=== PATIENT | female | born 1970 | race Caucasian/White ===

== ENCOUNTER 2017-12-14 16:43 | Emergency (ER) | payer OTHER, SELFPAY ==
[2017-12-14 16:44] VITALS: BP 158/96; PULSE 86; RESP 16; TEMP 36.4; O2SAT 97; BMI 39.2
--- NOTE | 2017-12-14 17:15 | RAD_ITS ---
STUDY: X-RAY - LEFT KNEE REASON FOR EXAM: Female, 47 years old. Knee pain after fall TECHNIQUE: 4 view(s) of the knee. COMPARISON: None. FINDINGS: Normal visualized distal femur. Normal visualized proximal tibia and fibula. Normal proximal tibiofibular articulation. There is mild degenerative arthrosis of the medial femorotibial compartment. Normal lateral femorotibial compartment. There is mild degenerative arthrosis of the patellofemoral articulation. Projecting over the posterior knee joint inferior and adjacent to the flabella there is a 7.5 mm slightly irregular calcific density. RAD/Knee 4 or More Views IMPRESSION: Degenerative changes. Indeterminate calcific density projecting over the posterior knee joint cannot entirely exclude a loose body. Electronically Signed: Carol Membreno MD at 18:24 EDT Tel , Service support ,
[2017-12-14] MEDS: Naproxen 500 MG Tablet PO (17:30)
--- NOTE | 2017-12-14 18:48 | ED.VISSUMM ---
- ER Visit Summary Date of Service: 12/14/17 Chief Complaint: Fall History of Present Illness: The patient is a 47 F who while at work slipped on a grate and fell from a standing position. She did hit her head on a metal basket and complains of pain at the right side of her head as well as a headache. However she denies loss of consciousness or amnesia. She is not anticoagulated. She has had no vomiting. No neck or back pain. She also complains of left knee pain. She has been able to bear weight. She denies paresthesias or weakness. Physical Examination: Afebrile vitals unremarkable Heart regular rate and rhythm Lungs are clear Abdomen soft Active full range of motion ?4 but does have left knee tenderness I do not appreciate significant effusion Test Results: Left knee x-ray shows degenerative changes and a calcific density posterior to the knee joint and a loose body cannot be excluded. Emergency Department Course and Treatment: Patient was given crutches and a knee immobilizer given abnormal x-ray and will be referred to orthopedics for follow-up. She was advised on rest ice and elevation. She was advised on anti-inflammatory use. She was discharged. Treatment Plan: [] Disposition: Discharge Impression: Left knee sprain, possible internal derangement This note was generated with [employer] dictation software. It may contain incorrect words, spelling, and punctuation that were not noted in review of the chart prior to signing ED Disposition - Plan for ED Patient: Chief Complaint: Fall Referrals: Jorge Joshi MD [Primary Care Provider] -
--- NOTE | 2017-12-14 18:50 | ED.DEP ---
ED Disposition - Plan for ED Patient: Chief Complaint: Fall Instructions: ED Mechanical Fall, ED Sprain Knee Referrals: Jorge Joshi MD [Primary Care Provider] - [facility] [GROUP OF PHYSICIANS] - Jerad Dickens MD [STAFF PHYSICIAN] -
[2017-12-14 19:20] VITALS: RESP 14
== END 2017-12-14 19:22 | disposition home or self-care (01) ==
LOC: ED 17:41
PROVIDERS: Emergency Provider Emergency Medicine; Family Provider Internal Medicine; PCP Internal Medicine
DX: S83.92XA Sprain of unspecified site of left knee, initial encounter (principal); W01.10XA Fall on same level from slipping, tripping and stumbling with subsequent striking against unspecified object, initial encounter; Y93.9 Activity, unspecified; Y92.89 Other specified places as the place of occurrence of the external cause; Y99.0 Civilian activity done for income or pay; M25.562 Pain in left knee; E11.9 Type 2 diabetes mellitus without complications; I10 Essential (primary) hypertension; Z79.899 Other long term (current) drug therapy; Z79.4 Long term (current) use of insulin
CPT/HCPCS: 73564; 99284

== ENCOUNTER → 2018-01-19 15:35 | Outpatient (CLI) | payer OTHER, SELFPAY ==
--- NOTE | 2018-01-19 15:36 | MRI_ITS ---
STUDY: MRI LEFT KNEE REASON FOR EXAM: Female, 47 years old. Pain TECHNIQUE: Standardized fat and water weighted pulse sequences were obtained in all 3 orthogonal planes. COMPARISON: X-ray 12/14/2017 FINDINGS: There is a small joint effusion (image 14/30 axial T2 fat sat). There is edema at the anterior subcutaneous fat (image 14/22 sagittal T2 fat sat). There is loss of articular cartilage at the patella about the apex (image 10/30 axial T2 fat-sat). There is focal osteochondral lesion of the distal femoral trochlear groove of the medial facet measuring approximately 0.5 cm in greatest dimension (image 15/38 sagittal proton-density). There are posterior joint bodies (image 16/38 sagittal proton-density, 17/30 axial T2 fat sat). There is mild periligamentous edema at the medial collateral ligament (image 15, 16, 17/30 coronal T2 fat sat). Normal medial meniscus. Normal hyaline cartilage of the medial femorotibial compartment. Normal medial femoral condyle and tibial plateau. Normal lateral meniscus. Normal hyaline cartilage of the lateral femorotibial compartment. Normal lateral femoral condyle and tibial plateau. Normal proximal tibiofibular articulation. Normal lateral collateral (fibular) ligament. Normal popliteus tendon. Normal biceps femoris tendon. Normal anterior cruciate ligament (ACL). Normal posterior cruciate ligament (PCL). Normal quadriceps tendon. Normal patellar tendon. Normal Hoffa's fat pad. MRI/Lower Ext Joint Only (Routine) IMPRESSION: Thinning of the patellar cartilage with focal osteochondral lesion of the distal femoral trochlear groove Medial collateral ligament sprain Joint effusion with posterior joint bodies Electronically Signed: Rafa Crouch MD at 22:01 EDT Tel , Service support ,
== END ==
PROVIDERS: Family Provider Internal Medicine; PCP Internal Medicine; Visit Provider Physician Assistant
DX: S83.92XA Sprain of unspecified site of left knee, initial encounter (principal); X58.XXXA Exposure to other specified factors, initial encounter; Y93.9 Activity, unspecified; Y92.9 Unspecified place or not applicable; Y99.9 Unspecified external cause status
CPT/HCPCS: 73721

== ENCOUNTER 2018-03-05 23:01 | Emergency (ER) | payer SELFPAY ==
[2018-03-05 23:02] VITALS: BP 143/97; PULSE 90; RESP 16; TEMP 36.7; O2SAT 99; BMI 37.8
--- NOTE | 2018-03-05 23:10 | ED.VISSUMM ---
- ER Visit Summary Date of Service: 03/05/18 Chief Complaint: Dental pain History of Present Illness: The patient is a 48 F presents to the emergency department dental pain. Patient had pain in her right lower jaw for the past month. She is actually scheduled to see dentistry on March 20. She states over the past week the pain is worsened but today, she began have some swelling in her right lower jaw. She denies any fevers or chills. She denies any trouble speaking or swallowing. Patient has not seen a dentist in some time. Physical Examination: Exam is relatively unremarkable. Posterior oropharynx is widely patent. There is no trismus or stridor. Submental space is soft. Patient has some widespread dental disease. There is evidence of focal abscess at tooth 29. Neck is supple. There is some right-sided lymphadenopathy that is nontender. Heart regular rate and rhythm. Lungs clear. Chest nontender. Abdomen soft nontender nondistended. Test Results: [] Emergency Department Course and Treatment: Patient has evidence of a dental abscess. There is no Ras angina. She has no trismus or stridor. The patient does not have health insurance. She is given a dose of Augmentin here and will be kept on penicillin as an outpatient. She will be given 2 days of analgesics. I did behavioral school counselors her that if her symptoms worsen she is to return. She is comfortable this plan of care and will be discharged home. Treatment Plan: [] Disposition: Discharge Impression: 1. Dental abscess tooth 29. This note was generated with [employer] dictation software. It may contain incorrect words, spelling, and punctuation that were not noted in review of the chart prior to signing ED Disposition - Plan for ED Patient: Chief Complaint: Other, Pain/Inj Instructions: ED Abscess Dental Prescriptions: Hydrocodone Bitart/Apap 5-325 [[place] 5MG-325MG] 1 tab PO Q6H PRN PRN 3 Days #7 tab PRN Reason: Pain Penicillin V Potassium 500 mg PO 4X/DAY #40 tab Referrals: Jorge Joshi MD [Primary Care Provider] -
--- NOTE | 2018-03-05 23:13 | ED.DCSUM_ITS ---
- ER Visit Summary Date of Service: 03/05/18 Chief Complaint: Dental pain History of Present Illness: The patient is a 48 F presents to the emergency department dental pain. Patient had pain in her right lower jaw for the past month. She is actually scheduled to see dentistry on March 20. She states over the past week the pain is worsened but today, she began have some swelling in her right lower jaw. She denies any fevers or chills. She denies any trouble speaking or swallowing. Patient has not seen a dentist in some time. Physical Examination: Exam is relatively unremarkable. Posterior oropharynx is widely patent. There is no trismus or stridor. Submental space is soft. Patient has some widespread dental disease. There is evidence of focal abscess at tooth 29. Neck is supple. There is some right-sided lymphadenopathy that is nontender. Heart regular rate and rhythm. Lungs clear. Chest nontender. Abdomen soft nontender nondistended. Test Results: [] Emergency Department Course and Treatment: Patient has evidence of a dental abscess. There is no Ras angina. She has no trismus or stridor. The patient does not have health insurance. She is given a dose of Augmentin here and will be kept on penicillin as an outpatient. She will be given 2 days of analgesics. I did assistant corporation counsel her that if her symptoms worsen she is to return. She is comfortable this plan of care and will be discharged home. Treatment Plan: [] Disposition: Discharge Impression: 1. Dental abscess tooth 29. This note was generated with [employer] dictation software. It may contain incorrect words, spelling, and punctuation that were not noted in review of the chart prior to signing ED Disposition - Plan for ED Patient: Chief Complaint: Other, Pain/Inj Instructions: ED Abscess Dental Prescriptions: Hydrocodone Bitart/Apap 5-325 [[place] 5MG-325MG] 1 tab PO Q6H PRN PRN 3 Days #7 tab PRN Reason: Pain Penicillin V Potassium 500 mg PO 4X/DAY #40 tab Referrals: Jorge Joshi MD [Primary Care Provider] -
[2018-03-05] MEDS: Amox/Clavulanate 875 MG Tablet PO (23:22)
[2018-03-05] MEDS: HYDROcodone Bitartrate/Apap 5/325 Tablet PO (23:25)
== END 2018-03-05 23:26 | disposition home or self-care (01) ==
LOC: ED 23:16
PROVIDERS: Emergency Provider Emergency Medicine; Family Provider Internal Medicine; PCP Internal Medicine
DX: K04.7 Periapical abscess without sinus (principal); E11.9 Type 2 diabetes mellitus without complications; Z79.4 Long term (current) use of insulin; Z79.899 Other long term (current) drug therapy
CPT/HCPCS: 99283

== ENCOUNTER 2019-03-25 21:10 | Emergency (ER) | payer OTHER, SELFPAY ==
[2019-03-25 21:11] VITALS: BP 154/97; PULSE 99; RESP 18; TEMP 36.3; O2SAT 95; BMI 36.6
--- NOTE | 2019-03-25 21:28 | ED.VIS.BACK ---
History of Present Illness Chief Complaint: Lower Extremity Injury Detail of Chief Complaint: Left lower back pain with posterior extremity pain Informant: Patient Onset: Days Context: Sudden Onset Injury: - - No history of injury Timing: Continuous Quality: Aching Location: Lumbar, Buttock, Left Leg Current Severity: Mild Maximum Severity: Moderate Relieved by: Nothing Associated Symptoms: Radiation to Left Leg, - - All other symptoms that were not highlighted are negative. She denies saddle paresthesia and anesthesia. She denies buckling of her knees going up or down steps. She denies foot drop. Narrative: Patient is a middle-age woman who presents with left lower back pain with radiation posteriorly to her ankle. Back pain started last week. Extremity pain started several days ago. She denies bowel or bladder dysfunction. No saddle paresthesia or anesthesia. She she denies foot drop. She denies quadricep weakness going up or down steps. She denies fever or chills. Prior similar symptoms: No Recent Illness/Hospitalization: No - Past Medical History (1) History of diabetes mellitus, type I Status: Acute Past Medical History - Allergies and Home Meds Allergies/Adverse Reactions: Allergies No Known Allergies Allergy (Verified 03/25/19 21:13) Primary Care Physician: Fazal Ford PA [Primary Care Provider] - Prior records reviewed: Yes - She of hypothyroidism Lives: Alone Smoking Status: Never smoker Alcohol: None Review of Systems General: Denies: Chills, Fever, Sweats Eyes: Denies: Visual changes - bilaterally, Diplopia ENT: Denies: Rhinorrhea, Sore throat Cardiovascular: Denies: Chest pain, Palpitations Respiratory: Denies: Dyspnea, Cough, Dyspnea on exertion Gastrointestinal: Denies: Abdominal pain, Nausea, Vomiting, Diarrhea, Melena, Hematochezia Genitourinary: Denies: Dysuria, Hematuria, Frequency Musculoskeletal: Reports: Back pain, Extremity Pain. Denies: Myalgias, Arthralgias, Neck pain, Swelling Skin: Denies: Rash, Wounds Neurological: Denies: Headache, Weakness, Numbness Hematologic: Denies: Easy bruising, Easy bleeding Physical Exam Vital Signs/Narrative: Vital Signs Temp Pulse Resp BP Pulse Ox 03/25/19 21:11 97.3 F L 99 18 154/97 H 95 Inital Vital Signs reviewed: Yes General: Well nourished, Well developed Head: Normocephalic, Atraumatic Eyes: Perrl, EOMI ENT: Moist mucous membranes, No rhinorrhea Neck: Supple, Nontender Cardiovascular: Regular rate, Regular rhythm, No murmurs Respiratory: No distress, CTA bilaterally, Chest nontender Abdomen: Soft, Nontender, Nondistended, Normal bowel sounds Back: Normal Inspection, Nontender Extremeties: Nontender, No edema Skin: Normal color, No rash Neuro: Alert, Oriented, Normal Strength - EHL is intact, Normal Sensation, Normal DTR, Normal Gait - Patient is able to walk on her heels and toes. Patient is able to perform 1 legged squat both right and left., Normal Reflexes - Patella and ankle reflexes are 1+ and symmetric. Reflexes: Negative for: Right Babinski, Left Achilles, Left Clonus, Left Babinski Psychological: Normal affect Diagnostic/Tx/Re-eval - Medical Decision Making Complaint of low back pain radicular pain positive straight leg test on the right with a negative crossover test and positive bowstring test suspect patient has herniated disc. She has no neurologic findings imaging is not emergently warranted or indicated. Since she drove herself to the emergency department she was given a prescription for opiate analgesia. NSAIDs were not given because she a diabetic with renal disease. ED Disposition - Plan for ED Patient: Disposition: Home or Assisted Living Diagnosis: Left-sided low back pain with sciatica Instructions: BACK PAIN w/ SCIATICA Prescriptions: Hydrocodone Bitart/Apap 5-325 [[place] 5MG-325MG] 1 tab PO Q6H PRN PRN 3 Days #10 tab PRN Reason: Pain Prescription Printed Referrals: Fazal Ford PA [Primary Care Provider] - 3-5 Days if not improving
[2019-03-25 21:50] VITALS: BP 145/101; PULSE 66; RESP 17
== END 2019-03-25 21:51 | disposition home or self-care (01) ==
PROVIDERS: Emergency Provider Emergency Medicine; Family Provider Physician Assistant; PCP Physician Assistant
DX: M54.42 Lumbago with sciatica, left side (principal); E10.9 Type 1 diabetes mellitus without complications; N28.9 Disorder of kidney and ureter, unspecified; Z79.4 Long term (current) use of insulin; Z79.899 Other long term (current) drug therapy
CPT/HCPCS: 99282

== ENCOUNTER 2020-08-13 13:59 | Observation (INO) | payer OTHER, SELFPAY ==
[2020-08-13] VITALS (8 sets, daily range): BP systolic 122–153; BP diastolic 81–104; PULSE 85–106; RESP 15–20; TEMP 36.4–36.9; O2SAT 93–99; BMI 37.8; BMI 37.9
--- NOTE | 2020-08-13 14:06 | EKG12_ITS ---
Test Reason : Blood Pressure : / mmHG Vent. Rate : 101 BPM Atrial Rate : 101 BPM P-R Int : 120 ms QRS Dur : 074 ms QT Int : 342 ms P-R-T Axes : 054 049 048 degrees QTc Int : 443 ms Sinus tachycardia Otherwise normal ECG Confirmed by DIPIKA EVANGELISTA, MARIA ELENA ([id number]), news video editor NORMA NGUYEN ([id number]) on 08/15/2020 2:02:02 PM Referred By: JOSE Confirmed By:RAJIV BAR MD
--- NOTE | 2020-08-13 14:22 | NURSING ---
NO OLD EKGS
--- NOTE | 2020-08-13 14:35 | ED.VISSUMM ---
- ER Visit Summary Date of Service: 08/13/20 Chief Complaint: Chest pain History of Present Illness: The patient is a 50 F presenting with chest pain, shortness of breath. Patient states that she walked to the mailbox today and started having midsternal chest pressure. She denies radiation of her pain. She was short of breath with these symptoms. She states over the past 3 to 4 days she has had chills, myalgias, diarrhea, nausea. She had a mild cough. She states her daughter recently tested positive for Covid. She is a smoker. She denies PE/DVT risk factors. She does not know her family history. Physical Examination: Vitals are stable. Patient is afebrile. Alert no acute distress. HEENT exam is unremarkable. Neck is supple. Lungs are clear and equal bilaterally. Heart is regular and tachycardic Abdomen is soft nontender nondistended. Extremities are unremarkable. Skin is warm and dry. No focal neurologic deficit. Remainder of exam is unremarkable. Emergency Department Course and Treatment: EKG is sinus tachycardia rate of 101. Chest x-ray shows minimal increased linear markings at the lung bases suggestive of linear atelectasis. CBC, chemistries unremarkable other than glucose 357. Troponin is negative. D-dimer negative. Patient is given IV fluids, Zofran, aspirin. Covid is negative. She is chest pain-free on reevaluation. Due to cardiac risk factors, discussed with hospitalist for observation. Disposition: Observation Impression: Chest pain This note was generated with [employer] dictation software. It may contain incorrect words, spelling, and punctuation that were not noted in review of the chart prior to signing ED Disposition - Plan for ED Patient: Referrals: Fazal Ford PA [Primary Care Provider] -
[2020-08-13] MEDS: Ondansetron 4 MG/2 ML Vial IV (15:05)
[2020-08-13] MEDS: 0.9% Normal Saline 1,000 ML 999 ML IV (15:06)
--- NOTE | 2020-08-13 15:10 | RAD_ITS ---
STUDY: X-RAY CHEST REASON FOR EXAM: Female, 50 years old. PT C/O CHEST PAIN AND SOB THAT STARTED WHILE WALKING OUT TO MAILBOX. SENT IN BY URGENT CARE. PT ALSO HAS COVID SYMPTOMS TECHNIQUE: Single AP portable view of the chest. COMPARISON: None. FINDINGS: EKG electrodes are seen. Minimal increased linear markings at the lung bases suggestive of lingular atelectasis. There is no demonstrated pleural abnormality. Normal size heart. Normal mediastinum and clinton. Normal visualized pulmonary arteries. Normal visualized aortic arch and descending thoracic aorta. Normal visualized thoracic spine. Normal visualized ribs, clavicles, and shoulders. There is no demonstrated abnormality of the visualized soft tissue structures of the upper abdomen. RAD/Chest 1 View (Portable) IMPRESSION: Minimal increased linear markings at the lung bases suggestive of linear atelectasis. Electronically Signed: Ramos Lewis, at 15:24 EST , Service support ,
[2020-08-13 15:25] LABS: Absolute Lymphocyte Count 1.89 X10^3/uL (0.83-4.51); Absolute Neutrophil Count 2.9 X10^3/uL (2.0-7.7); Basophil# 0.05 X10^3/uL; Basophil% 0.9 % (0-1); Eosinophil# 0.09 X10^3/uL; Eosinophils% 1.7 % (0-5); Hematocrit 42.2 % (37-47); Hemoglobin 14.2 g/dL (12.0-15.0); Lymphocyte # 1.89 X10^3/ul (4.0); Lymphocyte % 35.4 % (19-41); Mean Corp Hgb Conc 33.6 g/dL (32-36); Mean Corpuscular Hgb 29.2 pg (27.0-32.0); Mean Corpuscular Volume 86.7 fL (81-99); Mean Platelet Vol. 11.1 fl (6.2-12.0); Monocyte# 0.37 X10^3/uL; Monocyte% 6.9 % (0-10); NRBC Flagged by Analyzer 0 % (0-5); Neutrophil # 2.92 X10^3/uL (2.7-7.7); Neutrophil % 54.7 % (47-70); Platelet Count 216 K/mm3 (150-450); RBC Distribution Width CV 12.8 % (11.6-14.6); RBC Distribution Width SD 40.3 fl (35.1-43.9); Red Blood Count 4.87 M/mm3 (4.2-5.4); White Blood Count 5.3 K/mm3 (4.4-11.0)
[2020-08-13 15:49] LABS: Anion Gap 5 (5-15); BUN 14 mg/dL (7-18); BUN/Creat Ratio 16.5 RATIO (10-20); Chloride 106 mmol/L (98-107); Creatinine, Serum 0.85 mg/dL (0.55-1.02); EST Glomerular Filtration Rate 75 mL/min (>60); Est Glom Filt Rate - Afr Amer 91 mL/min (>60); Estimated Creatinine Clearance 55.61 ml/min; Glucose 357 mg/dL (74-106); Sodium Level 139 mmol/L (136-145)
[2020-08-13 15:55] LABS: D-Dimer Quantitative (DVT/PE) 0.36 FEU/ug/m (0.27-0.49)
--- NOTE | 2020-08-13 17:02 | NURSING ---
[address]
[2020-08-13] MEDS: Aspirin 325 MG Tablet PO (17:09)
--- NOTE | 2020-08-13 17:40 | EKG12_ITS ---
Test Reason : ADMISSION Blood Pressure : / mmHG Vent. Rate : 086 BPM Atrial Rate : 086 BPM P-R Int : 132 ms QRS Dur : 084 ms QT Int : 370 ms P-R-T Axes : 051 043 043 degrees QTc Int : 442 ms Normal sinus rhythm Normal ECG Confirmed by ZE EVANGELISTA, KUSHAL ([id number]), greeting card editor TABBY ASTUDILLO ([id number]) on 08/20/2020 1:15:05 PM Referred By: Confirmed By:KUSHAL KUNZ MD
--- NOTE | 2020-08-13 17:47 | PCM.HP.STD ---
Problem List (1) Chest pain Status: Acute (2) Diabetes Status: Chronic Qualifiers: Diabetes mellitus type: type 2 Diabetes mellitus complication status: with hyperglycemia (3) Hypothyroidism Status: Chronic (4) Nicotine abuse Status: Chronic (5) HTN (hypertension) Status: Chronic (6) HLD (hyperlipidemia) Status: Chronic (7) Obesity Status: Chronic History of Present Illness Date of Admission: 08/13/20 Chief Complaint: chest pain The patient is a 50 year old F with pmhx of DMt2, HTN, HLD, Nicotine abuse, obesity, hypothyroidism who presented to the ER with chest pain. [place] the [place] and developed a severe chest heaviness with associated SOB. It improved with rest. She then walked to the neighbors house to pay the rent and it became worse again. The pain radiated to her back, and she had associated nausea and lightheadedness. She drove to the ER. The pain persisted until about an hour ago while she was in the ER it started to go away. She states she still has some mild discomfort. She states she has never had anything like this. She has had intermittent headaches and cough this week. She has cut back on her smoking because of coughing. She was smoking a ppd and now is down to a pack per day. She has smoked since she was a teenager. She does not know her family hx as she was adopted. She has not had a stress test before and is not aware of heart or lung disease. [] Past Medical History Past Medical History (Chronic Problems): Chronic Problems (Last Reviewed 01/23/18 @ 16:28 by Leydi Chan) Diabetes (Chronic) Hypothyroidism (Chronic) Nicotine abuse (Chronic) HTN (hypertension) (Chronic) HLD (hyperlipidemia) (Chronic) Obesity (Chronic) Medical History: Medical History (Last Reviewed 01/23/18 @ 16:28 by Leydi Chan) Diabetes E11.9 Knee pain M25.569 Migraines G43.909 Thyroid disease E07.9 Toxemia in O14.90 Allergies No Known Allergies Allergy (Verified 08/13/20 14:00) Home Medications: Ambulatory Orders Medication Instructions Recorded Insulin Glargine,Hum.rec.anlog 25 unit SQ QHS 12/14/17 [Lantus] Atorvastatin Calcium [Lipitor] 20 mg PO DAILY 08/13/20 Dulaglutide [Trulicity] 1.5 mg SQ MO 08/13/20 Levothyroxine Sodium [Euthyrox] 50 mcg PO DAILY 08/13/20 Lisinopril [Zestril] 2.5 mg PO DAILY 08/13/20 Surgical History: Surgical History (Last Reviewed 01/23/18 @ 16:28 by Leydi Chan) Hx of breast reduction, elective Z98.890 Hx of section Z98.891 Surgical History: - - c section, breast reduction Psychiatric History: No pertinent psych hx [employer] History: No pertinent [employer] history Lives: Alone Smoking Status: Current every day smoker Tobacco Use: Cigarettes Alcohol: Occasional Drugs: None - *Family History Maternal History Items: - - family hx unknown due to being adopted. Review of Systems Constitutional: Denies: Chills, Fever, Weight Change HEENT: Denies: Head Aches, Sinus Congestion, Sinus Drainage Cardiovascular: Reports: Chest Pain, Heaviness, Light Headedness. Denies: Palpitations Respiratory: Reports: Cough, Shortness of Breath, Shortness of breath upon exertion. Denies: Shortness of breath at rest, Sputum production, Wheezing Gastrointestinal: Denies: Abdominal Pain, Dyspepsia, Nausea, Vomiting Genitourinary: Denies: Dysuria, Hesitancy, Urgency Musculoskeletal: Denies: Joint Pain, Joint Tenderness, Muscle pain Skin: Denies: Lesions, Rash, Wounds Neurological: Denies: Numbness, Tingling, Focal weakness Psychiatric: Denies: Anxiety, Depression, Homicidal Ideations, Suicidal Ideations Hematologic/ Lymphatic: Denies: Easy Bruising, Easy Bleeding VTE Information - Inpt Only VTE Present on Admission: No VTE Mechan Device Prophylaxis: None VTE Pharm Prophylaxis ordered?: Yes - Physical Exam Vitals/I&O's: Vital Signs Temp Pulse Resp BP Pulse Ox 98.4 F 90 17 145/99 H 97 08/13/20 17:30 08/13/20 17:39 08/13/20 17:30 08/13/20 17:30 08/13/20 17:30 Oxygen Delivery Method Room Air Weight: 194 lb 0.108 oz Body Mass Index (BMI) 37.8 Finger Stick Blood Glucose 191 Intake and Output for Last 24 Hours 08/11/20 08/12/20 08/13/20 23:59 23:59 23:59 Intake Total 1000 / 999 Balance 1000 / 1000 General: Alert, Oriented x3, Cooperative HEENT: Atraumatic, PERRLA, EOMI, Normocephalic Neck: Supple, No JVD, Negative Carotid Bruits Lungs: Clear to auscultation, Normal air movement Cardiovascular: Regular rate, No murmurs Abdomen: Bowel Sounds Present, Soft, Non Tender, Obese Extremities: No edema, Capillary Refill Less than 3 Seconds Skin: No rashes, No breakdown Musculoskeletal: No Tenderness to Palpation of Joints or Extremities Neurological: Cranial nerves II-XII grossly intact Psych/Mental Status: Normal Affect, Appropriate, Alert and oriented to time, place, person, mood and affect Microbiology Past 72 Hours 08/13/20 15:35 Mucosa - Nose SARS-CoV-2 Antigen (Rapid) - Final Laboratory Results 08/13/20 15:07: WBC 5.3, RBC 4.87, Hgb 14.2, Hct 42.2, MCV 86.7, MCH 29.2, MCHC 33.6, RDW Std Deviation 40.3, RDW Coeff of Dinesh 12.8, Plt Count 216, MPV 11.1, Immature Gran % (Auto) 0.400, Neut % (Auto) 54.7, Lymph % (Auto) 35.4, Sullivan % (Auto) 6.9, Eos % (Auto) 1.7, Baso % (Auto) 0.9, Absolute Neuts (auto) 2.9, Absolute Lymphs (auto) 1.89, Nucleated RBC % 0 08/13/20 15:07: Sodium 139, Potassium 4.0, Chloride 106, Carbon Dioxide 28.0, Anion Gap 5, BUN 14, Creatinine 0.85, Estim Creat Clear Calc 55.61, Est GFR (MDRD) Af Amer 91, Est GFR (MDRD) Non-Af 75, BUN/Creatinine Ratio 16.5, Glucose 357 H, Calcium 9.0, Troponin I < 0.015 08/13/20 15:07: D-Dimer Quant (PE/DVT) 0.36 Current Medications Aspirin (Aspirin 81 Mg Tab.Chew) 81 mg PO DAILY@0800 [facility] Atorvastatin Calcium (Atorvastatin Calcium 20 Mg Tablet) 20 mg PO DAILY [facility] Dextrose (Dextrose 50%-Water 25 Gm/50 Ml Disp.Syrin) 0 gm IV X1 PRN; Protocol PRN Reason: Hypoglycemia Enoxaparin Sodium (Enoxaparin 40 Mg/0.4 Ml Syringe) 40 mg SC DAILY [facility] Glucagon (Glucagon 1 Mg/Ml Syringe) 1 mg IM .X1 PRN PRN Reason: Hypoglycemia Insulin Human Lispro (Insulin Lispro 100 Unit/Ml Insuln.Pen) 0 unit SC ACHS [facility]; Protocol Levothyroxine Sodium (Levothyroxine 50 Mcg Tablet) 50 mcg PO DAILY [facility] Lisinopril (Lisinopril 2.5 Mg Tablet) 2.5 mg PO DAILY [facility] Morphine Sulfate (Morphine 2 Mg/Ml Syringe) 1 mg IV Q2H PRN PRN PRN Reason: Pain Score 6-10 Nitroglycerin (Nitroglycerin (Inpatient Use) 0.4 Mg Tab.Subl) 0.4 mg SUBLINGUAL Q5M PRN PRN Reason: CARDIAC/CHEST PAIN Non-Formulary Medication (Insulin Glargine,Hum.Rec.Anlog) 25 unit SQ QHS [facility] Oxycodone HCl (Oxycodone 5 Mg Tablet) 5 mg PO Q6H PRN PRN PRN Reason: Pain Score 6-10 Sodium Chloride (0.9% Saline Lock 10 Ml Syringe) 10 - 40 ml IV UD PRN PRN Reason: SALINE FLUSH Assessment/Plan All Active Problems (Last Reviewed 01/23/18 @ 16:28 by Leydi Chan) History of diabetes mellitus, type I (Acute) Chest pain (Acute) Sprain of left knee (Acute) 1. Chest pain - multiple risk factors - DMt2 (uncontrolled BS:357), HTN, HLD, heavy smoking hx, obesity, hx. Trop neg, EKG neg, CXR with some atelectasis, negative D dimer. Covid neg. Cycle enzymes, repeat EKG per protocol, stress test in AM. Mild tachy, check mag. 2. DMt2 with hyperglycemia and obesity - hold lantus, SSI ordered with accuchecks. Check A1C given significant hyperglycemia. Network Consultant consult. 3. HTN - lisinopril 4. HLD - statin, check AM FLP 5. Hypothyroidism - check tsh, continue synthroid 6. Nicotine abuse - recently, 1/2 ppd, formerly ppd, smoked off/on since teenager. DVT ppx: lovenox This patient was seen by Rodo Bradford PA-C under the supervision of Dr. Geronimo.
[2020-08-13] MEDS: Insulin Lispro 100 UNIT/ML INSULN.PEN SC ×2 (18:16→22:22)
[2020-08-13 18:52] LABS: Magnesium 2.1 mg/dL (1.6-2.6); Thyroid Stim Hormone (TSH) 6.43 uIU/mL (0.358-3.74)
[2020-08-13 18:59] LABS: Hemoglobin A1c 10.6 % (3.8-5.6)
[2020-08-13 21:21] LABS: Bedside Glucose 305 mg/dL (70-110)
[2020-08-13] MEDS: Atorvastatin Calcium 20 MG Tablet PO (22:22)
[2020-08-13 23:10] LABS: Bedside Glucose 331 mg/dL (70-110)
[2020-08-14 03:00] VITALS: PULSE 73
[2020-08-14 04:10] VITALS: BP 145/89; PULSE 86; RESP 18; TEMP 36.6; O2SAT 95
--- NOTE | 2020-08-14 05:55 | EKG12_ITS ---
Test Reason : AM EKG Blood Pressure : / mmHG Vent. Rate : 075 BPM Atrial Rate : 075 BPM P-R Int : 126 ms QRS Dur : 076 ms QT Int : 400 ms P-R-T Axes : 015 038 030 degrees QTc Int : 446 ms Normal sinus rhythm Low voltage QRS Borderline ECG Confirmed by ZE EVANGELISTA, KUSHAL ([id number]), field map editor TABBY ASTUDILLO ([id number]) on 08/20/2020 1:37:52 PM Referred By: FREDERIC Confirmed By:KUSHAL KUNZ MD
[2020-08-14 06:22] LABS: Cholesterol 123 mg/dL (200); High Density Lipoprotein 48 mg/dL; Triglycerides 80 mg/dL; Very Low Density Lipoprotein 16 mg/dL (5-40)
[2020-08-14 06:30] VITALS: BP 127/89; PULSE 77; RESP 18; TEMP 36.9; O2SAT 94
[2020-08-14] MEDS: Levothyroxine 50 MCG Tablet PO (06:33)
[2020-08-14] MEDS: Aspirin 81 MG TAB.CHEW PO (06:33)
[2020-08-14] MEDS: Lisinopril 2.5 MG Tablet PO (06:33)
[2020-08-14 06:45] LABS: Bedside Glucose 251 mg/dL (70-110)
[2020-08-14 06:47] VITALS: PULSE 80
[2020-08-14 07:49] LABS: T4 Free Direct 0.78 ng/dL (0.76-1.46)
[2020-08-14 10:19] VITALS: BP 146/81; PULSE 95; RESP 18; TEMP 36.9; O2SAT 96
[2020-08-14] MEDS: Insulin Lispro 100 UNIT/ML INSULN.PEN SC (11:20)
--- NOTE | 2020-08-14 11:44 | STRESSREP ---
Stress Test Report Date: 08/14/2020 Procedure: Exercise tolerance test/imaging study Indications: Chest pain Consent: Per the patient Procedure: The patient exercised on a To protocol for 6 minutes achieving a peak heart rate of 157 bpm (93% predicted maximal heart rate) with a peak blood pressure 154/90 mmHg and a peak MET capacity of 7 METs. The baseline ECG demonstrated normal sinus rhythm. The peak exercise ECG demonstrated sinus tachycardia with no significant ST-T changes. EKG during recovery revealed no significant ischemic ST-T changes [There were no cardiac dysrhythmias pretest, during exercise, or recovery]. The functional capacity was considered slightly decreased for age. There was [no complaint of chest discomfort during exercise or recovery]. The examination was discontinued secondary to dyspnea, leg discomfort. Impression: 1. Technically adequate (percent predicted maximal heart rate greater than 85%) exercise tolerance test 2. Stress test is negative for exercise-induced EKG changes of ischemia 3. The test test is negative for exercise-induced chest pain 4. Functional capacity is slightly decreased for age 5. Nuclear images pending Myocardial perfusion imaging study: Technique: The patient was injected with 14.3 mCi of technetium 99m Cardiolite and subsequently rest SPECT Cardiolite nuclear imaging was obtained in the horizontal long, vertical long, and short axis views. The patient exercised on a To protocol. Please see above for details. The patient was injected with 43.9 mCi of technetium 99m Cardiolite and subsequently stress SPECT Cardiolite nuclear imaging was obtained in the horizontal long, vertical long, and short axis views. A gated Cardiolite study at peak stress was obtained. Interpretation: Rest and stress SPECT Cardiolite nuclear imaging status post realignment, normalization, and attenuation correction, demonstrates normal myocardial radioisotope uptake. The gated Cardiolite study demonstrates no significant regional wall motion abnormalities. The reported LVEF is greater than 70%. Impression: 1. There is no evidence of significant ischemia or infarction. 2. The gated Cardiolite study reports an LVEF of greater than 70%. This note was generated with [employer] software. It may contain incorrect words, spelling, and punctuation that were not noted in checking the note before signing.
--- NOTE | 2020-08-14 11:59 | DCINST_ITS ---
- Discharge Diagnoses Current Active Problems: Current Active and Chronic Problems (Last Reviewed 01/23/18 @ 16:28 by Leydi Chan) Chest pain (Acute) Diabetes (Chronic) Hypothyroidism (Chronic) Nicotine abuse (Chronic) HTN (hypertension) (Chronic) HLD (hyperlipidemia) (Chronic) Obesity (Chronic) You will use the following diet at home:: Calorie/Carbohydrate Controlled (specify 1200, 1400, etc), Cardiac Discharge Activity: Return to Normal Activity Call your doctor if you observe: Shortness of breath, Dizziness, Fainting spells, Chest pain Allergies/Adverse Reactions: Allergies No Known Allergies Allergy (Verified 08/13/20 14:00) Medications to take at Discharge Insulin Glargine,Hum.rec.anlog [Lantus] 25 unit SQ QHS 12/14/17 Atorvastatin Calcium [Lipitor] 20 mg PO DAILY 08/13/20 Dulaglutide [Trulicity] 1.5 mg SQ MO 08/13/20 Levothyroxine Sodium [Euthyrox] 50 mcg PO DAILY 08/13/20 Lisinopril [Zestril] 2.5 mg PO DAILY 08/13/20 Primary Care Physician: Fazal Ford, PA [Primary Care Provider] - Please follow up with your Primary Care Physician in: 1 Week Test Results: Test results from this visit will be discussed in further detail at your follow- up appointment, if applicable.
[2020-08-14 12:01] LABS: Bedside Glucose 256 mg/dL (70-110)
--- NOTE | 2020-08-14 12:22 | PCM.DC.SUM ---
<Magali Maria PLASTERER APPRENTICE - Last Filed: 08/14/20 12:31> Discharge Date and Diagnosis - Problem List Patient Problems: Active and Suspected Problems (Last Reviewed 01/23/18 @ 16:28 by Leydi Chan) Chest pain (Acute) Date of Admission: 08/13/20 Date of Discharge: 08/14/20 - Primary Discharge Diagnosis Acute Problems: Active Problems (Last Reviewed 01/23/18 @ 16:28 by Leydi Chan) 1. Chest pain, ACS ruled out 2. Type 2 diabetes mellitus, poorly controlled 3. Hypertension 4. Hyperlipidemia 5. Hypothyroidism 6. Tobacco dependence - Secondary Discharge Diagnosis Chronic Problems: Chronic Problems (Last Reviewed 01/23/18 @ 16:28 by Leydi Chan) Diabetes (Chronic) Hypothyroidism (Chronic) Nicotine abuse (Chronic) HTN (hypertension) (Chronic) HLD (hyperlipidemia) (Chronic) Obesity (Chronic) Hospital Course and Treatment Imaging Results: Diagnostic Data Chest X-Ray 08/13/20 15:10 IMPRESSION: Minimal increased linear markings at the lung bases suggestive of linear atelectasis. Electronically Signed: Ramos Lewis, at 15:24 EST , Service support , Operations: None Procedures: Stress test Summary of Care Provided: The patient is a 50 year old F admitted 08/13/2020 due to chest pain. 1. Chest pain, ACS ruled out-troponin negative. Patient underwent nuclear stress test which was negative for ischemia. LVEF greater than 70%. D-dimer negative. Follow-up with PCP in 1 week. 2. Type 2 diabetes mellitus, poorly controlled-hemoglobin A1c 10.6%. Dietitian consulted for diabetes education. Patient is on Trulicity and Lantus. Recommend close follow-up with PCP for further adjustment and monitoring. 3. Hypertension-stable, continue lisinopril. 4. Hyperlipidemia-on statin. 5. Hypothyroidism-continue levothyroxine regimen. 6. Tobacco dependence-encouraged cessation. General: Alert, Oriented x3, Cooperative HEENT: Atraumatic, PERRLA, EOMI, Normocephalic Neck: Supple, No JVD, Negative Carotid Bruits Lungs: Clear to auscultation, Normal air movement Cardiovascular: Regular rate, No murmurs Abdomen: Bowel Sounds Present, Soft, Non Tender, Obese Extremities: No edema, Capillary Refill Less than 3 Seconds Skin: No rashes, No breakdown Musculoskeletal: No Tenderness to Palpation of Joints or Extremities Neurological: Cranial nerves II-XII grossly intact Psych/Mental Status: Normal Affect, Appropriate Patient seen and examined prior to discharge. Physical assessment as noted above. Patient is stable for discharge with follow up recommendations as noted above. This patient was seen by SHIRIN Servin under the supervision of Dr. Lang. Patient Problems: Active and Suspected Problems (Last Reviewed 01/23/18 @ 16:28 by Leydi Chan) Chest pain (Acute) - Physical Exam Vitals/I&O's: Vital Signs Temp Pulse Resp BP Pulse Ox 98.4 F 95 18 146/81 H 96 08/14/20 10:19 08/14/20 10:19 08/14/20 10:19 08/14/20 10:19 08/14/20 10:19 Oxygen Delivery Method Room Air Weight: 194 lb 0.108 oz Body Mass Index (BMI) 37.8 Finger Stick Blood Glucose 191 Intake and Output for Last 24 Hours 08/12/20 08/13/20 08/14/20 23:59 23:59 23:59 Intake Total 1000 / 1000 240 / 240 Balance 1000 / 1000 240 / 240 Microbiology Past 72 Hours 08/13/20 15:35 Mucosa - Nose SARS-CoV-2 Antigen (Rapid) - Final Laboratory Results 08/13/20 15:07: WBC 5.3, RBC 4.87, Hgb 14.2, Hct 42.2, MCV 86.7, MCH 29.2, MCHC 33.6, RDW Std Deviation 40.3, RDW Coeff of Dinesh 12.8, Plt Count 216, MPV 11.1, Immature Gran % (Auto) 0.400, Neut % (Auto) 54.7, Lymph % (Auto) 35.4, [place] % (Auto) 6.9, Eos % (Auto) 1.7, Baso % (Auto) 0.9, Absolute Neuts (auto) 2.9, Absolute Lymphs (auto) 1.89, Nucleated RBC % 0 08/13/20 15:07: Sodium 139, Potassium 4.0, Chloride 106, Carbon Dioxide 28.0, Anion Gap 5, BUN 14, Creatinine 0.85, Estim Creat Clear Calc 55.61, Est GFR (MDRD) Af Amer 91, Est GFR (MDRD) Non-Af 75, BUN/Creatinine Ratio 16.5, Glucose 357 H, Calcium 9.0, Troponin I < 0.015 08/13/20 15:07: D-Dimer Quant (PE/DVT) 0.36 08/13/20 15:07: Hemoglobin A1c 10.6 H 08/13/20 15:07: Magnesium 2.1, TSH 6.43 H 08/13/20 18:15: POC Glucose 305 H 08/13/20 18:34: Troponin I < 0.015 08/13/20 20:39: Troponin I < 0.015 08/13/20 22:20: POC Glucose 331 H 08/14/20 05:43: Triglycerides 80, Cholesterol 123, LDL Cholesterol 59, VLDL Cholesterol 16, HDL Cholesterol 48 08/14/20 05:43: Free T4 0.78 08/14/20 06:28: POC Glucose 251 H 08/14/20 11:19: POC Glucose 256 H Current Medications Aspirin (Aspirin 81 Mg Tab.Chew) 81 mg PO DAILY@0800 [facility] Last Admin: 08/14/20 06:33 Dose: 81 mg Documented by: Atorvastatin Calcium (Atorvastatin Calcium 20 Mg Tablet) 20 mg PO QHS [facility] Last Admin: 08/13/20 22:22 Dose: 20 mg Documented by: Dextrose (Dextrose 50%-Water 25 Gm/50 Ml Disp.Syrin) 0 gm IV X1 PRN; Protocol PRN Reason: Hypoglycemia Enoxaparin Sodium (Enoxaparin 40 Mg/0.4 Ml Syringe) 40 mg SC DAILY [facility] Glucagon (Glucagon 1 Mg/Ml Syringe) 1 mg IM .X1 PRN PRN Reason: Hypoglycemia Insulin Human Lispro (Insulin Lispro 100 Unit/Ml Insuln.Pen) 0 unit SC [facility]; Protocol Last Admin: 08/14/20 11:20 Dose: 3 units Documented by: Levothyroxine Sodium (Levothyroxine 50 Mcg Tablet) 50 mcg PO DAILY@0600 [facility] Last Admin: 08/14/20 06:33 Dose: 50 mcg Documented by: Lisinopril (Lisinopril 2.5 Mg Tablet) 2.5 mg PO DAILY [facility] Last Admin: 08/14/20 06:33 Dose: 2.5 mg Documented by: Morphine Sulfate (Morphine 2 Mg/Ml Syringe) 1 mg IV Q2H PRN PRN PRN Reason: Pain Score 6-10 Nicotine (Nicotine 21 Mg Patch) 21 mg TD DAILY [facility] Last Admin: 08/14/20 10:21 Dose: Not Given Documented by: Nitroglycerin (Nitroglycerin (Inpatient Use) 0.4 Mg Tab.Subl) 0.4 mg SUBLINGUAL Q5M PRN PRN Reason: CARDIAC/CHEST PAIN Ondansetron HCl (Ondansetron 4 Mg/2 Ml Vial) 4 mg IV Q6H PRN PRN PRN Reason: NAUSEA Oxycodone HCl (Oxycodone 5 Mg Tablet) 5 mg PO Q6H PRN PRN PRN Reason: Pain Score 6-10 Sodium Chloride (0.9% Saline Lock 10 Ml Syringe) 10 - 40 ml IV UD PRN PRN Reason: SALINE FLUSH Discharge Diet: Low fat/ Low Cholesterol, Carb Control Diet Discharge Activity: Return to Normal Activity Call your doctor if you observe: Shortness of breath, Dizziness, Fainting spells, Chest pain Home Medications: Medications to take at Discharge Insulin Glargine,Hum.rec.anlog [Lantus] 25 unit SQ QHS 12/14/17 Atorvastatin Calcium [Lipitor] 20 mg PO DAILY 08/13/20 Dulaglutide [Trulicity] 1.5 mg SQ MO 08/13/20 Levothyroxine Sodium [Euthyrox] 50 mcg PO DAILY 08/13/20 Lisinopril [Zestril] 2.5 mg PO DAILY 08/13/20 Aspirin [Aspirin, Baby] 81 mg PO DAILY@0800 tab.chew 08/14/20 Primary Care Physician: Fazal Ford, PA [Primary Care Provider] - Please follow up with your Primary Care Physician in: 1 Week Disposition: Home Minutes spent on discharge:: 35 Patient Condition:: Stable Medical Necessity - Tobacco Use Smoking Status: Current every day smoker Tobacco Use: Cigarettes Meaningful Use Info Meaningful Use Diagnoses (Choose all that apply): None applicable <Jasmin Lang - Last Filed: 08/14/20 16:13> Discharge Date and Diagnosis - Primary Discharge Diagnosis Acute Problems: Active Problems (Last Reviewed 01/23/18 @ 16:28 by Leydi Chan) Chest pain (Acute) - Secondary Discharge Diagnosis Chronic Problems: Chronic Problems (Last Reviewed 01/23/18 @ 16:28 by Leydi Chan) Diabetes (Chronic) Hypothyroidism (Chronic) Nicotine abuse (Chronic) HTN (hypertension) (Chronic) HLD (hyperlipidemia) (Chronic) Obesity (Chronic) Hospital Course and Treatment Summary of Care Provided: Patient seen by SHIRIN Servin under my supervision. The patient is a 50 year old F with a past medical history of hypertension, hyperlipidemia and type 2 diabetes mellitus as well as nicotine dependence. She was admitted through the ED on 08/13/2020 with a complaint of chest pain which was worsened by exertion and relieved by rest. Troponins x3 were negative and EKG showed no acute ST changes. She was admitted and managed for chest pain rule out ACS. She had a nuclear stress test on 08/14/2020 which was negative for ischemia. D-dimer was also negative. I did discuss with cardiology about patient's chest pain being very classic for chest pain of cardiac origin with any further work-up was needed. Per discussion with Dr. Juarez, since is the first time patient had had such chest pain, there was no need for any further work-up and patient counseled to return to the ED if chest pain recurred. Of note, patient's diabetes was very poorly controlled with an A1c of 10. Diabetes education was consulted and patient's Trulicity and Lantus were continued. She is to follow-up with her primary care doctor for adjustment of her diabetes medications as needed. Of note, she was also counseled to quit smoking. Patient seen and examined prior to discharge. She had no complaints and chest pain had not recurred since admission. Review of systems otherwise negative. Last vitals reviewed. Home medication reviewed and reconciled. O/E: Vital Signs Temp Pulse Resp BP Pulse Ox 98.4 F 95 18 146/81 H 96 08/14/20 10:19 08/14/20 10:19 08/14/20 10:19 08/14/20 10:19 08/14/20 10:19 [] General: Alert, Oriented x3, Cooperative HEENT: Atraumatic, PERRLA, EOMI, Normocephalic Neck: Supple, No JVD, Negative Carotid Bruits Lungs: Clear to auscultation, Normal air movement Cardiovascular: Regular rate, No murmurs Abdomen: Bowel Sounds Present, Soft, Non Tender, Obese Extremities: No edema, Capillary Refill Less than 3 Seconds Skin: No rashes, No breakdown Musculoskeletal: No Tenderness to Palpation of Joints or Extremities Neurological: Cranial nerves II-XII grossly intact Psych/Mental Status: Normal Affect, Appropriate Plan is to discharge patient home today. Rest as per Magali Maria NP-C's notes which I reviewed and endorsed. - Physical Exam Vitals/I&O's: Vital Signs Temp Pulse Resp BP Pulse Ox 98.4 F 95 18 146/81 H 96 08/14/20 10:19 08/14/20 10:19 08/14/20 10:19 08/14/20 10:19 08/14/20 10:19 Oxygen Delivery Method Room Air Weight: 194 lb 0.108 oz Body Mass Index (BMI) 37.8 Finger Stick Blood Glucose 191 Intake and Output for Last 24 Hours 08/12/20 08/13/20 08/14/20 23:59 23:59 23:59 Intake Total 1000 / 1000 240 / 240 Balance 1000 / 1000 240 / 240 Microbiology Past 72 Hours 08/13/20 15:35 Mucosa - Nose SARS-CoV-2 Antigen (Rapid) - Final Laboratory Results 08/13/20 15:07: Hemoglobin A1c 10.6 H 08/13/20 15:07: Magnesium 2.1, TSH 6.43 H 08/13/20 18:15: POC Glucose 305 H 08/13/20 18:34: Troponin I < 0.015 08/13/20 20:39: Troponin I < 0.015 08/13/20 22:20: POC Glucose 331 H 08/14/20 05:43: Triglycerides 80, Cholesterol 123, LDL Cholesterol 59, VLDL Cholesterol 16, HDL Cholesterol 48 08/14/20 05:43: Free T4 0.78 08/14/20 06:28: POC Glucose 251 H 08/14/20 11:19: POC Glucose 256 H OBSV E&M: [id number] Observation care discharge
== END 2020-08-14 11:59 | disposition home or self-care (01) ==
LOC: ED 15:39 → PCU 17:54
PROVIDERS: Physician Assistant; Admitting Provider Internal Medicine; Emergency Provider Emergency Medicine; PCP Physician Assistant; Visit Provider Student in an Organized Health Care Education/Training Program
DX: R07.89 Other chest pain (principal); R06.02 Shortness of breath; R00.0 Tachycardia, unspecified; I10 Essential (primary) hypertension; E78.5 Hyperlipidemia, unspecified; E66.9 Obesity, unspecified; E03.9 Hypothyroidism, unspecified; F17.210 Nicotine dependence, cigarettes, uncomplicated; E11.65 Type 2 diabetes mellitus with hyperglycemia; Z79.899 Other long term (current) drug therapy; Z79.4 Long term (current) use of insulin; Z68.37 Body mass index [BMI] 37.0-37.9, adult
CPT/HCPCS: 36415; 71045; 78452; 80048; 80061; 82962; 83036; 83735; 84439; 84443; 84484; 85025; 85379; 87426; 93005; 93017; 96361; 96374; 99218; 99285; A9500; J7030; A4216; G0378; J2405

== ENCOUNTER 2020-09-01 15:10 | Emergency (ER) | payer OTHER, SELFPAY ==
[2020-08-13 17:32] VITALS: BMI 37.8
[2020-09-01 15:11] VITALS: BP 140/85; PULSE 121; RESP 16; TEMP 36; O2SAT 95; BMI 36.8
--- NOTE | 2020-09-01 16:32 | ED.VIS.GEN ---
History of Present Illness Chief Complaint: Nausea/Vomiting Informant: Patient Onset: Days Context: Gradual Onset Timing: Continuous Current Severity: Moderate Maximum Severity: Moderate Narrative: The patient is a 50-year-old female with history of insulin-dependent diabetes that presents to the emergency department nausea, vomiting, and generalized weakness. Patient states that for the past 3 days, she is just had some generalized malaise. She states she is had multiple bouts of nausea and vomiting. She feels like she cannot keep anything down. She has not checked her sugar. She denies any recent sick contacts. She states that she has had some chills but denies any fever. She denies any urinary symptoms. She states she is just been generally ill. Prior similar symptoms: No Recent Illness/Hospitalization: No Past Medical History - Allergies and Home Meds Allergies/Adverse Reactions: Allergies No Known Allergies Allergy (Verified 08/13/20 14:00) Primary Care Physician: Fazal Ford PA [Primary Care Provider] - Prior records reviewed: Yes Past Medical History: - Surgical History: - - c section, breast reduction Smoking Status: Current every day smoker - Family History Maternal Family History: Reports: - - family hx unknown due to being adopted. Review of Systems ROS: - Insulin-dependent diabetes General: Denies: Chills, Fever, Sweats Eyes: Denies: Visual changes - bilaterally, Diplopia ENT: Denies: Rhinorrhea, Sore throat Cardiovascular: Denies: Chest pain, Palpitations Respiratory: Denies: Dyspnea, Cough, Dyspnea on exertion Gastrointestinal: Reports: Nausea, Vomiting. Denies: Abdominal pain, Diarrhea, Melena, Hematochezia Genitourinary: Denies: Dysuria, Hematuria, Frequency Musculoskeletal: Denies: Back pain, Extremity Pain Skin: Denies: Rash, Wounds Neurological: Denies: Headache, Weakness, Numbness Physical Exam Vital Signs/Narrative: Vital Signs Temp Pulse Resp BP Pulse Ox 09/01/20 15:11 96.8 F L 121 H 16 140/85 H 95 Inital Vital Signs reviewed: Yes General: Well nourished, Well developed, No Acute Distress Head: Normocephalic, Atraumatic Eyes: Perrl, EOMI ENT: Moist mucous membranes, No rhinorrhea Neck: Supple, Nontender Cardiovascular: Regular rate, Regular rhythm, No murmurs Respiratory: No distress, CTA bilaterally, Chest nontender Abdomen: Soft, Nontender, Nondistended, Normal bowel sounds Back: Nontender, Normal Inspection Extremities: Nontender, No edema Skin: Normal color, No rash Neurological: Alert, Oriented x3, Cranial nerves II-XII grossly intact, Normal Strength, Normal Sensation Psychological: Normal affect, Normal Mood Diagnostic/Tx/Re-eval Abnormal Lab Results 09/01/20 09/01/20 09/01/20 16:25 16:25 17:40 WBC 5.8 RBC 5.91 H Hgb 16.2 H Hct 49.2 H MCV 83.2 MCH 27.4 MCHC 32.9 RDW Std Deviation 39.9 RDW Coeff of Dinesh 13.1 Plt Count 182 MPV 10.6 Immature Gran % (Auto) 0.300 Neut % (Auto) 68.8 Lymph % (Auto) 17.2 L Clinton % (Auto) 11.2 H Eos % (Auto) 2.2 Baso % (Auto) 0.3 Absolute Neuts (auto) 4.0 Absolute Lymphs (auto) 1.00 Nucleated RBC % 0 Sodium 135 L Potassium 3.8 Chloride 103 Carbon Dioxide 20.0 L Anion Gap 12 BUN 12 Creatinine 0.68 Estim Creat Clear Calc 73.03 Est GFR (MDRD) Af Amer 116 Est GFR (MDRD) Non-Af 96 BUN/Creatinine Ratio 17.5 Glucose 253 H Calcium 8.9 Total Bilirubin 0.90 AST 16 ALT 27 Alkaline Phosphatase 136 H Total Protein 7.8 Albumin 3.6 Globulin 4.2 Albumin/Globulin Ratio 0.9 Lipase 57 L Urine Color Yellow Urine Clarity Clear Urine pH 5.0 Ur Specific Forreston 1.025 Urine Protein 30 H Urine Glucose (UA) 1000 H Urine Ketones 150 H Urine Occult Blood Negative Urine Nitrite Negative Urine Bilirubin Negative Urine Urobilinogen 4 H Ur Leukocyte Esterase 25 H Urine RBC 0 SEEN Urine WBC 0 SEEN Ur Squamous Epith Cells 0 SEEN Urine Bacteria 2+ Urine Mucus 1+ - Medical Decision Making Patient presents with generalized malaise, nausea, vomiting, diarrhea. She is a diabetic. IV was established. Labs were obtained. Labs are relatively unremarkable. Her bicarb is minimally decreased, but she has no anion gap. There is some scant urine ketones. She was given fluids and antiemetics. She is feeling improved. Her Covid was positive. I do feel this safely explains her symptoms. I do not feel that she is in DKA. On reevaluation, she has had no tachycardia or hypoxia. I do feel that she is safe for outpatient therapy. She will be continued on Zofran for symptom control. She was counseled on concerning symptoms and reasons to return. She will be discharged home. Impression 1. COVID-19 2. Nausea vomiting ED Disposition - Plan for ED Patient: Instructions: Coronavirus Disease 2019 (COVID-19): Overview, ED Vomiting and Diarrhea ... Prescriptions: Ondansetron [Zofran Odt] 4 mg PO Q8H PRN PRN #10 tab PRN Reason: Nausea Prescription Printed Referrals: Fazal Ford PA [Primary Care Provider] -
[2020-09-01] MEDS: 0.9% Normal Saline 1,000 ML 1000 ML IV ×2 (16:39→18:00)
[2020-09-01] MEDS: Ondansetron 4 MG/2 ML Vial IV (16:39)
[2020-09-01 16:49] LABS: Basophil# 0.02 X10^3/uL; Basophil% 0.3 % (0-1); Eosinophil# 0.13 X10^3/uL; Eosinophils% 2.2 % (0-5); Hematocrit 49.2 % (37-47); Hemoglobin 16.2 g/dL (12.0-15.0); Lymphocyte % 17.2 % (19-41); Mean Corp Hgb Conc 32.9 g/dL (32-36); Mean Corpuscular Hgb 27.4 pg (27.0-32.0); Mean Corpuscular Volume 83.2 fL (81-99); Mean Platelet Vol. 10.6 fl (6.2-12.0); Monocyte# 0.65 X10^3/uL; Monocyte% 11.2 % (0-10); NRBC Flagged by Analyzer 0 % (0-5); Neutrophil # 3.99 X10^3/uL (2.7-7.7); Neutrophil % 68.8 % (47-70); Platelet Count 182 K/mm3 (150-450); RBC Distribution Width CV 13.1 % (11.6-14.6); RBC Distribution Width SD 39.9 fl (35.1-43.9); Red Blood Count 5.91 M/mm3 (4.2-5.4); White Blood Count 5.8 K/mm3 (4.4-11.0)
[2020-09-01 16:59] LABS: ALB/GLOB Ratio 0.9 RATIO (0.9-2.4); AST(SGOT) 16 U/L (15-37); Alanine Aminotransfer ALT/SGPT 27 U/L (13-56); Albumin, Serum 3.6 g/dL (3.2-5.0); Alkaline Phosphatase 136 U/L (45-117); Anion Gap 12 (5-15); BUN 12 mg/dL (7-18); BUN/Creat Ratio 17.5 RATIO (10-20); Calcium,Total 8.9 mg/dL (8.5-10.1); Chloride 103 mmol/L (98-107); Creatinine, Serum 0.68 mg/dL (0.55-1.02); EST Glomerular Filtration Rate 96 mL/min (>60); Est Glom Filt Rate - Afr Amer 116 mL/min (>60); Estimated Creatinine Clearance 73.03 ml/min; Globulin 4.2 g/dL (2.2-4.2); Glucose 253 mg/dL (74-106); Lipase 57 U/L (73-393); Potassium 3.8 mmol/L (3.5-5.1); Protein, Total 7.8 g/dL (6.4-8.2); Sodium Level 135 mmol/L (136-145)
[2020-09-01 17:52] LABS: Red Blood Cells-Urine 0 SEEN /hpf (0-5); Squamous Epithelial Cells - UA 0 SEEN /hpf (5-10); White Blood Cells 0 SEEN /hpf (0-5)
[2020-09-01 18:11] VITALS: BP 154/90; PULSE 92; RESP 21; O2SAT 93
[2020-09-01 18:27] LABS: Color, Urine Yellow (Yellow); Glucose, Dipstick 1000 mg/dl (Normal); Ketone-Dipstick 150 mg/dl (Negative); Leukocyte Esterase-Dipstick 25 /ul (Negative); Nitrite-Dipstick Negative (Negative); Occult Blood-Urine Negative /ul (Negative); Protein-Dipstick 30 mg/dl (Negative); Specific Gravity, Urine 1.025 (1.002-1.030); Urine Bilirubin Dipstick Negative (Negative); Urine Clarity Clear (Clear); Urine Urobilinogen 4 mg/dl (Normal)
[2020-09-01 18:30] LABS: Bacteria 2+ /hpf (None Seen); Mucous, Urine 1+ /hpf (<or=2+)
--- NOTE | 2020-09-01 18:33 | ED.RN ---
DR NOTIFIED KETONES IN [id number]. NNO VOICED AT THIS TIME.
[2020-09-01 18:43] VITALS: BP 127/89; PULSE 96; RESP 19; O2SAT 96
== END 2020-09-01 19:20 | disposition home or self-care (01) ==
LOC: ED 16:53
PROVIDERS: Emergency Provider Emergency Medicine; PCP Physician Assistant
DX: U07.1 COVID-19 (principal); E11.9 Type 2 diabetes mellitus without complications; R11.2 Nausea with vomiting, unspecified; R19.7 Diarrhea, unspecified; Z79.82 Long term (current) use of aspirin; Z79.4 Long term (current) use of insulin; Z79.899 Other long term (current) drug therapy; F17.200 Nicotine dependence, unspecified, uncomplicated
CPT/HCPCS: 80053; 81001; 83690; 85025; 87426; 96361; 96374; 99284; J7030; A4216; J2405

== ENCOUNTER 2020-09-07 16:10 | Emergency (ER) | payer OTHER, SELFPAY ==
--- NOTE | 2020-09-07 16:13 | ED.DCSUM_ITS ---
History of Present Illness Chief Complaint: Weakness Informant: Patient Narrative: 50-year-old female with history of diabetes, hypothyroidism presenting with generalized weakness, shortness of breath. She states that she feels like her heart is racing. She states when she tries to ambulate she can only go short distances. She was diagnosed with Covid?19 on 01 September and she believes she is day 10 of symptoms. She had a low-grade fever of 100.2 this morning. No history of DVT/PE. She is not complaining of any significant chest pain. He does have cough and body aches. - Past Medical History (1) History of diabetes mellitus, type I Status: Chronic (2) HLD (hyperlipidemia) Status: Chronic (3) HTN (hypertension) Status: Chronic (4) Hypothyroidism Status: Chronic Past Medical History - Allergies and Home Meds Allergies/Adverse Reactions: Allergies No Known Allergies Allergy (Verified 09/07/20 16:26) Primary Care Physician: Fazal Ford PA [Primary Care Provider] - Prior records reviewed: Yes Past Medical History: - - Reviewed in problem list Surgical History: noncontributory, - - c section, breast reduction Lives: Alone Smoking Status: Former smoker - Family History Maternal Family History: Reports: - - family hx unknown due to being adopted. Review of Systems General: Reports: Fever, Malaise Eyes: Denies: Visual changes - bilaterally, Diplopia ENT: Denies: Rhinorrhea, Sore throat Cardiovascular: Reports: Palpitations, Heart racing Respiratory: Reports: Dyspnea, Cough, Dyspnea on exertion Gastrointestinal: Denies: Abdominal pain, Nausea, Vomiting Genitourinary: Denies: Dysuria, Hematuria Musculoskeletal: Reports: Myalgias. Denies: Arthralgias, Neck pain Skin: Denies: Rash, Abscess Neurological: Denies: Headache, Parasthesia, Numbness Psych: Denies: Depression, Anxiety Physical Exam Inital Vital Signs reviewed: Yes General: Obese, No Acute Distress Head: Normocephalic, Atraumatic Eyes: Perrl, EOMI. Negative for: Pale conjunctiva ENT: Negative for: No rhinorrhea, Nasal congestion Cardiovascular: Regular rhythm, Tachycardia Respiratory: No distress, Diminished - Right lung base Abdomen: Soft, Nontender, Nondistended Extremities: Nontender, No edema Skin: Normal color, No rash. Negative for: Cyanosis, Diaphoresis Neurological: Alert, Oriented x3, Cranial nerves II-XII grossly intact Psychological: Normal affect, Normal Mood Diagnostic/Tx/Re-eval Clinical Impression(s) from Imaging Studies Chest X-Ray 09/07/20 16:27 IMPRESSION: Bilateral basilar atelectasis/mild infiltrate. Electronically Signed: Enrique Pastor, at 17:36 EST Tel [phone], Service support , Chest CTA 09/07/20 16:29 IMPRESSION: No demonstrated pulmonary embolism or arterial dissection. Bilateral patchy pulmonary infiltrates. Electronically Signed: Enrique Pastor, at 18:08 EST Tel [phone], Service support , Laboratory Data 09/07/20 09/07/20 09/07/20 16:40 16:40 16:40 WBC 4.6 RBC 5.85 H Hgb 15.9 H Hct 47.3 H MCV 80.9 L MCH 27.2 MCHC 33.6 RDW Std Deviation 37.2 RDW Coeff of Dinesh 12.8 Plt Count 295 MPV 10.2 Immature Gran % (Auto) 0.900 Neut % (Auto) 55.6 Lymph % (Auto) 27.3 Braxton % (Auto) 14.0 H Eos % (Auto) 1.3 Baso % (Auto) 0.9 Absolute Neuts (auto) 2.6 Absolute Lymphs (auto) 1.25 Nucleated RBC % 0 Atypical Lymphocytes 1+ Sodium 137 Potassium 3.0 L Chloride 101 Carbon Dioxide 25.0 Anion Gap 11 BUN 8 Creatinine 0.70 Estim Creat Clear Calc 77.77 Est GFR (MDRD) Af Amer 114 Est GFR (MDRD) Non-Af 94 BUN/Creatinine Ratio 11.5 Glucose 192 H Lactic Acid 1.8 Calcium 8.8 Total Bilirubin 0.80 AST 13 L ALT 20 Alkaline Phosphatase 122 H Troponin I < 0.015 Total Protein 7.4 Albumin 3.1 L Globulin 4.3 H Albumin/Globulin Ratio 0.7 L Procalcitonin 09/07/20 16:40 WBC RBC Hgb Hct MCV MCH MCHC RDW Std Deviation RDW Coeff of Dinesh Plt Count MPV Immature Gran % (Auto) Neut % (Auto) Lymph % (Auto) Braxton % (Auto) Eos % (Auto) Baso % (Auto) Absolute Neuts (auto) Absolute Lymphs (auto) Nucleated RBC % Atypical Lymphocytes Sodium Potassium Chloride Carbon Dioxide Anion Gap BUN Creatinine Estim Creat Clear Calc Est GFR (MDRD) Af Amer Est GFR (MDRD) Non-Af BUN/Creatinine Ratio Glucose Lactic Acid Calcium Total Bilirubin AST ALT Alkaline Phosphatase Troponin I Total Protein Albumin Globulin Albumin/Globulin Ratio Procalcitonin 0.06 - Rhythm Strip Rhythm Strip: Sinus Rhythm Rate: 105 - EKG Initial EKG Interpretation: No Acute Injury Pattern, Sinus Tachycardia - Medical Decision Making 80-year-old female at 10 days of Covid infection. She states she feels short of breath with dyspnea on exertion. She does not wear home O2. Lab work here is fairly unremarkable. Troponin is negative. EKG is sinus tachycardia [address] elevation or depressions as interpreted by myself. Chest x-ray is interpreted by myself and the radiologist shows bibasilar infiltrates which is consistent with Covid?19 infection. CTA shows similar findings. At rest patient does not require O2 however when she is ambulated she desats to 88%. Given that she only requires oxygen I can set her up for oxygen at home tonight. She was amenable to this plan. I will also send her home on Decadron 6 mg p.o. daily for the next 9 days. She was given 1 dose in the ED tonight. She is counseled that she needs to monitor her blood sugars frequently as she is insulin-dependent diabetic. She is also counseled to follow-up with her primary care tomorrow so that he can closely monitor. She was counseled that if she has any new or worsening symptoms needed to come back to the ER she could come back at any time. She was amenable to this plan. Patient safe for discharge at this time. Impression: 1. Covid?19 pneumonia 2. Hypoxia ED Disposition - Plan for ED Patient: Disposition: Home or Assisted Living Instructions: Coronavirus Disease 2019 (COVID-19): Overview, Coronavirus D isease 2019 (COVID-19): Caring for Yourself or Others, Using Oxygen at Home, Preventing the Spread of Infection Understanding Isolation Procedures Prescriptions: Dexamethasone 6 mg PO DAILY #9 tab Transmission Status: Received by [id number] Referrals: Fazal Ford, PA [Primary Care Provider] -
[2020-09-07 16:14] VITALS: BP 150/94; PULSE 127; RESP 21; TEMP 36.8; O2SAT 92; BMI 32.6
[2020-09-07 16:27] VITALS: O2SAT 92
--- NOTE | 2020-09-07 16:27 | RAD_ITS ---
STUDY: X-RAY CHEST REASON FOR EXAM: Female, 50 years old. DAY 10 OF COVID, INCREASING WEAKNESS, N/V, DYSPNEA WITH EXERTION, PALPITATIONS, DIZZY TECHNIQUE: Frontal view COMPARISON: 08/13/2020 FINDINGS: The lungs are not fully expanded. Bilateral basilar atelectasis/mild infiltrate. Normal size heart. Normal mediastinum and clinton. Normal visualized pulmonary arteries. Normal visualized aortic arch and descending thoracic aorta. Normal visualized thoracic spine. Normal visualized ribs, clavicles, and shoulders. There is no demonstrated abnormality of the visualized soft tissue structures of the upper abdomen. RAD/Chest 1 View (Portable) IMPRESSION: Bilateral basilar atelectasis/mild infiltrate. Electronically Signed: Enrique Pastor DO at 17:36 EST Tel [phone], Service support ,
--- NOTE | 2020-09-07 16:27 | EKG12_ITS ---
Test Reason : CP/SOB Blood Pressure : / mmHG Vent. Rate : 105 BPM Atrial Rate : 105 BPM P-R Int : 130 ms QRS Dur : 080 ms QT Int : 362 ms P-R-T Axes : 029 019 028 degrees QTc Int : 478 ms Sinus tachycardia Otherwise normal ECG Confirmed by DIPIKA EVANGELISTA, MARIA ELENA ([id number]), editor magazine TABBY ASTUDILLO ([id number]) on 09/11/2020 10:20:43 AM Referred By: ЮЛИЯ Confirmed By:RAJIV BAR MD
--- NOTE | 2020-09-07 16:29 | CT_ITS ---
STUDY: CTA CHEST REASON FOR EXAM: Female, 50 years old. SOB, weakness, MORENO, COVID day 10, dizzy, nausea/vomiting. Hx diabetes, hypertension. RADIATION DOSAGE (If Supplied By Facility): CTDIvol = ( 9.49 ) mGy, DLP = ( 369.02 ) mGycm TECHNIQUE: The examination was performed with the intravenous administration of IV 100mL Isovue-370. Post-processing of the angiographic images was performed, with multiplanar reformation and 3D reconstruction. Individualized dose optimization techniques were used for this CT. COMPARISON: None. FINDINGS: Normal enhancement of the main pulmonary artery and right and left pulmonary arteries. Normal enhancement of the bilateral peripheral pulmonary arteries. There is no demonstrated pulmonary embolism. Normal thoracic aorta and visualized great vessels. There is no demonstrated aortic dissection. Normal heart and pericardium. Normal mediastinum. Normal hilar regions. Normal visualized trachea and bronchi. The lungs are well expanded. Bilateral patchy infiltrates. Normal chest wall structures. Normal osseous structures. Normal visualized upper abdomen. CT/CTA Chest W/WO Contrast IMPRESSION: No demonstrated pulmonary embolism or arterial dissection. Bilateral patchy pulmonary infiltrates. Electronically Signed: Enrique Pastor DO at 18:08 EST Tel [phone], Service support ,
[2020-09-07 16:47] VITALS: O2SAT 94
[2020-09-07 16:52] LABS: Absolute Lymphocyte Count 1.25 X10^3/uL (0.83-4.51); Absolute Neutrophil Count 2.6 X10^3/uL (2.0-7.7); Basophil# 0.04 X10^3/uL; Basophil% 0.9 % (0-1); Eosinophil# 0.06 X10^3/uL; Eosinophils% 1.3 % (0-5); Hematocrit 47.3 % (37-47); Hemoglobin 15.9 g/dL (12.0-15.0); Lymphocyte # 1.25 X10^3/ul (4.0); Lymphocyte % 27.3 % (19-41); Mean Corp Hgb Conc 33.6 g/dL (32-36); Mean Corpuscular Hgb 27.2 pg (27.0-32.0); Mean Corpuscular Volume 80.9 fL (81-99); Mean Platelet Vol. 10.2 fl (6.2-12.0); Monocyte# 0.64 X10^3/uL; NRBC Flagged by Analyzer 0 % (0-5); Neutrophil # 2.55 X10^3/uL (2.7-7.7); Neutrophil % 55.6 % (47-70); POSITIVE MORPHOLOGY YES; Platelet Count 295 K/mm3 (150-450); RBC Distribution Width CV 12.8 % (11.6-14.6); RBC Distribution Width SD 37.2 fl (35.1-43.9); Red Blood Count 5.85 M/mm3 (4.2-5.4); White Blood Count 4.6 K/mm3 (4.4-11.0)
[2020-09-07 16:58] LABS: Differential Indicated SCAN CRITERIA MET
[2020-09-07 17:13] LABS: Atypical Lymphocyte 1+ %
[2020-09-07 17:17] LABS: Lactic Acid 1.8 mmol/L (0.4-1.9)
[2020-09-07 17:19] LABS: ALB/GLOB Ratio 0.7 RATIO (0.9-2.4); AST(SGOT) 13 U/L (15-37); Alanine Aminotransfer ALT/SGPT 20 U/L (13-56); Albumin, Serum 3.1 g/dL (3.2-5.0); Alkaline Phosphatase 122 U/L (45-117); Anion Gap 11 (5-15); BUN 8 mg/dL (7-18); BUN/Creat Ratio 11.5 RATIO (10-20); Calcium,Total 8.8 mg/dL (8.5-10.1); Chloride 101 mmol/L (98-107); EST Glomerular Filtration Rate 94 mL/min (>60); Est Glom Filt Rate - Afr Amer 114 mL/min (>60); Estimated Creatinine Clearance 77.77 ml/min; Globulin 4.3 g/dL (2.2-4.2); Glucose 192 mg/dL (74-106); Protein, Total 7.4 g/dL (6.4-8.2); Sodium Level 137 mmol/L (136-145)
[2020-09-07 17:24] LABS: Procalcitonin 0.06 ng/mL (0.00-0.09)
[2020-09-07 18:20] VITALS: BP 123/82; PULSE 110; RESP 19; TEMP 36.6; O2SAT 97
[2020-09-07] MEDS: dexAMETHasone 10 MG/ML Vial 6 MG IV (20:05)
[2020-09-07 20:16] VITALS: BP 115/79; PULSE 104; RESP 24; O2SAT 97
== END 2020-09-07 20:16 | disposition home or self-care (01) ==
PROVIDERS: Emergency Provider Student in an Organized Health Care Education/Training Program; PCP Physician Assistant
DX: U07.1 COVID-19 (principal); J12.89 Other viral pneumonia; R09.02 Hypoxemia; E11.9 Type 2 diabetes mellitus without complications; I10 Essential (primary) hypertension; E03.9 Hypothyroidism, unspecified; E78.5 Hyperlipidemia, unspecified; E66.9 Obesity, unspecified; Z79.82 Long term (current) use of aspirin; Z79.4 Long term (current) use of insulin; Z79.899 Other long term (current) drug therapy; Z87.891 Personal history of nicotine dependence
CPT/HCPCS: 71045; 71275; 80053; 83605; 84145; 84484; 85025; 87040; 93005; 96361; 96374; 99285; J7030; Q9967; A4216

== ENCOUNTER 2021-02-07 09:16 | Emergency (ER) | payer OTHER, MEDICAID, SELFPAY ==
[2021-02-07 09:17] VITALS: BP 159/111; PULSE 105; RESP 16; TEMP 36.7; BMI 35.6
--- NOTE | 2021-02-07 09:38 | EKG12_ITS ---
Test Reason : Blood Pressure : / mmHG Vent. Rate : 090 BPM Atrial Rate : 090 BPM P-R Int : 148 ms QRS Dur : 072 ms QT Int : 360 ms P-R-T Axes : 044 034 024 degrees QTc Int : 440 ms Normal sinus rhythm Normal ECG Confirmed by BILLY EVANGELISTA, DENISE ([id number]), editor continuity and script TABBY ASTUDILLO ([id number]) on 02/10/2021 1:45:58 PM Referred By: SARAH Confirmed By:DENISE CERVANTES MD
--- NOTE | 2021-02-07 09:39 | EX.ED.UPPERE ---
HPI History of Present Illness Chief Complaint: Upper Extremity Injury Detail of Chief Complaint: Left arm pain that started last evening Informant: patient Onset/Context/Timing Quality of Pain: Sharp, Dull and Aching Maximum Severity: Severe Narrative Narrative: Patient presents with left arm pain that started last evening. Initially she just noticed some soreness when she moved it certain ways. Patient states that she had been carrying her grandson around yesterday. She denies any falls or injuries otherwise. She denies chest pain or shortness of breath. This morning she had worse pain and had a hard time changing the grandsons diaper and pulling her pants up because of the pain. Patient also became nauseated and vomited several times which she attributes to an increase in her Trulicity dose yesterday. Patient states sometimes that makes her nauseated. Also she is not sure if the pain caused her to become nauseated and vomit. Patient does have history of diabetes and hypertension as well as high cholesterol. She has no heart history. [facility] Medical History (Updated 02/07/21 @ 10:[address] Harmony Dickinson, ) Diabetes Knee pain Migraines Thyroid disease Toxemia in Home Medications insulin glargine 25 unit SQ QHS 12/14/17 [History Last Taken 08/12/20] atorvastatin 20 mg PO DAILY 08/13/20 [History Last Taken 08/13/20] dulaglutide 3 mg SQ MO 08/13/20 [History Last Taken 08/11/20] levothyroxine 88 mcg PO DAILY 08/13/20 [History Last Taken 08/13/20] lisinopril 2.5 mg PO DAILY 08/13/20 [History Last Taken 08/13/20] aspirin 81 mg PO DAILY@0800 tab.chew 08/14/20 [Rx Last Taken Unknown] ondansetron 4 mg PO Q8H PRN PRN #10 tab 09/01/20 [Rx Last Taken Unknown] hydrocodone-acetaminophen 1 tab PO Q4H PRN PRN 2 Days #10 tablet 02/07/21 [Rx Last Taken Unknown] naproxen 500 mg PO BID #14 tab 02/07/21 [Rx Last Taken Unknown] Allergy/AdvReac Type Severity Reaction Status Date / Time No Known Allergies Allergy Verified 02/07/21 09:17 Surgical History Hx of breast reduction, elective Hx of section Social History (Updated 01/23/18 @ 16:57 by Rafa Vázquez PA, PA) Smoking Status: Former smoker alcohol intake: never ROS ROS ED Constitutional Constitutional ED: Reports systems reviewed and no addt'l complaints, except as documented; Denies body ache(s), change in weight or chills Eyes Eyes: Denies acute decrease in peripheral vision, change in vision, double vision or loss of vision ENT ENT ED: Reports none; Denies ear pain, lip swelling, loss taste/smell, neck pain, otalgia or sore throat Cardiovascular Cardiovascular: Reports none; Denies abdominal pain, chest pain with activity, leg edema, lightheadedness, palpitations, rapid heart rate or syncope Respiratory/Chest Respiratory/Chest: Reports none; Denies change in mental status, dry cough, dyspnea, hemoptysis, shortness of breath at rest or shortness of breath with exertion Gastrointestinal Gastrointestinal: Reports none, nausea and vomiting; Denies abdominal pain, change in stool character, diarrhea, hematemesis, hematochezia, melena or rectal bleeding Genitourinary Genitourinary ED: Reports none; Denies abdominal discomfort, anuria, dysuria, genital pain or polyuria Musculoskeletal Musculoskeletal: Reports none and other Details: Left arm pain ; Denies arthralgias, back pain, difficulty walking, extremity pain, muscle weakness or myalgias Integumentary Reports none; Denies abscess or rash Neurologic Neurologic: Reports none; Denies abnormal gait, confusion, focal weakness, frequent falls, headache(s), loss of vision, numbness, paresthesias, radicular pain, vertigo or weakness Psychiatric Psychiatric: Reports systems reviewed and no addt'l complaints, except as documented and none; Denies behavioral changes, confusion, difficulty concentrating, hallucinations, suicidal ideation, tactile hallucinations or visual hallucinations Endocrine Endocrinology: Denies none, cold intolerance, excessive sweating, fatigue or heat intolerance Hematologic/Lymphatic Hematologic/Lymphatic: Reports none; Denies anemia, easy bleeding or easy bruising Allergic/Immunologic Allergic/Immunologic ED: Denies as per HPI, none, lip swelling, mouth swelling, throat swelling, tongue swelling or hives EXAM Physical Exam Const Vital Signs: 02/07/21 09:17 Temperature 98.0 F Temperature Source Temporal Pulse Rate 105 H Respiratory Rate 16 Blood Pressure 159/111 H Blood Pressure Mean 127 Positive well nourished and well developed General Appearance ED: well developed and NAD HEENT Reports TM's clear and moist mucous membranes normocephalic and atraumatic; Negative for trauma or tenderness Tympanic Membrane ED: Yes TM's clear Eyes PERRL and EOMs intact bilaterally General Eye ED: Negative for pale conjunctiva or scleral icterus Neck no lymphadenopathy, supple and no JVD General: Negative for tenderness Chest Wall inspection of chest normal and palpation of chest normal Chest: Negative for tenderness Resp normal respiratory effort and clear to auscultation bilaterally Effort and Inspection: Negative for respiratory distress or pain with movement Auscultation: Negative for rhonchi, wheezes or diminished lung sounds Cardio regular rate, regular rhythm, S1 normal heart sound, S2 normal heart sound and no murmurs Peripheral Pulses: pulses 2+ throughout GI normal to inspection, nondistended, normoactive bowel sounds, soft to palpation, non-tender, non-distended and no masses Back/Spine no CVA tenderness and no thoracic nor lumbar tenderness Extremity Extremity Narrative: Evaluation of the left arm reveals some tenderness palpation over the bicep of the left arm that seems to reproduce her pain. There is no erythema or warmth. There is no edema. She is neurovascularly intact distally. She has normal range of motion in her digits. She has normal strength. No tenderness over the elbow or shoulder. General Extremety ED: Negative for edema General Extremity: Negative for edema Neuro oriented x3, CN's II-XII intact bilaterally, no sensory deficits noted and gait normal Sensorium / Orientation: awake, alert, oriented to person, oriented to place and oriented to time Motor Exam: strength 5/5 throughout and strength abnormal Psych mental status grossly normal Skin no rashes or lesions noted and no wounds MDM MDM MDM Narrative Medical decision making narrative: EKG obtained was normal. At this point I do not feel any imaging is indicated. Patient has had no trauma to the arm. The arm is not edematous and without any evidence of DVT clinically. Patient does not have risk factors for DVT. Pain is reproducible and I suspect this pain is likely muscle strain. EKG Initial EKG: Comments: Sinus rhythm with a ventricular rate of 90 bpm with no acute ST segment changes. Discharge Plan Triage Chief Complaint: Upper Extremity Injury ED Provider: Ungur,Remus Dx/Rx/DC Orders Clinical Impression: Arm pain, left, Muscle strain Instructions: ED Pain, Acute, Uncertain Cause, ED Muscle Strain, Extremity Prescriptions: New hydrocodone-acetaminophen [hydrocodone-acetaminophen] 1 TABLET tablet 1 tab PO Q4H PRN PRN (Reason: Pain) 2 Days Qty: 10 RF: 0 naproxen 500 MG tablet 500 mg PO BID Qty: 14 RF: 0 No Action insulin glargine 100 UNIT/ML solution 25 unit SQ QHS RF: 0 atorvastatin 20 MG tablet 20 mg PO DAILY RF: 0 lisinopril 2.5 MG tablet 2.5 mg PO DAILY RF: 0 dulaglutide 1.5 MG/0.5 ML pen injector 3 mg SQ MO RF: 0 levothyroxine 50 MCG tablet 88 mcg PO DAILY RF: 0 aspirin 81 MG tablet,chewable 81 mg PO DAILY@0800 RF: 0 ondansetron 4 MG tablet 4 mg PO Q8H PRN PRN (Reason: Nausea) Qty: 10 RF: 0 Primary Care Provider: Fazal Ford Referrals: Fazal Ford PA [Primary Care Provider] - 5-7 Days Disposition Disposition: Home, self care
[2021-02-07] MEDS: Ondansetron ODT 4 MG Tablet PO (09:45)
[2021-02-07 10:47] VITALS: BP 152/90; PULSE 98; RESP 17
== END 2021-02-07 10:49 | disposition home or self-care (01) ==
PROVIDERS: Emergency Provider Emergency Medicine; PCP Physician Assistant
DX: M79.602 Pain in left arm (principal); R11.2 Nausea with vomiting, unspecified; E11.9 Type 2 diabetes mellitus without complications; E78.00 Pure hypercholesterolemia, unspecified; I10 Essential (primary) hypertension; Z87.891 Personal history of nicotine dependence; Z79.82 Long term (current) use of aspirin; Z79.4 Long term (current) use of insulin; Z79.899 Other long term (current) drug therapy
CPT/HCPCS: 93005; 99283

== ENCOUNTER 2021-05-04 15:22 | Emergency (ER) | payer OTHER, MEDICAID, SELFPAY ==
[2021-05-04 15:25] VITALS: BP 144/86; PULSE 124; RESP 16; TEMP 36.9; O2SAT 97; BMI 38.7
--- NOTE | 2021-05-04 15:27 | EKG12_ITS ---
Test Reason : CP Blood Pressure : / mmHG Vent. Rate : 109 BPM Atrial Rate : 109 BPM P-R Int : 118 ms QRS Dur : 084 ms QT Int : 326 ms P-R-T Axes : 044 026 031 degrees QTc Int : 439 ms Sinus tachycardia Otherwise normal ECG Confirmed by DENISE CERVANTES MD ([id number]), international editorial producer TABBY ASTUDILLO ([id number]) on 05/07/2021 10:21:28 AM Referred By: MAURICIO
[2021-05-04 15:50] LABS: Absolute Neutrophil Count 4.4 X10^3/uL (2.0-7.7); Basophil# 0.05 X10^3/uL; Basophil% 0.7 % (0-1); Eosinophil# 0.04 X10^3/uL; Eosinophils% 0.6 % (0-5); Hematocrit 51.7 % (37-47); Lymphocyte % 23.9 % (19-41); Mean Corp Hgb Conc 32.9 g/dL (32-36); Mean Corpuscular Hgb 28.2 pg (27.0-32.0); Mean Corpuscular Volume 85.9 fL (81-99); NRBC Flagged by Analyzer 0 % (0-5); Neutrophil # 4.38 X10^3/uL (2.7-7.7); Neutrophil % 65.5 % (47-70); Platelet Count 197 K/mm3 (150-450); RBC Distribution Width SD 40.1 fl (35.1-43.9); Red Blood Count 6.02 M/mm3 (4.2-5.4); White Blood Count 6.7 K/mm3 (4.4-11.0)
[2021-05-04 15:53] VITALS: O2SAT 95
--- NOTE | 2021-05-04 16:00 | RAD_ITS ---
INDICATION: chest pain EXAMINATION/TECHNIQUE: X-RAY - XR Chest 1 View COMPARISON: None. FINDINGS: The lungs are clear. Left basilar atelectasis. The cardiomediastinal silhouette is unremarkable. No pleural effusion or pneumothorax. No acute osseous abnormalities. RAD/Chest 1 View (Portable) IMPRESSION: No acute radiographic abnormalities. Electronically Signed: Markel Mcdaniel MD at 16:16 EDT Tel , Service support ,
[2021-05-04 16:11] LABS: Anion Gap 6 (5-15); BUN 12 mg/dL (7-18); BUN/Creat Ratio 14.6 RATIO (10-20); Chloride 104 mmol/L (98-107); Creatinine, Serum 0.82 mg/dL (0.55-1.02); EST Glomerular Filtration Rate 77 mL/min (>60); Est Glom Filt Rate - Afr Amer 93 mL/min (>60); Estimated Creatinine Clearance 56.99 ml/min; Glucose 410 mg/dL (74-106); Potassium 4.1 mmol/L (3.5-5.1); Sodium Level 136 mmol/L (136-145); Troponin-I HS 5 pg/mL (3.0-54.0)
[2021-05-04] MEDS: Ketorolac 15 MG/ML Vial IV (16:26)
--- NOTE | 2021-05-04 16:27 | ED.VIS.CHEST ---
HPI History of Present Illness Chief Complaint: Chest Pain Informant: patient Narrative Narrative: Patient is a 51-year-old female with a past medical history of diabetes, hypertension, hyperlipidemia, hypothyroidism who presents to the emergency department for left-sided chest pain and shortness of breath. She states that it started yesterday. The shortness of breath has resolved but the pain is still present. She currently rates as a 6 out of 10. She has not taken anything for it. Taking a deep breath and and pushing on the area makes it worse. She denies any history of DVT/PE, heart attack. She denies any cough. She states that this did feel similar to whenever she had Covid back in August. She has not had any abdominal pain. She did feel slightly nauseous. No fevers or chills. Patient is a former smoker. [facility] Medical History (Updated 05/04/21 @ 18:[address] Sundar Rogers DO) Diabetes Knee pain Migraines Thyroid disease Toxemia in Home Medications atorvastatin 20 mg PO DAILY 08/13/20 [History Last Taken 08/13/20] levothyroxine 88 mcg PO DAILY 08/13/20 [History Last Taken 08/13/20] lisinopril 2.5 mg PO DAILY 08/13/20 [History Last Taken 08/13/20] dulaglutide [Trulicity] 3 mg SUBCUT QWEEK 05/04/21 [History Last Taken Unknown] Allergy/AdvReac Type Severity Reaction Status Date / Time No Known Allergies Allergy Verified 05/04/21 15:27 Surgical History Hx of breast reduction, elective Hx of section Social History Smoking Status: Former smoker alcohol intake: never ROS ROS ED Constitutional Constitutional ED: Denies chills or fever(s) Eyes Eyes: Denies change in vision ENT ENT ED: Denies epistaxis or rhinorrhea Cardiovascular Cardiovascular: Reports chest pain; Denies palpitations Respiratory/Chest Respiratory/Chest: Reports dyspnea; Denies cough or sputum Gastrointestinal Gastrointestinal: Reports nausea; Denies abdominal pain, diarrhea or vomiting Genitourinary Genitourinary ED: Denies dysuria, hematuria or urinary frequency Musculoskeletal Musculoskeletal: Denies back pain or neck pain Integumentary Denies rash Neurologic Neurologic: Denies dizziness, headache(s) or weakness EXAM Physical Exam Const Vital Signs: 05/04/21 15:25 05/04/21 15:53 05/04/21 16:44 Temperature 98.4 F Temperature Source Temporal Pulse Rate 124 H 99 Respiratory Rate 16 14 Respiratory Effort Short of Breath Blood Pressure 144/86 H Blood Pressure Mean 105 Pulse Ox 97 95 96 Oxygen Delivery Method Room Air Room Air Room Air 05/04/21 17:00 05/04/21 18:09 Temperature Temperature Source Pulse Rate 98 98 Respiratory Rate 19 H 15 Respiratory Effort Blood Pressure 130/92 H 140/96 H Blood Pressure Mean 104 Pulse Ox 96 96 Oxygen Delivery Method Room Air Positive well nourished and well developed General Appearance ED: well developed and NAD HEENT Reports normocephalic and head/scalp atraumatic Eyes PERRL and EOMs intact bilaterally Neck supple Chest Wall Chest Narrative: Tenderness over left chest wall with palpation. Resp normal respiratory effort and clear to auscultation bilaterally Auscultation: Negative for rales, rhonchi or wheezes Cardio regular rhythm and no murmurs Rate: other Other Details: Borderline tachycardic GI normal to inspection, nondistended, normoactive bowel sounds and non-tender Palpation: soft; Negative for guarding or rebound tenderness present Back/Spine no CVA tenderness Extremity normal to inspection General Extremety ED: Negative for edema or tenderness General Extremity: Negative for edema Neuro Sensorium / Orientation: alert Motor Exam: strength 5/5 throughout Psych mental status grossly normal Skin no rashes or lesions noted Heart Score History: Slightly/Non-Suspicious ECG: Normal Age: >45 - <65 years Risk Factors: >/= 3 Risk Factors or History of CAD Score: 3 MDM MDM MDM Narrative Medical decision making narrative: Patient presents the ED for chest pain and shortness of breath. It is pleuritic. It is reproducible on physical exam with palpation. On arrival she is tachycardic into the 10/05 but satting well on room air. Heart rate has come down without any treatment. Cardiac work-up being performed as well as D-dimer test. She has no PE risk factors except distant history of Covid. Patient's heart rate returned to normal after the Toradol and the pain subsided. Her glucose is very elevated at 410. No signs of DKA. Her troponin is not elevated and was repeated and did not change. Her D-dimer test is negative. I believe that this is most likely musculoskeletal/costochondritis as it was reproducible and resolved with Toradol. Low concern for ACS, thromboembolism, aortic catastrophe. She is to follow-up with her PCP. Patient will likely require medication adjustments for her hyperglycemia which she will need to discuss with her PCP. All questions otherwise were answered. Lab Data Labs: Laboratory Results - last 24 hr 05/04/21 05/04/21 05/04/21 15:30 15:30 16:29 WBC 6.7 RBC 6.02 H Hgb 17.0 H Hct 51.7 H MCV 85.9 MCH 28.2 MCHC 32.9 RDW Std Deviation 40.1 RDW Coeff of Dinesh 13.0 Plt Count 197 MPV 11.0 Immature Gran % (Auto) 0.300 Neut % (Auto) 65.5 Lymph % (Auto) 23.9 [place] % (Auto) 9.0 Eos % (Auto) 0.6 Baso % (Auto) 0.7 Absolute Neuts (auto) 4.4 Absolute Lymphs (auto) 1.60 Nucleated RBC % 0 D-Dimer Quant (PE/DVT) < 0.27 L Sodium 136 Potassium 4.1 Chloride 104 Carbon Dioxide 26.0 Anion Gap 6 BUN 12 Creatinine 0.82 Estim Creat Clear Calc 56.99 Est GFR (MDRD) Af Amer 93 Est GFR (MDRD) Non-Af 77 BUN/Creatinine Ratio 14.6 Glucose 410 H Calcium 9.0 Troponin I High Sens 5 05/04/21 17:30 WBC RBC Hgb Hct MCV MCH MCHC RDW Std Deviation RDW Coeff of Dinesh Plt Count MPV Immature Gran % (Auto) Neut % (Auto) Lymph % (Auto) [place] % (Auto) Eos % (Auto) Baso % (Auto) Absolute Neuts (auto) Absolute Lymphs (auto) Nucleated RBC % D-Dimer Quant (PE/DVT) Sodium Potassium Chloride Carbon Dioxide Anion Gap BUN Creatinine Estim Creat Clear Calc Est GFR (MDRD) Af Amer Est GFR (MDRD) Non-Af BUN/Creatinine Ratio Glucose Calcium Troponin I High Sens 6 Radiography Diagnostic Testing: Radiology Impression Chest X-Ray 05/04/21 16:00 IMPRESSION: No acute radiographic abnormalities. Electronically Signed: Markel Mcdaniel MD at 16:16 EDT Tel , Service support , EKG Initial EKG: Attestation: I personally reviewed and interpreted this EKG as follows: (Rate of 109 bpm in sinus tachycardia. Normal intervals. Normal axis. No significant ST elevations or depressions. No T wave abnormalities.) Discharge Plan Triage Chief Complaint: Chest Pain ED Provider: Sundar Rogers Dx/Rx/DC Orders Clinical Impression: Chest pain Instructions: ED Chest Pain, Noncardiac Prescriptions: No Action atorvastatin 20 MG tablet 20 mg PO DAILY RF: 0 lisinopril 2.5 MG tablet 2.5 mg PO DAILY RF: 0 levothyroxine 50 MCG tablet 88 mcg PO DAILY RF: 0 Trulicity 3 mg/0.5 mL Pen Injector 3 mg SUBCUT QWEEK RF: 0 Primary Care Provider: Fazal Ford Referrals: Fazal Ford, NELLY [Primary Care Provider] - 3-5 Days Disposition Disposition: Home, Self Care Discharge Date/Time: 05/04/21 18:19
[2021-05-04 16:44] VITALS: PULSE 99; RESP 14; O2SAT 96
[2021-05-04 16:48] LABS: D-Dimer Quantitative (DVT/PE) < 0.27 FEU/ug/m (0.27-0.49)
[2021-05-04 17:00] VITALS: BP 130/92; PULSE 98; RESP 19; O2SAT 96
[2021-05-04 18:00] LABS: Troponin-I HS 6 pg/mL (3.0-54.0)
[2021-05-04 18:09] VITALS: BP 140/96; PULSE 98; RESP 15; O2SAT 96
== END 2021-05-04 18:19 | disposition home or self-care (01) ==
PROVIDERS: Emergency Provider Emergency Medicine; PCP Physician Assistant
DX: R07.9 Chest pain, unspecified (principal); R06.02 Shortness of breath; E11.65 Type 2 diabetes mellitus with hyperglycemia; I10 Essential (primary) hypertension; E78.5 Hyperlipidemia, unspecified; E03.9 Hypothyroidism, unspecified; Z79.84 Long term (current) use of oral hypoglycemic drugs; Z79.890 Hormone replacement therapy; Z79.899 Other long term (current) drug therapy; Z86.16 Personal history of COVID-19; Z87.891 Personal history of nicotine dependence
CPT/HCPCS: 71045; 80048; 84484; 85025; 85379; 93005; 96374; 99284; A4216

== ENCOUNTER 2021-07-14 19:28 | Emergency (ER) | payer OTHER, MEDICAID, SELFPAY ==
[2021-07-14 19:29] VITALS: BP 156/101; PULSE 89; RESP 16; TEMP 36.8; O2SAT 96; BMI 37.5
--- NOTE | 2021-07-14 19:35 | CT_ITS ---
STUDY: CT BRAIN WITHOUT CONTRAST REASON FOR EXAM: Female, 51 years old. FALL RADIATION DOSAGE (If Supplied By Facility): CTDIvol = ( 44.99 ) mGy, DLP = ( 779.24 ) mGycm TECHNIQUE: Transaxial CT imaging of the brain was performed without administration of intravenous contrast material. Individualized dose optimization techniques were used for this CT. COMPARISON: No relevant priors. FINDINGS: Normal soft tissue structures. Normal calvarium. Normal size ventricles and extra-axial spaces for the patient''s age. Mild periventricular white matter ischemic changes.. Normal basal ganglia and thalami. Normal brainstem. Normal cerebellum. There is no intracranial hemorrhage. There are no findings of an acute ischemic infarction. Minor mucosal thickening of the right maxillary sinus. CT/Brain/Head without Contrast IMPRESSION: Mild periventricular white matter ischemic changes. No evidence for acute intracranial bleed. Electronically Signed: Davide ePrry MD at 19:52 EDT , Service support ,
--- NOTE | 2021-07-14 19:40 | RAD_ITS ---
STUDY: X-RAY - RIGHT ANKLE REASON FOR EXAM: Female, 51 years old. INJURY TECHNIQUE: 3 view(s) of the ankle. COMPARISON: None. FINDINGS: Normal visualized distal tibia and fibula. Normal medial and lateral malleoli. Normal tibiotalar articulation and ankle mortise. Normal visualized talus. Moderate sized plantar calcaneal spur. The visualized subtalar, talonavicular, calcaneocuboid and tarsal articulations are normal. The soft tissue structures are unremarkable. RAD/Ankle min 3 Views IMPRESSION: No acute fracture or dislocation Electronically Signed: Davide Perry MD at 19:54 EDT , Service support ,
[2021-07-14 20:45] VITALS: TEMP 37
[2021-07-14] MEDS: Ondansetron ODT 4 MG Tablet PO (21:16)
--- NOTE | 2021-07-14 21:38 | EDS_ITS ---
HPI History of Present Illness Chief Complaint: Head Injury Informant: patient Narrative Narrative: Patient was going into the shower. She pulled the curtain back. Her cat was in there and jumped out. That scared her making her fall back. She twisted her right ankle and did hit her head. No loss of consciousness. However afterwards she vomited once and intermittently still feels slightly nauseated. No neurologic symptoms. No neck pain. No numbness tingling or weakness. Nothing specifically makes this better or worse. The ankle does get sore with palpation. [facility] Medical History (Updated 07/14/21 @ 21:[address] Jeremiah Heath MD) Diabetes Knee pain Migraines Thyroid disease Toxemia in Home Medications atorvastatin 20 mg PO DAILY 08/13/20 [History Last Taken 08/13/20] levothyroxine 88 mcg PO DAILY 08/13/20 [History Last Taken 08/13/20] lisinopril 2.5 mg PO DAILY 08/13/20 [History Last Taken 08/13/20] dulaglutide [Trulicity] 3 mg SUBCUT QWEEK 05/04/21 [History Last Taken Unknown] Allergy/AdvReac Type Severity Reaction Status Date / Time No Known Allergies Allergy Verified 07/14/21 20:42 Surgical History Hx of breast reduction, elective Hx of section Social History Smoking Status: Former smoker alcohol intake: never ROS ROS ED Constitutional Constitutional ED: Denies fever(s) Eyes Eyes: Denies blurry vision or change in vision ENT ENT ED: Denies rhinorrhea Cardiovascular Cardiovascular: Denies chest pain or palpitations Respiratory/Chest Respiratory/Chest: Denies dyspnea Gastrointestinal Gastrointestinal: Reports nausea and vomiting; Denies abdominal pain, constipation, diarrhea or melena Genitourinary Genitourinary ED: Denies hematuria Musculoskeletal Musculoskeletal: Reports arthralgias and other Details: See history of present illness. ; Denies back pain, myalgias or neck pain Integumentary Denies Abrasions Neurologic Neurologic: Reports headache(s) Hematologic/Lymphatic Hematologic/Lymphatic: Denies easy bleeding or easy bruising Allergic/Immunologic Allergic/Immunologic ED: Denies urticaria EXAM Physical Exam Const Vital Signs: 07/14/21 19:29 07/14/21 20:45 Temperature 98.2 F 98.6 F Temperature Source Temporal Pulse Rate 89 Respiratory Rate 16 Respiratory Effort Normal Respiratory Depth Normal Blood Pressure 156/101 H Blood Pressure Mean 119 Pulse Ox 96 Oxygen Delivery Method Room Air Room Air Positive well nourished and well developed General Appearance ED: well developed and NAD HEENT HEENT Narrative: I do not find any areas of trauma. No abrasions or contusions at this time. atraumatic; Negative for trauma or tenderness Eyes PERRL and EOMs intact bilaterally Neck full ROM General: Negative for tenderness Chest Wall palpation of chest normal Resp normal respiratory effort Auscultation: Negative for rales, rhonchi or wheezes Cardio regular rhythm Rate: regular rate GI normal to inspection, nondistended, normoactive bowel sounds and non-tender Palpation: soft Back/Spine normal to inspection Extremity Extremity Narrative: Patient does have some mild nonfocal tenderness around her right ankle. No deformity. No tenderness calcaneus or fifth metatarsal. No proximal leg tenderness. Ankle is stable to inversion eversion and drawer. Neuro oriented x3 Sensorium / Orientation: alert Psych mental status grossly normal Skin no rashes or lesions noted MDM MDM MDM Narrative Medical decision making narrative: CT scan of the head and ankle x-ray showed no acute process. She will be placed in a splint. Ice rest [id number] meds. We discussed reasons to return and expected outcome and course. Radiography Diagnostic Testing: Clinical Impression(s) from Imaging Studies Brain CT 07/14/21 19:35 IMPRESSION: Mild periventricular white matter ischemic changes. No evidence for acute intracranial bleed. Electronically Signed: Davide Perry MD at 19:52 EDT , Service support , Ankle X-Ray 07/14/21 19:40 IMPRESSION: No acute fracture or dislocation Electronically Signed: Davide Perry MD at 19:54 EDT , Service support , Discharge Plan Triage Chief Complaint: Head Injury ED Provider: Jeremiah Heath Dx/Rx/DC Orders Clinical Impression: CHI (closed head injury), Fall from slipping, Injury of right ankle Instructions: ED Head Injury (Adult), ED Ankle Sprain (Adult) Prescriptions: No Action atorvastatin 20 MG tablet 20 mg PO DAILY RF: 0 lisinopril 2.5 MG tablet 2.5 mg PO DAILY RF: 0 levothyroxine 50 MCG tablet 88 mcg PO DAILY RF: 0 Trulicity 3 mg/0.5 mL Pen Injector 3 mg SUBCUT QWEEK RF: 0 Primary Care Provider: Fazal Ford Referrals: Fazal Ford, PA [Primary Care Provider] - 1 Week if not improving Disposition Disposition: Home, Self Care
[2021-07-14 21:49] VITALS: BP 136/65; PULSE 88; RESP 16; TEMP 37.2; O2SAT 98
== END 2021-07-14 21:58 | disposition home or self-care (01) ==
PROVIDERS: Emergency Provider Emergency Medicine; PCP Physician Assistant
DX: S09.90XA Unspecified injury of head, initial encounter (principal); S99.911A Unspecified injury of right ankle, initial encounter; W01.10XA Fall on same level from slipping, tripping and stumbling with subsequent striking against unspecified object, initial encounter; Y93.E1 Activity, personal bathing and showering; Y92.002 Bathroom of unspecified non-institutional (private) residence as the place of occurrence of the external cause; Y99.9 Unspecified external cause status; E11.9 Type 2 diabetes mellitus without complications; E07.9 Disorder of thyroid, unspecified; Z79.84 Long term (current) use of oral hypoglycemic drugs; Z79.890 Hormone replacement therapy; Z79.899 Other long term (current) drug therapy; Z87.891 Personal history of nicotine dependence
CPT/HCPCS: 70450; 73610; 99283

== ENCOUNTER 2021-09-19 17:46 | Emergency (ER) | payer OTHER, MEDICAID, SELFPAY ==
[2021-09-19 17:47] VITALS: BP 164/108; PULSE 118; RESP 14; TEMP 37.2; O2SAT 100; BMI 37.4
--- NOTE | 2021-09-19 18:08 | EX.ED.DYSGE1 ---
HPI History of Present Illness Chief Complaint: General Illness Informant: patient Onset/Context/Timing Onset: Today Context: Gradual Onset Timing: Continuous Current Severity: Mild Maximum Severity: Mild Narrative Narrative: 51-year-old female history of type 2 diabetes, hypothyroidism and hypertension. She recently had Covid in August 2020 21-year ago. Questions if she may have had it again today. States that she had a sore throat cough and phlegm. Chills and a temperature of 100.1 at home. Nausea without vomiting. Mild diarrhea. Denies any hemoptysis. Prior similar symptoms: Yes Recent Illness/[facility]ospital[facility]: [facility] Medical History (Updated 09/19/21 @ 19:[address] Michael Rollins MD) Diabetes Knee pain Migraines Thyroid disease Toxemia in Home Medications atorvastatin 20 mg PO DAILY 08/13/20 [History Last Taken 08/13/20] levothyroxine 88 mcg PO DAILY 08/13/20 [History Last Taken 08/13/20] lisinopril 2.5 mg PO DAILY 08/13/20 [History Last Taken 08/13/20] dulaglutide [Trulicity] 3 mg SUBCUT QWEEK 05/04/21 [History Last Taken Unknown] ondansetron 4 mg PO Q8H PRN #10 tab 07/14/21 [Rx Last Taken Unknown] Allergy/AdvReac Type Severity Reaction Status Date / Time No Known Allergies Allergy Verified 09/19/21 17:47 Surgical History Hx of breast reduction, elective Hx of section Social History Smoking Status: Former smoker alcohol intake: never ROS ROS ED ROS Narrative Cough, fever and chills, sore throat. Review of Systems ROS Unobtainable: Denies due to encephalopathy Constitutional Constitutional ED: Reports chills, fever(s) and subjective Eyes Eyes: Denies change in vision ENT ENT ED: Reports sore throat; Denies ear pain Cardiovascular Cardiovascular: Denies chest pain Respiratory/Chest Respiratory/Chest: Reports cough; Denies dyspnea Gastrointestinal Gastrointestinal: Reports diarrhea and nausea; Denies abdominal pain or vomiting Genitourinary Genitourinary ED: Denies dysuria Musculoskeletal Musculoskeletal: Reports myalgias Integumentary Denies rash Neurologic Neurologic: Denies headache(s) Psychiatric Psychiatric: Denies depression Endocrine Endocrinology: Denies polyuria Allergic/Immunologic Allergic/Immunologic ED: Denies urticaria EXAM Physical Exam Narrative Exam Narrative: Middle-aged female no acute distress. Vital signs stable and afebrile here. Does not look septic or toxic. Pulse ox 100% on room air no signs hypoxia. HEENT exam unremarkable. Moist mucous membranes. Neck nontender no lymphadenopathy. Lungs clear to auscultation bilaterally. Heart regular rhythm no murmur. Abdomen soft nontender. Moving all 4 extremities. Calves are nontender without edema or cords. Neurologically she is awake and alert. Const Vital Signs: 09/19/21 17:47 09/19/21 18:10 Temperature 98.9 F Temperature Source Temporal Pulse Rate 118 H Respiratory Rate 14 Blood Pressure 164/108 H 160/93 H Blood Pressure Mean 126 115 Pulse Ox 100 Oxygen Delivery Method Room Air Positive well nourished, well developed and obese; Negative for cachectic, contractures or unkempt General Appearance ED: well developed and NAD; Negative for unkempt, cachectic, contractures, cyanotic, diaphoretic or pallor Nutritional Appearance: obese; Negative for cachectic HEENT Reports moist mucous membranes Negative for trauma or tenderness Eyes PERRL and EOMs intact bilaterally Neck no lymphadenopathy, supple and no JVD General: Negative for tenderness Chest Wall inspection of chest normal and palpation of chest normal Resp normal respiratory effort and clear to auscultation bilaterally Effort and Inspection: Negative for pain with movement Auscultation: Negative for rales, rhonchi or wheezes Cardio regular rate, regular rhythm, S1 normal heart sound, S2 normal heart sound and no murmurs GI normal to inspection, nondistended, normoactive bowel sounds, non-tender, non-distended and no masses Inspection: Negative for abdominal distention Auscultation: normoactive bowel sounds Palpation: soft; Negative for tender, guarding or rebound tenderness present Back/Spine no CVA tenderness General Back: Negative for CVA tenderness Cervical Spine: Negative for cervical spine tenderness Thoracic Spine / Upper Back: Negative for thoracic spinal tenderness Extremity normal to inspection General Extremety ED: Negative for edema or tenderness General Extremity: Negative for edema Neuro oriented x3 and CN's II-XII intact bilaterally Sensorium / Orientation: alert; Negative for orientation impaired, lethargic or stuporous Motor Exam: strength 5/5 throughout Psych mental status grossly normal Appearance: Negative for unkempt Mood & Affect: Negative for depressed or tearful Skin no rashes or lesions noted and no wounds General Skin Exam: Negative for jaundice or pallor MDM MDM MDM Narrative Medical decision making narrative: 51-year-old female with URI symptoms. Will obtain a Covid test and a chest x-ray. Her exam is benign. He does not look septic nor toxic. Repeat exam unchanged at 745. Should be discharged home. Patient is clinically stable as are vital signs and all think she needs to be on any steroids at this time. I also think at this time she needs to be treated with monoclonal antibody therapy. If she gets worse that could be a consideration. Lab Data Attestation: I reviewed the patient's lab results. Lab results narrative: Rapid Covid antigen test is positive. Radiography Chest X-Ray - ED: 1 View, Read by ED Physician, Heart, Lungs, Mediastinum, Bony Structures and No Acute Disease Diagnostic Testing: Portable chest x-ray shows no acute abnormality. Single view interpreted by myself. Normal cardiac silhouette. No infiltrates. Discharge Plan Triage Chief Complaint: General Illness ED Provider: Michael Rollins Dx/Rx/DC Orders Clinical Impression: COVID-19 Instructions: Human Coronaviruses Prescriptions: No Action atorvastatin 20 MG tablet 20 mg PO DAILY RF: 0 lisinopril 2.5 MG tablet 2.5 mg PO DAILY RF: 0 levothyroxine 50 MCG tablet 88 mcg PO DAILY RF: 0 Trulicity 3 mg/0.5 mL Pen Injector 3 mg SUBCUT QWEEK RF: 0 ondansetron 4 mg tablet,disintegrating 4 mg PO Q8H PRN (Reason: nausea and vomiting) Qty: 10 RF: 0 Primary Care Provider: Fazal Ford Referrals: Fazal Ford PA [Primary Care Provider] - 1 Week if not improving Activity Restrictions/Additional Instructions: Plenty of fluids and rest. Motrin and Tylenol for body aches and fevers. Follow-up with your primary care physician if not improving or return if feeling worse. At this time I do not think you need to be placed on steroids. If you worsen we may want to consider monoclonal antibody therapy that would be have to be done within the first 10 days of your illness. I do not think you need those currently. Disposition Disposition: Home, Self Care
[2021-09-19 18:10] VITALS: BP 160/93
--- NOTE | 2021-09-19 18:16 | RAD_ITS ---
STUDY: X-RAY CHEST REASON FOR EXAM: Female, 51 years old. Cough TECHNIQUE: Frontal view COMPARISON: 05/04/2021. FINDINGS: The lungs are expanded. Right basilar atelectasis. Normal size heart. Normal mediastinum and clinton. Normal visualized pulmonary arteries. Normal visualized aortic arch and descending thoracic aorta. Normal visualized thoracic spine. Normal visualized ribs, clavicles, and shoulders. There is no demonstrated abnormality of the visualized soft tissue structures of the upper abdomen. RAD/Chest 1 View (Portable) IMPRESSION: Right basilar atelectasis. Electronically Signed: Enrique Pastor DO at 21:03 EST Tel [phone], Service support ,
== END 2021-09-19 19:53 | disposition home or self-care (01) ==
PROVIDERS: Emergency Provider Emergency Medicine; PCP Physician Assistant; Visit Provider Emergency Medicine
DX: U07.1 COVID-19 (principal); E11.9 Type 2 diabetes mellitus without complications; I10 Essential (primary) hypertension; Z87.891 Personal history of nicotine dependence; Z79.899 Other long term (current) drug therapy; E66.9 Obesity, unspecified; Z68.37 Body mass index [BMI] 37.0-37.9, adult
CPT/HCPCS: 71045; 87426; 99282

== ENCOUNTER 2022-02-14 15:09 | Emergency (ER) | payer OTHER, MEDICAID, SELFPAY ==
[2022-02-14 15:10] VITALS: BP 145/89; PULSE 90; RESP 18; TEMP 36.6; O2SAT 97; BMI 38.9
--- NOTE | 2022-02-14 15:22 | EKG12_ITS ---
Test Reason : DIZZINESS Blood Pressure : / mmHG Vent. Rate : 087 BPM Atrial Rate : 087 BPM P-R Int : 134 ms QRS Dur : 074 ms QT Int : 378 ms P-R-T Axes : 048 031 040 degrees QTc Int : 454 ms Normal sinus rhythm Normal ECG Confirmed by ZE EVANGELISTA, KUSHAL ([id number]), photo editor TABBY ASTUDILLO ([id number]) on 02/18/2022 8:59:54 AM Referred By: PC Confirmed By:KUSHAL KUNZ MD
--- NOTE | 2022-02-14 15:24 | EX.ED.DYSGE1 ---
HPI History of Present Illness Chief Complaint: Dizziness Narrative Narrative: Patient donated plasma today, she felt lightheaded afterwards she went home and when she got into the house she felt really lightheaded she felt like she was going to pass out so she sat down on the floor and then she passed out she woke up soon afterwards and her neighbor called EMS. No head injury. From what I gather this was a very brief loss of consciousness and rapid for recovery. Patient is denying any palpitations no chest pain. Per paramedics her blood sugar was over 400. [facility] Medical History (Updated 02/14/22 @ 16:[address] Rock Johnson MD) Diabetes Knee pain Migraines Thyroid disease Toxemia in Home Medications atorvastatin 20 mg PO DAILY 08/13/20 [History Last Taken 08/13/20] levothyroxine 88 mcg PO DAILY 08/13/20 [History Last Taken 08/13/20] lisinopril 2.5 mg PO DAILY 08/13/20 [History Last Taken 08/13/20] dulaglutide [Trulicity] 3 mg SUBCUT QWEEK 05/04/21 [History Last Taken Unknown] ondansetron 4 mg PO Q8H PRN #10 tab 07/14/21 [Rx Last Taken Unknown] Allergy/AdvReac Type Severity Reaction Status Date / Time No Known Allergies Allergy Verified 02/14/22 15:12 Surgical History Hx of breast reduction, elective Hx of section Social History Smoking Status: Current some day smoker tobacco type: cigarettes alcohol intake: never ROS ROS ED ROS Narrative Past medical history: Reviewed Medications: Reviewed Social history: Noncontributory Review of systems: All systems negative except as indicated General: No fever. Lightheadedness as in HPI Eyes: No visual changes ENT: No upper airway congestion, normal voice Neck: No neck pain Cardiovascular: No chest pain. No palpitations Respiratory: No shortness of breath or cough Gastrointestinal: No abdominal pain, nausea vomiting or diarrhea Genitourinary: No dysuria Musculoskeletal: Denies myalgias no difficulty with ambulation Skin: No rash Neurological: No memory loss, confusion or any focal weakness Psych: No recent behavioral changes Hematologic: No easy bleeding or easy bruising EXAM Physical Exam Narrative Exam Narrative: Physical exam General: Well nourished, Well developed, No Acute Distress Head: Normocephalic, Atraumatic Eyes: Conjunctiva not pale ENT: Dry mucous membranes Neck: Supple, Nontender, No lymphadenopathy Cardiovascular: Regular rate, Regular rhythm. No murmur Respiratory: No distress, CTA bilaterally Abdomen: Soft, Nontender, Nondistended Back: Nontender, Normal Inspection. Negative for: CVA tenderness Extremities: Nontender, No edema Skin: Normal color, No rash Neurological: Alert, Normal Strength, Normal Sensation Psychological: Normal affect Const Vital Signs: 02/14/22 15:10 02/14/22 15:15 Temperature 97.9 F Temperature Source Oral Pulse Rate 90 Respiratory Rate 18 Respiratory Effort Normal Non-Labored Respiratory Pattern Normal Blood Pressure 145/89 H Blood Pressure Mean 107 Pulse Ox 97 Oxygen Delivery Method Room Air [facility] Lab Data Labs: Laboratory Results - last 24 hr 02/14/22 02/14/22 15:12 15:12 WBC 5.7 RBC 5.56 H Hgb 15.9 H Hct 48.9 H MCV 87.9 MCH 28.6 MCHC 32.5 RDW Std Deviation 40.3 RDW Coeff of Dinesh 12.5 Plt Count 149 L MPV 11.1 Immature Gran % (Auto) 0.400 Neut % (Auto) 71.7 H Lymph % (Auto) 20.0 Centre % (Auto) 6.3 Eos % (Auto) 0.7 Baso % (Auto) 0.9 Absolute Neuts (auto) 4.1 Absolute Lymphs (auto) 1.14 Nucleated RBC % 0 Sodium 140 Potassium 4.0 Chloride 109 H Carbon Dioxide 26.0 Anion Gap 5 BUN 9 Creatinine 0.77 Estim Creat Clear Calc 59.99 Est GFR (MDRD) Af Amer 101 Est GFR (MDRD) Non-Af 83 BUN/Creatinine Ratio 11.7 Glucose 360 H Calcium 7.8 L Total Bilirubin 0.70 AST 13 L ALT 23 Alkaline Phosphatase 104 Total Protein 5.3 L Albumin 2.9 L Globulin 2.4 Albumin/Globulin Ratio 1.2 Radiography Diagnostic Testing: She has an unremarkable emergency department work-up. She is still slightly hyperglycemic but otherwise appears well. Her anion gap is 5. She is given IV fluids and her lightheadedness has improved. I will discharge her in stable condition. She is due to get her Trulicity tomorrow, however I urged her to follow-up with her PCP for further glycemic control. I also discussed with her about her diet. EKG Initial EKG: Comments: Normal sinus rhythm with a rate of 87. Normal UT and QTc intervals. No ischemic changes. Interpreted by emergency doctor. Discharge Plan Triage Chief Complaint: Dizziness Other Complaint: Syncope ED Provider: Rock Johnson Dx/Rx/DC Orders Clinical Impression: Acute dehydration, Acute hyperglycemia, Light-headedness Instructions: Dehydration, ED Diabetic Hyperglycemia Prescriptions: No Action atorvastatin 20 MG tablet 20 mg PO DAILY RF: 0 lisinopril 2.5 MG tablet 2.5 mg PO DAILY RF: 0 levothyroxine 50 MCG tablet 88 mcg PO DAILY RF: 0 Trulicity 3 mg/0.5 mL Pen Injector 3 mg SUBCUT QWEEK RF: 0 ondansetron 4 mg tablet,disintegrating 4 mg PO Q8H PRN (Reason: nausea and vomiting) Qty: 10 RF: 0 Primary Care Provider: Fazal Ford Referrals: Fazal Ford PA [Primary Care Provider] - 3-5 Days Disposition Disposition: Home, Self Care
[2022-02-14] MEDS: 0.9% Normal Saline 1,000 ML 1000 ML IV (15:29)
[2022-02-14 15:35] LABS: Absolute Lymphocyte Count 1.14 X10^3/uL (0.83-4.51); Absolute Neutrophil Count 4.1 X10^3/uL (2.0-7.7); Basophil# 0.05 X10^3/uL; Basophil% 0.9 % (0-1); Eosinophil# 0.04 X10^3/uL; Eosinophils% 0.7 % (0-5); Hematocrit 48.9 % (37-47); Hemoglobin 15.9 g/dL (12.0-15.0); Lymphocyte # 1.14 X10^3/ul (0.83-4.51); Mean Corp Hgb Conc 32.5 g/dL (32-36); Mean Corpuscular Hgb 28.6 pg (27.0-32.0); Mean Corpuscular Volume 87.9 fL (81-99); Mean Platelet Vol. 11.1 fl (6.2-12.0); Monocyte# 0.36 X10^3/uL; Monocyte% 6.3 % (0-10); NRBC Flagged by Analyzer 0 % (0-5); Neutrophil # 4.08 X10^3/uL (2.7-7.7); Neutrophil % 71.7 % (47-70); Platelet Count 149 K/mm3 (150-450); RBC Distribution Width CV 12.5 % (11.6-14.6); RBC Distribution Width SD 40.3 fl (35.1-43.9); Red Blood Count 5.56 M/mm3 (4.2-5.4); White Blood Count 5.7 K/mm3 (4.4-11.0)
[2022-02-14 15:52] LABS: ALB/GLOB Ratio 1.2 RATIO (0.9-2.4); AST(SGOT) 13 U/L (15-37); Alanine Aminotransfer ALT/SGPT 23 U/L (13-56); Albumin, Serum 2.9 g/dL (3.2-5.0); Alkaline Phosphatase 104 U/L (45-117); Anion Gap 5 (5-15); BUN 9 mg/dL (7-18); BUN/Creat Ratio 11.7 RATIO (10-20); Calcium,Total 7.8 mg/dL (8.5-10.1); Chloride 109 mmol/L (98-107); Creatinine, Serum 0.77 mg/dL (0.55-1.02); EST Glomerular Filtration Rate 83 mL/min (>60); Est Glom Filt Rate - Afr Amer 101 mL/min (>60); Estimated Creatinine Clearance 59.99 ml/min; Globulin 2.4 g/dL (2.2-4.2); Glucose 360 mg/dL (74-106); Protein, Total 5.3 g/dL (6.4-8.2); Sodium Level 140 mmol/L (136-145)
[2022-02-14 16:22] VITALS: BP 128/108; PULSE 86; RESP 10
[2022-02-14] MEDS: 0.9% Normal Saline 1,000 ML 999 ML IV (16:25)
== END 2022-02-14 17:33 | disposition home or self-care (01) ==
PROVIDERS: Emergency Provider Emergency Medicine; PCP Physician Assistant; Visit Provider Emergency Medicine
DX: E86.0 Dehydration (principal); E11.65 Type 2 diabetes mellitus with hyperglycemia; R55 Syncope and collapse; E07.9 Disorder of thyroid, unspecified; F17.210 Nicotine dependence, cigarettes, uncomplicated; Z79.890 Hormone replacement therapy; Z79.899 Other long term (current) drug therapy
CPT/HCPCS: 80053; 85025; 93005; 99285

== ENCOUNTER 2024-10-07 22:06 | Emergency (ER) | payer SELFPAY ==
[2024-10-07 22:07] VITALS: BP 162/94; PULSE 94; RESP 16; TEMP 36.8; O2SAT 99; BMI 38.2
--- NOTE | 2024-10-07 23:30 | ED.VIS.BACK ---
HPI History of Present Illness Chief Complaint: Back Informant: patient Onset/Context/Timing Onset: Weeks (2) Context: Gradual Onset Timing: Continuous Quality: Throbbing Location: Lumbar Worsened by: improves with Nothing Relieved by: Medications (Naprosyn) Associated Symptoms Associated Symptoms: Negative for Numbness, Tingling, Radiation to Right Leg, Radiation to Left Leg, Fever, Abdominal Pain, Dysuria, Unable to Ambulate, Unable to Transfer, Urinary Retention, Urinary Incontinence, Constipation or Fecal Incontinence Narrative Narrative: Patient presents with low back pain that has been getting worse over the past 2 weeks. Patient states it is gradually getting worse. Patient states it is constant. Patient describes the pain as throbbing. Patient states the pain is mainly over the right lower lumbar area. Patient states she has been taking Naprosyn which has been helping but states that it did not help today. Patient states nothing makes her pain worse. Patient denies any radiation of the pain. Patient denies any bowel or bladder changes. Patient denies any saddle anesthesia. [facility] Medical History Physical exam, pre-employment Toxemia in Thyroid disease Knee pain Migraines Diabetes Home Medications ?Medication ?Instructions ?Recorded ?Last Taken ?Type atorvastatin 20 mg tablet 20 mg PO DAILY cholesterol 08/13/20 08/13/20 History levothyroxine 50 mcg tablet 88 mcg PO DAILY thyroid 08/13/20 08/13/20 History lisinopril 2.5 mg tablet 2.5 mg PO DAILY bp 08/13/20 08/13/20 History dulaglutide 3 mg/0.5 mL 3 mg subcut QWEEK 05/04/21 Unknown History subcutaneous pen injector (Trulicity) ondansetron 4 mg disintegrating 4 mg PO Q8H PRN nausea and 07/14/21 Unknown Rx tablet vomiting #10 tabs Allergy/AdvReac Type Severity Reaction Status Date / Time No Known Allergies Allergy Verified 10/07/24 22:08 Surgical History Hx of breast reduction, elective Hx of section Social History Smoking Status: Current some day smoker tobacco type: cigarettes alcohol intake: never ROS ROS ED Constitutional Constitutional ED: Denies chills or fever(s) Eyes Eyes: Denies blurry vision or change in vision ENT ENT ED: Denies rhinorrhea or sore throat Cardiovascular Cardiovascular: Denies chest pain or palpitations Respiratory/Chest Respiratory/Chest: Denies cough or dyspnea Gastrointestinal Gastrointestinal: Reports nausea; Denies vomiting Genitourinary Genitourinary ED: Reports urinary frequency; Denies dysuria or hematuria Musculoskeletal Musculoskeletal: Reports back pain; Denies neck pain Integumentary Reports rash; Denies abscess Neurologic Neurologic: Denies headache(s) or weakness Allergic/Immunologic Allergic/Immunologic ED: Denies mouth swelling or urticaria EXAM Physical Exam Const Vital Signs: 10/07/24 22:07 Temperature 98.2 F Temperature Source Oral Pulse Rate 94 Respiratory Rate 16 Blood Pressure 162/94 H Blood Pressure Mean 116 Pulse Ox 99 Oxygen Delivery Method Room Air Positive well nourished and well developed Constitutional Narrative: Patient has a BMI of 38.3. General Appearance ED: well developed HEENT Reports moist mucous membranes Neck supple and no JVD Back/Spine Back/Spine Narrative: There is mild tenderness in the right lower lumbar paraspinal area. There is no midline tenderness. There is no bony crepitance or step-off noted. Range of motion was limited in all motions of the lumbar spine secondary to pain. Strength is 5/5 bilaterally in the lower extremities. There are no sensory deficits noted. Deep tendon reflexes are 2/4 bilaterally in the lower extremities. Straight leg raises were negative bilaterally. Lumbar Spine / Lower Back: ROM limited and straight leg raise negative bilaterally Extremity normal to inspection General Extremety ED: Negative for edema or tenderness General Extremity: Negative for edema Neuro oriented x3 and no sensory deficits noted Sensorium / Orientation: alert Motor Exam: strength 5/5 throughout Psych mental status grossly normal MDM MDM MDM Narrative Medical decision making narrative: Differential diagnosis includes urinary tract infection, lumbosacral strain, spondylolisthesis, hyperglycemia, and electrolyte abnormality. CBC will be obtained to assess for leukocytosis and anemia. Basic metabolic profile will be obtained to assess for hyperglycemia, electrolyte abnormality, and renal function. Urinalysis will be obtained to assess for urinary tract infection and glucosuria. X-rays of the lumbar spine will be obtained to assess for spondylolisthesis. Lab Data Attestation: I reviewed the patient's lab results. Lab results narrative: CBC was reviewed and was within normal. Basic metabolic profile was reviewed. Glucose was elevated at 448. The remainder is within normal limits. Anion gap was normal. Urinalysis was reviewed. There is no evidence of urinary tract infection or hematuria. Urine glucose was 1000. Labs: Laboratory Results - last 24 hr 10/07/24 10/07/24 23:52 23:55 WBC 4.7 RBC 5.24 Hgb 15.0 Hct 44.2 MCV 84.4 MCH 28.6 MCHC 33.9 RDW Std Deviation 42.4 RDW Coeff of Dinesh 13.8 Plt Count 212 MPV 10.7 Immature Gran % (Auto) 0.400 Neut % (Auto) 56.4 Lymph % (Auto) 31.7 [place] % (Auto) 8.9 Eos % (Auto) 1.7 Baso % (Auto) 0.9 Absolute Neuts (auto) 2.7 Absolute Lymphs (auto) 1.49 Nucleated RBC % 0 Sodium 138 Potassium 4.1 Chloride 108 H Carbon Dioxide 23.0 Anion Gap 7 BUN 12 Creatinine 0.92 Estim Creat Clear Calc 67.76 Est GFR (MDRD) Af Amer 81 Est GFR (MDRD) Non-Af 67 BUN/Creatinine Ratio 13.0 Glucose 448 H Calcium 9.4 Urine Color Straw Urine Clarity Clear Urine pH 6.0 Ur Specific [place] 1.015 Urine Protein Negative Urine Glucose (UA) 1000 H Urine Ketones Negative Urine Occult Blood Negative Urine Nitrite Negative Urine Bilirubin Negative Urine Urobilinogen Normal Ur Leukocyte Esterase Negative Urine RBC 0 SEEN Urine WBC 0-5 SEEN Ur Squamous Epith Cells 0-5 SEEN Urine Bacteria 0 SEEN Urine Mucus 0 SEEN Radiography X-Ray: LS SPine, No Fracture, Normal Bony Alignment and Spurring Diagnostic Testing: Clinical Impression(s) from Imaging Studies Lumbar Spine X-Ray 10/07/24 23:59 IMPRESSION: No fracture or subluxation. Electronically Signed: Davide Cordova DO at 2:03 EST , X-rays of the lumbar spine were obtained. There are 2 views. On my independent interpretation, there is no acute fracture or spondylolisthesis. There are some degenerative changes noted. Radiologist also interpreted the x-rays and agrees. Treatment and Re-Evaluation Narrative: Patient was advised of her findings. Patient was given a dose of Humalog here. Patient was instructed to follow-up with her primary care physician in 5 to 7 days. Patient was instructed to return if worse in any way. Patient understood and was agreeable with the plan. All questions were answered. Discharge Plan Triage Chief Complaint: Back ED Provider: Joshua العراقي Dx/Rx/DC Orders Clinical Impression: Acute low back pain, Diabetes, Hyperglycemia Instructions: ED Back Pain (Acute or Chronic), ED Diabetic Hyperglycemia Prescriptions: No Action atorvastatin 20 MG tablet 20 mg PO DAILY lisinopril 2.5 MG tablet 2.5 mg PO DAILY levothyroxine 50 MCG tablet 88 mcg PO DAILY Patient Comments: TAKE 1 TABLET BY MOUTH ONCE DAILY BEFORE BREAKFAST Trulicity 3 mg/0.5 mL Pen Injector 3 mg SUBCUT QWEEK ondansetron 4 mg tablet,disintegrating 4 mg PO Q8H PRN (Reason: nausea and vomiting) Qty: 10 0RF Primary Care Provider: Care Physician,No Primary Referrals: Fazal Fodr PA [Non-Staff] - 5-7 Days Print Language: Kazakh Disposition Disposition: Home, Self Care
--- NOTE | 2024-10-07 23:59 | RAD_ITS ---
INDICATION: Injury/Pain EXAMINATION/TECHNIQUE: X-RAY - XR Spine Lumbar 2 or 3 Views COMPARISON: 10/11/2007. FINDINGS: VERTEBRAE: No fracture or subluxation. Mild degenerative changes. No erosive changes. SOFT TISSUES: Unremarkable. INCLUDED ABDOMEN: Visualized abdomen is unremarkable. RAD/Lumbar Spine 2 or 3 Views IMPRESSION: No fracture or subluxation. Electronically Signed: Davide Cordova DO at 2:03 EST ,
[2024-10-08 00:14] LABS: Bacteria 0 SEEN /hpf (None Seen); Mucous, Urine 0 SEEN /hpf (<or=2+); Red Blood Cells-Urine 0 SEEN /hpf (0-5)
[2024-10-08 00:15] LABS: Absolute Lymphocyte Count 1.49 X10^3/uL (0.83-4.51); Absolute Neutrophil Count 2.7 X10^3/uL (2.0-7.7); Basophil# 0.04 X10^3/uL; Basophil% 0.9 % (0-1); Eosinophil# 0.08 X10^3/uL; Eosinophils% 1.7 % (0-5); Hematocrit 44.2 % (37-47); Lymphocyte # 1.49 X10^3/ul (0.83-4.51); Lymphocyte % 31.7 % (19-41); Mean Corp Hgb Conc 33.9 g/dL (32-36); Mean Corpuscular Hgb 28.6 pg (27.0-32.0); Mean Corpuscular Volume 84.4 fL (81-99); Mean Platelet Vol. 10.7 fl (6.2-12.0); Monocyte# 0.42 X10^3/uL; Monocyte% 8.9 % (0-10); NRBC Flagged by Analyzer 0 % (0-5); Neutrophil # 2.65 X10^3/uL (2.7-7.7); Neutrophil % 56.4 % (47-70); Platelet Count 212 K/mm3 (150-450); RBC Distribution Width CV 13.8 % (11.6-14.6); RBC Distribution Width SD 42.4 fl (35.1-43.9); Red Blood Count 5.24 M/mm3 (4.2-5.4); White Blood Count 4.7 K/mm3 (4.4-11.0)
[2024-10-08 00:17] LABS: Color, Urine Straw (Yellow); Glucose, Dipstick 1000 mg/dl (Normal); Ketone-Dipstick Negative (Negative); Leukocyte Esterase-Dipstick Negative /ul (Negative); Nitrite-Dipstick Negative (Negative); Occult Blood-Urine Negative /ul (Negative); Protein-Dipstick Negative (Negative); Specific Gravity, Urine 1.015 (1.002-1.030); Urine Bilirubin Dipstick Negative (Negative); Urine Clarity Clear (Clear); Urine Urobilinogen Normal (Normal)
[2024-10-08 00:31] LABS: White Blood Cells 0-5 SEEN /hpf (0-5)
[2024-10-08 00:32] LABS: Squamous Epithelial Cells - UA 0-5 SEEN /hpf (5-10)
[2024-10-08 00:33] LABS: Anion Gap 7 (5-15); BUN 12 mg/dL (7-18); Calcium,Total 9.4 mg/dL (8.5-10.1); Chloride 108 mmol/L (98-107); Creatinine, Serum 0.92 mg/dL (0.55-1.02); EST Glomerular Filtration Rate 67 mL/min (>60); Est Glom Filt Rate - Afr Amer 81 mL/min (>60); Estimated Creatinine Clearance 67.76 ml/min; Glucose 448 mg/dL (74-106); Potassium 4.1 mmol/L (3.5-5.1); Sodium Level 138 mmol/L (136-145)
[2024-10-08] MEDS: Insulin Lispro 100 UNIT/ML INSULN.PEN 10 UNIT SC (01:41)
[2024-10-08 02:07] VITALS: PULSE 90; O2SAT 93
[2024-10-08 02:24] VITALS: BP 162/94; PULSE 90; RESP 16; TEMP 36.8; O2SAT 93
== END 2024-10-08 02:25 | disposition home or self-care (01) ==
PROVIDERS: Emergency Provider Emergency Medicine; Visit Provider Emergency Medicine
DX: M54.50 Low back pain, unspecified (principal); E11.65 Type 2 diabetes mellitus with hyperglycemia; F17.210 Nicotine dependence, cigarettes, uncomplicated
CPT/HCPCS: 72100; 80048; 81001; 85025; 99282; A4216

== ENCOUNTER 2025-02-15 21:22 | Emergency (ER) | payer OTHER, SELFPAY ==
[2025-02-15 21:23] VITALS: BP 138/98; PULSE 113; RESP 18; TEMP 36.6; O2SAT 98; BMI 35.2
--- NOTE | 2025-02-15 22:21 | EX.ED.DYSGE1 ---
HPI History of Present Illness Chief Complaint: Abscess Informant: patient Narrative Narrative: 55-year-old patient presenting with tender swollen area on her right buttock, not far from her anus, has been going for the past 3 days. Painful to have bowel movements, now she is unable to sit due to pain. She thought was a boil, has been draining foul-smelling material off-and-on, and small amounts. She states she gets boils often, she never had to come and get 1 opened and drained, usually she can get them to drain herself and improve/heal. She denies any fevers or chills, but incidentally starting the day after, she has been vomiting for the past 2 days, she states today was much better she was drinking fluids and actually eating. She denies any diarrhea and denies having any abdominal pain with any of this. She was near her grandson recently which had a vomiting illness and he is better. [facility] Medical History Physical exam, pre-employment Toxemia in Thyroid disease Knee pain Migraines Diabetes Home Medications ?Medication ?Instructions ?Recorded ?Last Taken ?Type atorvastatin 20 mg tablet 20 mg PO DAILY cholesterol 08/13/20 08/13/20 History levothyroxine 50 mcg tablet 88 mcg PO DAILY thyroid 08/13/20 08/13/20 History lisinopril 2.5 mg tablet 2.5 mg PO DAILY bp 08/13/20 08/13/20 History dulaglutide 3 mg/0.5 mL 3 mg subcut QWEEK 05/04/21 Unknown History subcutaneous pen injector (Trulicity) ondansetron 4 mg disintegrating 4 mg PO Q8H PRN nausea and 07/14/21 Unknown Rx tablet vomiting #10 tabs sulfamethoxazole 800 1 tab PO BID #20 TABLETS 02/15/25 Unknown Rx mg-trimethoprim 160 mg tablet Allergy/AdvReac Type Severity Reaction Status Date / Time No Known Allergies Allergy Verified 10/07/24 22:08 Surgical History Hx of breast reduction, elective Hx of section Social History Smoking Status: Current some day smoker tobacco type: cigarettes alcohol intake: never ROS ROS ED Constitutional Constitutional ED: Denies chills or fever(s) Eyes Eyes: Denies change in vision or diplopia ENT ENT ED: Denies rhinorrhea or sore throat Cardiovascular Cardiovascular: Denies chest pain or palpitations Respiratory/Chest Respiratory/Chest: Denies cough or dyspnea Gastrointestinal Gastrointestinal: Reports nausea and vomiting; Denies abdominal pain or diarrhea Genitourinary Genitourinary ED: Denies dysuria or hematuria Musculoskeletal Musculoskeletal: Denies back pain or neck pain Integumentary Reports abscess; Denies rash Neurologic Neurologic: Denies headache(s), paresthesias or weakness Psychiatric Psychiatric: Denies anxiety or suicidal thoughts EXAM Physical Exam Const Vital Signs: 02/15/25 21:23 Temperature 97.9 F Temperature Source Oral Pulse Rate 113 H Respiratory Rate 18 Blood Pressure 138/98 H Blood Pressure Mean 111 Pulse Ox 98 Oxygen Delivery Method Room Air Positive well nourished and well developed General Appearance ED: well developed and NAD HEENT Reports moist mucous membranes normocephalic and atraumatic Eyes PERRL and EOMs intact bilaterally Neck full ROM and supple Resp normal respiratory effort GI non-tender and non-distended Auscultation: normoactive bowel sounds Palpation: soft Narrative: Tender abscess with surrounding cellulitis pointing without spontaneous discharge medial right buttock. There is perianal involvement, but only due to growth of the abscess, the pointing part of the abscess is not perianal, it is approximately 3 cm lateral to the right in the buttock. Back/Spine no CVA tenderness General Back: other FROM Extremity normal to inspection General Extremety ED: Negative for edema, pulses abnormal or tenderness General Extremity: Negative for edema or pulses abnormal Neuro oriented x3, CN's II-XII intact bilaterally and no sensory deficits noted Sensorium / Orientation: awake and alert Motor Exam: strength 5/5 throughout Psych mental status grossly normal Skin Skin Narrative: Right medial buttock/perineal/perianal abscess with surrounding cellulitis, abscess is approximately 3-4 cm in diameter see above. MDM MDM MDM Narrative Medical decision making narrative: Performed incision and drainage after informed consent. This is not a perianal abscess, it is a medial buttock abscess but it approaches perianal area which is why she is having pain with bowel movements. She is given instructions with regards to sitz bath's and antibiotic she was started on Bactrim here to cover for MRSA, and we discussed reasons to follow-up with surgery and reasons to return to the ER. Procedures Other Procedures Procedure(s): Complex right buttock abscess incision and drainage: After sterile prep and drape with isopropanol and chlorhexidine, the patient was locally anesthetized with 5 cc of plain 1% lidocaine, incised with a #10 blade, a moderate amount of pus was expressed. The area was deloculated, there was a large cavity, there is no stool or feeling like this is close to the rectum or involving it, however the cavity does approach the perianal area. The cavity was irrigated with 60 cc of sterile saline gently, taking care not to inject subcutaneously. It was then packed with 1 inch gauze, dressed with bacitracin, patient tolerated well with no complications. Discharge Plan Triage Chief Complaint: Abscess ED Provider: Anderson Garcia Dx/Rx/DC Orders Clinical Impression: Abscess of buttock, right Instructions: Taking a Sitz Bath, ED Abscess Incision And Drainage Prescriptions: New sulfamethoxazole-trimethoprim 800-160 mg tablet 1 tab PO BID Qty: 20 0RF No Action atorvastatin 20 MG tablet 20 mg PO DAILY lisinopril 2.5 MG tablet 2.5 mg PO DAILY levothyroxine 50 MCG tablet 88 mcg PO DAILY Patient Comments: TAKE 1 TABLET BY MOUTH ONCE DAILY BEFORE BREAKFAST Trulicity 3 mg/0.5 mL Pen Injector 3 mg SUBCUT QWEEK ondansetron 4 mg tablet,disintegrating 4 mg PO Q8H PRN (Reason: nausea and vomiting) Qty: 10 0RF Primary Care Provider: Zohra Thomas Referrals: Zohra Thomas CNS [Primary Care Provider] - Syed Lal MD [Med Staff - Active Staff] - 3-5 Days if not improving Activity Restrictions/Additional Instructions: Try to leave packing intact for 48 hours and then remove and discard. If it falls out earlier than that, do not worry about it, just continue dressing changes. You are going to want to do sitz bath's twice daily for the first couple days and then daily or nightly until there is no more bleeding/discharge. After sitz baths or if any water that gets into the area after a shower or what not, you may gently apply pressure to the surrounding area to express it prior to a new dressing change. Antibiotic ointment on the area with these dressing changes okay as well. If you are concerned about it recurring or getting worse, return to the ER for reevaluation or follow-up with the surgeon above. Print Language: Lithuanian Disposition Disposition: Home, Self Care
[2025-02-15] MEDS: Ondansetron ODT 4 MG Tablet 8 MG PO (22:30)
--- OUTSIDE RECORDS SUMMARY | 2025-02-15 22:30 | XMS RPT_ITS | CCD ---
Author Organization [facility] ion [facility] Care Team Providers Care Senior Energy Market Coordinator Name Role Phone Fazal Ford PA-C Primary Care Provider [phone] ANNY CHOUDHARY Referring Unavailable Fazal FORD Primary Care Unavailable Fazal Ford PA-C Primary Care Provider [phone] [facility] Unavailable [phone] Fazal Ford PA-C Primary Care Provider [phone] CARRILLO EVANGELISTA, DOMITILA Rodriguez Attending Unavail able Fazal Sousa Referring Unavailable Rafa Aburto Attending Unavailable Fazal Sousa Primary Care Unavailable Joshua العراقي Attending Unavailable Care Physician, No Primary Primary Care Unava ilable Hajuliann WOODWORKER HELPER.Patricia KAYE Unavailable Suppan WOODWORKER HELPER.Zohra KAYE Unavailable [phone] Suppan WOODWORKER HELPER.Zohra KAYE A Primary Care Provi yeyo ZEE FORD Primary Care Unavailable ZEE FORD Primary Care Unavailable ZEE FORD Primary Care Unavailable ZEE FORD Primary Care Unavailable ZEE FORD Referring Unavailable ZEE FORD Primary Care Unavailable ZEE FORD Attending Unavailable ZOHRA MORSE Attending Unavailable ZEE FORD Primary Care Unavailable Allergies Allergy Classification Reported Allergen(s) Allergy Type Date of Onset Reaction(s) Facility dulaglutide (3 sources) dulaglutide Drug Allergy 08-26-[address] [facility] metFORMIN (3 sources) metFORMIN Drug Allergy 05-25-[address] [facility] Work Phone: (20 sources) metFORMIN; Translations: [METFORMIN] Drug Allergy 05-25-[address] [facility] Work Phone: (19 sources) dulaglutide; Translations: [DULAGLUTIDE] Drug Allergy 08-26-[address] [facility] Medications Current Medications Medication Drug Class(es) Dates Sig (Normalized) Sig (Original) amoxicillin 875 mg oral tablet (1 source) Penicillin-class Antibacterial Start: 01-21-2022 End: 2022 take 1 tablet by mouth twice daily amoxicillin (AMOXIL) 875 mg tablet Take 1 tablet by mouth twice daily for 7 days. 14 tablet 0 01/21/2022 2022 Active Comment on above: Take 1 tablet by marcela th twice daily for 7 days. atorvastatin 20 mg oral tablet (20 sources) HMG-CoA Reductase Inhibitor Start: 08-25-2023 End: 12-06-2024 take 1 tablet by mouth once daily at bedtime for hyperlipidemia atorvastatin (LIPITOR) 20 mg tablet Indications: Hyperlipidemia, mixed Take 1 tablet by mouth daily at bedtime. For cholesterol. 90 tablet 3 12/06/2024 Active Start: 01-24-2020 End: 04-26-2022 take 1 tablet by mouth once daily at bedtime for hyperlipidemia atorvastatin (LIPITOR) 20 mg tablet Indications: Hyperlipidemia, mixed Take 1 tablet by mouth daily at bedtime. For cholesterol. 90 tablet 3 04/26/2022 Active Comment on above: Take 1 tablet by marcela th daily at bedtime. For cholesterol. Blood-Glucose Sensor (FREESTYLE YAQUELIN 3 SENSOR) alvina (20 sources) Start: 12-06-2024 Blood-Glucose Sensor (FREESTYLE YAQUELIN 3 SENSOR) alvina Indications: Uncontrolled type 2 diabetes mellitus with hyperglycemia (HCC) Apply new sensor to back of upper arm every 14 days 6 Each 4 12/06/2024 Active Start: 10-28-2023 End: 12-06-2024 Blood-Glucose Sensor (FREEST YLE YAQUELIN 3 SENSOR) alvina Apply new sensor to back of upper arm every 14 days 6 Each 4 10/28/2023 12/06/2024 Discontinued Start: 10-28-2023 Blood-Glucose Sensor (FREESTYLE YAQUELIN 3 SENSOR) alvina Apply new sensor to back of upper arm every 14 days 6 Each 4 10/28/2023 Active Comment on above: Apply new sensor to back of upper arm every 14 days cholecalciferol 0.05 mg oral capsule (20 sources) Vitamin D Start: End: take 2 capsules by mouth once daily Cholecalciferol, Vitamin D3, 50 mcg (2,000 unit) cap Indications: Vitamin D deficiency Take 2 capsules by mouth once daily. 90 capsule 3 12/06/2024 Active Start: 04-26-2022 End: 04-26-2022 take 2 capsules by mouth once daily Cholecalciferol, Vitamin D3, 50 mcg (2,000 unit) cap Indications: Vitamin D deficiency Take 2 capsules by mouth once daily. 90 capsule 3 04/26/2022 Active Comment on above: Take 2 capsules by m outh once daily. CPAP/BIPAP/OTHER (20 sources) Start: 06-19-2021 End: 11-03-2048 CPAP/BIPAP/OTHER Type .CPAPSettings into a note to see current settings/supplies/DME information. 1 Each 06/19/2021 11/03/2048 Active Start: 06-19-2021 End: 11-03-2048 CPAP/BIPAP/OTHER Type .CPAPS ettings into a note to see current settings/supplies/DME information. 1 Each 0 06/19/2021 11/03/2048 Active Comment on above: Type .CPAPSettings i nto a note to see current settings/supplies/DME information. cyclobenzaprine hydrochloride 10 mg oral tablet (1 source) Muscle Relaxant Star t: 06-01 End: 10-13 23 take 1 tablet by mouth three times daily as needed cyclobenzaprine (FLEXERIL) 10 mg tablet Indications: Neck pain on left side Take 1 tablet by mouth three times daily as needed for up to 10 days. 30 tablet 0 10/21/2022 10/31/2022 Active Comment on above: Take 1 tablet by marcela three times daily as needed for up to 10 days. dulaglutide (TRULICITY) 3 mg/0.5 mL pen injector (8 sources) Star t: 06-12 End: 04-12 inject 3 mg by subcutaneous injection every week dulaglutide (TRULICITY) 3 mg/0.5 mL pen injector Inject 3 mg subcutaneously one time a week. 2 mL 5 06/25/2022 04/26/2022 Discontinued Start: 11-01-2020 End: 04-26-2022 inject 3 mg by subcutaneous injection every week dulaglutide (TRULICITY) 3 mg/0.5 mL pen injector Inject 3 mg subcutaneously one time a week. 4 Each 3 11/01/2020 04/26/2022 Discontinued (Course of therapy completed) Start: 11-01-2020 inject 3 mg by subcu taneous injection every week dulaglutide (TRULICITY) 3 mg/0.5 mL pen injector Inject 3 mg subcutaneously one time a week. 4 Each 3 11/01/2020 Active Comment on above: Inject 3 mg subcutan eously one time a week. insulin glargine-yfgn (SEMGLEE,INSULIN GLARG-YFGN,PEN) 100 unit/mL (3 mL) insulin pen (20 sources) Start: 12-06-2024 End: 12-06-2025 insulin glargine-yfgn (SEMGLEE,INSULIN GLARG-YFGN,PEN) 100 unit/mL (3 mL) insulin pen Indications: Uncontrolled type 2 diabetes mellitus with hyperglycemia (HCC) Inject 32 Units subcutaneously once daily. 9.6 mL 11 12/06/2024 12/06/2025 Active Start: 01-13-2024 End: 12-06-2024 insulin glargine-yfgn (SEMGL EE,INSULIN GLARG-YFGN,PEN) 100 unit/mL (3 mL) insulin pen Indications: Uncontrolled type 2 diabetes mellitus with hyperglycemia (HCC) Inject 32 Units subcutaneously once daily. 01/13/2024 12/06/2024 Discontinued Start: 01-13-2024 insulin glargi ne-yfgn (SEMGLEE,INSULIN GLARG-YFGN,PEN) 100 unit/mL (3 mL) insulin pen Indications: Uncontrolled type 2 diabetes mellitus with hyperglycemia (HCC) Inject 32 Units subcutaneously once daily. 01/13/2024 Active Start: 01-13-2024 insulin glargi ne-yfgn (SEMGLEE,INSULIN GLARG-YFGN,PEN) 100 unit/mL (3 mL) insulin pen Indications: Uncontrolled type 2 diabetes mellitus with hyperglycemia (HCC) Inject 32 Units subcutaneously once daily. 0 01/13/2024 Active Start: 12-23-2023 End: 01-13-2024 insulin glargine-yfgn (SEMGL EE,INSULIN GLARG-YFGN,PEN) 100 unit/mL (3 mL) insulin pen Indications: Uncontrolled type 2 diabetes mellitus with hyperglycemia (HCC) Inject 36 Units subcutaneously once daily. 15 mL 5 12/23/2023 01/13/2024 Discontinued (Adjust Sig - Block E-Cancel) Start: 12-23-2023 insulin glargi ne-yfgn (SEMGLEE,INSULIN GLARG-YFGN,PEN) 100 unit/mL (3 mL) insulin pen Indications: Uncontrolled type 2 diabetes mellitus with hyperglycemia (HCC) Inject 36 Units subcutaneously once daily. 15 mL 5 12/23/2023 Active Start: 10-28-2023 End: 12-23-2023 insulin glargine-yfgn (SEMGL EE,INSULIN GLARG-YFGN,PEN) 100 unit/mL (3 mL) insulin pen Indications: Uncontrolled type 2 diabetes mellitus with hyperglycemia (HCC) Inject 30 Units subcutaneously once daily. 15 mL 5 10/28/2023 12/23/2023 Discontinued Start: 10-28-2023 insulin glargi ne-yfgn (SEMGLEE,INSULIN GLARG-YFGN,PEN) 100 unit/mL (3 mL) insulin pen Indications: Uncontrolled type 2 diabetes mellitus with hyperglycemia (HCC) Inject 30 Units subcutaneously once daily. 15 mL 5 10/28/2023 Active Comment on above: Inject 30 Units subc utaneously once daily. Inject 36 Units subc utaneously once daily. lisinopril 2.5 mg oral tablet (20 sources) Angiotensin Converting Enzyme Inhibitor Start: 08-25-20 End: 12-07-19 25 take 1 tablet by mouth once daily lisinopril 2.5 mg tablet Indications: Uncontrolled type 2 diabetes mellitus with hyperglycemia (HCC) , Essential hypertension Take 1 tablet by mouth once daily. 90 tablet 3 12/06/2024 Active Start: 01-24-2020 End: 04-26-2022 take 1 tablet by mouth once daily lisinopril 2.5 mg tablet Indications: Essential hypertension , Uncontrolled type 2 diabetes mellitus with hyperglycemia (HCC) Take 1 tablet by mouth once daily. 90 tablet 3 04/26/2022 Active Start: 09-02-2013 End: 12-19-2017 take 2.5 mg by mouth once daily Lisinopril Discontinued 2.5 MG PO DAILY September 02, 2013 11:06am December 19, 2017 4:43pm Comment on above: Take 1 tablet by marcela th once daily. molnupiravir 200 mg capsule (2 sources) Start: 3 End: take 4 capsules by mouth twice daily molnupiravir 200 mg capsule Indications: COVID-19 Take 4 capsules by mouth two times a day for 5 days. 40 capsule 0 07/05/2023 07/05/2023 Discontinued Start: 07-05-2023 End: 07-10-2023 take 4 capsules by mouth twice daily molnupiravir 200 mg capsule Indications: COVID-19 Take 4 capsules by mouth two times a day for 5 days. 40 capsule 0 07/05/2023 07/10/2023 Active Comment on above: Take 4 capsules by m out two times a day for 5 days. naproxen 500 mg oral tablet (1 source) Nonsteroidal Anti-inflammatory Drug Start: 023 End: 023 take 1 tablet by mouth twice daily as needed for pain naproxen (NAPROSYN) 500 mg tablet Indications: Neck pain on left side Take 1 tablet by mouth twice daily as needed for pain (for pain/inflammation). Take with food. 45 tablet 0 10/21/2022 11/20/2022 Active Comment on above: Take 1 tablet by marcela twice daily as needed for pain (for pain/inflammation). Take with food. omeprazole 20 mg delayed release oral capsule (1 source) Proton Pump Inhibitor Start: 025 End: 026 take 1 capsule by mouth once daily before breakfast omeprazole (PRILOSEC) 20 mg capsule Indications: Gastroesophageal reflux disease without esophagitis Take 1 capsule by mouth daily before breakfast. 1/2 hr before meal. 90 capsule 3 12/06/2024 12/06/2025 Active ondansetron 4 mg disintegrating oral tablet (20 sources) Serotonin-3 Receptor Antagonist Start: 021 take 4 mg by mouth every eight hours Ondansetron Active 4 MG PO Q8H July 14, 2021 9:52pm Start: 07-24-2020 End: 12-06-2024 take 1 tablet by mouth every six hours as needed for nausea and nausea ondansetron orally disintegrating (ZOFRAN ODT) 4 mg disintegrating tablet Indications: Nausea Take 1 tablet by mouth every 6 hours as needed for nausea/vomiting. 30 tablet 2 12/06/2024 Active Comment on above: Take 1 tablet by marcela th every 6 hours as needed for Nausea/Vomiting. perflutren lipid microspheres 1.3 mL in NaCl (PF) 0.9% 10 mL injection (DEFINITY) (2 sources) Start: 2020 End: 2021 perflutren lipid microspheres 1.3 mL in NaCl (PF) 0.9% 10 mL injection (DEFINITY) semaglutide (OZEMPIC) 0.25 mg or 0.5 mg (2 mg/3 mL) pen (20 sources) Start: 2024 inject 0.5 mg by subcutaneous injection every week semaglutide (OZEMPIC) 0.25 mg or 0.5 mg (2 mg/3 mL) pen Indications: Uncontrolled type 2 diabetes mellitus with hyperglycemia (HCC) Inject 0.5 mg subcutaneously one time a week. 3 mL 2 12/06/2024 Active Start: 05-21-2024 End: 12-06-2024 inject 0.5 mg by subcutaneous injection every week semaglutide (OZEMPIC) 0.25 mg or 0.5 mg (2 mg/3 mL) pen Inject 0.5 mg subcutaneously one time a week. 3 mL 2 05/21/2024 12/06/2024 Discontinued Start: 05-21-2024 inject 0.5 mg by sub cutaneous injection every week semaglutide (OZEMPIC) 0.25 mg or 0.5 mg (2 mg/3 mL) pen Inject 0.5 mg subcutaneously one time a week. 3 mL 2 05/21/2024 Active Start: 02-17-2024 End: 05-20-2024 inject 0.5 mg by subcutaneous injection every week semaglutide (OZEMPIC) 0.25 mg or 0.5 mg (2 mg/3 mL) pen Inject 0.5 mg subcutaneously one time a week. 3 mL 2 02/17/2024 05/20/2024 Discontinued Start: 02-17-2024 inject 0.5 mg by sub cutaneous injection every week semaglutide (OZEMPIC) 0.25 mg or 0.5 mg (2 mg/3 mL) pen Inject 0.5 mg subcutaneously one time a week. 3 mL 2 02/17/2024 Active Start: 10-28-2023 End: 02-17-2024 inject 0.5 mg by subcutaneous injection every week semaglutide (OZEMPIC) 0.25 mg or 0.5 mg (2 mg/3 mL) pen Inject 0.5 mg subcutaneously one time a week. 3 mL 1 10/28/2023 02/17/2024 Discontinued Start: 10-28-2023 inject 0.5 mg by sub cutaneous injection every week semaglutide (OZEMPIC) 0.25 mg or 0.5 mg (2 mg/3 mL) pen Inject 0.5 mg subcutaneously one time a week. 3 mL 1 10/28/2023 Active Comment on above: Inject 0.5 mg subcut aneously one time a week. 125 ml sodium chloride 9 mg/ml prefilled syringe (2 sources) Start: 10-30-2020 End: 01-29-2022 sodium chloride 0.9 % (flush) 10 mL (BD POSIFLUSH) Completed/Discontinued Medications Medication Drug Class(es) Dates Sig (Normalized) Sig (Original) acetaminophen 325 mg / HYDROcodone bitartrate 5 mg oral tablet (1 source) Opioid Agonist Start: 03-25-2019 End: 03-31-2019 take 1 tablet by mouth every six hours as needed Hydrocodone-Acetamin ophen Discontinued 1 TABLET PO EVERY 6 HOURS NEEDED 10 3 March 25, 2019 9:34pm March 31, 2019 12:09am aspirin 81 mg chewable tablet (8 sources) Platelet Aggregation Inhibitor, Nonsteroidal Anti-inflammatory Drug Start: 09-25-2020 End: 04-26-2022 take 1 tablet by mouth once daily aspirin 81 mg chewable tablet Take 1 tablet by mouth once daily. 09/25/2020 04/26/2022 Discontinued (Discontinued by Patient) Comment on above: Take 1 tablet by marcela once daily. docosahexaenoic acid/epa (FISH OIL ORAL) (7 sources) End: 04-26-2022 take 1000 ug by mouth once daily docosahexaenoic acid/epa (FISH OIL ORAL) Take 1,000 mcg by mouth once daily. 0 04/26/2022 Discontinued (Discontinued by Patient) take 1000 ug by mouth once daily docosahexaenoic acid/epa (FISH OIL ORAL) Take 1,000 mcg by mouth once daily. 0 Active Comment on above: Take 1,000 mcg by mo [facility] once daily. 0.5 ml dulaglutide 1.5 mg/ml auto-injector (20 sources) GLP-1 Receptor Agonist Start: 09-08-20 End: 10-28-19 inject 0.75 mg by subcutaneous injection every week dulaglutide (TRULICITY) 0.75 mg/0.5 mL pen injector Inject 0.75 mg subcutaneously one time a week. 2 mL 1 09/08/2023 10/28/2023 Discontinued Start: 05-26-2022 dulaglutide (T RULICITY) 1.5 mg/0.5 mL pen injector Inject 1.5 mg subcutaneously one time a week. Inject once per week. Discard Pen After 4 Each 0 05/26/2022 Active Start: 05-26-2022 dulaglutide (T RULICITY) 1.5 mg/0.5 mL pen injector Inject 1.5 mg subcutaneously one time a week. Inject once per week. Discard Pen After 4 Each 0 05/26/2022 Active Start: 05-26-2022 dulaglutide (T RULICITY) 1.5 mg/0.5 mL pen injector Inject 1.5 mg subcutaneously one time a week. Inject once per week. Discard Pen After 4 Each 0 05/26/2022 Active Start: 04-26-2022 inject 0.75 mg by bose bcutaneous injection every week dulaglutide (TRULICITY) 0.75 mg/0.5 mL pen injector Inject 0.75 mg subcutaneously one time a week. Inject dose once per week. Discard Pen After 4 Each 0 04/26/2022 Active Start: 05-04-2021 Dulaglutide (T rulicity) 3 mg/0.5 mL Pen Injector Active 3 MG SC EVERY WEEK May 04, 2021 3:54pm Start: 01-24-2020 End: 04-25-2022 dulaglutide (TRULICITY) 1.5 mg/0.5 mL Inject 1.5 mg subcutaneously one time a week. Inject once per week. Discard Pen After 4 Pen 3 01/24/2020 04/25/2022 Discontinued Comment on above: Inject 1.5 mg subcut aneously one time a week. Inject once per week. Discard Pen After Inject 0.75 mg subcu taneously one time a week. Inject dose once per week. Discard Pen After Inject 0.75 mg subcu taneously one time a week. flash glucose scanning reader (FREESTYLE YAQUELIN 14 DAY READER) (15 sources) Start: 10-22-2020 flash glucose scanning reader (FREESTYLE YQAUELIN 14 DAY READER) 1 Each four times daily. 1 Each 0 10/22/2020 Active Comment on above: 1 Each four times da vandana. flash glucose scanning reader (FREESTYLE YAQUELIN 14 DAY READER) [facility] (17 sources) Start: 02-13-2019 End: 09-08-2023 flash glucose scanning reader (FREESTYLE YAQUELIN 14 DAY READER) [facility] Indications: Diabetes mellitus type 2, uncontrolled, without complications 1 Each four times daily. 1 Each 02/13/2019 09/08/2023 Discontinued (Duplicate Entry) Start: 02-13-2019 flash glucose scanning reader (FREESTYLE YAQUELIN 14 DAY READER) [facility] Indications: Diabetes mellitus type 2, uncontrolled, without complications 1 Each four times daily. 1 Each 0 02/13/2019 Active Comment on above: 1 Each four times da vandana. flash glucose sensor (FREESTYLE YAQUELIN 14 DAY SENSOR) kit (20 sources) Start: 08-25-2023 End: 12-06-2024 flash glucose sensor (FREESTYLE YAQUELIN 14 DAY SENSOR) kit One sensor q14d 3 Kit 11 08/25/2023 12/06/2024 Discontinued (Dosage adjustment) Start: 08-25-2023 flash glucose sensor (FREESTYLE YAQUELIN 14 DAY SENSOR) kit One sensor q14d 3 Kit 11 08/25/2023 Active Start: 05-05-2022 flash glucose sensor (FREESTYLE YAQUELIN 14 DAY SENSOR) kit One sensor every 14 days for QID readings 6 Each 3 05/05/2022 Active Start: 10-22-2020 End: 05-04-2022 flash glucose sensor (FREEST YLE YAQUELIN 14 DAY SENSOR) kit One sensor every 14 days for QID readings 6 Each 3 10/22/2020 05/04/2022 Discontinued Start: 10-22-2020 flash glucose sensor (FREESTYLE YAQUELIN 14 DAY SENSOR) kit One sensor every 14 days for QID readings 6 Each 3 10/22/2020 Active Start: 02-13-2019 End: 08-25-2023 flash glucose sensor (FREEST YLE YAQUELIN 14 DAY SENSOR) kit Indications: Diabetes mellitus type 2, uncontrolled, without complications One sensor q14d 3 Kit 11 02/13/2019 08/25/2023 Discontinued Start: 02-13-2019 flash glucose sensor (FREESTYLE YAQUELIN 14 DAY SENSOR) kit Indications: Diabetes mellitus type 2, uncontrolled, without complications One sensor q14d 3 Kit 11 02/13/2019 Active Comment on above: One sensor q14d One sensor every 14 days for QID readings 3 ml insulin glargine 100 unt/ml pen injector (18 sources) Insulin Analog Start: 08-30-2023 End: 10-28-2023 insulin glargine (LANTUS SOLOSTAR U-100 INSULIN) 100 unit/mL (3 mL) Indications: Uncontrolled type 2 diabetes mellitus with hyperglycemia (HCC) Inject 30 Units subcutaneously daily at bedtime. 3 Each 1 09/01/2023 10/28/2023 Discontinued Start: 04-26-2022 End: 10-23-2022 insulin glargine (LANTUS ROSALINA OSTAR U-100 INSULIN) 100 unit/mL (3 mL) Indications: Uncontrolled type 2 diabetes mellitus with hyperglycemia (HCC) Inject 25 Units subcutaneously daily at bedtime. 5 Pen 3 04/26/2022 Active Start: 01-24-2020 End: 10-23-2022 insulin glargine (LANTUS ROSALINA OSTAR U-100 INSULIN) 100 unit/mL (3 mL) Inject 25 Units subcutaneously daily at bedtime. 5 Pen 3 01/24/2020 04/26/2022 Discontinued Comment on above: Inject 25 Units subc utaneously daily at bedtime. Inject 30 Units subc utaneously daily at bedtime. levothyroxine sodium 0.1 mg oral tablet (20 sources) l-Thyroxine Start: End: take 1 tablet by mouth once daily for thyroid dysfunction levothyroxine (LEVOXYL) 100 mcg tablet Take 1 tablet by mouth once daily. Take on empty stomach. For Thyroid. 30 tablet 06/11/2024 12/06/2024 Discontinued Start: 08-25-2023 End: 03-06-2025 take 1 tablet by mouth once daily for thyroid dysfunction levothyroxine (LEVOXYL) 88 mcg tablet Indications: Hypothyroidism, acquired Take 1 tablet by mouth once daily. Take on empty stomach. For Thyroid 90 tablet 12/06/2024 03/06/2025 Active Start: 12-19-2020 End: 04-26-2022 take 1 tablet by mouth once daily for thyroid dysfunction levothyroxine (LEVOXYL) 88 mcg tablet Indications: Hypothyroidism, acquired Take 1 tablet by mouth once daily. Take on empty stomach. For Thyroid 90 tablet 1 04/26/2022 Active Start: 09-17-2020 End: 12-19-2020 take 1 tablet by mouth once daily for thyroid dysfunction levothyroxine (SYNTHROID) 75 mcg tablet Take 1 tablet by mouth once daily. Take on empty stomach. For Thyroid 30 tablet 2 09/17/2020 12/19/2020 Discontinued (Dosage adjustment) Start: 08-13-2020 take 88 ug by mouth once daily Levothyroxine Active 88 MCG PO DAILY August 13, 2020 6:11pm Comment on above: Take 1 tablet by marcela th once daily. Take on empty stomach. For Thyroid meloxicam 15 mg oral tablet (2 sources) Nonsteroidal Anti-inflammatory Drug Start: 0 End: take 0.5 tablet by mouth once daily at mealtime meloxicam (MOBIC) 15 mg tablet Indications: Acute pain of right knee Take 0.5 tablets by mouth once daily. With food. 20 tablet 11/05/2019 12/02/2020 Discontinued Problems Active Problems Problem Classification Problem Date Documented Date Episodic/Chronic Administrative/socia l admission (1 source) Encounter for pre-employment examination; Translations: [Encounter for pre-employment examination] Onset: 07-31-2024 Episodic Cardiac dysrhythmias (2 sources) Palpitations; Translations: [Palpitations] 02-25-2021 Episodic Conditions associated with dizziness or vertigo (2 sources) Lightheadedness; Translations: [Dizziness and giddiness] 02-25-2021 Episodic Diabetes mellitus with complications (20 sources) Type II diabetes mellitus uncontrolled; Translations: [Type 2 diabetes mellitus with hyperglycemia] Onset: 09-15-2020 09-15-2020 Chronic Diabetes mellitus without complication (3 sources) Diabetes mellitus; Translations: [Type 2 diabetes mellitus without complications] Onset: 03-12-2024 03-12-2024 Chronic Diabetes mellitus without complication (1 source) Acute hyperglycemia; Translations: [Hyperglycemia, unspecified] Episodic Disorders of lipid metabolism (20 sources) Mixed hyperlipidemia; Translations: [Mixed hyperlipidemia] Onset: 08-22-2017 08-22-2017 Chronic E Codes: Fall (1 source) Fall on same level from slipping; Translations: [Fall on same level from slipping, tripping and stumbling without subsequent striking against object, initial encounter] Episodic Esophageal disorders (1 source) Gastroesophageal reflux disease without esophagitis; Translations: [Gastro-esophageal reflux disease without esophagitis] 12-06-2024 Chronic Essential hypertension (20 sources) Essential hypertension; Translations: [Essential (primary) hypertension] Onset: 09-19-2007 12-15-2015 Chronic Fluid and electrolyte disorders (1 source) Dehydration; Translations: [Dehydration] Episodic Nausea and vomiting (3 sources) Nausea; Translations: [Nausea] Episodic Nutritional deficiencies (2 sources) Vitamin D deficiency; Translations: [Vitamin D deficiency, unspecified] Chronic Other connective tissue disease (1 source) Pain in upper limb; Translations: [Pain in arm, unspecified] Episodic Other connective tissue disease (1 source) Pain in left arm; Translations: [Pain in left arm] Episodic Other infections; including parasitic (20 sources) Late effects of other and unspecified infectious and parasitic diseases; 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)] Onset: 04-16-2021 04-16-2021 Chronic Other injuries and conditions due to external causes (1 source) Muscle strain; Translations: [Other injury of unspecified body region, initial encounter] Episodic Other injuries and conditions due to external causes (1 source) Closed injury of head; Translations: [Unspecified injury of head, initial encounter] Episodic Other injuries and conditions due to external causes (1 source) Injury of right ankle; Translations: [Unspecified injury of right ankle, initial encounter] Episodic Other lower respiratory disease (1 source) Dyspnea on exertion; Translations: [Other forms of dyspnea] 02-25-2021 Episodic Other nervous system disorders (1 source) Bilateral carpal tunnel syndrome; Translations: [Carpal tunnel syndrome, bilateral upper limbs] 12-06-2024 Chronic Other non-traumatic joint disorders (2 sources) Pain in elbow; Translations: [Pain in right elbow] Episodic Other non-traumatic joint disorders (1 source) Acute ankle pain; Translations: [Pain in right ankle and joints of right foot] Episodic Other nutritional; endocrine; and metabolic disorders (20 sources) Obese class II; Translations: [Obesity, unspecified] Onset: 08-22-2017 08-22-2017 Chronic Other nutritional; endocrine; and metabolic disorders (1 source) Obesity; Translations: [Obesity, unspecified] Chronic Other nutritional; endocrine; and metabolic disorders (1 source) History of diabetes mellitus type 1; Translations: [Personal history of other endocrine, nutritional and metabolic disease] Episodic Other upper respiratory infections (4 sources) Sore throat symptom; Translations: [Acute pharyngitis, unspecified] 07-04-2023 Episodic Otitis media and related conditions (1 source) Non-suppurative otitis media; Translations: [Unspecified nonsuppurative otitis media, left ear] Episodic Residual codes; unclassified (1 source) Harmful pattern of use of nicotine; Translations: [Tobacco use] Episodic Respiratory failure; insufficiency; arrest (adult) (14 sources) Chronic hypoxemic respiratory failure; Translations: [Chronic respiratory failure with hypoxia] Onset: 11-04-2020 Resolved: 03-30-2021 03-30-2021 Chronic Spondylosis; intervertebral disc disorders; other back problems (2 sources) Lumbago with sciatica; Translations: [Lumbago with sciatica, left side] Episodic Sprains and strains (1 source) Sprain of knee; Translations: [Sprain of unspecified site of left knee, initial encounter] Episodic Thyroid disorders (20 sources) Hypothyroidism; Translations: [Hypothyroidism, unspecified] Onset: 09-18-2007 01-20-2016 Chronic Unclassified (20 sources) Type 2 diabetes mellitus without complication; Translations: [Diabetes mellitus type 2, uncontrolled, without complications] Onset: 09-18-2007 12-15-2015 Unclassified (1 source) Low back pain, unspecified; Translations: [Low back pain, unspecified] Onset: 10-25-2024 Unclassified (1 source) Cancer cervix screening status 12-06-2024 Past or Other Problems Problem Classification Problem Date Documented Da te Episodic/Chronic Fracture of lower limb (16 sources) Closed fracture of distal right fibula; Translations: [Other fracture of upper and lower end of right fibula, initial encounter for closed fracture] Onset: 11-13-2013 Resolved: 03-07-2015 03-07-2015 Episodic Malaise and fatigue (20 sources) Fatigue; Translations: [Other fatigue] Onset: 04-16-2021 04-16-2021 Episodic Nonspecific chest pain (20 sources) Chest pain; Translations: [Other chest pain] Onset: 05-06-2021 05-06-2021 Episodic Other connective tissue disease (20 sources) Calcaneal spur of left foot; Translations: [Calcaneal spur, left foot] Onset: 01-03-2012 08-22-2017 Episodic Other connective tissue disease (20 sources) Calcaneal spur of right foot; Translations: [Calcaneal spur, right foot] Onset: 09-28-2013 08-22-2017 Episodic Other connective tissue disease (16 sources) Calcaneal spur; Translations: [Calcaneal spur, unspecified foot] Onset: 02-08-2012 Resolved: 11-07-2012 11-07-2012 Episodic Other nervous system disorders (20 sources) Impaired cognition; Translations: [Other symptoms and signs involving cognitive functions and awareness] Onset: 04-16-2021 04-16-2021 Episodic Other non-traumatic joint disorders (20 sources) Arthralgia of the ankle and/or foot; Translations: [Pain in unspecified ankle and joints of unspecified foot] Onset: 03-08-2012 Resolved: 11-07-2012 08-05-2014 Episodic Other nutritional; endocrine; and metabolic disorders (16 sources) Body mass index 40+ - severely obese; Translations: [Body mass index (BMI) 40.0-44.9, adult] Onset: 03-07-2015 Resolved: 08-22-2017 08-22-2017 Chronic Other screening for suspected conditions (not mental disorders or infectious disease) (20 sources) Patient encounter status; Translations: [Encounter for screening mammogram for malignant neoplasm of breast] Onset: 05-08-2015 Episodic Viral infection (20 sources) COVID-19; Translations: [Other specified viral infection] Onset: 09-10-2020 09-10-2020 Episodic Results Test Name Value Interpretation Reference Range [facility] 12-06-2024 CNOV Office Visit (FAMP[facility] ) ANDREW VILLALOBOS ([id number]) 1970 F Date Time Provider Department 12/06/24 1:20 PM [facility] During your visit today, we recorded the following information about you: Pulse Respiration Blood pressure Weight 90/minute 16/minute 128/82 85.7 kg Zohra Morse APRN.CNP 12/06/2024 1:52 PM Signed Chief Reason For Appointment Patient presents with: Establish Care: [place] patient Physical Andrew Villalobos is a 54 year old female who presents for annual exam. Last office visit date: 03/12/2024 Accompanied By self only and small grandson Have you had any critical events, hospital stays, ER visits, surgeries or procedures since your last visit here in our office: No Specialists/Other Healthcare Providers Seen: Patient Care Team: ZEE FORD as PCP - General (Family Medicine) Marlen Kelly [facility] as Pharmacist (Pharmacy) Patricia Tomlin APRN.CNP as Immunopathologist (Family Medicine) Zohra Morse APRN.CNP as Immunopathologist (Family Medicine) Concerns today: Did not have insurance so ran out of medicine- since Jun. 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 05/04/21 ER Left sided chest pain, SOB, nausea. 02/19. EKG NSR. Negative troponin x 2, negative d-dimer. Post-Acute Sequelae of Covid-19 (Pasc) - 04/16/2021 Fatigue - 04/16/2021 Brain Fog - 04/16/2021 Uncontrolled Type 2 Diabetes Mellitus With Hyperglycemia (Hcc) - 09/15/2020 Covid-19 Virus Detected - 09/10/2020 Comment: 09/07/2020 to [facility] ED with SOB, CTA chest bibasilar infiltrate: dexamethasone provided. Hyperlipidemia, Mixed - 08/22/2017 Obesity, Class II, Bmi 35-39.9 - 08/22/2017 Comment: Weight watcher's. Doing well with continued weight loss. Abnormal Mammogram - 05/08/2015 Pain in Joint, Ankle and Foot - 08/05/2014 Heel Spur, Right - 09/28/2013 Comment: XR right plantar and posterior spurs Heel Spur, Left - 01/03/2012 Comment: left: plantar and posterior prominent spors Essential Hypertension - 09/19/2007 Hypothyroidism - 09/18/2007 Diabetes Mellitus Type 2, Uncontrolled, Without Complications - 09/18/2007 ROS: REVIEW OF SYSTEMS GENERAL: No weight loss, malaise or fevers/chills HEENT: Negative for frequent or significant headaches, No changes in hearing or vision. NECK: Negative for lumps, goiter, pain and significant neck swelling RESPIRATORY: Negative for cough, hemoptysis, wheezing, dyspnea or shortness of breath CARDIOVASCULAR: Negative for chest pain, leg swelling, orthopnea, or palpitations GI: No nausea, vomiting, or diarrhea/constipation. No hematochezia/melena. + heartburn or reflux symptoms. : No history of dysuria, frequency or incontinence MUSCULOSKELETAL: Both hands for joint pain or swelling. Thumb and index fingers and they go numb and tingling SKIN: Negative for lesions, rash, and itching ENDOCRINE: Negative for cold or heat intolerance, polyuria, polydipsia and goiter NEURO: No history of headaches, syncope, paralysis, seizures or tremors MOOD: Negative for depression, anxiety, or suicidal ideation. PAST MEDICAL HISTORY Diagnosis Date Esophageal reflux Essential hypertension Fractured lateral malleolus 09/28/2013 XR: transverse fracture tip lateral malleolus Heel spur, left 01/03/2012 left: plantar and posterior prominent spurs Heel spur, right 09/28/2013 XR right plantar and posterior spurs Mild or unspecified pre-eclampsia, unspecified as to episode of care 1998 Obesity, unspecified MANSOOR on CPAP Transient hypertension of , antepartum 1998 Type II or unspecified type diabetes mellitus without mention of complication, not stated as uncontrolled 09/18/2007 Unspecified hypothyroidism PAST SURGICAL HISTORY Procedure Laterality Date DELIVERY ONLY 09/12/1998 , low cervical CTA CHEST 09/07/2020 bibasilar infiltrates consistent with Covid-19 pneumonia REDUCTION OF LARGE BREAST 09/12/1999 Medication List Current Outpatient Medications Medication Sig Dispense Refill levothyroxine (LEVOXYL) 100 mcg tablet Take 1 tablet by mouth once daily. Take on empty stomach. For Thyroid. 30 tablet 0 semaglutide (OZEMPIC) 0.25 mg or 0.5 mg (2 mg/3 mL) pen Inject 0.5 mg subcutaneously one time a week. (Patient not taking: Reported on 12/06/2024) 3 mL 2 ondansetron orally disintegrating (ZOFRAN ODT) 4 mg disintegrating tablet Take 1 tablet by mouth every 6 hours as needed for nausea/vomiting. (Patient not taking: Reported on 12/06/2024) 30 tablet 2 insulin glargine-yfgn (SEMGLEE,INSULIN GLARG-YFGN,PEN) 100 unit/mL (3 mL) insulin pen Inject 32 Units subcutaneously once daily. ( (more content not included)... Normal [facility] Basic Metabolic Profile (BMP )on 10-08-2024 BUN/CRE 13.0 RATIO Normal 10-20 [facility] Comment on above: Performed By: #### L 100.0100, L500.2500 #### [facility] [address] [place], [address] CA,Total 9.4 mg/dL Normal 8.5-10.1 [facility] Comment on above: Performed By: #### L 100.0100, L500.2500 #### [facility] [address] [facility] [address] Chloride [Moles/Vol] 108 mmol/L High 98-107 [facility] Comment on above: Performed By: #### L 100.0100, L500.2500 #### [facility] [address] [place], [address] CO2 [Moles/Vol] 23.0 mmol/L Normal 21.0-32.0 [facility] Comment on above: Performed By: #### L 100.0100, L500.2500 #### [facility] [address] [place], [address] Creatinine [Mass/Vol] 0.92 mg/dL Normal 0.55-1.02 [facility] Comment on above: Result Comment: The validity of the calculated GFR GFRAA in patients over 70 years has not been determined. Clinical correlation is essential. Performed By: #### L 100.0100, L500.2500 #### [facility] [address] [place], [address] ECRCL 67.76 ml/min Normal [facility] Comment on above: Performed By: #### L 100.0100, L500.2500 #### [facility] [address] [place], [address] EST GFR - AA 81 mL/min Normal >60 [facility] Comment on above: Result Comment: Afri can Mexican GFR Calc Performed By: #### L 100.0100, L500.2500 #### [facility] [address] [place], [address] GAP 7 Normal 5-15 [facility] Comment on above: Performed By: #### L 100.0100, L500.2500 #### [facility] [address] [place], [address] GFR/1.73 sq M.predicted among non-blacks MDRD (S/P/Bld) [Vol rate/Area] 67 mL/min/{1.73_m2} Normal >60 [facility] Comment on above: Result Comment: Non- GFR Calc Performed By: #### L 100.0100, L500.2500 #### [facility] [address] [place], [address] Glucose [Mass/Vol] 448 mg/dL High 74-106 [facility] Comment on above: Result Comment: Gluc ose result greater than or equal to 200 mg/dL suggests DIABETES MELLITUS per A.D.A. criteria. Performed By: #### L 100.0100, L500.2500 #### [facility] [address] [place], [address] Potassium [Moles/Vol] 4.1 mmol/L Normal 3.5-5.1 [facility] Comment on above: Performed By: #### L 100.0100, L500.2500 #### [facility] [address] [place], [address] Sodium [Moles/Vol] 138 mmol/L Normal 136-145 [facility] Comment on above: Performed By: #### L 100.0100, L500.2500 #### [facility] [address] [place], [address] Urea nitrogen [Mass/Vol] 12 mg/dL Normal 7-18 [facility] Comment on above: Performed By: #### L 100.0100, L500.2500 #### [facility] [address] [place], [address] CBC W/Diff, Automatedon 01-2 -2024 Absolute Lymph 1.49 X10 3/uL Normal 0.83-4.51 [facility] Comment on above: Performed By: #### L 100.0100, L500.2500 #### [facility] [address] [place], [address] Absolute Neut 2.7 X10 3/uL Normal 2.0-7.7 [facility] Comment on above: Performed By: #### L 100.0100, L500.2500 #### [facility] [address] [place], [address] Basophils/100 WBC (Bld) 0.9 % Normal 0-1 [facility] Comment on above: Performed By: #### L 100.0100, L500.2500 #### [facility] [address] [place], [address] Eosinophils/100 WBC (Bld) 1.7 % Normal 0-5 [facility] Comment on above: Performed By: #### L 100.0100, L500.2500 #### [facility] [address] [place], [address] Erythrocyte distribution width (RBC) [Ratio] 13.8 % Normal 11.6-14.6 [facility] Comment on above: Performed By: #### L 100.0100, L500.2500 #### [facility] [address] [place], [address] Hematocrit (Bld) [Volume fraction] 44.2 % Normal 37-47 [facility] Comment on above: Performed By: #### L 100.0100, L500.2500 #### [facility] [address] [place], [address] Hemoglobin (Bld) [Mass/Vol] 15.0 g/dL Normal 12.0-15.0 [facility] Comment on above: Performed By: #### L 100.0100, L500.2500 #### [facility] [address] [place], [address] IG% 0.400 Normal 0.0-0.9 [facility] Comment on above: Result Comment: IG% - Immature Granulocytes (promyelocytes, myelocytes and metamyelocytes) > 1% indicates that a LEFT SHIFT is Present. Performed By: #### L 100.0100, L500.2500 #### [facility] [address] [place], [address] Lymphocytes/100 WBC (Bld) 31.7 % Normal 19-41 [facility] Comment on above: Performed By: #### L 100.0100, L500.2500 #### [facility] [address] [place], [address] MCH (RBC) [Entitic mass] 28.6 pg Normal 27.0-32.0 [facility] Comment on above: Performed By: #### L 100.0100, L500.2500 #### [facility] [address] [place], [address] MCHC (RBC) [Mass/Vol] 33.9 g/dL Normal 32-36 [facility] Comment on above: Performed By: #### L 100.0100, L500.2500 #### [facility] [address] [place], [address] MCV (RBC) [Entitic vol] 84.4 fL Normal 81-99 [facility] Comment on above: Performed By: #### L 100.0100, L500.2500 #### [facility] [address] [place], [address] Monocytes/100 WBC (Bld) 8.9 % Normal 0-10 [facility] Comment on above: Performed By: #### L 100.0100, L500.2500 #### [facility] [address] [place], [address] Neutrophils/100 WBC (Bld) 56.4 % Normal 47-70 [facility] Comment on above: Performed By: #### L 100.0100, L500.2500 #### [facility] [address] [place], [address] Nucleated RBC (Bld) [#/Vol] 0 10*3/uL Normal 0-5 [facility] Comment on above: Performed By: #### L 100.0100, L500.2500 #### [facility] [address] [place], [address] Platelet mean volume (Bld) [Entitic vol] 10.7 fL Normal 6.2-12.0 [facility] Comment on above: Performed By: #### L 100.0100, L500.2500 #### [facility] [address] [place], [address] Platelets (Bld) [#/Vol] 212 10*3/uL Normal 150-450 [facility] Comment on above: Performed By: #### L 100.0100, L500.2500 #### [facility] [address] [place], [address] RBC (Bld) [#/Vol] 5.24 10*6/uL Normal 4.2-5.4 [facility] Comment on above: Performed By: #### L 100.0100, L500.2500 #### [facility] [address] [place], [address] RDW SD 42.4 fl Normal 35.1-43.9 [facility] Comment on above: Performed By: #### L 100.0100, L500.2500 #### [facility] [address] [place], [address] WBC (Bld) [#/Vol] 4.7 10*3/uL Normal 4.4-11.0 [facility] Comment on above: Performed By: #### L 100.0100, L500.2500 #### [facility] [address] [place], [address] Urinalysis, Completeon 10-08 EPI,SQUAMOUS 0-5 SEEN Normal 5-10 [facility] Comment on above: Order Comment: CLEAN CATCH Performed By: #### L 400.0001 #### [facility] [address] [place], [address] WBC 0-5 SEEN Normal 0-5 [facility] Comment on above: Order Comment: CLEAN CATCH Performed By: #### L 400.0001 #### [facility] [address] [place], [address] BILIRUBIN URINE Negative Normal Negative [facility] Comment on above: Order Comment: CLEAN CATCH Performed By: #### L 400.0001 #### [facility] [address] [place], [address] Clarity (U) Clear Normal Clear [facility] Comment on above: Order Comment: CLEAN CATCH Performed By: #### L 400.0001 #### [facility] [address] [place], [address] Color (U) Straw Normal Yellow [facility] Comment on above: Order Comment: CLEAN CATCH Performed By: #### L 400.0001 #### [facility] [address] [place], [address] GLUCOSE, UR 1000 mg/dl Abnormal Normal [facility] Comment on above: Order Comment: CLEAN CATCH Performed By: #### L 400.0001 #### [facility] [address] [place], [address] KETONE UR Negative Normal Negative [facility] Comment on above: Order Comment: CLEAN CATCH Performed By: #### L 400.0001 #### [facility] [address] [place], [address] LEUK ESTERASE Negative Normal Negative [facility] Comment on above: Order Comment: CLEAN CATCH Performed By: #### L 400.0001 #### [facility] [address] [place], [address] Nitrite Ql (U) Negative Normal Negative [facility] Comment on above: Order Comment: CLEAN CATCH Performed By: #### L 400.0001 #### [facility] [address] [place], [address] OCCULT BLOOD-UR Negative Normal Negative [facility] Comment on above: Order Comment: CLEAN CATCH Performed By: #### L 400.0001 #### [facility] [address] [place], [address] pH UR 6.0 Normal 5.0 - 8.0 [facility] Comment on above: Order Comment: CLEAN CATCH Performed By: #### L 400.0001 #### [facility] [address] [place], [address] PROT DIPSTX Negative Normal Negative [facility] Comment on above: Order Comment: CLEAN CATCH Performed By: #### L 400.0001 #### [facility] [address] [place], [address] SP.GR. DIPSTX 1.015 Normal 1.002-1.030 [facility] Comment on above: Order Comment: CLEAN CATCH Performed By: #### L 400.0001 #### [facility] [address] [place], [address] UROBILI Normal Normal Normal [facility] Comment on above: Order Comment: CLEAN CATCH Performed By: #### L 400.0001 #### [facility] [address] [place], [address] BACTERIA 0 SEEN Normal None Seen [facility] Comment on above: Order Comment: CLEAN CATCH Performed By: #### L 400.0001 #### [facility] [address] [place], [address] Mucus Ql (Urine sed) 0 SEEN Normal [facility] Comment on above: Order Comment: CLEAN CATCH Performed By: #### L 400.0001 #### [facility] [address] [place], [address] RBC 0 SEEN Normal 0-5 [facility] Comment on above: Order Comment: CLEAN CATCH Performed By: #### L 400.0001 #### [facility] [address] [place], [address] Emergency Department Summary on 10-07-2024 Emergency Department Summary [facility] Medical Records Department [address] [place] [address] Emergency Department Summary 10/07/24 MR#: [id number] Acct: [id number] Name: ANDREW VILLALOBOS Rep #: [id number] : [id number] 54 From: Joshua العراقي DO PCP: Care Physician,No Primary Status:DEP ER Location: ED HPI History of Present Illness Chief Complaint: Back Informant: patient Onset/Context/Timing Onset: Weeks (2) Context: Gradual Onset Timing: Continuous Quality: Throbbing Location: Lumbar Worsened by: improves with Nothing Relieved by: Medications (Naprosyn) Associated Symptoms Associated Symptoms: Negative for Numbness, Tingling, Radiation to Right Leg, Radiation to Left Leg, Fever, Abdominal Pain, Dysuria, Unable to Ambulate, Unable to Transfer, Urinary Retention, Urinary Incontinence, Constipation or Fecal Incontinence Narrative Narrative: Patient presents with low back pain that has been getting worse over the past 2 weeks. Patient states it is gradually getting worse. Patient states it is constant. Patient describes the pain as throbbing. Patient states the pain is mainly over the right lower lumbar area. Patient states she has been taking Naprosyn which has been helping but states that it did not help today. Patient states nothing makes her pain worse. Patient denies any radiation of the pain. Patient denies any bowel or bladder changes. Patient denies any saddle anesthesia. [facility] Medical History Physical exam, pre-employment Toxemia in Thyroid disease Knee pain Migraines Diabetes Home Medications ???Medication ???Instructions ???Recorded ???Last Taken ???Type atorvastatin 20 mg tablet 20 mg PO DAILY cholesterol 08/13/20 08/13/20 History levothyroxine 50 mcg tablet 88 mcg PO DAILY thyroid 08/13/20 08/13/20 History lisinopril 2.5 mg tablet 2.5 mg PO DAILY bp 08/13/20 08/13/20 History dulaglutide 3 mg/0.5 mL 3 mg subcut QWEEK 05/04/21 Unknown History subcutaneous pen injector (Trulicity) ondansetron 4 mg disintegrating 4 mg PO Q8H PRN nausea and 07/14/21 Unknown Rx tablet vomiting #10 tabs Allergy/AdvReac Type Severity Reaction Status Date / Time No Known Allergies Allergy Verified 10/07/24 22:08 Surgical History Hx of breast reduction, elective Hx of section Social History Smoking Status: Current some day smoker tobacco type: cigarettes alcohol intake: never ROS ROS ED Constitutional Constitutional ED: Denies chills or fever(s) Eyes Eyes: Denies blurry vision or change in vision ENT ENT ED: Denies rhinorrhea or sore throat Cardiovascular Cardiovascular: Denies chest pain or palpitations Respiratory/Chest Respiratory/Chest: Denies cough or dyspnea Gastrointestinal Gastrointestinal: Reports nausea; Denies vomiting Genitourinary Genitourinary ED: Reports urinary frequency; Denies dysuria or hematuria Musculoskeletal Musculoskeletal: Reports back pain; Denies neck pain Integumentary Reports rash; Denies abscess Neurologic Neurologic: Denies headache(s) or weakness Allergic/Immunologic Allergic/Immunologic ED: Denies mouth swelling or urticaria EXAM Physical Exam Const Vital Signs: 10/07/24 22:07 Temperature 98.2 F Temperature Source Oral Pulse Rate 94 Respiratory Rate 16 Blood Pressure 162/94 H Blood Pressure Mean 116 Pulse Ox 99 Oxygen Delivery Method Room Air Positive well nourished and well developed Constitutional Narrative: Patient has a BMI of 38.3. General Appearance ED: well developed HEENT Reports moist mucous membranes Neck supple and no JVD Back/Spine Back/Spine Narrative: There is mild tenderness in the right lower lumbar paraspinal area. There is no midline tenderness. There is no bony crepitance or step-off noted. Range of motion was limited in all motions of the lumbar spine secondary to pain. Strength is 5/5 bilaterally in the lower extremities. There are no sensory deficits noted. Deep tendon reflexes are 2/4 bilaterally in the lower extremities. Straight leg raises were negative bilaterally. Lumbar Spine / Lower Back: ROM limited and straight leg raise negative bilaterally Extremity normal to inspection General Extremety ED: Negative for edema or tenderness General Extremity: Negative for edema Neuro oriented x3 and no sensory deficits noted Sensorium / Orientation: alert Motor Exam: strength 5/5 throughout Psych mental status grossly normal MDM MDM MDM Narrative Medical decision making narrative: Differential diagnosis includes urinary tract infection, lumbosacral strain, spondylolisthesis, hyperglycemia, and electrolyte abnormality. (more content not included)... Normal [facility] Lumbar Spine 2 or 3 Viewson 10-07-2024 Lumbar Spine 2 or 3 Views [facility] Imaging Services [address] [place], [place] [address] Lumbar Spine 2 or 3 Views MR#: [id number] Acct: [id number] Name: ANDREW VILLALOBOS Rep #: [id number] : 1970 F 54 From: Davide Cordova MD PCP: Care Physician,No Primary Status: REG ER Study: Lumbar Spine 2 or 3 Views Date of Exam: Exam# [id number] Ordering Dr: Joshua العراقي DO [id number] INDICATION: Injury/Pain EXAMINATION/TECHNIQUE: X-RAY - XR Spine Lumbar 2 or 3 Views COMPARISON: 10/11/2007. FINDINGS: VERTEBRAE: No fracture or subluxation. Mild degenerative changes. No erosive changes. SOFT TISSUES: Unremarkable. INCLUDED ABDOMEN: Visualized abdomen is unremarkable. RAD/Lumbar Spine 2 or 3 Views IMPRESSION: No fracture or subluxation. Electronically Signed: Davide Cordova DO at 2:03 EST , CC: Dr. Joshua العراقي DO; No Primary Care Physician Coach Builder: Signed Normal [facility] UAon 10-05-2024 Color (U) Yellow Normal [facility] Comment on above: Performed By: #### U A #### [facility] [address] [place], [place] [address] Glucose (U) [Mass/Vol] 500 mg/dL Abnormal Negative [facility] Comment on above: Performed By: #### U A #### [address] [address] Ketones Ql (U) Negative Normal Negative [facility] Comment on above: Performed By: #### U A #### [address] [address] UA Appear Clear Normal Clear [facility] Comment on above: Performed By: #### U A #### [address] [address] UA Blood Negative Normal Negative [facility] Comment on above: Performed By: #### U A #### [place] [address] UA Leuk Est Negative Normal Negative [facility] Comment on above: Performed By: #### U A #### [place] [address] UA Nitrite Negative Normal Negative [facility] Comment on above: Performed By: #### U A #### [place] [address] UA pH 5.5 Normal 5.0 - 8.0 [facility] Comment on above: Performed By: #### U A #### [address] [address] UA Protein Negative Normal Negative [facility] Comment on above: Performed By: #### U A #### [place] [address] UA Spec Grav 1.010 Abnormal 1.015-1.025 [facility] Comment on above: Performed By: #### U A #### [address] [address] UA Specimen Type Clean Catch Normal [facility] Comment on above: Performed By: #### U A #### [place] [address] UA Urobilinogen 0.2 E.U./dL Normal 0.2-1.0 [facility] Comment on above: Performed By: #### U A #### [address] [address] [place], [place] [address] Urobilinogen (U) [Mass/Vol] Negative Normal Negative [facility] Comment on above: Performed By: #### U A #### [place] [address] [place], [place] [address] Urgent Care Visit Reporton 1 09-30-2023 Urgent Care Visit Report [facility] [address] , [address] [place] [address] OFFICE VISIT Date of Service: 07/31/24 MR#: [id number] Acct: [id number] Name: ANDREW VILLALOBOS Rep #: [id number] : 1970 Provider: NELLY Archibald Age/Sex: 54/F Location[facility] Status: Signed Intake Vital Signs 02/14/22 15:10 Height 5 ft Intake Visit Reasons: PRE EMP/NON DOT/PHYSICAL/EVERARDO BRUSH Chief Complaint: CP Allergies No Known Allergies Allergy (Verified 02/14/22 15:12) [facility] Medical History (Updated 07/31/24 @ 14:36 by Rafa VILLEGAS PA) Physical exam, pre-employment Toxemia in Thyroid disease Knee pain Migraines Diabetes Surgical History Hx of breast reduction, elective Hx of section Social History Smoking Status: Current some day smoker tobacco type: cigarettes alcohol intake: never HPI HPI Chief Complaint: CP Details: ANDREW VILLALOBOS, is a 54 F who presents to the office today for Office Procedures Physical Exam Coding PE Coding Pre-employment PE: Yes Coding Level of Care Code No Charge Diagnoses Physical exam, pre-employment Z02.1 Assessment and Plan Assessment and Plan (1) Physical exam, pre-employment: Status: Acute 07/31/24 1436 Date Rafa VILLEGAS PA Cosigner Signature: Date (if applicable) CC: [facility] MIKKIMercy 06-11-2024 CNPN Telephone (FAMPWS) ANDREW VILLALOBOS ([id number]) 1970 F Date Time Provider Department 06/11/24 [facility] During your visit today, we recorded the following information about you: Zohra Morse, WOODWORKER HELPER.[facility] 06/11/2024 2:52 PM Signed Please let pt. Know she is overdue for labs. I will fill 30 days of thyroid replacement so she doesn't run out. Hannah Nesbitt MA 06/11/2024 4:00 PM Addendum Left message for patient to return call and speak with triage nurse Please tell pt to get labs, and she needs to set up follow up appt. She might not know about Arslan as well. Jose Elias Dunne Lindsey, MA 06/15/2024 2:00 PM Signed Detailed message left for patient that 30 day supply of thyroid med called in for her. Due for labs and follow up appointment. Message to return call. JOSE ELIAS Heredia Rilee, MA 06/18/2024 11:36 AM Signed Letter sent to pt notifying her that office has attempted to reach her by phone x 2 with messages left for a return call regarding results. Pt notified to contact office and ask to speak with a Performance Manager to setup routine f/u appt and lab appt. Vandana Keller MA Allergies As of Date: 06/11/2024 Noted Allergy Reaction METFORMIN 05/25/2016 6 - Diarrhea TRULICITY (DULAGLUTIDE) 08/26/2023 5 - Intolerance Comments: Nausea/Bloating Using Zofran for side effects Date Reviewed: 03/12/2024 Reviewed by: Zohra Ferreira LPN - Fully Assessed Prescriptions as of 06/19/2024 - levothyroxine (LEVOXYL) 100 mcg tablet Take 1 tablet by mouth once daily. Take on empty stomach. For Thyroid. - semaglutide (OZEMPIC) 0.25 mg or 0.5 mg (2 mg/3 mL) pen Inject 0.5 mg subcutaneously one time a week. - ondansetron orally disintegrating (ZOFRAN ODT) 4 mg disintegrating tablet Take 1 tablet by mouth every 6 hours as needed for nausea/vomiting. - insulin glargine-yfgn (SEMGLEE,INSULIN GLARG-YFGN,PEN) 100 unit/mL (3 mL) insulin pen Inject 32 Units subcutaneously once daily. - Blood-Glucose Sensor (FREESTYLE YAQUELIN 3 SENSOR) alvina Apply new sensor to back of upper arm every 14 days - flash glucose sensor (FREESTYLE YAQUELIN 14 DAY SENSOR) kit One sensor q14d - levothyroxine (LEVOXYL) 88 mcg tablet Take 1 tablet by mouth once daily. Take on empty stomach. For Thyroid - levothyroxine (LEVOXYL) 88 mcg tablet Take 1 tablet by mouth once daily. Take on empty stomach. For Thyroid - Cholecalciferol, Vitamin D3, 50 mcg (2,000 unit) cap Take 2 capsules by mouth once daily. - atorvastatin (LIPITOR) 20 mg tablet Take 1 tablet by mouth daily at bedtime. For cholesterol. - lisinopril 2.5 mg tablet Take 1 tablet by mouth once daily. - insulin needles, DISPOSABLE, (PEN NEEDLE) 31 gauge x 5/16 Use one needle per dose. 1 per day. - CPAP/BIPAP/OTHER Type .CPAPSettings into a note to see current settings/supplies/DME information. - Lancets lancets Test once daily, E11.9, No insulin Problem List As Of Date 06/11/2024 Noted Resolved Hypothyroidism [E03.9] 09/18/2007 Diabetes mellitus type 2, uncontrolled, without*09/18/2007 Essential hypertension [I10] 09/19/2007 Calcaneal spur [M77.30] 02/08/2012 11/07/2012 Pain in joint, ankle and foot [M25.579] 03/08/2012 11/07/2012 Fracture of fibula, distal, right, closed [S82.*11/13/2013 03/07/2015 Pain in joint, ankle and foot [M25.579] 08/05/2014 BMI 40.0-44.9, adult (HCC) [Z68.41] 03/07/2015 08/22/2017 Abnormal mammogram [R92.8] 05/08/2015 Hyperlipidemia, mixed [E78.2] 08/22/2017 Obesity, Class II, BMI 35-39.9 [E66.812] 08/22/2017 Heel spur, left [M77.32] 01/03/2012 Heel spur, right [M77.31] 09/28/2013 COVID-19 virus detected [U07.1] 09/10/2020 Uncontrolled type 2 diabetes mellitus with hype*09/15/2020 Chronic respiratory failure with hypoxia (HCC) *11/04/2020 03/30/2021 Post-acute sequelae of COVID-19 (PASC) [U09.9] 04/16/2021 Fatigue [R53.83] 04/16/2021 Brain fog [R41.89] 04/16/2021 Other chest pain [R07.89] 05/06/2021 Mild nonproliferative diabetic retinopathy with*08/31/2023 Letter Text Encounter Status:Closed by HANNAH NESBITT on 06/19/24 [facility] CNOVon 03-12-2024 CNOV Office Visit (FAMPWS ) ANDREW VILLALOBOS ([id number]) 1970 F Date Time Provider Department 03/12/24 11:00 AM Fazal FORDPWS During your visit today, we recorded the following information about you: Pulse Respiration Blood pressure Weight 87/minute 16/minute 132/88 84.4 kg Fazal Ford PA-C 03/12/2024 5:46 PM Signed 54 year old female with c/o here for 3 month follow. Feels better taking as directed. Essential hypertension (primary encounter diagnosis) Current meds: Lisinopril 2.5mg daily Patient is compliant with meds Yes Monitors bp at home: No. If yes, readings: Denies side effects: No. Chest pain: No. Dyspnea: No. Edema: No. Palpitations: No. Syncope: No. Headache: no. Dizziness: Yes. Hyperlipidemia, mixed Current medication Atorvastatin 20mg daily HS Taking medication consistently Yes Observing low cholesterol high fiber diet No Muscle aches No Stomach complaints/ diarrhea No Diabetes Mellitus Type 2: Current medications: Semaglutide 0.5mg SC Taking medication as directed consistently? Yes Medication side effects: having diarrhea since started, daily. Worse if has a Big nancy. Medical Issues / Complications: hypertension and hyperlipidemia Checking blood sugars at home? Yes. CGM shows 93% at target in last 2 weeks, 77% for 90 days Watching diet? Yes Physical Activity: Sedentary Hypoglycemic spells? No Any visual disturbance? No Chest pain? No New numbness, tingling or loss of sensation? No Any recent foot problems, sores or rashes? No Any recent or sudden weight loss? No Change in urination? No. If yes: Any recent illness? No Last eye exam: up to date. Last foot exam: due. HBA1C: Hemoglobin A1C (%) Date Value 02/27/2024 7.3 08/29/2023 10.5 02/25/2021 7.0 10/31/2020 11.9 ) CMP: Glucose 123 02/27/2024 BUN 11 02/27/2024 Creatinine 0.78 02/27/2024 Sodium 141 02/27/2024 Potassium 4.2 02/27/2024 Chloride 108 02/27/2024 CO2 23 02/27/2024 Protein, Total 6.5 02/27/2024 Albumin 4.0 02/27/2024 Calcium 9.3 02/27/2024 Alkaline Phosphatase 117 02/27/2024 Bilirubin, Total 0.5 02/27/2024 AST 17 02/27/2024 ALT 14 02/27/2024 Last 2 Encounter Wt Readings: Date: Wt: 02/08/2024 85.3 kg (188 lb 0.8 oz) 09/13/2023 87.5 kg (193 lb) Latest Ref Rng 05/31/2017 07/19/2019 08/29/2023 Creatinine, Ur Random (UCRR) 20.0 - 300.0 mg/dL 107.6 78.6 127.4 Albumin, Urine Random mg/L <12.0 <12.0 <12.0 Albumin/Creat Ratio <30 mg/g Not calculated Not calculated <9 HISTORIES FAMILY HISTORY Adopted: Yes Problem Relation Age of Onset other (Unknown) Father Patient Is adopted other (Unknown) Mother Patient is adopted other (Unknown) Sister Mental Problems other (Unknown) Sister Mental Problems other (Unknown) Brother Breast Cancer Other Cataract Daughter congenital No Ocular Disease No Family History PAST MEDICAL HISTORY Diagnosis Date Esophageal reflux Essential hypertension Fractured lateral malleolus 09/28/2013 XR: transverse fracture tip lateral malleolus Heel spur, left 01/03/2012 left: plantar and posterior prominent spurs Heel spur, right 09/28/2013 XR right plantar and posterior spurs Mild or unspecified pre-eclampsia, unspecified as to episode of care 1998 Obesity, unspecified MANSOOR on CPAP Transient hypertension of , antepartum 1998 Type II or unspecified type diabetes mellitus without mention of complication, not stated as uncontrolled 09/18/2007 Unspecified hypothyroidism PAST SURGICAL HISTORY Procedure Laterality Date DELIVERY ONLY 09/12/1998 , low cervical CTA CHEST 09/07/2020 bibasilar infiltrates consistent with Covid-19 pneumonia REDUCTION OF LARGE BREAST 09/12/1999 Social History Tobacco Use Smoking status: Former Packs/day: 1.00 Years: 35.00 Additional pack years: 0.00 Total pack years: 35.00 Types: Cigarettes Quit date: 2019 Years since quittin.4 Smokeless tobacco: Never Vaping Use Vaping Use: Never used Substance Use Topics Alcohol use: No Drug use: No ACTIVE PROBLEM LIST Hypothyroidism Diabetes Mellitus Type 2, Uncontrolled, Without Complications Essential Hypertension Pain in Joint, Ankle and Foot Abnormal Mammogram Hyperlipidemia, Mixed Obesity, Class II, Bmi 35-39.9 Heel Spur, Left Heel Spur, Right Covid-19 Virus Detected Uncontrolled Type 2 Diabetes Mellitus With Hyperglycemia (Hcc) Post-Acute Sequelae of Covid-19 (Pasc) Fatigue Brain Fog Other Chest Pain Mild Nonproliferative Diabetic Retinopathy Without Macular Edema Associated With Type 2 Diabetes Mellitus (Hcc) Current Outpatient Medications Medication Sig Dispense Refill levothyroxine (LEVOXYL) 100 mcg tablet Take 1 tablet by mouth once daily. Take on empty stomach. For Thyroid. 30 tablet 2 semaglutide (OZEMPIC) 0.25 mg or 0.5 mg (2 mg/3 mL) pen In (more content not included)... Normal [facility] 03-01-2024 [facility] ANDREW VILLALOBOS ([id number]) 1970 F Date Time Provider Department 03/01/24 Fazal FORD [facility] During your visit today, we recorded the following information about you: Fazal Ford PA-C 03/01/2024 7:05 AM Signed If taking levothyroxine routinely on 1h empty stomach, TSH indicates under replacement: will need to increase dose. Start levoth 100mcg daily AC, recheck lab 2 months If missing does, take routinely and recheck in 2 months and d/c new rx The following approved medication requests have been transmitted electronically. Requested Prescriptions Signed Prescriptions Disp Refills levothyroxine (LEVOXYL) 100 mcg tablet 30 tablet 2 Sig: Take 1 tablet by mouth once daily. Take on empty stomach. For Thyroid. Authorizing Provider: Fazal FORD PA-C M Gregory Barton, PA-C Rowland, Kathryn, MA 03/01/2024 8:58 AM Signed Message left for pt to call back for results. Carly Chavez MA, LPN 03/02/2024 11:32 AM Signed Left a message for pt to call the office and ask to speak to a nurse. BEAU Bernabe Stephanie, RN 03/02/2024 1:17 PM Signed Patient notified of results and provider's instructions. Patient verbalizes understanding. Bridget Sin RN Allergies As of Date: 03/01/2024 Noted Allergy Reaction METFORMIN 05/25/2016 6 - Diarrhea TRULICITY (DULAGLUTIDE) 08/26/2023 5 - Intolerance Comments: Nausea/Bloating Using Zofran for side effects Date Reviewed: 02/17/2024 Reviewed by: Rabia Puentes - Fully Assessed Reason for Visit: Results [95] Primary Visit Diagnosis:Hypothyroidi sm, unspecified type [E03.9] Order(s):levothyroxine (LEVOXYL) 100 mcg tabletTake 1 tablet by mouth once daily. Take on empty stomach. For Thyroid.Disp: 30 tabletRfl: 2 T4/FTI/T4U [[id number]] Order #: [id number] FUTURE Prescriptions as of 03/02/2024 - levothyroxine (LEVOXYL) 100 mcg tablet Take 1 tablet by mouth once daily. Take on empty stomach. For Thyroid. - semaglutide (OZEMPIC) 0.25 mg or 0.5 mg (2 mg/3 mL) pen Inject 0.5 mg subcutaneously one time a week. - ondansetron orally disintegrating (ZOFRAN ODT) 4 mg disintegrating tablet Take 1 tablet by mouth every 6 hours as needed for nausea/vomiting. - insulin glargine-yfgn (SEMGLEE,INSULIN GLARG-YFGN,PEN) 100 unit/mL (3 mL) insulin pen Inject 32 Units subcutaneously once daily. - Blood-Glucose Sensor (FREESTYLE YAQUELIN 3 SENSOR) alvina Apply new sensor to back of upper arm every 14 days - flash glucose sensor (FREESTYLE YAQUELIN 14 DAY SENSOR) kit One sensor q14d - levothyroxine (LEVOXYL) 88 mcg tablet Take 1 tablet by mouth once daily. Take on empty stomach. For Thyroid - levothyroxine (LEVOXYL) 88 mcg tablet Take 1 tablet by mouth once daily. Take on empty stomach. For Thyroid - Cholecalciferol, Vitamin D3, 50 mcg (2,000 unit) cap Take 2 capsules by mouth once daily. - atorvastatin (LIPITOR) 20 mg tablet Take 1 tablet by mouth daily at bedtime. For cholesterol. - lisinopril 2.5 mg tablet Take 1 tablet by mouth once daily. - insulin needles, DISPOSABLE, (PEN NEEDLE) 31 gauge x 5/16 Use one needle per dose. 1 per day. - CPAP/BIPAP/OTHER Type .CPAPSettings into a note to see current settings/supplies/DME information. - Lancets lancets Test once daily, E11.9, No insulin Problem List As Of Date 03/01/2024 Noted Resolved Hypothyroidism [E03.9] 09/18/2007 Diabetes mellitus type 2, uncontrolled, without*09/18/2007 Essential hypertension [I10] 09/19/2007 Calcaneal spur [M77.30] 02/08/2012 11/07/2012 Pain in joint, ankle and foot [M25.579] 03/08/2012 11/07/2012 Fracture of fibula, distal, right, closed [S82.*11/13/2013 03/07/2015 Pain in joint, ankle and foot [M25.579] 08/05/2014 BMI 40.0-44.9, adult (HCC) [Z68.41] 03/07/2015 08/22/2017 Abnormal mammogram [R92.8] 05/08/2015 Hyperlipidemia, mixed [E78.2] 08/22/2017 Obesity, Class II, BMI 35-39.9 [E66.9] 08/22/2017 Heel spur, left [M77.32] 01/03/2012 Heel spur, right [M77.31] 09/28/2013 COVID-19 virus detected [U07.1] 09/10/2020 Uncontrolled type 2 diabetes mellitus with hype*09/15/2020 Chronic respiratory failure with hypoxia (HCC) *11/04/2020 03/30/2021 Post-acute sequelae of COVID-19 (PASC) [U09.9] 04/16/2021 Fatigue [R53.83] 04/16/2021 Brain fog [R41.89] 04/16/2021 Other chest pain [R07.89] 05/06/2021 Mild nonproliferative diabetic retinopathy with*08/31/2023 Prescriptions ordered this encounter Disp Refills Start End LEVOTHYROXINE 100 MCG TABLET 30 t* 2 03/01/2024 Route: ORAL Sig: Take 1 tablet by mouth once daily. Take on empty stomach. For Thyroid. LEVOTHYROXINE 100 MCG TABLET 30 t* 2 03/01/2024 03/01/2024 Route: ORAL Sig: Take 1 tablet by mouth once daily. Take on empty stomach Medications Discontinued During This Encounter Prescriptions - levothyroxine (SYNTHROID) 100 mcg tablet (Di (more content not included)... Normal [facility] CBC panel Auto (Bld)on 02-26 Erythrocyte distribution width (RBC) [Ratio] 13.4 % Normal 11.5-15.0 [facility] Comment on above: Order Comment: Speci men Type: BLOOD SPECIMENOrdering Facility: [facility] Address: [address] [place] [address] Performed By: #### 5 8410-2 ####[facility] LABIA [id number] [place] [address] [place] Hematocrit (Bld) [Volume fraction] 41.0 % Normal 36.0-46.0 [facility] Comment on above: Order Comment: Speci men Type: BLOOD SPECIMENOrdering Facility: [facility] Address: [address] [place] [address] Performed By: #### 5 8410-2 ####[facility] LABIA [id number] [place] [address] [place] Hemoglobin (Bld) [Mass/Vol] 13.1 g/dL Normal 11.5-15.5 [facility] Comment on above: Order Comment: Speci men Type: BLOOD SPECIMENOrdering Facility: [facility] Address: [address] [place] [address] Performed By: #### 5 8410-2 ####[facility] LABCLIA [id number] [place] [address] [place] MCH (RBC) [Entitic mass] 28.1 pg Normal 26.0-34.0 [facility] Comment on above: Order Comment: Speci men Type: BLOOD SPECIMENOrdering Facility: [facility] Address: [address] [place] [address] Performed By: #### 5 8410-2 ####[facility] LABCLIA [id number] [place] [address] [place] MCHC (RBC) [Mass/Vol] 32.0 g/dL Normal 30.5-36.0 [facility] Comment on above: Order Comment: Speci men Type: BLOOD SPECIMENOrdering Facility: [facility] Address: [address] [place] [address] Performed By: #### 5 8410-2 ####[facility] LABCLIA [id number] [place] [address] [place] MCV (RBC) [Entitic vol] 88.0 fL Normal 80.0-100.0 [facility] Comment on above: Order Comment: Speci men Type: BLOOD SPECIMENOrdering Facility: [facility] Address: [address] [place] [address] Performed By: #### 5 8410-2 ####[facility] LABCLIA [id number] [place] [address] [place] Nucleated RBC (Bld) [#/Vol] 10*3/uL Normal <0.01 [facility] Comment on above: Order Comment: Speci men Type: BLOOD SPECIMENOrdering Facility: [facility] Address: [address] [place] [address] Performed By: #### 5 8410-2 ####[facility] LABCLIA [id number] [place] [address] [place] Platelet mean volume (Bld) [Entitic vol] 11.6 fL Normal 9.0-12.7 [facility] Comment on above: Order Comment: Speci men Type: BLOOD SPECIMENOrdering Facility: [facility] Address: [address] [place] [address] Performed By: #### 5 8410-2 ####[facility] LABCLIA [id number] [place] [address] [place] Platelets (Bld) [#/Vol] 211 10*3/uL Normal 150-400 [facility] Comment on above: Order Comment: Speci men Type: BLOOD SPECIMENOrdering Facility: [facility] Address: [address] [place] [address] Performed By: #### 5 8410-2 ####[facility] LABCLIA [id number] [place] [address] [place] RBC (Bld) [#/Vol] 4.66 10*6/uL Normal 3.90-5.20 [facility] Comment on above: Order Comment: Speci men Type: BLOOD SPECIMENOrdering Facility: [facility] Address: [address] [place] [address] Performed By: #### 5 8410-2 ####[facility] LABCLIA [id number] [place] [address] [place] WBC (Bld) [#/Vol] 4.98 10*3/uL Normal 3.70-11.00 [facility] Comment on above: Order Comment: Speci men Type: BLOOD SPECIMENOrdering Facility: [facility] Address: [address] [place], [place] [address] Performed By: #### 5 8410-2 ####[facility] LABIA [id number] [place] [address] [place] Comprehensive metabolic 2000 panelon 02-27-2024 Albumin [Mass/Vol] 4.0 g/dL Normal 3.9-4.9 [facility] Comment on above: Order Comment: Speci men Type: BLOOD SPECIMENOrdering Facility: [facility] Address: [address] [place] [address] Performed By: #### 3 016-3, 46860-7, 89561-4 ####[facility] LABIA [id number] [place] [address] [place] ALP [Catalytic activity/Vol] 117 U/L Normal 34-123 [facility] Comment on above: Order Comment: Speci men Type: BLOOD SPECIMENOrdering Facility: [facility] Address: [address] [place] [address] Performed By: #### 3 016-3, 74347-5, 77073-3 ####[facility] LABCLIA [id number] [place] [address] [place] ALT [Catalytic activity/Vol] 14 U/L Normal 7-38 [facility] Comment on above: Order Comment: Speci men Type: BLOOD SPECIMENOrdering Facility: [facility] Address: [address] [place] [address] Performed By: #### 3 016-3, 76107-7, 58760-5 ####[facility] LABCLIA [id number] [place] [address] [place] Anion gap [Moles/Vol] 10 mmol/L Normal 8-15 [facility] Comment on above: Order Comment: Speci men Type: BLOOD SPECIMENOrdering Facility: [facility] Address: [address] [place] [address] Performed By: #### 3 016-3, 88005-9, 06545-0 ####[facility] LABIA [id number] [place] [address] [place] AST [Catalytic activity/Vol] 17 U/L Normal 13-35 [facility] Comment on above: Order Comment: Speci men Type: BLOOD SPECIMENOrdering Facility: [facility] Address: [address] [place] [address] Performed By: #### 3 016-3, 37289-6, 49480-3 ####[facility] LABIA [id number] [place] [address] [place] Bilirubin [Mass/Vol] 0.5 mg/dL Normal 0.2-1.3 [facility] Comment on above: Order Comment: Speci men Type: BLOOD SPECIMENOrdering Facility: [facility] Address: [address] [place] [address] Performed By: #### 3 016-3, , ####[facility] LABCLIA [id number] [facility] [place] [address] [place] Calcium [Mass/Vol] 9.3 mg/dL Normal 8.5-10.2 [facility] Comment on above: Order Comment: Speci men Type: BLOOD SPECIMENOrdering Facility: [facility] Address: [address] [place] [address] Performed By: #### 3 016-3, , ####[facility] LABCLIA [id number] [place] [address] [place] Chloride [Moles/Vol] 108 mmol/L High 98-107 [facility] Comment on above: Order Comment: Speci men Type: BLOOD SPECIMENOrdering Facility: [facility] Address: [address] [place] [address] Performed By: #### 3 016-3, , ####[facility] LABCLIA [id number] [place] [address] [place] CO2 [Moles/Vol] 23 mmol/L Normal 22-30 [facility] Comment on above: Order Comment: Speci men Type: BLOOD SPECIMENOrdering Facility: [facility] Address: [address] [place] [address] Performed By: #### 3 016-3, , ####[facility] LABCLIA [id number] [facility] [place] [id number] [place] Creatinine [Mass/Vol] 0.78 mg/dL Normal 0.58-0.96 [facility] Comment on above: Order Comment: Speci men Type: BLOOD SPECIMENOrdering Facility: [facility] Address: [address] [place] [address] Performed By: #### 3 016-3, , 71452-8 ####[facility] LABCLIA [id number] [address] [place] Creatinine and Glomerular filtration rate.predicted panel (S/P/Bld) 89 mL/min/1.73m??? Normal >=60 [facility] Comment on above: Order Comment: Keerthi breanna Type: BLOOD SPECIMENOrdering Facility: [facility] Address: [address] [place] [address] Result Comment: Frieda mated Glomerular Filtration Rate (eGFR) is calculated using the 2020 CKD-EPI creatinine equation. This equation utilizes serum creatinine, sex, and age as parameters. The creatinine assay has traceable calibration to isotope dilution-mass spectrometry. Refer to KDIGO guidelines for clinical interpretation. In patients with unstable renal function, e.g. those with acute kidney injury, the eGFR may not accurately reflect actual GFR. Performed By: #### 3 016-3, 64103-9, 83226-5 ####[facility] LABIA [id number] [place] [address] [place] Glucose [Mass/Vol] 123 mg/dL High 74-99 [facility] Comment on above: Order Comment: Keerthi carlos Type: BLOOD SPECIMENOrdering Facility: [facility] Address: [address] [place] [address] Result Comment: The [place] Diabetes Association (ADA) provides guidance for cutoff values for fasting glucose and random glucose. The ADA defines fasting as no caloric intake for at least 8 hours. Fasting plasma glucose results between 100 to 125 mg/dL indicate increased risk for diabetes (prediabetes). Fasting plasma glucose results greater than or equal to 126 mg/dL meet the criteria for diagnosis of diabetes. In the absence of unequivocal hyperglycemia, results should be confirmed by repeat testing. In a patient with classic symptoms of hyperglycemia or hyperglycemic crisis, random plasma glucose results greater than or equal to 200 mg/dL meet the criteria for diagnosis of diabetes. Reference: Standards of Medical Care in Diabetes 2016, [place] Diabetes Association. Diabetes Care. 2016.39(Suppl 1). Performed By: #### 3 016-3, 86383-6, 83904-1 ####[facility] LABIA [id number] [address] [address] [place] Potassium [Moles/Vol] 4.2 mmol/L Normal 3.7-5.1 [facility] Comment on above: Order Comment: Speci men Type: BLOOD SPECIMENOrdering Facility: [facility] Address: [address] [place] [address] Performed By: #### 3 016-3, 68237-2, 55090-0 ####[facility] LABCLIA [id number] [place] [address] [place] Protein [Mass/Vol] 6.5 g/dL Normal 6.3-8.0 [facility] Comment on above: Order Comment: Speci men Type: BLOOD SPECIMENOrdering Facility: [facility] Address: [address] [place] [address] Performed By: #### 3 016-3, 78036-5, 87196-2 ####[facility] LABCLIA [id number] [place] [address] [place] Sodium [Moles/Vol] 141 mmol/L Normal 136-144 [facility] Comment on above: Order Comment: Speci men Type: BLOOD SPECIMENOrdering Facility: [facility] Address: [address] [place] [address] Performed By: #### 3 016-3, 52799-5, 49541-0 ####[facility] LABCLIA [id number] [place] [address] [place] Urea nitrogen [Mass/Vol] 11 mg/dL Normal 7-21 [facility] Comment on above: Order Comment: Speci men Type: BLOOD SPECIMENOrdering Facility: [facility] Address: [address] [place] [address] Performed By: #### 3 016-3, 26390-6, 08414-5 ####[facility] LABCLIA [id number] [place] [address] [place] HbA1c (Bld)on 02-27-2024 Average glucose Estimated from glycated hemoglobin (Bld) [Mass/Vol] 163 mg/dL Normal [facility] Comment on above: Order Comment: Keerthi men Type: BLOOD SPECIMENOrdering Facility: [facility] Address: [address] [place] [address] Result Comment: eAG: (Estimated average glucose) is a calculated value from HgbA1c and is maintenance representative of the average blood glucose level in the last 2-3 month period. Performed By: #### 5 5454-3 ####[facility] LABCLIA [id number] [place] [address] [place] HbA1c (Bld) [Mass fraction] 7.3 % High 4.3-5.6 [facility] Comment on above: Order Comment: Keerthi men Type: BLOOD SPECIMENOrdering Facility: [facility] Address: [address] [place] [address] Result Comment: Amer ican Diabetes Association guidelines indicate that patients with HgbA1c in the range 5.7-6.4% are at increased risk for development of diabetes, and intervention by lifestyle modification may be beneficial. HgbA1c greater or equal to 6.5% is considered diagnostic of diabetes. Performed By: #### 5 5454-3 ####[facility] LABCLIA [id number] [place] [address] [place] Lipid 1996 panelon 4 Cholesterol [Mass/Vol] 108 mg/dL Normal <200 [facility] Comment on above: Order Comment: Keerthi men Type: BLOOD SPECIMENOrdering Facility: [facility] Address: [address] [place] [address] Result Comment: <200 mg/dL, Desirable 200-239 mg/dL, Borderline high >239 mg/dL, High Performed By: #### 3 016-3, 16324-6, 12438-1 ####[facility] LABCLIA [id number] [place] [address] [place] Cholesterol in HDL [Mass/Vol] 47 mg/dL Normal >39 [facility] Comment on above: Order Comment: Speci men Type: BLOOD SPECIMENOrdering Facility: [facility] Address: [address] [place] [address] Result Comment: 40-5 9 mg/dL, Acceptable >59 mg/dL, High: Negative risk factor for coronary heart disease <40 mg/dL, Low: Positive risk factor for coronary heart disease Performed By: #### 3 016-3, 34727-8, 64898-8 ####[facility] LABCLIA [id number] [address] [place] Cholesterol in LDL [Mass/Vol] 40 mg/dL Normal <100 [facility] Comment on above: Order Comment: Speci men Type: BLOOD SPECIMENOrdering Facility: [facility] Address: [address] [place] [address] Result Comment: <100 mg/dL, Optimal 100-129 mg/dL, Near optimal/above optimal 130-159 mg/dL, Borderline high 160-189 mg/dL, High >189 mg/dL, Very high Secondary prevention optimal LDL Cholesterol levels are recommended to be < 70 mg/dL Performed By: #### 3 016-3, 98458-2, 87148-3 ####[facility] LABCLIA [id number] [address] [place] Cholesterol in LDL/Cholesterol in HDL [Mass ratio] 0.85 {ratio} Normal <2.54 [facility] Comment on above: Order Comment: Speci men Type: BLOOD SPECIMENOrdering Facility: [facility] Address: [address] [place] [address] Result Comment: Refe rence: 1. National Cholesterol Education Program ATP III Guideline At-A-Glance Quick Desk Reference: National Heart, Lung, and Blood [place]. National Institutes of Health. 2001: NIH Publication No. 01-3305. 2. An International Atherosclerosis Society position paper: global recommendations for the management of dyslipidemia: executive summary, Atherosclerosis. 2014: 232(2):410-413. Performed By: #### 3 016-3, 81951-6, 93240-0 ####[facility] LABCLIA [id number] [place] [address] [place] Cholesterol in VLDL [Mass/Vol] 21 mg/dL Normal <30 [facility] Comment on above: Order Comment: Speci men Type: BLOOD SPECIMENOrdering Facility: [facility] Address: [address] [place] [address] Performed By: #### 3 016-3, 53144-2, 79178-6 ####[facility] LABCLIA [id number] [place] [address] [place] Cholesterol non HDL [Mass/Vol] 61 mg/dL Normal <130 [facility] Comment on above: Order Comment: Speci men Type: BLOOD SPECIMENOrdering Facility: [facility] Address: [address] [place] [address] Result Comment: <130 mg/dL, Optimal 130-159 mg/dL, Near optimal/above optimal 160-189 mg/dL, Borderline high 190-219 mg/dL, High >219 mg/dL, Very high Secondary prevention optimal non HDL Cholesterol levels are recommended to be <100 mg/dL Performed By: #### 3 016-3, 82729-3, 52523-2 ####[facility] LABCLIA [id number] [place] [address] [place] Cholesterol.total/C holesterol in HDL [Mass ratio] 2.30 {ratio} Normal <5.10 [facility] Comment on above: Order Comment: Speci men Type: BLOOD SPECIMENOrdering Facility: [facility] Address: [address] [place] [address] Performed By: #### 3 016-3, 44692-1, ####[facility] LABCLIA [id number] [place] [address] [place] FASTING TIME 12 hrs Normal [facility] Comment on above: Order Comment: Speci men Type: BLOOD SPECIMENOrdering Facility: [facility] Address: [address] [place] [address] Performed By: #### 3 016-3, 12367-5, 11437-6 ####[facility] LABCLIA [id number] [place] [address] [place] Triglyceride [Mass/Vol] 107 mg/dL Normal <150 [facility] Comment on above: Order Comment: Speci men Type: BLOOD SPECIMENOrdering Facility: [facility] Address: [address] [place] [address] Result Comment: <150 mg/dL, Normal 150-199 mg/dL, Borderline high 200-499 mg/dL, High >499 mg/dL, Very high Performed By: #### 3 016-3, 70692-6, 23273-0 ####[facility] LABCLIA [id number] [place] [address] [place] TSH SerPl-aCncon 02-27-2024 TSH Qn 9.230 m[IU]/L High 0.270-4.200 [facility] Comment on above: Order Comment: Speci men Type: BLOOD SPECIMENOrdering Facility: [facility] Address: [address] [place] [address] Performed By: #### 3 016-3, 62605-3, 15969-8 ####[facility] LABCLIA [id number] [address] [place] CNOVon 02-08-2024 CNOV Office Visit (UCWSTR ) ANDREW VILLALOBOS ([id number]) 1970 F Date Time Provider Department 02/08/24 10:45 AM ESTHER SOMERSTR During your visit today, we recorded the following information about you: Temperature Pulse Respiration Blood pressure 98.5 degrees 110/minute 18/minute 136/84 Weight 85.3 kg Esther Somers PA 02/08/2024 11:03 AM Signed This note was created using TreSensariter. Subjective Andrew Villalobos is a 54 year old female. HPI 54-year-old female presents for sore throat, cough, headache x 3 days. Patient states on Tuesday she started feeling sick with sore throat and she had a raspy voice. She has had a cough, runny nose and little bit of a headache. She states that her employer wanted her to come in and be evaluated. She has had sick contacts at work. She denies any fevers. She denies any chest pain or shortness of breath. No history of COPD or asthma. Cough is dry. She is still able to eat and drink. She has not taken anything [id number]. PAST MEDICAL HISTORY Diagnosis Date Esophageal reflux Essential hypertension Fractured lateral malleolus 09/28/2013 XR: transverse fracture tip lateral malleolus Heel spur, left 01/03/2012 left: plantar and posterior prominent spurs Heel spur, right 09/28/2013 XR right plantar and posterior spurs Mild or unspecified pre-eclampsia, unspecified as to episode of care 1998 Obesity, unspecified MANSOOR on CPAP Transient hypertension of , antepartum 1998 Type II or unspecified type diabetes mellitus without mention of complication, not stated as uncontrolled 09/18/2007 Unspecified hypothyroidism PAST SURGICAL HISTORY Procedure Laterality Date DELIVERY ONLY 09/12/1998 , low cervical CTA CHEST 09/07/2020 bibasilar infiltrates consistent with Covid-19 pneumonia REDUCTION OF LARGE BREAST 09/12/1999 ALLERGIES Metformin and Trulicity [Dulaglutide] MEDICATIONS insulin glargine-yfgn (SEMGLEE,INSULIN GLARG-YFGN,PEN) 100 unit/mL (3 mL) insulin pen Inject 32 Units subcutaneously once daily. semaglutide (OZEMPIC) 0.25 mg or 0.5 mg (2 mg/3 mL) pen Inject 0.5 mg subcutaneously one time a week. Blood-Glucose Sensor (FREESTYLE YAQUELIN 3 SENSOR) alvina Apply new sensor to back of upper arm every 14 days flash glucose sensor (FREESTYLE YAQUELIN 14 DAY SENSOR) kit One sensor q14d levothyroxine (LEVOXYL) 88 mcg tablet Take 1 tablet by mouth once daily. Take on empty stomach. For Thyroid levothyroxine (LEVOXYL) 88 mcg tablet Take 1 tablet by mouth once daily. Take on empty stomach. For Thyroid Cholecalciferol, Vitamin D3, 50 mcg (2,000 unit) cap Take 2 capsules by mouth once daily. atorvastatin (LIPITOR) 20 mg tablet Take 1 tablet by mouth daily at bedtime. For cholesterol. lisinopril 2.5 mg tablet Take 1 tablet by mouth once daily. insulin needles, DISPOSABLE, (PEN NEEDLE) 31 gauge x 5/16 Use one needle per dose. 1 per day. ondansetron orally disintegrating (ZOFRAN ODT) 4 mg disintegrating tablet Take 1 tablet by mouth every 6 hours as needed for nausea/vomiting. CPAP/BIPAP/OTHER Type .CPAPSettings into a note to see current settings/supplies/DME information. Lancets lancets Test once daily, E11.9, No insulin FAMILY HISTORY Adopted: Yes Problem Relation Age of Onset other (Unknown) Father Patient Is adopted other (Unknown) Mother Patient is adopted other (Unknown) Sister Mental Problems other (Unknown) Sister Mental Problems other (Unknown) Brother Breast Cancer Other Cataract Daughter congenital No Ocular Disease No Family History Social History Tobacco Use Smoking status: Former Packs/day: 1.00 Years: 35.00 Additional pack years: 0.00 Total pack years: 35.00 Types: Cigarettes Quit date: 2019 Years since quittin.4 Smokeless tobacco: Never Vaping Use Vaping Use: Never used Substance Use Topics Alcohol use: No Drug use: No Review of Systems Constitutional: Negative for chills and fever. HENT: Positive for rhinorrhea and sore throat. Negative for congestion and ear pain. Respiratory: Positive for cough. Negative for shortness of breath. Cardiovascular: Negative for chest pain. Gastrointestinal: Negative for diarrhea and vomiting. Neurological: Positive for headaches. Objective BP 136/84 Pulse 110 Temp 36.9 ?C (98.5 ?F) (Tympanic) Resp 18 Wt 85.3 kg (188 lb 0.8 oz) LMP 07/02/2019 SpO2 97% BMI 34.96 kg/m? Physical Exam Vitals and nursing note reviewed. Constitutional: General: She is not in acute distress. Appearance: Normal appearance. She is not toxic-appearing. HENT: Right Ear: Tympanic membrane and ear canal normal. Left Ear: Tympanic membrane and ear canal normal. Nose: Nose normal. Mouth/Throat: Mouth: Mucous membranes are moist. Pharynx: Uvula midline. Posterior oropharyngeal erythema present. Tonsils: No to (more content not included)... Normal [facility] COVID AND INFLUENZA A/B AND RSV NAAT, ROUTINEon 02-08-2024 SARS-CoV-2 (COVID-19) RNA MARQUIS+probe Ql (Unsp spec) COVID 19 RESULT: Not detected The method used is RT-PCR or an equivalent NAAT method. Reference Range (the expected result in uninfected individuals): Not detected INFLUENZA A PCR: Not detected INFLUENZA B PCR: Not detected RSV PCR: Not detected Normal [facility] Comment on above: Performed By: #### C VFLRS ####[facility] LABCLIA [id number] [address] OF [facility] COVID & INFLUENZA A/B & RSV NAAT, ROUTINEon 02-08-2024 FLUAV RNA MARQUIS+probe Ql (Unsp spec) Not detected Not Detected [facility] FLUBV RNA MARQUIS+probe Ql (Unsp spec) Not detected Not Detected [facility] Interpretation and review of laboratory results Normal [facility] RSV A RNA MARQUIS+probe Ql (Unsp spec) Not detected Not Detected [facility] SARS-CoV-2 (COVID-19) RNA MARQUIS+probe Ql (Resp) Not detected See comment [facility] Comment on above: The method used is R T-PCR or an equivalent NAAT method. Reference Range (the expected result in uninfected individuals): Not detected For upper respirator y tract samples, this test has been authorized by FDA under Emergenecy Use Authorization (EUA). For lower respiratory tract samples, this test was developed and its performance characteristics determined by [facility] ([facility]). It has not been cleared or approved by the FDA. [facility] is regulated under CLIA as qualified to perform high-complexity testing. This test is used for clinical purposes. It should not be regarded as investigational or for research. Test performed by [facility], [facility] [place], [address] [place] [address]. [facility] STREP A MOLECULAR (POC)on Procedural Control Valid [facility] Strep A (POCT) Negative Negative [facility] ROUTINE FLU A/B + RSVon 06-13 FLUAV RNA MARQUIS+probe Ql (Unsp spec) Not detected Not Detected [facility] FLUBV RNA MARQUIS+probe Ql (Unsp spec) Not detected Not Detected [facility] RSV A RNA MARQUIS+probe Ql (Unsp spec) Not detected Not Detected [facility] STREP A MOLECULAR (POC)on Procedural Control Valid [facility] Strep A (POCT) Negative Negative [facility] No Panel Informationon 03-[address] [facility] XR ANKLE 3V AP/LAT/OBL RTon 03-12-2023 XR ANKLE 3V AP/LAT/OBL RT * * *Final Report* * * DATE OF EXAM: Mar 12 2023 2:49PM LDX [id number] - XR ANKLE 3V AP/LAT/OBL RT / PROCEDURE REASON: Acute right ankle pain * * * * Physician Interpretation * * * * EXAM TITLE: X-RAY RIGHT ANKLE DATE: March 12, 2023 CLINICAL INDICATION/HISTORY: Ankle pain, fall a few days ago COMPARISON: None. TECHNIQUE: AP, oblique and lateral views of the right ankle. FINDINGS: No fracture or dislocation. No lytic or blastic osseous lesions. Soft tissues are unremarkable. IMPRESSION: No fracture or dislocation. . Coach Builder: KVNG Transcribe Date/Time: Mar 12 2023 3:01P Dictated by : ZEE MATOS MD This examination was interpreted and the report reviewed and electronically signed by: ZEE MATOS MD on Mar 12 2023 3:02PM EST [id number] Normal [facility] XR ELBOW SPECIAL VIEWS AP/LA T/OTHER RIGHTon 03-29-[address] [facility] XR Elbow - right AP and Late ral and obliqueon 03-29-2022 IMPRESSION: No acute radiographic abnormalities seen in the right elbow. Coach Builder: KVNG Transcribe Date/Time: Mar 29 2022 12:52P Dictated by : ANTHONY CASTRO MD This examination was interpreted and the report reviewed and electronically signed by: ANTHONY CASTRO MD on Mar 29 2022 12:55PM EST [facility]_DO_NOT_USE_ DIVISION OF RADIOLOGY * * *Final Report* * * DATE OF EXAM: Mar 29 2022 12:09PM WOX [id number] - XR ELBOW 3V AP/LAT/OTHER RT / PROCEDURE REASON: Right elbow pain * * * * Physician Interpretation * * * * EXAM TITLE: XR ELBOW 3V AP/LAT/OTHER RT EXAM DATE/TIME: 03/29/2022 12:09 PM COMPARISON: None. CLINICAL INDICATION/HISTORY: Pain. TECHNIQUE: AP, lateral and oblique views of the right elbow are presented. FINDINGS: No acute fractures or subluxations are noted. The radiocapitellar and ulnotrochlear joint spaces are preserved. No fat pad sign to suggest joint effusion. The mineralization of the bones is normal. There is no significant soft tissue swelling. [facility]_DO_NOT_USE_ DIVISION OF RADIOLOGY [facility] * * *Final Report* * * DATE OF EXAM: Mar 29 2022 12:09PM WOX [id number] - XR ELBOW 3V AP/LAT/OTHER RT / PROCEDURE REASON: Right elbow pain * * * * Physician Interpretation * * * * EXAM TITLE: XR ELBOW 3V AP/LAT/OTHER RT EXAM DATE/TIME: 03/29/2022 12:09 PM COMPARISON: None. CLINICAL INDICATION/HISTORY: Pain. TECHNIQUE: AP, lateral and oblique views of the right elbow are presented. FINDINGS: No acute fractures or subluxations are noted. The radiocapitellar and ulnotrochlear joint spaces are preserved. No fat pad sign to suggest joint effusion. The mineralization of the bones is normal. There is no significant soft tissue swelling. IMPRESSION IMPRESSION: No acute radiographic abnormalities seen in the right elbow. Coach Builder: PSCB Transcribe Date/Time: Mar 29 2022 12:52P Dictated by : ANTHONY CASTRO MD This examination was interpreted and the report reviewed and electronically signed by: ANTHONY CASTRO MD on Mar 29 2022 12:55PM EST [facility] Radiology Study observation (narrative) [facility] XR Elbow - right AP and Late ral and obliqueOrdered By: Ccf Provider on 03-29-[address] [facility] Absolute lymphocyte counton 02-14-2022 Lymphocytes Auto (Unsp spec) [#/Vol] 1.14 10*3/uL 0.83-4.51 [facility] Work Phone: Basophil percentageon 2021 Basophils/100 WBC (Bld) 0.9 % 0-1 [facility] Work Phone: Bilirubin [Mass/Vol] 0.70 mg/dL 0.20-1.00 [facility] Work Phone: Comment on above: For patients on eltr ombopag therapy, use of Dimension [place] TBIL is not recommended. Chloride [Moles/Vol] 109 mmol/L 98-107 [facility] Work Phone: Eosinophils/100 WBC (Bld) 0.7 % 0-5 [facility] Work Phone: Glucose [Mass/Vol] 360 mg/dL 74-106 [facility] Work Phone: Comment on above: Glucose result great er than or equal to 200 mg/dLsuggests DIABETES MELLITUS per A.D.A. criteria. Neutrophils (Bld) [#/Vol] 4.1 10*3/uL 2.0-7.7 [facility] Work Phone: Neutrophils/100 WBC (Bld) 71.7 % 47-70 [facility] Work Phone: Potassium [Moles/Vol] 4.0 mmol/L 3.5-5.1 [facility] Work Phone: Protein [Mass/Vol] 5.3 g/dL 6.4-8.2 [facility] Work Phone: Sodium [Moles/Vol] 140 mmol/L 136-145 [facility] Work Phone: WBC (Bld) [#/Vol] 5.7 10*3/uL 4.4-11.0 [facility] Work Phone: Blood erythrocytes count (nu mber/volume)on 02-14-2022 RBC (Bld) [#/Vol] 5.56 10*6/uL 4.2-5.4 [facility] Work Phone: Blood hemoglobin measurement (mass/volume)on 02-14-2022 Hemoglobin (Bld) [Mass/Vol] 15.9 g/dL 12.0-15.0 [facility] Work Phone: Blood lymphocytes/100 leukoc yteson 02-14-2022 Lymphocytes/100 WBC (Bld) 20.0 % 19-41 [facility] Work Phone: Blood monocytes/100 leukocyt eson 02-14-2022 Monocytes/100 WBC (Bld) 6.3 % 0-10 [facility] Work Phone: Blood platelet mean volumeon 02-14-2022 Platelet mean volume (Bld) [Entitic vol] 11.1 fL 6.2-12.0 [facility] Work Phone: Determination of erythrocyte mean corpuscular volume (MCV)on 02-14-2022 MCV (RBC) [Entitic vol] 87.9 fL 81-99 [facility] Work Phone: Hematocrit Auto (Bld) [Volum e fraction]on 02-14-2022 Hematocrit (Bld) [Volume fraction] 48.9 % 37-47 [facility] Work Phone: Laboratory - Chemistry and C hemistry - challengeon 02-14-2022 ALP [Catalytic activity/Vol] 104 U/L 45-117 [facility] Work Phone: ALT [Catalytic activity/Vol] 23 U/L 13-56 [facility] Work Phone: CO2 [Moles/Vol] 26.0 mmol/L 21.0-32.0 [facility] Work Phone: Globulin (S) [Mass/Vol] 2.4 g/dL 2.2-4.2 [facility] Work Phone: Urea nitrogen/Creatinine [Mass ratio] 11.7 mg/mg 10-20 [facility] Work Phone: Laboratory - Hematology and Cell countson 02-14-2022 Erythrocyte distribution width (RBC) [Entitic vol] 40.3 fL 35.1-43.9 [facility] Work Phone: Erythrocyte distribution width (RBC) [Ratio] 12.5 % 11.6-14.6 [facility] Work Phone: Immature granulocytes/100 WBC (Bld) 0.400 % 0.0-0.9 [facility] Work Phone: Comment on above: IG% - Immature Granu locytes (promyelocytes, myelocytes and metamyelocytes) > 1% indicates that a LEFT SHIFT is Present. MCH (RBC) [Entitic mass] 28.6 pg 27.0-32.0 [facility] Work Phone: Nucleated RBC/100 WBC (Bld) [Ratio] 0 % 0-5 [facility] Work Phone: MCHC Auto (RBC) [Mass/Vol]on 02-14-2022 MCHC (RBC) [Mass/Vol] 32.5 g/dL 32-36 [facility] Work Phone: No Panel Informationon 02-14 Estimated Creatinine Clearance Calc 59.99 ml/min [facility] Work Phone: Estimated GFR (MDRD) Amer 101 mL/min >60 [facility] Work Phone: Comment on above: GFR Calc Estimated GFR (MDRD) Non-Af Amer 83 mL/min >60 [facility] Work Phone: Comment on above: Non- GFR Calc Platelets bldon 02-14-2022 Platelets (Bld) [#/Vol] 149 10*3/uL 150-450 [facility] Work Phone: Serum or plasma albumin albino urement (mass/volume)on 02-14-2022 Albumin [Mass/Vol] 2.9 g/dL 3.2-5.0 [facility] Work Phone: Serum or plasma albumin/glob ulin mass ratioon 02-14-2022 Albumin/Globulin [Mass ratio] 1.2 {ratio} 0.9-2.4 [facility] Work Phone: Serum or plasma calcium albino urement (mass/volume)on 02-14-2022 Calcium [Mass/Vol] 7.8 mg/dL 8.5-10.1 [facility] Work Phone: Serum or plasma creatinine m easurement (mass/volume)on 02-14-2022 Creatinine [Mass/Vol] 0.77 mg/dL 0.55-1.02 [facility] Work Phone: Comment on above: The validity of the calculated GFR & GFRAA in patients over 70 years has not been determined. Clinical correlation is essential. Serum or plasma urea nitroge n measurement (mass/volume)on 02-14-2022 Urea nitrogen [Mass/Vol] 9 mg/dL 7-18 [facility] Work Phone: Thin prep Papanicolaou smear with manual screeningon 02-14-2022 Thin prep Papanicolaou smear with manual screening 13 U/L 15-37 [facility] Work Phone: Thin prep Papanicolaou smear with manual screening 5 5-15 [facility] Work Phone: CNTHERAPYon 04-15-2021 CNTHERAPY OT/PT/Speech Visit (PTMDRG) ANDREW VILLALOBOS ([id number]) 1970 F Date Time Provider Department 04/15/21 2:45 PM MATY CARVAJAL Date Time Provider Department Center 04/15/2021 2:45 PM [id number] CARVAJAL [facility] Reason for Visit: Patient Education [91] PT Eval [987] Visit Diagnoses: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 - atorvastatin (LIPITOR) 20 mg tablet Take 1 tablet by mouth daily at bedtime. For cholesterol. - Cholecalciferol, Vitamin D3, (VITAMIN D-3) 50 mcg (2,000 unit) cap Take 2 capsules by mouth once daily. - docosahexaenoic acid/epa (FISH OIL ORAL) Take 1,000 mcg by mouth once daily. - ondansetron orally disintegrating (ZOFRAN ODT) 4 mg disintegrating tablet Take 1 tablet by mouth every 6 hours as needed for Nausea/Vomiting. - levothyroxine (LEVOXYL) 88 mcg tablet Take 1 tablet by mouth once daily. Take on empty stomach. For Thyroid - dulaglutide (TRULICITY) 3 mg/0.5 mL pen injector Inject 3 mg subcutaneously one time a week. - flash glucose scanning reader (FREESTYLE YAQUELIN 14 DAY READER) 1 Each four times daily. - flash glucose sensor (FREESTYLE YAQUELIN 14 DAY SENSOR) kit One sensor every 14 days for QID readings - aspirin 81 mg chewable tablet Take 1 tablet by mouth once daily. - insulin glargine (LANTUS SOLOSTAR U-100 INSULIN) 100 unit/mL (3 mL) Inject 25 Units subcutaneously daily at bedtime. - dulaglutide (TRULICITY) 1.5 mg/0.5 mL Inject 1.5 mg subcutaneously one time a week. Inject once per week. Discard Pen After - flash glucose scanning reader (FREESTYLE YAQUELIN 14 DAY READER) misc 1 Each four times daily. - flash glucose sensor (FREESTYLE YAQUELIN 14 DAY SENSOR) kit One sensor q14d - blood sugar diagnostic (FREESTYLE LITE STRIPS) test strip Test blood sugar(s) 2x daily. Dx: E11.9. Insulin: No - Lancets lancets Test once daily, E11.9, No insulin - insulin needles, DISPOSABLE, (PEN NEEDLE) 31 gauge x 5/16 ndle Use one needle per dose. 1 per day. Facility-Administered Medications as of 04/16/2021 - perflutren lipid microspheres 1.3 mL in NaCl (PF) 0.9% 10 mL injection (DEFINITY) - sodium chloride 0.9 % (flush) 10 mL (BD POSIFLUSH) Progress Notes: Maty Carvajal, PT 04/16/2021 2:04 PM Signed Episode Visit Count: 1 Therapist That Will Oversee The Plan Of Care: Maty Carvajal Start of Care Date: 04/15/21 Onset Date: 09/01/20 Plan of Care Certification Date: 04/15/21 Next Certification Due Date: 06/15/21 Patient Identified by Name and Date of : Yes REHABILITATION AND SPORTS THERAPY PHYSICAL THERAPY EVALUATION PLAN OF CARE: Assessment: Andrew Villalobos presents with the diagnosis of post COVID syndrome with chief compliant of SOB, fatigue, and decrease from baseline . She presents with impairments of decreased endurance, SOB, impaired response to exercise, and decrease from peer. PROMIS? (Patient-Reported Outcomes Measurement Information System) scores were reviewed and physical function domain identified as a rehabilitation concern. She may benefit from skilled therapy services to improve endurance and prevent decline. Prognosis: Good Good due to: good support system/ coping skills Goals for Episode of Care: created on 04/15/21 through 06/14/21 Patient will demonstrate current home exercise program independently. Improve five time sit to stand to 8 seconds to decrease risk of falls. Patient will complete 18 reps on 30 second chair stand test to decrease risk of falls. Patient will improve average gait speed on Six Minute Walk Test to 1.2 m/s to demonstrate improved endurance and community ambulation. Patient will improve distance on 2 minute walk test by 12.2 meters/40 feet to meet CHAZ for older adults to increase endurance for household and community ambulation. Patient will improve single leg stance time to 30 seconds on Bilateral Legs to improve balance. Patient Goals: Less short of breath. Be able to bathroom without issues. Planned Interventions, Frequency, and Duration: Current Frequency: 2x/week Duration: 8 weeks Total Number of Visits Planned: 12 Planned Treatment Interventions: Therapeutic exercise (29468);Neuromuscular re-education (67672);Manual therapy (71006);Therapeutic activities (36122);Self-custodial management (79770);Gait Training (59610);Patient/Family /Caregiver Education PLAN FOR NEXT VISIT: Start with ge (more content not included)... Normal [facility] XR Chest PA and Lateralon IMPRESSION: No consolidation. Interval significant decrease in the previously identified bilateral lower lung zone airspace opacities, compatible with interval with continued decrease/near complete resolution of the infiltrates/pneumonia. Minimal patchy opacification in the region of the lingula, likely linear atelectasis/scarring or sequela of previous infectious/inflammator y process. Coach Builder: KVNG Transcribe Date/Time: Feb 25 2021 1:42P Dictated by : RUPAL URBANO MD This examination was interpreted and the report reviewed and electronically signed by: RUPAL URBANO MD on Feb 25 2021 1:45PM [facility] DIVISION OF RADIOLOGY * * *Final Report* * * DATE OF EXAM: Feb 25 2021 10:43AM CCX 5291 - XR CHEST 2V FRONTAL/LAT / PROCEDURE REASON: multiple diagnoses * * * * Physician Interpretation * * * * EXAMINATION: CHEST RADIOGRAPH (2 VIEW FRONTAL & LATERAL) CLINICAL HISTORY: Post-acute sequelae of COVID-19 (PASC), MORENO (dyspnea on exertion). Chest pain, unspecified type Palpitations MQ: XC2_6 EXAM DATE/TIME: 02/25/2021 10:43 AM COMPARISON: 10/02/2020. RESULT: Lines, tubes, and devices: None. Lungs and pleura: No consolidation. Interval significant decrease in the previously identified bilateral lower lung zone airspace opacities. Minimal patchy opacification in the region of the lingula, likely linear atelectasis/scarring or sequela of previous infectious/inflammator y process. No lung mass. No pleural effusion. No pneumothorax. Cardiomediastinal silhouette: Stable cardiomediastinal silhouette. The heart size is within normal limits. Bones and soft tissues: No acute osseous pathology. DIVISION OF RADIOLOGY Provider, [facility] - 02/25/2021 * * *Final Report* * * DATE OF EXAM: Feb 25 2021 10:43AM CCX 5291 - XR CHEST 2V FRONTAL/LAT / PROCEDURE REASON: multiple diagnoses * * * * Physician Interpretation * * * * EXAMINATION: CHEST RADIOGRAPH (2 VIEW FRONTAL & LATERAL) CLINICAL HISTORY: Post-acute sequelae of COVID-19 (PASC), MORENO (dyspnea on exertion). Chest pain, unspecified type Palpitations MQ: XC2_6 EXAM DATE/TIME: 02/25/2021 10:43 AM COMPARISON: 10/02/2020. RESULT: Lines, tubes, and devices: None. Lungs and pleura: No consolidation. Interval significant decrease in the previously identified bilateral lower lung zone airspace opacities. Minimal patchy opacification in the region of the lingula, likely linear atelectasis/scarring or sequela of previous infectious/inflammator y process. No lung mass. No pleural effusion. No pneumothorax. Cardiomediastinal silhouette: Stable cardiomediastinal silhouette. The heart size is within normal limits. Bones and soft tissues: No acute osseous pathology. IMPRESSION IMPRESSION: No consolidation. Interval significant decrease in the previously identified bilateral lower lung zone airspace opacities, compatible with interval with continued decrease/near complete resolution of the infiltrates/pneumonia. Minimal patchy opacification in the region of the lingula, likely linear atelectasis/scarring or sequela of previous infectious/inflammator y process. Coach Builder: KVNG Transcribe Date/Time: Feb 25 2021 1:42P Dictated by : RUPAL URBANO MD This examination was interpreted and the report reviewed and electronically signed by: RUPAL URBANO MD on Feb 25 2021 1:45PM EST [facility] Radiology Study observation (narrative) [facility] XR Chest PA and LateralOrder ed By: Ccf Provider on 02-25-[address] [facility] .Auto Diffon 01-21-2021 Basophil, Absolute 0.00 10 3/mcL Normal 0.00-0.27 [facility] ([place]) Comment on above: Performed By: #### C BC, ADIFF, ANEU, TSH, CMP, GFR, LIPID, A1C #### [facility] [address] [place] [address] Basophils/100 WBC (Bld) 1.0 % Normal 0.0-2.5 [facility] ([place]) Comment on above: Performed By: #### C BC, ADIFF, ANEU, TSH, CMP, GFR, LIPID, A1C #### [address] [address] Eosinophil, Absolute 0.10 10 3/mcL Normal 0.00-0.65 [facility] ([place]) Comment on above: Performed By: #### C BC, ADIFF, ANEU, TSH, CMP, GFR, LIPID, A1C #### [address] [address] Eosinophils/100 WBC (Bld) 1.3 % Normal 0.0-6.0 [facility] ([place]) Comment on above: Performed By: #### C BC, ADIFF, ANEU, TSH, CMP, GFR, LIPID, A1C #### [address] [address] Lymphocyte, Absolute 1.60 10 3/mcL Normal 0.90-4.32 [facility] ([place]) Comment on above: Performed By: #### C BC, ADIFF, ANEU, TSH, CMP, GFR, LIPID, A1C #### [address] [address] Lymphocytes/100 WBC (Bld) 32.6 % Normal 20.0-40.0 [facility] ([place]) Comment on above: Performed By: #### C BC, ADIFF, ANEU, TSH, CMP, GFR, LIPID, A1C #### [address] [address] Monocyte, Absolute 0.40 10 3/mcL Normal 0.09-1.40 [facility] ([place]) Comment on above: Performed By: #### C BC, ADIFF, ANEU, TSH, CMP, GFR, LIPID, A1C #### [address] [address] Monocytes/100 WBC (Bld) 8.4 % Normal 2.0-13.0 [facility] ([place]) Comment on above: Performed By: #### C BC, ADIFF, ANEU, TSH, CMP, GFR, LIPID, A1C #### [address] [address] Neutrophils/100 WBC (Bld) 56.7 % Normal 50.0-75.0 [facility] ([place]) Comment on above: Performed By: #### C BC, ADIFF, ANEU, TSH, CMP, GFR, LIPID, A1C #### [address] [address] .GFRon 01-21-2021 GFR >60 Normal [facility] ([place]) Comment on above: Result Comment: GFR Population mean for , Non- Americans Ages 20-29 = 116 mL/min/1.73 sq.m. Ages 30-39 = 107 mL/min/1.73 sq.m. Ages 40-49 = 99 mL/min/1.73 sq.m. Ages 50-59 = 93 mL/min/1.73 sq.m. Ages 60-69 = 85 mL/min/1.73 sq.m. Ages 70+ = 75 mL/min/1.73 sq.m. Chronic Kidney Disease: Less than 60 mL/min/1.73 square meters End Stage Renal Disease: Less than 15 mL/min/1.73 square meters Performed By: #### C BC, ADIFF, ANEU, TSH, CMP, GFR, LIPID, A1C #### [address] [address] GFR Non- >60 Normal [facility] ([place]) Comment on above: Result Comment: GFR Population mean for , Non- Americans Ages 20-29 = 116 mL/min/1.73 sq.m. Ages 30-39 = 107 mL/min/1.73 sq.m. Ages 40-49 = 99 mL/min/1.73 sq.m. Ages 50-59 = 93 mL/min/1.73 sq.m. Ages 60-69 = 85 mL/min/1.73 sq.m. Ages 70+ = 75 mL/min/1.73 sq.m. Chronic Kidney Disease: Less than 60 mL/min/1.73 square meters End Stage Renal Disease: Less than 15 mL/min/1.73 square meters Performed By: #### C BC, ADIFF, ANEU, TSH, CMP, GFR, LIPID, A1C #### [address] [address] .NEUABSon 01-21-2021 Neutrophil, Absolute 2.70 10 3/mcL Normal 2.25-8.10 [facility] ([place]) Comment on above: Performed By: #### C BC, ADIFF, ANEU, TSH, CMP, GFR, LIPID, A1C #### [address] [address] A1Con 01-21-2021 HbA1c (Bld) [Mass fraction] 9.0 % High 4.0-6.0 [facility] ([place]) Comment on above: Performed By: #### C BC, ADIFF, ANEU, TSH, CMP, GFR, LIPID, A1C #### [place] [address] CBCon 01-21-2021 Erythrocyte distribution width (RBC) [Ratio] 13.4 % Normal 11.5-15.5 [facility] ([place]) Comment on above: Performed By: #### C BC, ADIFF, ANEU, TSH, CMP, GFR, LIPID, A1C #### [place] [address] Hematocrit (Bld) [Volume fraction] 41.6 % Normal 34.0-46.0 [facility] ([place]) Comment on above: Performed By: #### C BC, ADIFF, ANEU, TSH, CMP, GFR, LIPID, A1C #### [place] [address] Hgb 14.1 G/dL Normal 12.0-16.0 [facility] ([place]) Comment on above: Performed By: #### C BC, ADIFF, ANEU, TSH, CMP, GFR, LIPID, A1C #### [place] [address] MCH (RBC) [Entitic mass] 29.4 pg Normal 27.0-33.0 [facility] ([place]) Comment on above: Performed By: #### C BC, ADIFF, ANEU, TSH, CMP, GFR, LIPID, A1C #### [place] [address] MCHC 33.8 G/dL Normal 32.0-36.0 [facility] ([place]) Comment on above: Performed By: #### C BC, ADIFF, ANEU, TSH, CMP, GFR, LIPID, A1C #### [place] [address] MCV (RBC) [Entitic vol] 86.8 fL Normal 80.0-99.0 [facility] ([place]) Comment on above: Performed By: #### C BC, ADIFF, ANEU, TSH, CMP, GFR, LIPID, A1C #### [place] [address] Platelet 194 10 3/mcL Normal 150-450 [facility] ([place]) Comment on above: Performed By: #### C BC, ADIFF, ANEU, TSH, CMP, GFR, LIPID, A1C #### [place] [address] Platelet mean volume (Bld) [Entitic vol] 9.6 fL Normal 6.6-10.5 [facility] ([place]) Comment on above: Performed By: #### C BC, ADIFF, ANEU, TSH, CMP, GFR, LIPID, A1C #### [place] [address] RBC 4.79 10 6/mcL Normal 4.10-5.30 [facility] ([place]) Comment on above: Performed By: #### C BC, ADIFF, ANEU, TSH, CMP, GFR, LIPID, A1C #### [place] [address] WBC 4.80 10 3/mcL Normal 4.50-10.80 [facility] ([place]) Comment on above: Performed By: #### C BC, ADIFF, ANEU, TSH, CMP, GFR, LIPID, A1C #### [place] [address] CMPon 01-21-2021 Albumin Level 4.1 G/dL Normal 3.2-4.8 [facility] ([place]) Comment on above: Order Comment: rayray ind Performed By: #### C BC, ADIFF, ANEU, TSH, CMP, GFR, LIPID, A1C #### [facility] [address] [place] [address] Albumin/Globulin [Mass ratio] 1.6 {ratio} Normal 0.9-1.6 [facility] ([place]) Comment on above: Order Comment: rayray ind Performed By: #### C BC, ADIFF, ANEU, TSH, CMP, GFR, LIPID, A1C #### [address] [address] ALP [Catalytic activity/Vol] 106 U/L Normal 38-126 [facility] ([place]) Comment on above: Order Comment: rayray ind Performed By: #### C BC, ADIFF, ANEU, TSH, CMP, GFR, LIPID, A1C #### [address] [address] ALT [Catalytic activity/Vol] 19 U/L Normal 10-49 [facility] ([place]) Comment on above: Order Comment: rayray ind Performed By: #### C BC, ADIFF, ANEU, TSH, CMP, GFR, LIPID, A1C #### [place] [id number] AST [Catalytic activity/Vol] 15 U/L Normal 8-34 [facility] ([place]) Comment on above: Order Comment: rayray ind Performed By: #### C BC, ADIFF, ANEU, TSH, CMP, GFR, LIPID, A1C #### [address] [address] Bili Total 0.60 mg/dL Normal 0.20-1.20 [facility] ([place]) Comment on above: Order Comment: rayray ind Result Comment: Use of this assay is not recommended for patients undergoing treatment with eltrombopag due to the potential for falsely elevated results. Performed By: #### C BC, ADIFF, ANEU, TSH, CMP, GFR, LIPID, A1C #### [place] [id number] BUN/Creatinine Ratio 21.4 ratio Normal 10.0-22.0 [facility] ([place]) Comment on above: Order Comment: rayray ind Performed By: #### C BC, ADIFF, ANEU, TSH, CMP, GFR, LIPID, A1C #### [address] [address] Calcium [Mass/Vol] 9.5 mg/dL Normal 8.7-10.4 [facility] ([place]) Comment on above: Order Comment: rayray ind Result Comment: No te - New Reference Range in effect 20 Performed By: #### C BC, ADIFF, ANEU, TSH, CMP, GFR, LIPID, A1C #### [place] [id number] Chloride [Moles/Vol] 109 mmol/L Normal 98-110 [facility] ([place]) Comment on above: Order Comment: rayray ind Performed By: #### C BC, ADIFF, ANEU, TSH, CMP, GFR, LIPID, A1C #### [place] [id number] CO2 [Moles/Vol] 25 mmol/L Normal 22-32 [facility] ([place]) Comment on above: Order Comment: rayray ind Performed By: #### C BC, ADIFF, ANEU, TSH, CMP, GFR, LIPID, A1C #### [place] [address] Creatinine [Mass/Vol] 0.70 mg/dL Normal 0.50-1.20 [facility] ([place]) Comment on above: Order Comment: rayray ind Performed By: #### C BC, ADIFF, ANEU, TSH, CMP, GFR, LIPID, A1C #### [place] [address] Electrolyte Balance 9.0 mEq/L Normal 4.0-15.0 [facility] ([place]) Comment on above: Order Comment: rayray ind Performed By: #### C BC, ADIFF, ANEU, TSH, CMP, GFR, LIPID, A1C #### [place] [id number] Globulin 2.5 G/dL Normal 1.5-3.8 [facility] ([place]) Comment on above: Order Comment: rayray ind Performed By: #### C BC, ADIFF, ANEU, TSH, CMP, GFR, LIPID, A1C #### [place] [id number] Glucose [Mass/Vol] 113 mg/dL High 70-110 [facility] ([place]) Comment on above: Order Comment: rayray ind Performed By: #### C BC, ADIFF, ANEU, TSH, CMP, GFR, LIPID, A1C #### [address] [address] Potassium [Moles/Vol] 3.8 mmol/L Normal 3.5-5.0 [facility] ([place]) Comment on above: Order Comment: rayray ind Performed By: #### C BC, ADIFF, ANEU, TSH, CMP, GFR, LIPID, A1C #### [address] [address] Sodium [Moles/Vol] 143 mmol/L Normal 136-145 [facility] ([place]) Comment on above: Order Comment: rayray ind Performed By: #### C BC, ADIFF, ANEU, TSH, CMP, GFR, LIPID, A1C #### [place] [id number] Total Protein 6.6 G/dL Normal 5.7-8.2 [facility] ([place]) Comment on above: Order Comment: rayray ind Result Comment: No te - New Reference Range in effect 20 Performed By: #### C BC, ADIFF, ANEU, TSH, CMP, GFR, LIPID, A1C #### [address] [address] Urea nitrogen [Mass/Vol] 15.0 mg/dL Normal 8.0-22.0 [facility] ([place]) Comment on above: Order Comment: rayray ind Performed By: #### C BC, ADIFF, ANEU, TSH, CMP, GFR, LIPID, A1C #### [address] [address] LIPIDon 01-21-2021 Cholesterol [Mass/Vol] 130 mg/dL Normal 50-199 [facility] ([place]) Comment on above: Result Comment: Chol esterol Reference Interval: Less than 200 Desirable 200-239 Borderline high risk 240 and above High risk Performed By: #### C BC, ADIFF, ANEU, TSH, CMP, GFR, LIPID, A1C #### [address] [place] [address] Cholesterol in HDL [Mass/Vol] 44 mg/dL Normal 40-59 [facility] ([place]) Comment on above: Performed By: #### C BC, ADIFF, ANEU, TSH, CMP, GFR, LIPID, A1C #### [address] [address] Cholesterol in LDL [Mass/Vol] 63 mg/dL Normal 0-129 [facility] ([place]) Comment on above: Performed By: #### C BC, ADIFF, ANEU, TSH, CMP, GFR, LIPID, A1C #### [address] [address] Triglyceride [Mass/Vol] 115 mg/dL Normal 3-149 [facility] ([place]) Comment on above: Performed By: #### C BC, ADIFF, ANEU, TSH, CMP, GFR, LIPID, A1C #### [address] [address] TSHon 01-21-2021 TSH 5.060 mIU/mL High 0.550-4.780 [facility] ([place]) Comment on above: Result Comment: No te - New Reference Range in effect 20 Performed By: #### C BC, ADIFF, ANEU, TSH, CMP, GFR, LIPID, A1C #### [address] [address] XR Chest PA and Lateralon IMPRESSION: Improvement bilaterally, without complete resolution of infiltrate/atelectasis Coach Builder: [email or web address] Transcribe Date/Time: Oct 02 2020 8:33A Dictated by : TREY WOO MD This examination was interpreted and the report reviewed and electronically signed by: TREY WOO MD on Oct 02 2020 8:35AM [facility] DIVISION OF RADIOLOGY * * *Final Report* * * DATE OF EXAM: Oct 02 2020 8:31AM WOX [id number] - XR CHEST 2V FRONTAL/LAT / PROCEDURE REASON: multiple diagnoses * * * * Physician Interpretation * * * * EXAMINATION: CHEST RADIOGRAPH (2 VIEW FRONTAL & LATERAL) CLINICAL HISTORY: Pneumonia due to COVID-19 virus MQ: XC2_6 EXAM DATE/TIME: 10/02/2020 8:31 AM COMPARISON: 09/18/2020 RESULT: Lines, tubes, and devices: None. Lungs and pleura: Atelectasis and/or infiltrate at both lung bases and in the right midlung field has improved, but not completely resolved. No new significant collapse or consolidation. No pleural fluid or pneumothorax Cardiomediastinal silhouette: Normal cardiomediastinal silhouette. Bones and soft tissues: Unremarkable. DIVISION OF RADIOLOGY Provider, Jennifer Roche [facility] - 10/02/2020 * * *Final Report* * * DATE OF EXAM: Oct 02 2020 8:31AM WOX 5291 - XR CHEST 2V FRONTAL/LAT / PROCEDURE REASON: multiple diagnoses * * * * Physician Interpretation * * * * EXAMINATION: CHEST RADIOGRAPH (2 VIEW FRONTAL & LATERAL) CLINICAL HISTORY: Pneumonia due to COVID-19 virus MQ: XC2_6 EXAM DATE/TIME: 10/02/2020 8:31 AM COMPARISON: 09/18/2020 RESULT: Lines, tubes, and devices: None. Lungs and pleura: Atelectasis and/or infiltrate at both lung bases and in the right midlung field has improved, but not completely resolved. No new significant collapse or consolidation. No pleural fluid or pneumothorax Cardiomediastinal silhouette: Normal cardiomediastinal silhouette. Bones and soft tissues: Unremarkable. IMPRESSION IMPRESSION: Improvement bilaterally, without complete resolution of infiltrate/atelectasis Coach Builder: [email or web address] Transcribe Date/Time: Oct 02 2020 8:33A Dictated by : TREY WOO MD This examination was interpreted and the report reviewed and electronically signed by: TREY WOO MD on Oct 02 2020 8:35AM EST [facility] Radiology Study observation (narrative) [facility] XR Chest PA and LateralOrder ed By: Ccf Provider on 10-02-[address] [facility] XR Chest PA and Lateralon IMPRESSION: Bibasilar interstitial infiltrates and probable atelectasis. Peripheral bronchial wall thickening consistent with airways inflammation. Coach Builder: [email or web address] Transcribe Date/Time: Sep 18 2020 11:13A Dictated by : IZZY DIALLO MD This examination was interpreted and the report reviewed and electronically signed by: IZZY DIALLO MD on Sep 18 2020 11:20AM [facility] DIVISION OF RADIOLOGY * * *Final Report* * * DATE OF EXAM: Sep 18 2020 11:01AM WOX 5291 - XR CHEST 2V FRONTAL/LAT / PROCEDURE REASON: multiple diagnoses * * * * Physician Interpretation * * * * EXAMINATION: CHEST RADIOGRAPH (2 VIEW FRONTAL & LATERAL) CLINICAL HISTORY: Pneumonia due to COVID-19 virus. MQ: XC2_6 EXAM DATE/TIME: 09/18/2020 11:01 AM COMPARISON: No relevant prior studies available. RESULT: Lines, tubes, and devices: None. Lungs and pleura: Hypoventilatory change accentuates interstitial lung markings. Bibasilar pleural-parenchymal stranding and interstitial infiltrates are present without associated pleural fluid. There is no vascular redistribution to suggest pulmonary edema but there is some peripheral bronchial wall thickening bilaterally and diffusely suggesting airways inflammation. Cardiomediastinal silhouette: Cardiac silhouette is not enlarged. There is unfolding of the ascending thoracic aorta which is accentuated by slight rotation. Bones and soft tissues: Unremarkable. DIVISION OF RADIOLOGY Provider, [facility] - 09/18/2020 * * *Final Report* * * DATE OF EXAM: Sep 18 2020 11:01AM WOX 5291 - XR CHEST 2V FRONTAL/LAT / PROCEDURE REASON: multiple diagnoses * * * * Physician Interpretation * * * * EXAMINATION: CHEST RADIOGRAPH (2 VIEW FRONTAL & LATERAL) CLINICAL HISTORY: Pneumonia due to COVID-19 virus. MQ: XC2_6 EXAM DATE/TIME: 09/18/2020 11:01 AM COMPARISON: No relevant prior studies available. RESULT: Lines, tubes, and devices: None. Lungs and pleura: Hypoventilatory change accentuates interstitial lung markings. Bibasilar pleural-parenchymal stranding and interstitial infiltrates are present without associated pleural fluid. There is no vascular redistribution to suggest pulmonary edema but there is some peripheral bronchial wall thickening bilaterally and diffusely suggesting airways inflammation. Cardiomediastinal silhouette: Cardiac silhouette is not enlarged. There is unfolding of the ascending thoracic aorta which is accentuated by slight rotation. Bones and soft tissues: Unremarkable. IMPRESSION IMPRESSION: Bibasilar interstitial infiltrates and probable atelectasis. Peripheral bronchial wall thickening consistent with airways inflammation. Coach Builder: [email or web address] Transcribe Date/Time: Sep 18 2020 11:13A Dictated by : IZZY DIALLO MD This examination was interpreted and the report reviewed and electronically signed by: IZZY DIALLO MD on Sep 18 2020 11:20AM EST [facility] Radiology Study observation (narrative) [facility] XR Chest PA and LateralOrder ed By: Ccf Provider on 09-18-[address] [facility] Vital Signs Date Time Vital Sign Value Performing Clinician Facility 12-06-2024 13:16-0400 Body mass index (BMI) [Ratio] 35.13 kg/m2 Zohra Suppan WOODWORKER HELPER.MEDICAL ASSISTANT FLOAT Work Phone: [facility] 12-06-2024 13:16-0400 Body weight 85.73 kg Zohra Suppan WOODWORKER HELPER.MEDICAL ASSISTANT FLOAT Work Phone: [facility] 12-06-2024 13:16-0400 Diastolic blood pressure 82 mm[Hg] Zohra Suppan WOODWORKER HELPER.MEDICAL ASSISTANT FLOAT Work Phone: [facility] 12-06-2024 13:16-0400 Heart rate 90 /min Zohra Suppan WOODWORKER HELPER.MEDICAL ASSISTANT FLOAT Work Phone: [facility] 12-06-2024 13:16-0400 Respiratory rate 16 /min Zohra Suppan WOODWORKER HELPER.MEDICAL ASSISTANT FLOAT Work Phone: [facility] 12-06-2024 13:16-0400 SaO2% (BldA) [Mass fraction] 95 % Zohra Suppan WOODWORKER HELPER.MEDICAL ASSISTANT FLOAT Work Phone: [facility] 12-06-2024 13:16-0400 Systolic blood pressure 128 mm[Hg] Zohra Suppan WOODWORKER HELPER.MEDICAL ASSISTANT FLOAT Work Phone: [facility] 03-12-2024 11:12-0400 Body mass index (BMI) [Ratio] 34.58 kg/m2 NA Logan VILLEGAS-C Work Phone: [facility] 03-12-2024 11:12-0400 Body weight 84.37 kg NA Logan PA-C Work Phone: [facility] 03-12-2024 11:12-0400 Diastolic blood pressure 88 mm[Hg] NA Ford PA-C Work Phone: [facility] 03-12-2024 11:12-0400 Heart rate 87 /min NA Ford PA-C Work Phone: [facility] 03-12-2024 11:12-0400 Respiratory rate 16 /min NA Ford PA-C Work Phone: [facility] 03-12-2024 11:12-0400 SaO2% (BldA) [Mass fraction] 98 % NA Ford PA-C Work Phone: [facility] 03-12-2024 11:12-0400 Systolic blood pressure 132 mm[Hg] NA Ford PA-C Work Phone: [facility] 02-08-2024 10:39-0400 Body mass index (BMI) [Ratio] 34.96 kg/m2 Krislyn Aberegg PA Work Phone: [facility] 02-08-2024 10:39-0400 Body temperature 98.49 [degF] Krislyn Aberegg PA Work Phone: [facility] 02-08-2024 10:39-0400 Body weight 85.3 kg Krislyn Aberegg PA Work Phone: [facility] 02-08-2024 10:39-0400 Diastolic blood pressure 84 mm[Hg] Krislyn Aberegg PA Work Phone: [facility] 02-08-2024 10:39-0400 Heart rate 110 /min Krislyn Aberegg PA Work Phone: [facility] 02-08-2024 10:39-0400 Respiratory rate 18 /min Krislyn Aberegg PA Work Phone: [facility] 02-08-2024 10:39-0400 SaO2% (BldA) [Mass fraction] 97 % Krislyn Aberegg PA Work Phone: [facility] 02-08-2024 10:39-0400 Systolic blood pressure 136 mm[Hg] Esther VILLEGAS Work Phone: [facility] 07-04-2023 11:03-0400 Body temperature 99.19 [degF] Beth Esteban APRN.MEDICAL ASSISTANT FLOAT Work Phone: [facility] 07-04-2023 11:03-0400 Body weight 90.36 kg Beth Esteban APRN.MEDICAL ASSISTANT FLOAT Work Phone: [facility] 07-04-2023 11:03-0400 Diastolic blood pressure 82 mm[Hg] Beth Esteban APRN.MEDICAL ASSISTANT FLOAT Work Phone: [facility] 07-04-2023 11:03-0400 Heart rate 104 /min Beth Esteban APRN.MEDICAL ASSISTANT FLOAT Work Phone: [facility] 07-04-2023 11:03-0400 Respiratory rate 21 /min Beth Esteban APRN.MEDICAL ASSISTANT FLOAT Work Phone: [facility] 07-04-2023 11:03-0400 SaO2% (BldA) [Mass fraction] 96 % eBth Esteban APRN.MEDICAL ASSISTANT FLOAT Work Phone: [facility] 07-04-2023 11:03-0400 Systolic blood pressure 140 mm[Hg] Beth Esteban APRN.MEDICAL ASSISTANT FLOAT Work Phone: [facility] 03-12-2023 12:38-0400 Body temperature 97.81 [degF] Anny Choudhary WOODWORKER HELPER.MEDICAL ASSISTANT FLOAT Work Phone: [facility] 03-12-2023 12:38-0400 Body weight 84.64 kg Anny Choudhary WOODWORKER HELPER.MEDICAL ASSISTANT FLOAT Work Phone: [facility] 03-12-2023 12:38-0400 Diastolic blood pressure 96 mm[Hg] Anny Choudhary WOODWORKER HELPER.MEDICAL ASSISTANT FLOAT Work Phone: [facility] 03-12-2023 12:38-0400 Heart rate 95 /min Anny Choudhary WOODWORKER HELPER.MEDICAL ASSISTANT FLOAT Work Phone: [facility] 03-12-2023 12:38-0400 Respiratory rate 18 /min Anny Funmi WOODWORKER HELPER.MEDICAL ASSISTANT FLOAT Work Phone: [facility] 03-12-2023 12:38-0400 SaO2% (BldA) [Mass fraction] 98 % Anny Funmi WOODWORKER HELPER.MEDICAL ASSISTANT FLOAT Work Phone: [facility] 03-12-2023 12:38-0400 Systolic blood pressure 130 mm[Hg] Anny Choudhary WOODWORKER HELPER.MEDICAL ASSISTANT FLOAT Work Phone: [facility] 10-21-2022 09:04-0500 Body temperature 98.71 [degF] Bebeto Bolaños MD Work Phone: [facility] 10-21-2022 09:04-0500 Body weight 87.54 kg Bebeto Bolaños MD Work Phone: [facility] 10-21-2022 09:04-0500 Diastolic blood pressure 76 mm[Hg] Bebeto Bolaños MD Work Phone: [facility] 10-21-2022 09:04-0500 Heart rate 98 /min Bebeto Bolaños MD Work Phone: [facility] 10-21-2022 09:04-0500 Respiratory rate 20 /min Bebeto Bolaños MD Work Phone: [facility] 10-21-2022 09:04-0500 SaO2% (BldA) [Mass fraction] 98 % Bebeto Bolaños MD Work Phone: [facility] 10-21-2022 09:04-0500 Systolic blood pressure 148 mm[Hg] Bebeto Bolaños MD Work Phone: [facility] 04-26-2022 14:42-0400 Body weight 84.82 kg NA Logan LAUREANO Work Phone: [facility] 04-26-2022 14:42-0400 Diastolic blood pressure 84 mm[Hg] NA Logan VILLEGAS-C Work Phone: [facility] 04-26-2022 14:42-0400 Heart rate 116 /min NA Ford PA-C Work Phone: [facility] 04-26-2022 14:42-0400 Respiratory rate 20 /min NA Ford PA-C Work Phone: [facility] 04-26-2022 14:42-0400 SaO2% (BldA) [Mass fraction] 96 % NA Ford PA-C Work Phone: [facility] 04-26-2022 14:42-0400 Systolic blood pressure 124 mm[Hg] NA Ford PA-C Work Phone: [facility] 03-29-2022 11:33-0400 Body temperature 98.01 [degF] Anny Funmi WOODWORKER HELPER.MEDICAL ASSISTANT FLOAT Work Phone: [facility] 03-29-2022 11:33-0400 Body weight 85.19 kg Anny Funmi WOODWORKER HELPER.MEDICAL ASSISTANT FLOAT Work Phone: [facility] 03-29-2022 11:33-0400 Diastolic blood pressure 94 mm[Hg] Anny Funmi WOODWORKER HELPER.MEDICAL ASSISTANT FLOAT Work Phone: [facility] 03-29-2022 11:33-0400 Heart rate 96 /min Anny Funmi WOODWORKER HELPER.MEDICAL ASSISTANT FLOAT Work Phone: [facility] 03-29-2022 11:33-0400 Respiratory rate 20 /min Anny Funmi WOODWORKER HELPER.MEDICAL ASSISTANT FLOAT Work Phone: [facility] 03-29-2022 11:33-0400 SaO2% (BldA) [Mass fraction] 98 % Anny Funmi WOODWORKER HELPER.MEDICAL ASSISTANT FLOAT Work Phone: [facility] 03-29-2022 11:33-0400 Systolic blood pressure 130 mm[Hg] Anny Funmi WOODWORKER HELPER.MEDICAL ASSISTANT FLOAT Work Phone: [facility] 02-14-2022 16:22-0400 Diastolic blood pressure 108 mm[Hg] [facility] Work Phone: 02-14-2022 16:22-0400 Heart rate 86 /min [facility] Work Phone: 02-14-2022 16:22-0400 Respiratory rate 10 /min [facility] Work Phone: 02-14-2022 16:22-0400 Systolic blood pressure 128 mm[Hg] [facility] Work Phone: 02-14-2022 15:10-0400 Body height 152.4 cm [facility] Work Phone: 02-14-2022 15:10-0400 Body mass index (BMI) [Ratio] 38.9 kg/m2 [facility] Work Phone: 02-14-2022 15:10-0400 Body temperature 97.9 [degF] [facility] Work Phone: 02-14-2022 15:10-0400 Body weight 90.5 kg [facility] Work Phone: 02-14-2022 15:10-0400 SaO2% (BldA) [Mass fraction] 97 % [facility] Work Phone: 01-21-2022 09:18-0400 Body temperature 98.91 [degF] Davide Kim WOODWORKER HELPER.MEDICAL ASSISTANT FLOAT Work Phone: [facility] 01-21-2022 09:18-0400 Body weight 86.27 kg Davide Kim WOODWORKER HELPER.MEDICAL ASSISTANT FLOAT Work Phone: [facility] 01-21-2022 09:18-0400 Diastolic blood pressure 82 mm[Hg] Davide Kim WOODWORKER HELPER.MEDICAL ASSISTANT FLOAT Work Phone: [facility] 01-21-2022 09:18-0400 Heart rate 82 /min Davide Pendwil WOODWORKER HELPER.MEDICAL ASSISTANT FLOAT Work Phone: [facility] 01-21-2022 09:18-0400 Respiratory rate 20 /min Davide Kim WOODWORKER HELPER.MEDICAL ASSISTANT FLOAT Work Phone: [facility] 01-21-2022 09:18-0400 SaO2% (BldA) [Mass fraction] 97 % Davide Kim WOODWORKER HELPER.MEDICAL ASSISTANT FLOAT Work Phone: [facility] 01-21-2022 09:180400 Systolic blood pressure 120 mm[Hg] Davide Kim WOODWORKER HELPER.MEDICAL ASSISTANT FLOAT Work Phone: [facility] Encounters Encounter Date Encounter Type Care Provider Facility Start: 12-06-2024 End: 12-06-2024 ambulatory ZOHRA Cameron WALDOJOHANNA Facility:[facility] Start: 12-06-2024 End: 12-06-2024 Patient encounter procedure Zohra Cameron Vangjohanna WOODWORKER HELPER.MEDICAL ASSISTANT FLOAT Work Phone: Family [facility] Comment on above: Wellness examination (Primary Dx); Hyperlipidemia, mixed; Vitamin D deficiency; Uncontrolled type 2 diabetes mellitus with hyperglycemia (HCC); Hypothyroidism, acquired; Essential hypertension; Nausea; Gastroesophageal reflux disease without esophagitis; Screening for cervical cancer; Bilateral carpal tunnel syndrome; 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 Start: 10-07-2024 End: 10-08-2024 Emergency department patient visit Joshua العراقي Facility:[facility] Start: 10-05-2024 End: 10-05-2024 Emergency department patient visit DOMITILA VIZCAINO MD Facility:[facility] Start: 07-31-2024 End: 07-31-2024 ambulatory Fazal VILLEGAS Facility[facility] Start: 06-22-2024 End: 06-22-2024 ambulatory Fazal Ford PA-C Work Phone: [facility] [place] Start: 06-22-2024 End: 06-22-2024 Patient encounter procedure Faazl Ford PA-C Work Phone: [facility] [place] Comment on above: Bloodwork and appoin tments Start: 06-11-2024 End: 06-19-2024 Refill Fazal Ford PA-C Work Phone: [facility] [place] Comment on above: Refill Request Start: 05-20-2024 End: 05-21-2024 Refill Fazal Guanakito Ford PA-C Work Phone: [facility] Comment on above: Refill Request Start: 03-12-2024 End: 06-11-2024 Patient encounter procedure Fazal Guanakito Ford PA-C Work Phone: [facility] [place] [facility] Comment on above: Essential hypertensi on (Primary Dx); Encounter for screening mammogram for breast cancer; Hyperlipidemia, mixed; Controlled type 2 diabetes mellitus without complication, without long-term current use of insulin (HCC); Screening for colon cancer Essential hypertensi on (Primary Dx); Screening for colon cancer; Uncontrolled type 2 diabetes mellitus with hyperglycemia (HCC); Other specified hypothyroidism Start: 03-12-2024 End: 03-12-2024 ambulatory ZEE FORD Facility:[facility] Start: 03-01-2024 Telephone encounter Fazal Guanakito Ford PA-C Work Phone: [facility] [place] Comment on above: Results Start: 02-27-2024 End: 02-27-2024 ambulatory ZEE FORD Facility:[facility] Start: 02-17-2024 End: 02-17-2024 Refill Marlen Kelly [facility] Work Phone: [facility] Comment on above: Refill Request Uncontrolled type 2 diabetes mellitus with hyperglycemia (HCC) (Primary Dx) Start: 02-08-2024 End: 02-08-2024 ambulatory ZEE FORD Facility:[facility] Start: 02-08-2024 End: 02-08-2024 Patient encounter procedure Esther VILLEGAS Work Phone: [facility] Comment on above: Sore throat (Primary Dx); URI, acute Start: 01-13-2024 End: 01-13-2024 ambulatory ZEE REYNOSOORY FORD Facility:[facility] Start: 01-13-2024 End: 01-13-2024 Patient encounter procedure Marlen Arreagacasio [facility] Work Phone: [facility] Comment on above: Uncontrolled type 2 diabetes mellitus with hyperglycemia (HCC) (Primary Dx) Start: 01-13-2024 End: 01-13-2024 Telemedicine consultation with patient Marlen Chavezo RP Work Phone: [facility] Start: 12-23-2023 End: 12-23-2023 ambulatory Marlen Arreagacasio [facility] Work Phone: [facility] Comment on above: Uncontrolled type 2 diabetes mellitus with hyperglycemia (HCC) (Primary Dx) Ozempic Cost Start: 12-23-2023 E-mail encounter edward dugan caregiver Marlen Chavezo [facility] Work Phone: [facility] Start: 12-23-2023 Telephone encounter Isabella Perera Start: 12-23-2023 End: 12-23-2023 Telemedicine consultation with patient Marlen Chavezo [facility] Work Phone: [facility] Start: 12-15-2023 ambulatory Fazal VILLEGAS-C Work Phone: [facility] Comment on above: colorectal recall sc reening Start: 11-11-2023 Telephone encounter Fazal Ford PA-C Work Phone: [facility] [place] Comment on above: Forms Start: 10-31-2023 ambulatory Marlen harrisasio [facility] Work Phone: [facility] Comment on above: inventory control supervisor Start: 10-28-2023 End: 10-28-2023 ambulatory Marlen Gibsoncasio [facility] Work Phone: [facility] Comment on above: Uncontrolled type 2 diabetes mellitus with hyperglycemia (HCC) (Primary Dx) Ozempic Start: 10-28-2023 E-mail encounter edward dugan caregiver Marlen Kumarsio [facility] Work Phone: [facility] Start: 10-28-2023 Telephone encounter Fazal Guanakito Ford PA-C Work Phone: [facility] [place] Comment on above: Insurance Authorizat ion Start: 10-28-2023 End: 10-28-2023 Telemedicine consultation with patient Marlen Kelly [facility] Work Phone: [facility] Start: 08-17-2023 ambulatory Fazal Carver on PA-C Work Phone: [facility] [place] Comment on above: Insurance Start: 07-05-2023 Telephone encounter Davide Ordaz fabriziokailynshaila WOODWORKER HELPER.MEDICAL ASSISTANT FLOAT Work Phone: [facility] Comment on above: Results Start: 07-04-2023 End: 07-04-2023 Patient encounter procedure Beth Esteban WOODWORKER HELPER.MEDICAL ASSISTANT FLOAT Work Phone: [facility] Comment on above: Sore throat (Primary Dx); Acute URI Start: 03-12-2023 ambulatory ANNY CHOUDHARY Facility:[facility] Start: 03-12-2023 End: 03-12-2023 Subsequent hospital visit by physician [facility] Comment on above: Acute right ankle pa in [M25.571] Start: 03-12-2023 End: 03-12-2023 Patient encounter procedure Anny Choudhary WOODWORKER HELPER.MEDICAL ASSISTANT FLOAT Work Phone: [facility] Comment on above: Acute right ankle pa in (Primary Dx) Start: 12-08-2022 ambulatory Fazal Carver on PA-C Work Phone: Internal Medicine [facility] Start: 10-21-2022 End: 10-21-2022 Patient encounter procedure Bebeto Bolaños MD Work Phone: [facility] Comment on above: Neck pain on left si de (Primary Dx) Start: 05-04-2022 Refill Fazal Carver on PA-C Work Phone: [facility] Comment on above: Refill Request Start: 04-26-2022 End: 04-26-2022 Patient encounter procedure Fazal Carveron PA-C Work Phone: [facility] [place] Comment on above: Essential hypertensi on (Primary Dx); Hyperlipidemia, mixed; Uncontrolled type 2 diabetes mellitus with hyperglycemia (HCC); Hypothyroidism, acquired; Vitamin D deficiency; Nausea Start: 04-26-2022 ambulatory Debi hubbard WOODWORKER HELPER.MEDICAL ASSISTANT FLOAT Work Phone: [facility] Start: 04-08-2022 ambulatory Fazal Carver on PA-C Work Phone: [facility] Comment on above: Blood work Start: 03-29-2022 ambulatory Fazal Carver on PA-C Work Phone: [facility] Start: 03-29-2022 End: 03-29-2022 Patient encounter procedure Anny Beaversk WOODWORKER HELPER.MEDICAL ASSISTANT FLOAT Work Phone: [facility] Comment on above: Right elbow pain (Pr imary Dx) Outpatient [place] [facility] Start: 03-29-2022 End: 03-29-2022 Subsequent hospital visit by physician [facility] Work Phone: Radiology Comment on above: Right elbow pain [M2 5.521] Start: 02-14-2022 End: 02-14-2022 [facility] Start: 01-21-2022 End: 01-21-2022 Patient encounter procedure Davide Julio WOODWORKER HELPER.MEDICAL ASSISTANT FLOAT Work Phone: [facility] Comment on above: Left non-suppurative otitis media (Primary Dx) Start: 12-16-2021 ambulatory Fazal Carver on PA-C Work Phone: [facility] [place] Start: 02-25-2021 End: 02-25-2021 Subsequent hospital visit by physician [facility] Work Phone: Radiology Comment on above: 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] Start: 10-02-2020 End: 10-02-2020 Subsequent hospital visit by physician [facility] Work Phone: Radiology Comment on above: Pneumonia due to COV ID-19 virus [U07.1, J12.82] Start: 09-18-2020 End: 09-18-2020 Subsequent hospital visit by physician [facility] [place] Work Phone: Radiology Comment on above: Pneumonia due to COV ID-19 virus [U07.1, J12.82] Procedures Date Procedure Procedure Detail Performing Clinician Start: 03-12-2024 Adult depression scr eening assessment MANJULA Ford PA-C Work Phone: Start: 02-08-2024 COVID & INFLUENZA A/ B & RSV NAAT, ROUTINE Esther VILLEGAS Work Phone: Start: 02-08-2024 STREP A MOLECULAR (POC) Esther VILLEGAS Work Phone: Start: 07-04-2023 Iadna respiratry pro be & rev trnscr 3-5 targets Beth Carlito WOODWORKER HELPER.MEDICAL ASSISTANT FLOAT Work Phone: Start: 07-04-2023 STREP A MOLECULAR (POC) Bebeto Bolaños MD Work Phone: Start: 03-12-2023 Radex ankle complete minimum 3 views Anny Choudhary WOODWORKER HELPER.MEDICAL ASSISTANT FLOAT Work Phone: Start: 04-24-2022 Adult depression scr eening assessment Debi Raymundo WOODWORKER HELPER.MEDICAL ASSISTANT FLOAT Work Phone: Start: 03-29-2022 Radex elbow complete minimum 3 views Anny Funmi WOODWORKER HELPER.MEDICAL ASSISTANT FLOAT Work Phone: Start: 02-25-2021 Radiologic exam ches t 2 views Debi Raymundo WOODWORKER HELPER.MEDICAL ASSISTANT FLOAT Work Phone: Start: 02-23-2021 Adult depression scr eening assessment MANJULA Ford PA-C Work Phone: Start: 11-05-2020 Mammography MANJULA Ford PA-C Work Phone: Start: 10-02-2020 Radiologic exam ches t 2 views Fazal Ford PA-C Work Phone: Start: 09-18-2020 Radiologic exam ches t 2 views Fazal Guanakito Ford PA-C Work Phone: Plan of Treatment Date Care Activity Detail Author Start: 12-06-2025 Annual PCP Team Chronic Disease Visit Annual PCP Team Chronic Disease Visit [facility] Start: 12-06-2025 BP Controlled (<130/80) BP Controlled (<130/80) [facility] Start: 03-12-2025 Annual PCP Team Chronic Disease Visit Annual PCP Team Chronic Disease Visit [facility] Start: 03-12-2025 Anxiety Screening Anxiety Screening [facility] Start: 03-12-2025 Depression Screening Depression Screening [facility] Start: 03-12-2025 Diabetic foot examination Diabetic Foot Exam [facility] Start: 03-11-2025 Influenza vaccination Influenza Vaccine (#1) [facility] Comment on above: Postponed from 05/13/2024 (Declined at t his time) Start: 02-26-2025 Hepatitis B surface antibody level LDL Cholesterol [facility] Start: 02-05-2025 End: 05-07-2025 CBC W Auto Differential panel - Blood COMPLETE BLOOD COUNT AND DIFFERENTIAL Lab Routine Uncontrolled type 2 diabetes mellitus with hyperglycemia (HCC) Hypothyroidism, acquired Expected: 02/05/2025, Expires: 05/07/[address] [facility] Comment on above: Expected: 02/05/2025, Expires: Start: 02-05-2025 End: 05-07-2025 Cobalamin (Vitamin B12) [Mass/volume] in Serum or Plasma VITAMIN B12 Lab Routine Essential hypertension Expected: 02/05/2025, Expires: 05/07/[address] [facility] Comment on above: Expected: 02/05/2025, Expires: Start: 02-05-2025 End: 05-07-2025 Comprehensive metabolic 2000 panel - Serum or Plasma COMPREHENSIVE METABOLIC PANEL Lab Routine Uncontrolled type 2 diabetes mellitus with hyperglycemia (HCC) Expected: 02/05/2025, Expires: 05/07/[address] [facility] Comment on above: Expected: 02/05/2025, Expires: Start: 02-05-2025 Glaucoma screening Dilated Retinal Exam 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 Comment on above: Expected: 02/05/2025, Expires: Start: 02-05-2025 End: 05-07-2025 Magnesium [Mass/volume] in Serum or Plasma MAGNESIUM Lab Routine Essential hypertension Expected: 02/05/2025, Expires: 05/07/[address] 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 Comment on above: Postponed from 08/29/2024 (Declined at t his time) Start: 02-05-2025 Screening for malignant neoplasm of cervix Cervical Cancer Screening [facility] Comment on above: Postponed from 10/21/2013 ([place] Start: 02-05-2025 End: 05-07-2025 Thyrotropin [Units/volume] in Serum or Plasma THYROID STIMULATING HORMONE Lab Routine Uncontrolled type 2 diabetes mellitus with hyperglycemia (HCC) Expected: 02/05/2025, Expires: 05/07/[address] [facility] Comment on above: Expected: 02/05/2025, Expires: Start: 01-17-2025 End: 01-17-2025 Patient encounter procedure 01/17/2025 3:00 PM EDT Office Visit [facility] [place] [address] [facility] [place] [id number] Zohra Morse APRN.MEDICAL ASSISTANT FLOAT [address] [facility] [place] [id number] 6-8 week follow up [facility] [place] Comment on above: 6-8 week follow up Start: 12-06-2024 End: 03-07-2025 25-hydroxyvitamin D3 [Mass/volume] in Serum or Plasma VITAMIN D 25 HYDROXY Lab Routine Vitamin D deficiency Expected: 12/06/2024, Expires: 03/07/[address] [facility] Comment on above: Expected: 12/06/2024, Expires: Start: 09-26-2024 Screening for malignant neoplasm of lung Lung Cancer Screening [facility] Start: 08-30-2024 End: 08-30-2024 Patient encounter procedure Ophthalmology Comment on above: Diabetic eye exam Encounter for screen ing mammogram for breast cancer [Z12.31] Start: 08-29-2024 Glaucoma screening Dilated Retinal Exam [facility] Start: 08-29-2024 Hepatitis B screening Urine Albumin:Creatinine Ratio [facility] Start: 08-29-2024 Hepatitis B surface antibody level LDL Cholesterol [facility] Start: 08-29-2024 Screening for malignant neoplasm of breast Mammogram Screening [facility] Start: 08-28-2024 Hemoglobin A1c measurement HbA1C [facility] Start: 08-25-2024 Annual PCP Team Chronic Disease Visit Annual PCP Team Chronic Disease Visit [facility] Start: 08-25-2024 Covid-19 Vaccine (#1) Covid-19 Vaccine (#1) [facility] Comment on above: Postponed from 1968 (Declined at t his time) Start: 08-25-2024 Covid-19 Vaccine () Covid-19 Vaccine () [facility] Comment on above: Postponed from 05/13/2023 (Declined at t his time) Start: 06-12-2024 End: 09-11-2024 Hemoglobin A1c in Blood HEMOGLOBIN A1C Lab Routine Controlled type 2 diabetes mellitus without complication, without long-term current use of insulin (HCC) Expected: 06/12/2024, Expires: 09/11/[address] [facility] Comment on above: Expected: 06/12/2024, Expires: Start: 06-12-2024 End: 09-11-2024 Microalbumin/Creatinin e [Mass Ratio] in Urine ALBUMIN/CREATININE RATIO, URINE Lab Routine Controlled type 2 diabetes mellitus without complication, without long-term current use of insulin (HCC) Expected: 06/12/2024, Expires: 09/11/2024 [facility] Work Phone: Comment on above: Expected: 06/12/2024, Expires: Start: 06-11-2024 End: 09-10-2024 CBC W Auto Differential panel - Blood COMPLETE BLOOD COUNT AND DIFFERENTIAL Lab Routine Uncontrolled type 2 diabetes mellitus with hyperglycemia (HCC) Expected: 06/11/2024, Expires: 09/10/[address] [facility] Comment on above: Expected: 06/11/2024, Expires: Start: 06-11-2024 End: 09-10-2024 Comprehensive metabolic 2000 panel - Serum or Plasma COMPREHENSIVE METABOLIC PANEL Lab Routine Uncontrolled type 2 diabetes mellitus with hyperglycemia (HCC) Expected: 06/11/2024, Expires: 09/10/[address] [facility] Comment on above: Expected: 06/11/2024, Expires: Start: 06-11-2024 End: 09-10-2024 LIPID PANEL, NONFASTING LIPID PANEL, NONFASTING Lab Routine Uncontrolled type 2 diabetes mellitus with hyperglycemia (HCC) Expected: 06/11/2024, Expires: 09/10/[address] [facility] Comment on above: Expected: 06/11/2024, Expires: Start: 06-11-2024 End: 09-10-2024 Microalbumin/Creatinin e [Mass Ratio] in Urine ALBUMIN/CREATININE RATIO, URINE Lab Routine Uncontrolled type 2 diabetes mellitus with hyperglycemia (HCC) Expected: 06/11/2024, Expires: 09/10/[address] [facility] Comment on above: Expected: 06/11/2024, Expires: Start: 06-11-2024 End: 09-10-2024 Thyrotropin [Units/volume] in Serum or Plasma THYROID STIMULATING HORMONE Lab Routine Other specified hypothyroidism Expected: 06/11/2024, Expires: 09/10/2024 [facility] Work Phone: Comment on above: Expected: 06/11/2024, Expires: Start: 06-11-2024 End: 06-11-2024 Patient encounter procedure [facility] [place] Comment on above: 3 month follow up Start: 05-13-2024 Covid-19 Vaccine ( season) Covid-19 Vaccine () [facility] Start: 05-13-2024 Covid-19 Vaccine ( season) Covid-19 Vaccine () [facility] Start: 05-13-2024 Influenza vaccination [facility] Start: 05-01-2024 End: 07-31-2024 T4/FTI/T4U T4/FTI/T4U Lab Routine Hypothyroidism, unspecified type Expected: 05/01/2024, Expires: 07/31/2024 [facility] Work Phone: Comment on above: Expected: 05/01/2024, Expires: Start: 03-12-2024 End: 06-11-2024 COLOGUARD COLOGUARD Lab Routine Screening for colon cancer Expected: 03/12/2024, Expires: 06/11/[address] [facility] Comment on above: Expected: 03/12/2024, Expires: Start: 03-12-2024 End: 03-12-2024 Patient encounter procedure 03/12/2024 11:00 AM EDT Office Visit [facility] [address] [place] [address] Fazal Ford PA-C [address] [place] [address] follow up [facility] [place] Comment on above: follow up Start: 02-17-2024 End: 02-17-2024 Patient encounter procedure 02/17/2024 10:00 AM EDT [facility] [address] [id number] Marlen Kelly [facility] [address] [place] [address] DM f/up [facility] Comment on above: DM f/up Start: 11-28-2023 Hemoglobin A1c measurement HbA1C [facility] Start: 09-12-2023 Behavioral Health Screening Behavioral Health Screening [facility] Start: 09-12-2023 Depression Assessment Depression Assessment [facility] Start: 07-04-2023 End: 07-18-2023 COVID & INFLUENZA A/B & RSV NAAT, ROUTINE [facility] Work Phone: Comment on above: Expected: 07/04/2023, Expires: 3 Start: 05-13-2023 Influenza vaccination [facility] Start: 04-26-2023 ANNUAL PCP TEAM CHRONIC DISEASE VISIT ANNUAL PCP TEAM CHRONIC DISEASE VISIT [facility] Start: 04-24-2023 Adult depression screening assessment DEPRESSION SCREENING [facility] Start: 04-24-2023 Hepatitis B surface antibody level LDL CHOLESTEROL [facility] Start: 02-22-2023 Hepatitis C antibody, confirmatory test DILATED RETINAL EXAM [facility] Start: 09-12-2022 DEPRESSION ASSESSMENT DEPRESSION ASSESSMENT [facility] Start: 07-27-2022 End: 09-26-2022 Comprehensive metabolic 2000 panel - Serum or Plasma COMP METABOLIC PANEL Lab Routine Uncontrolled type 2 diabetes mellitus with hyperglycemia (HCC) Expected: 07/27/2022, Expires: 09/26/2022 [facility] Work Phone: Comment on above: Expected: 07/27/2022, Expires: 3 Start: 07-27-2022 End: 09-26-2022 Hemoglobin A1c in Blood HGB A1C Lab Routine Uncontrolled type 2 diabetes mellitus with hyperglycemia (HCC) Expected: 07/27/2022, Expires: 09/26/2022 [facility] Work Phone: Comment on above: Expected: 07/27/2022, Expires: 3 Start: 07-27-2022 End: 09-26-2022 Thyrotropin [Units/volume] in Serum or Plasma TSH BLD Lab Routine Hypothyroidism, acquired Expected: 07/27/2022, Expires: 09/26/2022 [facility] Work Phone: Comment on above: Expected: 07/27/2022, Expires: 3 Start: 07-25-2022 Hemoglobin A1c/Hemoglobin.total in Blood HBA1C [facility] Start: 05-13-2022 Influenza vaccination [facility] Start: 04-26-2022 End: 06-26-2022 ALBUMIN/CREAT RATIO RND UR ALBUMIN/CREAT RATIO RND UR Lab Routine Uncontrolled type 2 diabetes mellitus with hyperglycemia (HCC) Expected: 04/26/2022, Expires: 06/26/2022 [facility] Work Phone: Comment on above: Expected: 04/26/2022, Expires: 2 Start: 04-08-2022 End: 06-08-2022 CBC W Auto Differential panel - Blood CBC + DIFF Lab Routine Essential hypertension Expected: 04/08/2022, Expires: 06/08/2022 [facility] Work Phone: Comment on above: Expected: 04/08/2022, Expires: 2 Start: 04-08-2022 End: 06-08-2022 Comprehensive metabolic 2000 panel - Serum or Plasma COMP METABOLIC PANEL Lab Routine Hyperlipidemia, mixed Expected: 04/08/2022, Expires: 06/08/2022 [facility] Work Phone: Comment on above: Expected: 04/08/2022, Expires: 2 Start: 04-08-2022 End: 06-08-2022 Hemoglobin A1c in Blood HGB A1C Lab Routine Uncontrolled type 2 diabetes mellitus with hyperglycemia (HCC) Expected: 04/08/2022, Expires: 06/08/2022 [facility] Work Phone: Comment on above: Expected: 04/08/2022, Expires: 2 Start: 04-08-2022 End: 06-08-2022 Lipid 1996 panel - Serum or Plasma LIPID PANEL BASIC Lab Routine Hyperlipidemia, mixed Expected: 04/08/2022, Expires: 06/08/2022 [facility] Work Phone: Comment on above: Expected: 04/08/2022, Expires: 2 Start: 04-08-2022 End: 06-08-2022 Thyrotropin [Units/volume] in Serum or Plasma TSH BLD Lab Routine Hypothyroidism, acquired Expected: 04/08/2022, Expires: 06/08/2022 [facility] Work Phone: Comment on above: Expected: 04/08/2022, Expires: 2 Start: 02-23-2022 Adult depression screening assessment DEPRESSION SCREENING [facility] Start: 02-20-2022 Hepatitis C antibody, confirmatory test DILATED RETINAL EXAM [facility] Start: 12-16-2021 ANNUAL PCP TEAM CHRONIC DISEASE VISIT ANNUAL PCP TEAM CHRONIC DISEASE VISIT [facility] Start: 11-05-[address] [facility] Start: 11-04-2021 3 comp foot exam completed DIABETIC FOOT EXAM [facility] Start: 11-04-2021 Diabetic foot examination Diabetic Foot Exam [facility] Start: 11-04-2021 Hepatitis B screening URINE ALBUMIN:CREATININE RATIO [facility] Start: 10-31-2021 Hepatitis B surface antibody level LDL CHOLESTEROL [facility] Start: 08-27-2021 Hemoglobin A1c/Hemoglobin.total in Blood HBA1C [facility] Start: 01-27-2018 Influenza vaccination LUNG CANCER SCREENING [facility] Start: 01-27-2018 SHINGRIX VACCINE (1 of 2) SHINGRIX VACCINE (1 of 2) [facility] Start: 08-21-2014 HEPATITIS B (2 of 3 - Risk 3-dose series) [facility] Start: 08-21-2014 Hepatitis B Vaccine (2 of 3 - 19+ 3-dose series) Hepatitis B Vaccine (2 of 3 - 19+ 3-dose series) [facility] Start: 10-21-2013 HPV TESTING HPV TESTING [facility] Start: 10-21-2013 PAP TESTING PAP TESTING [facility] Start: 10-21-2013 Screening for malignant neoplasm of cervix [facility] Start: 01-27-2013 COLOGUARD (FIT-DNA) COLOGUARD (FIT-DNA) [facility] Start: 01-27-2013 Colonoscopy COLONOSCOPY [facility] Start: 01-27-2013 COLORECTAL CANCER SCREENING COLORECTAL CANCER SCREENING [facility] Start: 01-27-[address] COLONOGRAPHY [facility] Start: 01-27-2013 FECAL OCCULT BLOOD FECAL OCCULT BLOOD [facility] Start: 01-27-2013 Screening for malignant neoplasm of colon [facility] Start: 01-27-2013 SIGMOIDOSCOPY SIGMOIDOSCOPY [facility] Start: 12-25-2008 PNEUMOCOCCAL (2 - PCV) PNEUMOCOCCAL (2 - PCV) [facility] Start: 12-25-2008 Pneumococcal vaccination Pneumococcal Vaccine (2 - PCV) [facility] Start: 02-11-2005 Urine microalbumin profile [facility] Start: 01-27-1986 BP CONTROLLED (<130/80) BP CONTROLLED (<130/80) [facility] Start: 01-27-1973 COVID-19 VACCINE (#1) COVID-19 VACCINE (#1) [facility] Start: 01-27-1973 COVID-19 VACCINE (1) COVID-19 VACCINE (1) [facility] Start: 1968 COVID-19 VACCINE (#1) COVID-19 VACCINE (#1) [facility] End: 04-10-2025 DBT Breast - bilateral screening TAMI SCREENING W [facility] Radiology Routine Encounter for screening mammogram for breast cancer 1 Occurrences starting 03/12/2024 until 04/10/[address] [facility] Comment on above: 1 Occurrences starting 03/12/2024 until 04/10/2025 End: 01-07-2024 TAMI SCREENING TAMI SCREENING Radiology Routine Encounter for screening mammogram for breast cancer 1 Occurrences starting 12/08/2022 until 01/07/2024 [facility] Work Phone: Comment on above: 1 Occurrences starting 12/08/2022 until 01/07/2024 Patient Education Dehydration ED Diabetic Hyperglycemia [facility] Work Phone: Patient referral [facility] Work Phone: SARS-CoV-2 (COVID-19 ) RNA [Presence] in Respiratory specimen by MARQUIS with probe detection COVID NAAT, UPPER RESPIRATORY, ROUTINE Microbiology Routine Acute URI 07/04/2023 11:28 AM EDT [facility] Work Phone: End: 01-15-2023 Screening mammography bi 2-view breast inc cad TAMI SCREENING Radiology Routine Encounter for screening mammogram for breast cancer 1 Occurrences starting 12/16/2021 until 01/15/2023 [facility] Work Phone: Comment on above: 1 Occurrences starting 12/16/2021 until 01/15/2023 [facility] Immunizations Immunization Date Immunization Notes Care Provider Airam simon 08-25-2023 pneumococcal conjuga te (PCV20) vaccine, 20 valent (PREVNAR 20) Marlen Kelly [facility] Work Phone: [facility] 07-01-2020 influenza, seasonal, injectable [facility] 07-01-2020 influenza virus vacc ine, unspecified formulation NA Ford PA-C Work Phone: [facility] 07-20-2019 influenza, injectabl e, quadrivalent, contains preservative NA Ford PA-C Work Phone: [facility] Work Phone: 07-20-2019 influenza virus vacc ine, unspecified formulation Beth Esteban APRN.MEDICAL ASSISTANT FLOAT Work Phone: [facility] 05-26-2016 influenza, injectabl e, quadrivalent, contains preservative NA Ford PA-C Work Phone: [facility] Work Phone: 07-24-2014 hepatitis B vaccine, adult dosage NA Ford PA-C Work Phone: [facility] 07-24-2014 influenza, seasonal, injectable NA Ford PA-C Work Phone: [facility] 07-24-2014 hepatitis B vaccine, unspecified formulation Anny Choudhary APRN.MEDICAL ASSISTANT FLOAT Work Phone: [facility] 09-27-2013 influenza virus vacc ine, unspecified formulation NA Ford PA-C Work Phone: [facility] 07-15-2008 influenza virus vacc ine, unspecified formulation NA Ford PA-C Work Phone: [facility] Work Phone: 12-26-2007 pneumococcal polysaccharide vaccine, 23 valent NA Ford PA-C Work Phone: [facility] Work Phone: 02-10-2005 tetanus and diphther ia toxoids, adsorbed, preservative free, for adult use (2 Lf of tetanus toxoid and 2 Lf of diphtheria toxoid) NA Ford PA-C Work Phone: [facility] Work Phone: Payers Date Payer Category Payer Self-pay [id number] 2023 Private Health Insurance [id number] 2023 Unknown [id number] 2023 Unknown [id number] 2021 Medicaid [employer] [id number] 2021-Present [phone] [address] [place] [address] Medicaid [id number] 2020 Medicaid [id number] 2018 Unknown MMO MMO [employer] [id number] 2018-Present [phone] [address] [place] [address] PPO [id number] 2018 Unknown [id number] 2014 Unknown SELF PAY INSURANCE [id number] 00 [id number] 1968 Unknown [id number] Unknown SELF PAY INSURANCE [id number] 01 [id number] Unknown SELF PAY INSURANCE [id number] [facility] [id number] Unknown [id number] Unknown [id number] Social History Date Type Detail Facility Start: 10-30-2020 End: 09-13-2023 Tobacco smoking status NHIS Ex-smoker [facility] Work Phone: Start: 09-12-1984 End: 09-12-2019 History of tobacco use Current smoker [facility] Work Phone: Start: 09-12-1984 End: 09-12-2019 History of tobacco use Cigarette Smoker [facility] Work Phone: Start: 10-30-2020 End: 12-03-2024 Cigarettes smoked current (pack per day) - Reported [address] [facility] Start: 10-30-2020 End: 09-13-2023 Tobacco use and exposure Smokeless tobacco non-user [facility] [facility] Work Phone: Start: 07-31-2021 End: 03-12-2024 Alcohol intake Current non-drinker of alcohol (finding) [facility] Start: 1970 Sex Assigned At Not on file C [facility] Start: 08-19-2020 End: 04-26-2022 Exposure to SARS-CoV-2 (event) Not sure [facility] Work Phone: Start: 02-14-2022 Tobacco smoking stat [place] [facility] Unknown if ever smoked [facility] Work Phone: Start: 08-13-2020 Occasional [facility] Work Phone: Start: 08-13-2020 None [facility] Work Phone: Start: 09-07-2020 Alone [facility] Work Phone: Start: 09-01-2020 Cigarettes [facility] Work Phone: Start: 1970 Sex Assigned At Female W [facility] Work Phone: Start: 04-25-2022 History SDOH Alcohol Frequency [address] [facility] Start: 04-25-2022 History SDOH Alcohol Std Drinks [address] [facility] Start: 04-25-2022 History SDOH Social Connections Phone [address] [facility] Start: 04-25-2022 History SDOH Social Connections Spiritism [address] [facility] Start: 04-25-2022 History SDOH Physica l Activity MPS [address] [facility] Start: 04-24-2022 End: 12-03-2024 Social connection and isolation panel [facility] Do you belong to any clubs or organizations such as episcopal groups, unions, fraternal or athletic groups, or school groups? No [facility] Are you now , , , , never or living with a partner? [facility] How often to you hav e a drink containing alcohol? 2-3 time sa week [facility] How many standard dr inks containing alcohol do you have on a typical day? 1 or [address] [facility] How often do you hav e 6 or more drinks on 1 occasion? Never [facility] How hard is it for y ou to pay for the very basics like food, housing, medical care, and heating Not hard at all [facility] Do you feel stress - tense, restless, nervous, or anxious, or unable to sleep at night because your mind is troubled all the time - these days [OSQ] Only a little [facility] (I/We) worried wheth er (my/our) food would run out before (I/we) got money to buy more. Never true [facility] How often to you hav e a drink containing alcohol? Monthly or less [facility] Work Phone: How hard is it for y ou to pay for the very basics like food, housing, medical care, and heating Not very hard [facility] Work Phone: Do you feel stress - tense, restless, nervous, or anxious, or unable to sleep at night because your mind is troubled all the time - these days [OSQ] To some extent [facility] Work Phone: Start: 12-23-2011 Tobacco smoking stat [place] [facility] Never smoked tobacco [facility] Do you belong to any clubs or organizations such as episcopal groups, unions, fraternal or athletic groups, or school groups? Yes [facility] Medical Equipment Procedure Code Equipment Code Equipment Origin al Text Equipment Identifier Dates [id number], [id number], [id number], [id number], [id number], [id number] Start: 01-23-2019 End: 12-06-2024 Comment on above: Test blood sugar(s) 2x daily. Dx: E11.9. Insulin: No Use one needle per d ose. 1 per day. Test once daily, E11 .9, No insulin Functional Status Date Assessment Result Facility 04-04-2015 Are you deaf, or do you have serious difficulty hearing No 04/04/2015 3:32 PM EDT Lizbet Lopez MA [facility] 04-04-2015 Are you blind, or do you have serious difficulty seeing, even when wearing glasses No 04/04/2015 3:32 PM EDT Lizbet Lopez MA [facility] 04-04-2015 Do you have serious difficulty walking or climbing stairs No 04/04/2015 3:32 PM EDT Lizbet Lopez MA [facility] 04-04-2015 Do you have difficul ty dressing or bathing No 04/04/2015 3:32 PM EDT Lizbet Lopez MA [facility] 04-04-2015 Because of a physica l, mental, or emotional condition, do you have difficulty doing errands alone such as visiting a physician's office or shopping No 04/04/2015 3:32 PM EDT Lizbet Lopez MA [facility] Mental Status Date Assessment Result Facility 02-14-2022 Cognitive function Level Of Cons ciousness Awake;Alert;Follows Commands [facility] Work Phone: 04-04-2015 Because of a physica l, mental, or emotional condition, do you have serious difficulty concentrating, remembering, or making decisions No 04/04/2015 3:32 PM EDT Lizbet Lopez MA [facility] Clinical Notes 09-18-2020 to 01-01-2025 Patient InstructionsSuZohra darnell APRN.MEDICAL ASSISTANT FLOAT - 12/06/2024 1:25 PM EDTTelephone Encounter - Vandana Keller MA - 06/18/2024 11:33 AM Fazal Andrea PA-C - 03/12/2024 11:00 AM EDT Note Date & Type Note Facility 01-01-2025 Note Patient Outreach (IN [facility]) ANDREW VILLALOBOS ([id number]) 1970 F Date Time Provider Department 01/01/25 ZOHRA MORSE During your visit today, we recorded the following information about you: Allergies As of Date: 01/01/2025 Noted Allergy Reaction METFORMIN 05/25/2016 6 - Diarrhea TRULICITY (DULAGLUTIDE) 08/26/2023 5 - Intolerance Comments: Nausea/Bloating Using Zofran for side effects Date Reviewed: 12/06/2024 Reviewed by: Giuliana Alfred LPN - Fully Assessed Visit Diagnosis:Hyperlipidemia, mixed [E78.2] Order(s):LIPID PANEL, FASTING [SQLIPB] Order #: [id number] FUTURE Prescriptions as of 01/04/2025 - atorvastatin (LIPITOR) 20 mg tablet Take 1 tablet by mouth daily at bedtime. For cholesterol. - Blood-Glucose Sensor (FREESTYLE YAQUELIN 3 SENSOR) alvina Apply new sensor to back of upper arm every 14 days - Cholecalciferol, Vitamin D3, 50 mcg (2,000 unit) cap Take 2 capsules by mouth once daily. - insulin glargine-yfgn (SEMGLEE,INSULIN GLARG-YFGN,PEN) 100 unit/mL (3 mL) insulin pen Inject 32 Units subcutaneously once daily. - insulin needles, DISPOSABLE, (PEN NEEDLE) 31 gauge x 5/16 Use one needle per dose. 1 per day. - Lancets Test once daily, E11.9, No insulin - levothyroxine (LEVOXYL) 88 mcg tablet Take 1 tablet by mouth once daily. Take on empty stomach. For Thyroid - lisinopril 2.5 mg tablet Take 1 tablet by mouth once daily. - ondansetron orally disintegrating (ZOFRAN ODT) 4 mg disintegrating tablet Take 1 tablet by mouth every 6 hours as needed for nausea/vomiting. - semaglutide (OZEMPIC) 0.25 mg or 0.5 mg (2 mg/3 mL) pen Inject 0.5 mg subcutaneously one time a week. - omeprazole (PRILOSEC) 20 mg capsule Take 1 capsule by mouth daily before breakfast. 1/2 hr before meal. - CPAP/BIPAP/OTHER Type .CPAPSettings into a note to see current settings/supplies/DME information. Problem List As Of Date 01/01/2025 Noted Resolved Hypothyroidism [E03.9] 09/18/2007 Diabetes mellitus type 2, uncontrolled, without*09/18/2007 Essential hypertension [I10] 09/19/2007 Calcaneal spur [M77.30] 02/08/2012 11/07/2012 Pain in joint, ankle and foot [M25.579] 03/08/2012 11/07/2012 Fracture of fibula, distal, right, closed [S82.*11/13/2013 03/07/2015 Pain in joint, ankle and foot [M25.579] 08/05/2014 BMI 40.0-44.9, adult (HCC) [Z68.41] 03/07/2015 08/22/2017 Abnormal mammogram [R92.8] 05/08/2015 Hyperlipidemia, mixed [E78.2] 08/22/2017 Obesity, Class II, BMI 35-39.9 [E66.812] 08/22/2017 Heel spur, left [M77.32] 01/03/2012 Heel spur, right [M77.31] 09/28/2013 COVID-19 virus detected [U07.1] 09/10/2020 Uncontrolled type 2 diabetes mellitus with hype*09/15/2020 Chronic respiratory failure with hypoxia (HCC) *11/04/2020 03/30/2021 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 12-06-2024 Note HNO ID: [id number] Author: ZOHRA MORSE APRN.CNP Service: ? Author Type: Nurse Practitioner Type: Progress Notes Filed: 12/06/2024 13:52 Note Text: Chief Reason For Appointment Patient presents with: Establish Care: [place] patient Physical Andrew Villalobos is a 54 year old female who presents for annual exam. Last office visit date: 03/12/2024 Accompanied By self only and small grandson Have you had any critical events, hospital stays, ER visits, surgeries or procedures since your last visit here in our office: No Specialists/Other Healthcare Providers Seen: Patient Care Team: ZEE FORD as PCP - General (Family Medicine) Marlen Kelly RPh as Pharmacist (Pharmacy) Patricia Tomlin APRN.CNP as Immunopathologist (Family Medicine) Zohra Morse APRN.CNP as Immunopathologist (Family Medicine) Concerns today: Did not have insurance so ran out of medicine- since Jun. 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 05/04/21 ER Left sided chest pain, SOB, nausea. 02/19. EKG NSR. Negative troponin x 2, negative d-dimer. Post-Acute Sequelae of Covid-19 (Pasc) - 04/16/2021 Fatigue - 04/16/2021 Brain Fog - 04/16/2021 Uncontrolled Type 2 Diabetes Mellitus With Hyperglycemia (Hcc) - 09/15/2020 Covid-19 Virus Detected - 09/10/2020 Comment: 09/07/2020 to [facility] ED with SOB, CTA chest bibasilar infiltrate: dexamethasone provided. Hyperlipidemia, Mixed - 08/22/2017 Obesity, Class II, Bmi 35-39.9 - 08/22/2017 Comment: Weight watcher's. Doing well with continued weight loss. Abnormal Mammogram - 05/08/2015 Pain in Joint, Ankle and Foot - 08/05/2014 Heel Spur, Right - 09/28/2013 Comment: XR right plantar and posterior spurs Heel Spur, Left - 01/03/2012 Comment: left: plantar and posterior prominent spors Essential Hypertension - 09/19/2007 Hypothyroidism - 09/18/2007 Diabetes Mellitus Type 2, Uncontrolled, Without Complications - 09/18/2007 ROS: REVIEW OF SYSTEMS GENERAL: No weight loss, malaise or fevers/chills HEENT: Negative for frequent or significant headaches, No changes in hearing or vision. NECK: Negative for lumps, goiter, pain and significant neck swelling RESPIRATORY: Negative for cough, hemoptysis, wheezing, dyspnea or shortness of breath CARDIOVASCULAR: Negative for chest pain, leg swelling, orthopnea, or palpitations GI: No nausea, vomiting, or diarrhea/constipation. No hematochezia/melena. + heartburn or reflux symptoms. : No history of dysuria, frequency or incontinence MUSCULOSKELETAL: Both hands for joint pain or swelling. Thumb and index fingers and they go numb and tingling SKIN: Negative for lesions, rash, and itching ENDOCRINE: Negative for cold or heat intolerance, polyuria, polydipsia and goiter NEURO: No history of headaches, syncope, paralysis, seizures or tremors MOOD: Negative for depression, anxiety, or suicidal ideation. PAST MEDICAL HISTORY Diagnosis Date Esophageal reflux Essential hypertension Fractured lateral malleolus 09/28/2013 XR: transverse fracture tip lateral malleolus Heel spur, left 01/03/2012 left: plantar and posterior prominent spurs Heel spur, right 09/28/2013 XR right plantar and posterior spurs Mild or unspecified pre-eclampsia, unspecified as to episode of care 1998 Obesity, unspecified MANSOOR on CPAP Transient hypertension of , antepartum 1998 Type II or unspecified type diabetes mellitus without mention of complication, not stated as uncontrolled 09/18/2007 Unspecified hypothyroidism PAST SURGICAL HISTORY Procedure Laterality Date DELIVERY ONLY 09/12/1998 , low cervical CTA CHEST 09/07/2020 bibasilar infiltrates consistent with Covid-19 pneumonia REDUCTION OF LARGE BREAST 09/12/1999 Medication List Current Outpatient Medications Medication Sig Dispense Refill levothyroxine (LEVOXYL) 100 mcg tablet Take 1 tablet by mouth once daily. Take on empty stomach. For Thyroid. 30 tablet 0 semaglutide (OZEMPIC) 0.25 mg or 0.5 mg (2 mg/3 mL) pen Inject 0.5 mg subcutaneously one time a week. (Patient not taking: Reported on 12/06/2024) 3 mL 2 ondansetron orally disintegrating (ZOFRAN ODT) 4 mg disintegrating tablet Take 1 tablet by mouth every 6 hours as needed for nausea/vomiting. (Patient not taking: Reported on 12/06/2024) 30 tablet 2 insulin glargine-yfgn (SEMGLEE,INSULIN GLARG-YFGN,PEN) 100 unit/mL (3 mL) insulin pen Inject 32 Units subcutaneously once daily. (Patient not taking: Reported on 12/06/2024) Blood-Glucose Sensor (FREESTYLE YAQUELIN 3 SENSOR) alvina Apply new sensor to back of upper arm every 14 days (Patient not taking: Reported on 12/06/2024) 6 Each 4 flash glucose sensor (FREESTYLE YAQUELIN 14 DAY SENSOR) kit One (more content not included)... [facility] 12-06-2024 History of Present illness Narrative Chief Reason For Appointment Patient presents with: Establish Care: Logan patient Physical Andrew Villalobos is a 54 year old female who presents for annual exam. Last office visit date: 03/12/2024 Accompanied By self only and small grandson Have you had any critical events, hospital stays, ER visits, surgeries or procedures since your last visit here in our office: No Specialists/Other Healthcare Providers Seen: Patient Care Team: ZEE FORD as PCP - General (Family Medicine) Marlen Kelly [facility] as Pharmacist (Pharmacy) Patricia Tomlin APRN.MEDICAL ASSISTANT FLOAT as Immunopathologist (Family Medicine) Zohra Morse APRN.CNP as Immunopathologist (Family Medicine) Concerns today: Did not have insurance so ran out of medicine- since Hands hurt terrible HPI Needs medications renewed Active Problems ACTIVE PROBLEM LIST 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 05/04/21 ER Left sided chest pain, SOB, nausea. 02/19. EKG NSR. Negative troponin x 2, negative d-dimer. Post-Acute Sequelae of Covid-19 (Pasc) - 04/16/2021 Fatigue - 04/16/2021 Brain Fog - 04/16/2021 Uncontrolled Type 2 Diabetes Mellitus With Hyperglycemia (Hcc) - 09/15/2020 Covid-19 Virus Detected - 09/10/2020 Comment: 09/07/2020 to [facility] ED with SOB, CTA chest bibasilar infiltrate: dexamethasone provided. Hyperlipidemia, Mixed - 08/22/2017 Obesity, Class II, Bmi 35-39.9 - 08/22/2017 Comment: Weight watcher's. Doing well with continued weight loss. Abnormal Mammogram - 05/08/2015 Pain in Joint, Ankle and Foot - 08/05/2014 Heel Spur, Right - 09/28/2013 Comment: XR right plantar and posterior spurs Heel Spur, Left - 01/03/2012 Comment: left: plantar and posterior prominent spors Essential Hypertension - 09/19/2007 Hypothyroidism - 09/18/2007 Diabetes Mellitus Type 2, Uncontrolled, Without Complications - 09/18/2007 ROS: REVIEW OF SYSTEMS GENERAL: No weight loss, malaise or fevers/chills HEENT: Negative for frequent or significant headaches, No changes in hearing or vision. NECK: Negative for lumps, goiter, pain and significant neck swelling RESPIRATORY: Negative for cough, hemoptysis, wheezing, dyspnea or shortness of breath CARDIOVASCULAR: Negative for chest pain, leg swelling, orthopnea, or palpitations GI: No nausea, vomiting, or diarrhea/constipation. No hematochezia/melena. + heartburn or reflux symptoms. : No history of dysuria, frequency or incontinence MUSCULOSKELETAL: Both hands for joint pain or swelling. Thumb and index fingers and they go numb and tingling SKIN: Negative for lesions, rash, and itching ENDOCRINE: Negative for cold or heat intolerance, polyuria, polydipsia and goiter NEURO: No history of headaches, syncope, paralysis, seizures or tremors MOOD: Negative for depression, anxiety, or suicidal ideation. PAST MEDICAL HISTORY Diagnosis Date Esophageal reflux Essential hypertension Fractured lateral malleolus 09/28/2013 XR: transverse fracture tip lateral malleolus Heel spur, left 01/03/2012 left: plantar and posterior prominent spurs Heel spur, right 09/28/2013 XR right plantar and posterior spurs Mild or unspecified pre-eclampsia, unspecified as to episode of care 1998 Obesity, unspecified MANSOOR on CPAP Transient hypertension of , antepartum 1998 Type II or unspecified type diabetes mellitus without mention of complication, not stated as uncontrolled 09/18/2007 Unspecified hypothyroidism PAST SURGICAL HISTORY Procedure Laterality Date DELIVERY ONLY 09/12/1998 , low cervical CTA CHEST 09/07/2020 bibasilar infiltrates consistent with Covid-19 pneumonia REDUCTION OF LARGE BREAST 09/12/1999 Medication List Current Outpatient Medications Medication Sig Dispense Refill levothyroxine (LEVOXYL) 100 mcg tablet Take 1 tablet by mouth once daily. Take on empty stomach. For Thyroid. 30 tablet 0 semaglutide (OZEMPIC) 0.25 mg or 0.5 mg (2 mg/3 mL) pen Inject 0.5 mg subcutaneously one time a week. (Patient not taking: Reported on 12/06/2024) 3 mL 2 ondansetron orally disintegrating (ZOFRAN ODT) 4 mg disintegrating tablet Take 1 tablet by mouth every 6 hours as needed for nausea/vomiting. (Patient not taking: Reported on 12/06/2024) 30 tablet 2 insulin glargine-yfgn (SEMGLEE,INSULIN GLARG-YFGN,PEN) 100 unit/mL (3 mL) insulin pen Inject 32 Units subcutaneously once daily. (Patient not taking: Reported on 12/06/2024) Blood-Glucose Sensor (FREESTYLE YAQUELIN 3 SENSOR) alvina Apply new sensor to back of upper arm every 14 days (Patient not taking: Reported on 12/06/2024) 6 Each 4 flash glucose sensor (FREESTYLE YAQUELIN 14 DAY SENSOR) kit One sensor q14d (Patient not taking: Reported on 12/06/2024) 3 Kit 11 levothyroxine (LEVOXYL) 88 mcg tablet Take 1 tablet by mouth once daily. Take on empty stomach. For Thyroid (Patient not taking: Reported on 12/06/2024) 90 tablet 1 levothyroxine (LEVOXYL) 88 mcg tablet Take 1 tablet by mouth once daily. Take on empty stomach. For Thyroid (Patient not taking: Reported on 12/06/2024) 90 tablet 3 Cholecalciferol, Vitamin D3, 50 mcg (2,000 unit) cap Take 2 capsules by mouth once daily. (Patient not taking: Reported on 12/06/2024) 90 capsule 3 atorvastatin (LIPITOR) 20 mg tablet Take 1 tablet by mouth daily at bedtime. For cholesterol. (Patient not taking: Reported on 12/06/2024) 90 tablet 3 lisinopril 2.5 mg tablet Take 1 tablet by mouth once daily. (Patient not taking: Reported on 12/06/2024) 90 tablet 3 insulin needles, DISPOSABLE, (PEN NEEDLE) 31 gauge x 5/16 Use one needle per dose. 1 per day. (Patient not taking: Reported on 12/06/2024) 100 Each 5 CPAP/BIPAP/OTHER Type .CPAPSettings into a note to see current settings/supplies/DME information. (Patient not taking: Reported on 12/06/2024) 1 Each 0 Lancets lancets Test once daily, E11.9, No insulin (Patient not taking: Reported on 12/06/2024) 100 Each 3 No current facility-administered medications for this visit. Weight Summary: Weight Change: Body mass index is 35.13 kg/m . Last Wt 12/06/24 : 85.7 kg (189 lb) 03/12/24 : 84.4 kg (186 lb) 02/08/24 : 85.3 kg (188 lb 0.8 oz) 09/13/23 : 87.5 kg (193 lb) 08/25/23 : 86.6 kg (191 lb) Physical Exam: General Appearance: well appearing, alert and oriented. Skin: no suspicious lesion, no rash, no open sores Head: normocephalic, no obvious masses, lesions, tenderness or abnormalities. Ears: external ears normal. Hearing to conversational voice intact. Neck: trachea midline, thyroid without mass or nodularity- enlarged, thyroid moves normally with swallow, no regional lymphadenopathy. Carotids normal upstroke, no bruit or thrill. Lungs: Chest rise & fall symmetrical, Lungs clear to auscultation. No wheezing or rhonchi. No rales. Abdomen: normal bowel sounds, no mass, non-tender Heart: S1S2, no gallop, no rub, no murmur Lymph Nodes: no lymphadenopathy. Ext: no clubbing, cyanosis or edema. + Tinel's juan jose. Mood: bright affect, speech clear, answers questions appropriately SCREENINGS Health Maintenance Listing BP Controlled (<130/80) DTaP,Tdap,Td Vaccine(1 - Tdap) Colorectal Cancer Screening Cervical Cancer Screening Hepatitis B Vaccine(2 of 3 - 19+ 3-dose series) Shingrix Vaccine(1 of 2) Influenza Vaccine(1) Covid-19 Vaccine( - season) HbA1C Mammogram Screening Urine Albumin:Creatinine Ratio Dilated Retinal Exam Lung Cancer Screening TEST RESULTS: Lab Studies: Date of lab studies: check labs - glucose - potassium - Creatinine, gfr - LFTs Lipid: WBC, H&H, Platelets: A1C: Vitamin D: Other: A/P: ASSESSMENT/PLAN: 1. Wellness examination - ICD9: V70.0, ICD10: Z00.00 (primary diagnosis) - Counseled on healthy diet and regular exercise 2. Hyperlipidemia, mixed - ICD9: 272.2, ICD10: E78.2 - Control undetermined, due for labs - Counseled on healthy diet and regular exercise - ATORVASTATIN 20 MG TABLET 3. Vitamin D deficiency - ICD9: 268.9, ICD10: E55.9 Check level - CHOLECALCIFEROL (VITAMIN D3) 50 MCG (2,000 UNIT) CAPSULE 4. Uncontrolled type 2 diabetes mellitus with hyperglycemia (HCC) - ICD9: 250.02, ICD10: E11.65 - Control undetermined, due for labs - Continue current medications - FREESTYLE YAQUELIN 3 SENSOR DEVICE - INSULIN GLARGINE-YFGN (U-100) 100 UNIT/ML (3 ML) SUBCUTANEOUS PEN - PEN NEEDLE, DIABETIC 31 GAUGE X 5/16 - LANCETS - LISINOPRIL 2.5 MG TABLET - SEMAGLUTIDE 0.25 MG OR 0.5 MG (2 MG/3 ML) SUBCUTANEOUS PEN INJECTOR - COMPLETE BLOOD COUNT AND DIFFERENTIAL - COMPREHENSIVE METABOLIC PANEL - THYROID STIMULATING HORMONE 5. Hypothyroidism, acquired - ICD9: 244.9, ICD10: E03.9 - Instructed patient on importance of taking on an empty stomach either first thing in the morning or at bedtime. - LEVOTHYROXINE 88 MCG TABLET - COMPLETE BLOOD COUNT AND DIFFERENTIAL 6. Essential hypertension - ICD9: 401.9, ICD10: I10 - Controlled - Recommend home blood pressure monitoring, to bring results to next visit - Encouraged sodium restriction, DASH or Mediterranean diet - Recommend regular aerobic exercise - LISINOPRIL 2.5 MG TABLET - MAGNESIUM - VITAMIN B12 7. Nausea - ICD9: 787.02, ICD10: R11.0 Renew ondansetron for when Ozempic starts - ONDANSETRON 4 MG DISINTEGRATING TABLET 8. Gastroesophageal reflux disease without esophagitis - ICD9: 530.81, ICD10: K21.9 - Order omeprazole - OMEPRAZOLE 20 MG CAPSULE,DELAYED RELEASE 9. Screening for cervical cancer - ICD9: V76.2, ICD10: Z12.4 - CONSULT TO GYNECOLOGY 10. Bilateral carpal tunnel syndrome - ICD9: 354.0, ICD10: G56.03 Get cock-up splints to wear at night - restart levothyroxine 11. 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 Patient's questions answered appropriately. Medications and potential side effects were discussed and patient voices understanding. Return to the office as scheduled or as needed for worsening/no improvement. Zohra Morse APRN.MIKKI Follow Up Plans: 2 m documented in this encounter [facility] 06-18-2024 Telephone encounter Note Letter sent to pt notifying her that office has attempted to reach her by phone x 2 with messages left for a return call regarding results. Pt notified to contact office and ask to speak with a Performance Manager to setup routine f/u appt and lab appt. Vandana Keller MA [facility] 06-18-2024 Miscellaneous Notes Letter sent to pt notifying her that office has attempted to reach her by phone x 2 with messages left for a return call regarding results. Pt notified to contact office and ask to speak with a Performance Manager to setup routine f/u appt and lab appt. Vandana Keller MA Detailed message left for patient that 30 day supply of thyroid med called in for her. Due for labs and follow up appointment. Message to return call. Eva Rees MA Left message for patient to return call and speak with triage nurse Please tell pt to get labs, and she needs to set up follow up appt. She might not know about Arslan as well. Hannah Nesbitt Ma Please let pt. Know she is overdue for labs. I will fill 30 days of thyroid replacement so she doesn't run out. documented in this encounter [facility] 06-15-2024 Telephone encounter Note Detailed message left for patient that 30 day supply of thyroid med called in for her. Due for labs and follow up appointment. Message to return call. Eva Rees MA [facility] 06-11-2024 Telephone encounter Note Left message for patient to return call and speak with triage nurse Please tell pt to get labs, and she needs to set up follow up appt. She might not know about Arslan as well. Hannah Nesbitt Ma [facility] 06-11-2024 Telephone encounter Note Please let pt. Know she is overdue for labs. I will fill 30 days of thyroid replacement so she doesn't run out. [facility] 06-11-2024 Telephone encounter Note The following approved medication requests have been transmitted electronically. Requested Prescriptions Refused Prescriptions Disp Refills levothyroxine (LEVOXYL) 100 mcg tablet 30 tablet 2 Sig: Take 1 tablet by mouth once daily. Take on empty stomach. For Thyroid. Zohra Morse APRN.CNP [facility] 06-11-2024 Miscellaneous Notes The following approved medication requests have been transmitted electronically. Requested Prescriptions Refused Prescriptions Disp Refills levothyroxine (LEVOXYL) 100 mcg tablet 30 tablet 2 Sig: Take 1 tablet by mouth once daily. Take on empty stomach. For Thyroid. Zohra Morse APRN.CNP Prescription Refill Information The patient has been identified by name and date of : Yes Caregiver verified no other encounters exist for this prescription request: Yes Caregiver confirmed with patient/requestor that no other refills are due, in the near future, with this provider at this time: No The last office visit in the department: 03/12/24 Does the patient have a future office visit with this provider/department: No Requested Prescriptions Pending Prescriptions Disp Refills levothyroxine (LEVOXYL) 100 mcg tablet 30 tablet 2 Sig: Take 1 tablet by mouth once daily. Take on empty stomach. For Thyroid. Suzi Jenkins MA June 11, 2024 2:37 PM documented in this encounter [facility] 06-11-2024 Telephone encounter Note Prescription Refill Information The patient has been identified by name and date of : Yes Caregiver verified no other encounters exist for this prescription request: Yes Caregiver confirmed with patient/requestor that no other refills are due, in the near future, with this provider at this time: No The last office visit in the department: 03/12/24 Does the patient have a future office visit with this provider/department: No Requested Prescriptions Pending Prescriptions Disp Refills levothyroxine (LEVOXYL) 100 mcg tablet 30 tablet 2 Sig: Take 1 tablet by mouth once daily. Take on empty stomach. For Thyroid. Suzi Jenkins MA June 11, 2024 2:[address] [facility] 05-21-2024 Telephone encounter Note Prescription Refill Information The patient has been identified by name and date of : Yes Caregiver verified no other encounters exist for this prescription request: Yes Caregiver confirmed with patient/requestor that no other refills are due, in the near future, with this provider at this time: No The last office visit in the department: 03/12/24 Does the patient have a future office visit with this provider/department: Yes Requested Prescriptions Pending Prescriptions Disp Refills semaglutide (OZEMPIC) 0.25 mg or 0.5 mg (2 mg/3 mL) pen 3 mL 2 Sig: Inject 0.5 mg subcutaneously one time a week. Suzi Jenkins MA May 21, 2024 10:[address] [facility] 05-21-2024 Miscellaneous Notes Prescription Refill Information The patient has been identified by name and date of : Yes Caregiver verified no other encounters exist for this prescription request: Yes Caregiver confirmed with patient/requestor that no other refills are due, in the near future, with this provider at this time: No The last office visit in the department: 03/12/24 Does the patient have a future office visit with this provider/department: Yes Requested Prescriptions Pending Prescriptions Disp Refills semaglutide (OZEMPIC) 0.25 mg or 0.5 mg (2 mg/3 mL) pen 3 mL 2 Sig: Inject 0.5 mg subcutaneously one time a week. Suzi Jenkins MA May 21, 2024 10:12 AM documented in this encounter [facility] 03-12-2024 History of Present illness Narrative 54 year old female with c/o here for 3 month follow. Feels better taking as directed. Essential hypertension (primary encounter diagnosis) Current meds: Lisinopril 2.5mg daily Patient is compliant with meds Yes Monitors bp at home: No. If yes, readings: Denies side effects: No. Chest pain: No. Dyspnea: No. Edema: No. Palpitations: No. Syncope: No. Headache: no. Dizziness: Yes. Hyperlipidemia, mixed Current medication Atorvastatin 20mg daily HS Taking medication consistently Yes Observing low cholesterol high fiber diet No Muscle aches No Stomach complaints/ diarrhea No Diabetes Mellitus Type 2: Current medications: Semaglutide 0.5mg SC Taking medication as directed consistently? Yes Medication side effects: having diarrhea since started, daily. Worse if has a Big nancy. Medical Issues / Complications: hypertension and hyperlipidemia Checking blood sugars at home? Yes. CGM shows 93% at target in last 2 weeks, 77% for 90 days Watching diet? Yes Physical Activity: Sedentary Hypoglycemic spells? No Any visual disturbance? No Chest pain? No New numbness, tingling or loss of sensation? No Any recent foot problems, sores or rashes? No Any recent or sudden weight loss? No Change in urination? No. If yes: Any recent illness? No Last eye exam: up to date. Last foot exam: due. HBA1C: Hemoglobin A1C (%) Date Value 02/27/2024 7.3 08/29/2023 10.5 02/25/2021 7.0 10/31/2020 11.9 ) CMP: Glucose 123 02/27/2024 BUN 11 02/27/2024 Creatinine 0.78 02/27/2024 Sodium 141 02/27/2024 Potassium 4.2 02/27/2024 Chloride 108 02/27/2024 CO2 23 02/27/2024 Protein, Total 6.5 02/27/2024 Albumin 4.0 02/27/2024 Calcium 9.3 02/27/2024 Alkaline Phosphatase 117 02/27/2024 Bilirubin, Total 0.5 02/27/2024 AST 17 02/27/2024 ALT 14 02/27/2024 Last 2 Encounter Wt Readings: Date: Wt: 02/08/2024 85.3 kg (188 lb 0.8 oz) 09/13/2023 87.5 kg (193 lb) Latest Ref Rng 05/31/2017 07/19/2019 08/29/2023 Creatinine, Ur Random (UCRR) 20.0 - 300.0 mg/dL 107.6 78.6 127.4 Albumin, Urine Random mg/L <12.0 <12.0 <12.0 Albumin/Creat Ratio <30 mg/g Not calculated Not calculated <9 HISTORIES FAMILY HISTORY Adopted: Yes Problem Relation Age of Onset other (Unknown) Father Patient Is adopted other (Unknown) Mother Patient is adopted other (Unknown) Sister Mental Problems other (Unknown) Sister Mental Problems other (Unknown) Brother Breast Cancer Other Cataract Daughter congenital No Ocular Disease No Family History PAST MEDICAL HISTORY Diagnosis Date Esophageal reflux Essential hypertension Fractured lateral malleolus 09/28/2013 XR: transverse fracture tip lateral malleolus Heel spur, left 01/03/2012 left: plantar and posterior prominent spurs Heel spur, right 09/28/2013 XR right plantar and posterior spurs Mild or unspecified pre-eclampsia, unspecified as to episode of care 1998 Obesity, unspecified MANSOOR on CPAP Transient hypertension of , antepartum 1998 Type II or unspecified type diabetes mellitus without mention of complication, not stated as uncontrolled 09/18/2007 Unspecified hypothyroidism PAST SURGICAL HISTORY Procedure Laterality Date DELIVERY ONLY 09/12/1998 , low cervical CTA CHEST 09/07/2020 bibasilar infiltrates consistent with Covid-19 pneumonia REDUCTION OF LARGE BREAST 09/12/1999 Social History Tobacco Use Smoking status: Former Packs/day: 1.00 Years: 35.00 Additional pack years: 0.00 Total pack years: 35.00 Types: Cigarettes Quit date: 2019 Years since quittin.4 Smokeless tobacco: Never Vaping Use Vaping Use: Never used Substance Use Topics Alcohol use: No Drug use: No ACTIVE PROBLEM LIST Hypothyroidism Diabetes Mellitus Type 2, Uncontrolled, Without Complications Essential Hypertension Pain in Joint, Ankle and Foot Abnormal Mammogram Hyperlipidemia, Mixed Obesity, Class II, Bmi 35-39.9 Heel Spur, Left Heel Spur, Right Covid-19 Virus Detected Uncontrolled Type 2 Diabetes Mellitus With Hyperglycemia (Hcc) Post-Acute Sequelae of Covid-19 (Pasc) Fatigue Brain Fog Other Chest Pain Mild Nonproliferative Diabetic Retinopathy Without Macular Edema Associated With Type 2 Diabetes Mellitus (Hcc) Current Outpatient Medications Medication Sig Dispense Refill levothyroxine (LEVOXYL) 100 mcg tablet Take 1 tablet by mouth once daily. Take on empty stomach. For Thyroid. 30 tablet 2 semaglutide (OZEMPIC) 0.25 mg or 0.5 mg (2 mg/3 mL) pen Inject 0.5 mg subcutaneously one time a week. 3 mL 2 ondansetron orally disintegrating (ZOFRAN ODT) 4 mg disintegrating tablet Take 1 tablet by mouth every 6 hours as needed for nausea/vomiting. 30 tablet 2 insulin glargine-yfgn (SEMGLEE,INSULIN GLARG-YFGN,PEN) 100 unit/mL (3 mL) insulin pen Inject 32 Units subcutaneously once daily. Blood-Glucose Sensor (FREESTYLE YAQUELIN 3 SENSOR) alvina Apply new sensor to back of upper arm every 14 days 6 Each 4 flash glucose sensor (FREESTYLE YAQUELIN 14 DAY SENSOR) kit One sensor q14d 3 Kit 11 levothyroxine (LEVOXYL) 88 mcg tablet Take 1 tablet by mouth once daily. Take on empty stomach. For Thyroid 90 tablet 1 levothyroxine (LEVOXYL) 88 mcg tablet Take 1 tablet by mouth once daily. Take on empty stomach. For Thyroid 90 tablet 3 Cholecalciferol, Vitamin D3, 50 mcg (2,000 unit) cap Take 2 capsules by mouth once daily. 90 capsule 3 atorvastatin (LIPITOR) 20 mg tablet Take 1 tablet by mouth daily at bedtime. For cholesterol. 90 tablet 3 lisinopril 2.5 mg tablet Take 1 tablet by mouth once daily. 90 tablet 3 insulin needles, DISPOSABLE, (PEN NEEDLE) 31 gauge x 5/16 Use one needle per dose. 1 per day. 100 Each 5 CPAP/BIPAP/OTHER Type .CPAPSettings into a note to see current settings/supplies/DME information. 1 Each 0 Lancets lancets Test once daily, E11.9, No insulin 100 Each 3 No current facility-administered medications for this visit. BP Controlled (<130/80) Never done DTaP,Tdap,Td Vaccine(1 - Tdap) due on 02/11/2005 Colorectal Cancer Screening Never done Cervical Cancer Screening due on 10/21/2013 Hepatitis B Vaccine(2 of 3 - 19+ 3-dose series) due on 08/21/2014 Shingrix Vaccine(1 of 2) Never done Diabetic Foot Exam due on 11/04/2021 Behavioral Health Screening Never done Mammogram Screening due on 08/29/2024 EXAM: BP 132/88 Pulse 87 Resp 16 Wt 84.4 kg (186 lb) LMP 07/02/2019 SpO2 98% BMI 34.58 kg/m Pleasant obese adult woman in no acute distress. Alert and oriented all spheres. Normal affect and cognition. Speech normal. No deficits to learning or comprehension. Skin warm, dry, pink to lips and nailbeds. Normal turgor. Respirations regular and unlabored. HEENT: NCAT. No scleral icterus or conjunctival injection. TM's clear. Nose and oropharynx free from injection or lesion. Oral membranes moist and pink. No cervical lymph nodes. Thyroid non-tender, no masses, or enlargement. Carotids pulses 2+/4+ without bruits. No JVD with HOB at 30 degrees. Chest is normal shape. Lungs are clear to all loya with good air exchange through out. HRRR without murmur or gallop. No lifts, heaves, or rubs. Extrem: no clubbing or cyanosis. Edema: none. Extremities are warm and pink with prompt capillary refill. Feet:Shoes and socks removed, Are you having foot pain none, No deformities, ulcers, calluses, normal distal pulses, and sensitive to 10 gm monofilament ASSESSMENT/PLAN: 1. Essential hypertension - ICD9: 401.9, ICD10: I10 (primary diagnosis) - Improving control - Continue current medications - Recommend home blood pressure monitoring, to bring results to next visit - Encouraged sodium restriction, DASH or Mediterranean diet - Recommend regular aerobic exercise 2. Encounter for screening mammogram for breast cancer - ICD9: V76.12, ICD10: Z12.31 - Encouraged monthly BSE - Follow up for annual exam in one year. - TAMI SCREENING W ERMA 3. Hyperlipidemia, mixed - ICD9: 272.2, ICD10: E78.2 - Improving control - Continue current medications - Counseled on healthy diet and regular exercise 4. Controlled type 2 diabetes mellitus without complication, without long-term current use of insulin (HCC) - ICD9: 250.00, ICD10: E11.9 - Controlled - Continue current medications, if tolerated consider dose increase cautiously for benefit of weight los. Following with pharmac. - Discussed diet, possible changes with high protein breakfast to reduce carb hunger, 15 minute walk after meals - ALBUMIN/CREATININE RATIO, URINE - HEMOGLOBIN A1C 5. Screening for colon cancer - ICD9: V76.51, ICD10: Z12.11 - COLOGUARD Behavioral Health Screening PHQ-2 Score: 0 (Lower risk for depression) KISHA-2 Score: 0 (Lower risk for anxiety) Recommendation: no further intervention at this time Some of this note may have been copied and pasted for the purpose of history context and comparison. All questions listed were asked and adjusted for changes in prior data. Fazal Ford PA-C documented in this encounter [facility] 03-12-2024 Note HNO ID: [id number] Author: Fazal FORD PA-C Service: ? Author Type: Physician Saw Boss Type: Progress Notes Filed: 03/12/2024 17:46 Note Text: 54 year old female with c/o here for 3 month follow. Feels better taking as directed. Essential hypertension (primary encounter diagnosis) Current meds: Lisinopril 2.5mg daily Patient is compliant with meds Yes Monitors bp at home: No. If yes, readings: Denies side effects: No. Chest pain: No. Dyspnea: No. Edema: No. Palpitations: No. Syncope: No. Headache: no. Dizziness: Yes. Hyperlipidemia, mixed Current medication Atorvastatin 20mg daily HS Taking medication consistently Yes Observing low cholesterol high fiber diet No Muscle aches No Stomach complaints/ diarrhea No Diabetes Mellitus Type 2: Current medications: Semaglutide 0.5mg SC Taking medication as directed consistently? Yes Medication side effects: having diarrhea since started, daily. Worse if has a Big nancy. Medical Issues / Complications: hypertension and hyperlipidemia Checking blood sugars at home? Yes. CGM shows 93% at target in last 2 weeks, 77% for 90 days Watching diet? Yes Physical Activity: Sedentary Hypoglycemic spells? No Any visual disturbance? No Chest pain? No New numbness, tingling or loss of sensation? No Any recent foot problems, sores or rashes? No Any recent or sudden weight loss? No Change in urination? No. If yes: Any recent illness? No Last eye exam: up to date. Last foot exam: due. HBA1C: Hemoglobin A1C (%) Date Value 02/27/2024 7.3 08/29/2023 10.5 02/25/2021 7.0 10/31/2020 11.9 ) CMP: Glucose 123 02/27/2024 BUN 11 02/27/2024 Creatinine 0.78 02/27/2024 Sodium 141 02/27/2024 Potassium 4.2 02/27/2024 Chloride 108 02/27/2024 CO2 23 02/27/2024 Protein, Total 6.5 02/27/2024 Albumin 4.0 02/27/2024 Calcium 9.3 02/27/2024 Alkaline Phosphatase 117 02/27/2024 Bilirubin, Total 0.5 02/27/2024 AST 17 02/27/2024 ALT 14 02/27/2024 Last 2 Encounter Wt Readings: Date: Wt: 02/08/2024 85.3 kg (188 lb 0.8 oz) 09/13/2023 87.5 kg (193 lb) Latest Ref Rng 05/31/2017 07/19/2019 08/29/2023 Creatinine, Ur Random (UCRR) 20.0 - 300.0 mg/dL 107.6 78.6 127.4 Albumin, Urine Random mg/L <12.0 <12.0 <12.0 Albumin/Creat Ratio <30 mg/g Not calculated Not calculated <9 HISTORIES FAMILY HISTORY Adopted: Yes Problem Relation Age of Onset other (Unknown) Father Patient Is adopted other (Unknown) Mother Patient is adopted other (Unknown) Sister Mental Problems other (Unknown) Sister Mental Problems other (Unknown) Brother Breast Cancer Other Cataract Daughter congenital No Ocular Disease No Family History PAST MEDICAL HISTORY Diagnosis Date Esophageal reflux Essential hypertension Fractured lateral malleolus 09/28/2013 XR: transverse fracture tip lateral malleolus Heel spur, left 01/03/2012 left: plantar and posterior prominent spurs Heel spur, right 09/28/2013 XR right plantar and posterior spurs Mild or unspecified pre-eclampsia, unspecified as to episode of care 1998 Obesity, unspecified MANSOOR on CPAP Transient hypertension of , antepartum 1998 Type II or unspecified type diabetes mellitus without mention of complication, not stated as uncontrolled 09/18/2007 Unspecified hypothyroidism PAST SURGICAL HISTORY Procedure Laterality Date DELIVERY ONLY 09/12/1998 , low cervical CTA CHEST 09/07/2020 bibasilar infiltrates consistent with Covid-19 pneumonia REDUCTION OF LARGE BREAST 09/12/1999 Social History Tobacco Use Smoking status: Former Packs/day: 1.00 Years: 35.00 Additional pack years: 0.00 Total pack years: 35.00 Types: Cigarettes Quit date: 2019 Years since quittin.4 Smokeless tobacco: Never Vaping Use Vaping Use: Never used Substance Use Topics Alcohol use: No Drug use: No ACTIVE PROBLEM LIST Hypothyroidism Diabetes Mellitus Type 2, Uncontrolled, Without Complications Essential Hypertension Pain in Joint, Ankle and Foot Abnormal Mammogram Hyperlipidemia, Mixed Obesity, Class II, Bmi 35-39.9 Heel Spur, Left Heel Spur, Right Covid-19 Virus Detected Uncontrolled Type 2 Diabetes Mellitus With Hyperglycemia (Hcc) Post-Acute Sequelae of Covid-19 (Pasc) Fatigue Brain Fog Other Chest Pain Mild Nonproliferative Diabetic Retinopathy Without Macular Edema Associated With Type 2 Diabetes Mellitus (Hcc) Current Outpatient Medications Medication Sig Dispense Refill levothyroxine (LEVOXYL) 100 mcg tablet Take 1 tablet by mouth once daily. Take on empty stomach. For Thyroid. 30 tablet 2 semaglutide (OZEMPIC) 0.25 mg or 0.5 mg (2 mg/3 mL) pen Inject 0.5 mg subcutaneously one time a week. 3 mL 2 ondansetron orally disintegrating (ZOFRAN ODT) 4 mg disintegrating tablet Take 1 tablet by mouth every 6 hours as needed for nausea/vomiting. 30 tablet 2 insulin glargine-yfgn (SEMGLEE,INSULIN GLARG-YFGN,PEN) 10 (more content not included)... [facility] 03-02-2024 Telephone encounter Note Patient notified of results and provider's instructions. Patient verbalizes understanding. Bridget Sin RN [facility] 03-02-2024 Miscellaneous Notes Patient notified of results and provider's instructions. Patient verbalizes understanding. Bridget Sin RN Left a message for pt to call the office and ask to speak to a nurse. Carly Nation LPN Message left for pt to call back for results. Suzi Jenkins MA If taking levothyroxine routinely on 1h empty stomach, TSH indicates under replacement: will need to increase dose. Start levoth 100mcg daily AC, recheck lab 2 months If missing does, take routinely and recheck in 2 months and d/c new rx The following approved medication requests have been transmitted electronically. Requested Prescriptions Signed Prescriptions Disp Refills levothyroxine (LEVOXYL) 100 mcg tablet 30 tablet 2 Sig: Take 1 tablet by mouth once daily. Take on empty stomach. For Thyroid. Authorizing Provider: Fazal FORD PA-C M Gregory Barton, PA-C documented in this encounter [facility] 03-02-2024 Telephone encounter Note Left a message for pt to call the office and ask to speak to a nurse. Carly Nation LPN [facility] 03-01-2024 Telephone encounter Note Message left for pt to call back for results. Suzi Jenkins MA [facility] 03-01-2024 Telephone encounter Note If taking levothyroxine routinely on 1h empty stomach, TSH indicates under replacement: will need to increase dose. Start levoth 100mcg daily AC, recheck lab 2 months If missing does, take routinely and recheck in 2 months and d/c new rx The following approved medication requests have been transmitted electronically. Requested Prescriptions Signed Prescriptions Disp Refills levothyroxine (LEVOXYL) 100 mcg tablet 30 tablet 2 Sig: Take 1 tablet by mouth once daily. Take on empty stomach. For Thyroid. Authorizing Provider: Fazal FORD PA-C M Gregory Barton, PA-C [facility] 02-17-2024 Telephone encounter Note Please help pt set up routine follow up appt with PCP/team. [facility] 02-17-2024 Miscellaneous Notes Please help pt set up routine follow up appt with PCP/team. The following approved medication requests have been transmitted electronically. Requested Prescriptions Pending Prescriptions Disp Refills ondansetron orally disintegrating (ZOFRAN ODT) 4 mg disintegrating tablet 30 tablet 2 Sig: Take 1 tablet by mouth every 6 hours as needed for nausea/vomiting. Zohra Morse APRN.THERMOSPRAY OPERATOR Patient requesting refill for Zofran for occasional nausea on day of Ozempic injections. Patient's request for medication is as follows: Requested Prescriptions Pending Prescriptions Disp Refills ondansetron orally disintegrating (ZOFRAN ODT) 4 mg disintegrating tablet 30 tablet 2 Sig: Take 1 tablet by mouth every 6 hours as needed for nausea/vomiting. Prescription(s) as above. Please process accordingly. Marlen Kelly PharmD [facility] [employer] documented in this encounter [facility] 02-17-2024 Telephone encounter Note The following approved medication requests have been transmitted electronically. Requested Prescriptions Pending Prescriptions Disp Refills ondansetron orally disintegrating (ZOFRAN ODT) 4 mg disintegrating tablet 30 tablet 2 Sig: Take 1 tablet by mouth every 6 hours as needed for nausea/vomiting. Zohra Morse APRN.THERMOSPRAY OPERATOR [facility] 02-17-2024 Telephone encounter Note Patient requesting refill for Zofran for occasional nausea on day of Ozempic injections. Patient's request for medication is as follows: Requested Prescriptions Pending Prescriptions Disp Refills ondansetron orally disintegrating (ZOFRAN ODT) 4 mg disintegrating tablet 30 tablet 2 Sig: Take 1 tablet by mouth every 6 hours as needed for nausea/vomiting. Prescription(s) as above. Please process accordingly. Marlen Kelly PharmD [facility] [employer] [facility] 02-17-2024 History of Present illness Narrative Images from the original note were not included. Primary Care Pharmacy Visit CC (Reason for Consult): (E11.65) Uncontrolled type 2 diabetes mellitus with hyperglycemia (HCC) (primary encounter diagnosis) Goal(s): A1c <7% Last Collaborating Provider Visit: 08/25/23 with Guanakito Ford PA-C Andrew Villalobos is a 54 year old female presenting for follow up visit telephone call. Patient consents to pharmacy collaborative practice agreement. Last Pharmacy Visit: 01/13/24 - Semglee decreased to 32 units once daily HPI: Reports feeling bad the day after Ozempic injections (nausea, some diarrhea) Sometimes taking Ozempic in the middle of the night (around 3am) on Tuesday mornings Has two more doses of Ozempic, needs more refills Wants Zofran refill for Ozempic related nausea Current DM Medications: Semglee 32 units once daily Ozempic 0.5 mg weekly on Saturdays Previously Trialed DM Meds: Metformin - diarrhea Trulicity - coverage issues Diet No changes, does not eat a lot of sugar Eats some chips and tries to limit quantity GLYCEMIC CONTROL: Glucometer present at visit: Yes Hypoglycemia: No Reports no lows since last phone call. CGM Data Past medical history reviewed. ALLERGIES Allergen Reactions Metformin Diarrhea Trulicity [Dulaglut* Intolerance Nausea/Bloating Using Zofran for side effects Current Outpatient Medications Medication Sig Dispense Refill insulin glargine-yfgn (SEMGLEE,INSULIN GLARG-YFGN,PEN) 100 unit/mL (3 mL) insulin pen Inject 32 Units subcutaneously once daily. semaglutide (OZEMPIC) 0.25 mg or 0.5 mg (2 mg/3 mL) pen Inject 0.5 mg subcutaneously one time a week. 3 mL 1 Blood-Glucose Sensor (FREESTYLE YAQUELIN 3 SENSOR) alvina Apply new sensor to back of upper arm every 14 days 6 Each 4 flash glucose sensor (FREESTYLE YAQUELIN 14 DAY SENSOR) kit One sensor q14d 3 Kit 11 levothyroxine (LEVOXYL) 88 mcg tablet Take 1 tablet by mouth once daily. Take on empty stomach. For Thyroid 90 tablet 1 levothyroxine (LEVOXYL) 88 mcg tablet Take 1 tablet by mouth once daily. Take on empty stomach. For Thyroid 90 tablet 3 Cholecalciferol, Vitamin D3, 50 mcg (2,000 unit) cap Take 2 capsules by mouth once daily. 90 capsule 3 atorvastatin (LIPITOR) 20 mg tablet Take 1 tablet by mouth daily at bedtime. For cholesterol. 90 tablet 3 lisinopril 2.5 mg tablet Take 1 tablet by mouth once daily. 90 tablet 3 insulin needles, DISPOSABLE, (PEN NEEDLE) 31 gauge x /16 Use one needle per dose. 1 per day. 100 Each 5 ondansetron orally disintegrating (ZOFRAN ODT) 4 mg disintegrating tablet Take 1 tablet by mouth every 6 hours as needed for nausea/vomiting. 30 tablet 2 CPAP/BIPAP/OTHER Type .CPAPSettings into a note to see current settings/supplies/DME information. 1 Each 0 Lancets lancets Test once daily, E11.9, No insulin 100 Each 3 No current facility-administered medications for this visit. Pill bottles are not present. Adherence: denies missed doses. Rx coverage: Payor: [facility] / Plan: [facility] CHOICE PLUS / Product Type: HMO / Medications affordable? Yes PHARMACOTHERAPY PREVENTATIVE MEDS: On MADI/ARB: Yes On Statin: Yes On ASA: No EXAM: LMP 07/02/2019 Last 3 Encounter BP Readings: Date: BP: 02/08/2024 136/84 08/25/2023 130/78 07/04/2023 140/82 Wt: 85.3 kg (188 lb 0.8 oz) BMI: 34.96 kg/(m^2) LABS: Lab Results Component Value Date HBA1C 10.5 08/29/2023 HBA1C 12.3 04/24/2022 HBA1C 7.0 02/25/2021 HBA1C 11.9 10/31/2020 HBA1C 7.2 07/19/2019 Glucose 179 08/29/2023 BUN 9 08/29/2023 Creatinine 0.68 08/29/2023 Sodium 141 08/29/2023 Potassium 4.1 08/29/2023 Chloride 104 08/29/2023 CO2 24 08/29/2023 Protein, Total 6.9 08/29/2023 Albumin 4.1 08/29/2023 Calcium 9.6 08/29/2023 Alkaline Phosphatase 128 08/29/2023 Bilirubin, Total 0.7 08/29/2023 AST 14 08/29/2023 ALT 19 08/29/2023 Lab Results Component Value Date CHOL 136 08/29/2023 CHOL 147 10/31/2020 LDL 68 08/29/2023 LDL 77 10/31/2020 HDL 49 08/29/2023 HDL 48 10/31/2020 TG 96 08/29/2023 TG 108 10/31/2020 Albumin/Creat Ratio (mg/g) Date Value 08/29/2023 <9 eGFR-All Other Races (.) Date Value 02/25/2021 >60 Estimated Glomerular Filtration Rate (mL/min/1.73m ) Date Value 08/29/2023 103 ASSESSMENT/PLAN: 1. Uncontrolled type 2 diabetes mellitus with hyperglycemia (HCC) - ICD9: 250.02, ICD10: E11.65 - Improving control - Continue current medications - Statin prescribed - atorvastatin - Blood glucose monitoring on a continuous glucose monitoring schedule - Counseled on healthy diet and regular exercise - Follow up after A1c results, sooner should any other issues arise. - Due for A1c (already ordered) Follow Up: Next PCP visit: not scheduled Next PharmD visit: TBD based on A1c results Rabia Puentes BA PharmD Candidate 2024 Patient reviewed/interviewed with the assistant dean of students. Dick elements of history confirmed during appointment/call. The progress note, assessment, and plan reflect my input and comments. My additions to the progress note are underlined. Marlen Kelly PharmD Primary Care Clinical [facility] documented in this encounter [facility] 02-17-2024 Note HNO ID: [id number] Author: MARLEN KELLY RPh Service: ? Author Type: Pharmacist Type: Progress Notes Filed: 02/17/2024 12:38 Note Text: Primary Care Pharmacy Visit CC (Reason for Consult): (E11.65) Uncontrolled type 2 diabetes mellitus with hyperglycemia (HCC) (primary encounter diagnosis) Goal(s): A1c <7% Last Collaborating Provider Visit: 08/25/23 with Guanakito Ford PA-C Andrew Villalobos is a 54 year old female presenting for follow up visit telephone call. Patient consents to pharmacy collaborative practice agreement. Last Pharmacy Visit: 01/13/24 - Semglee decreased to 32 units once daily HPI: Reports feeling bad the day after Ozempic injections (nausea, some diarrhea) Sometimes taking Ozempic in the middle of the night (around 3am) on Tuesday mornings Has two more doses of Ozempic, needs more refills Wants Zofran refill for Ozempic related nausea Current DM Medications: Semglee 32 units once daily Ozempic 0.5 mg weekly on Saturdays Previously Trialed DM Meds: Metformin - diarrhea Trulicity - coverage issues Diet No changes, does not eat a lot of sugar Eats some chips and tries to limit quantity GLYCEMIC CONTROL: Glucometer present at visit: Yes Hypoglycemia: No Reports no lows since last phone call. CGM Data Past medical history reviewed. ALLERGIES Allergen Reactions Metformin Diarrhea Trulicity [Dulaglut* Intolerance Nausea/Bloating Using Zofran for side effects Current Outpatient Medications Medication Sig Dispense Refill insulin glargine-yfgn (SEMGLEE,INSULIN GLARG-YFGN,PEN) 100 unit/mL (3 mL) insulin pen Inject 32 Units subcutaneously once daily. semaglutide (OZEMPIC) 0.25 mg or 0.5 mg (2 mg/3 mL) pen Inject 0.5 mg subcutaneously one time a week. 3 mL 1 Blood-Glucose Sensor (FREESTYLE YAQUELIN 3 SENSOR) alvina Apply new sensor to back of upper arm every 14 days 6 Each 4 flash glucose sensor (FREESTYLE YAQUELIN 14 DAY SENSOR) kit One sensor q14d 3 Kit 11 levothyroxine (LEVOXYL) 88 mcg tablet Take 1 tablet by mouth once daily. Take on empty stomach. For Thyroid 90 tablet 1 levothyroxine (LEVOXYL) 88 mcg tablet Take 1 tablet by mouth once daily. Take on empty stomach. For Thyroid 90 tablet 3 Cholecalciferol, Vitamin D3, 50 mcg (2,000 unit) cap Take 2 capsules by mouth once daily. 90 capsule 3 atorvastatin (LIPITOR) 20 mg tablet Take 1 tablet by mouth daily at bedtime. For cholesterol. 90 tablet 3 lisinopril 2.5 mg tablet Take 1 tablet by mouth once daily. 90 tablet 3 insulin needles, DISPOSABLE, (PEN NEEDLE) 31 gauge x 5/16 Use one needle per dose. 1 per day. 100 Each 5 ondansetron orally disintegrating (ZOFRAN ODT) 4 mg disintegrating tablet Take 1 tablet by mouth every 6 hours as needed for nausea/vomiting. 30 tablet 2 CPAP/BIPAP/OTHER Type .CPAPSettings into a note to see current settings/supplies/DME information. 1 Each 0 Lancets lancets Test once daily, E11.9, No insulin 100 Each 3 No current facility-administered medications for this visit. Pill bottles are not present. Adherence: denies missed doses. Rx coverage: Payor: [facility] / Plan: [facility] CHOICE PLUS / Product Type: HMO / Medications affordable? Yes PHARMACOTHERAPY PREVENTATIVE MEDS: On MADI/ARB: Yes On Statin: Yes On ASA: No EXAM: LMP 07/02/2019 Last 3 Encounter BP Readings: Date: BP: 02/08/2024 136/84 08/25/2023 130/78 07/04/2023 140/82 Wt: 85.3 kg (188 lb 0.8 oz) BMI: 34.96 kg/(m2) LABS: Lab Results Component Value Date HBA1C 10.5 08/29/2023 HBA1C 12.3 04/24/2022 HBA1C 7.0 02/25/2021 HBA1C 11.9 10/31/2020 HBA1C 7.2 07/19/2019 Glucose 179 08/29/2023 BUN 9 08/29/2023 Creatinine 0.68 08/29/2023 Sodium 141 08/29/2023 Potassium 4.1 08/29/2023 Chloride 104 08/29/2023 CO2 24 08/29/2023 Protein, Total 6.9 08/29/2023 Albumin 4.1 08/29/2023 Calcium 9.6 08/29/2023 Alkaline Phosphatase 128 08/29/2023 Bilirubin, Total 0.7 08/29/2023 AST 14 08/29/2023 ALT 19 08/29/2023 Lab Results Component Value Date CHOL 136 08/29/2023 CHOL 147 10/31/2020 LDL 68 08/29/2023 LDL 77 10/31/2020 HDL 49 08/29/2023 HDL 48 10/31/2020 TG 96 08/29/2023 TG 108 10/31/2020 Albumin/Creat Ratio (mg/g) Date Value 08/29/2023 <9 eGFR-All Other Races (.) Date Value 02/25/2021 >60 Estimated Glomerular Filtration Rate (mL/min/1.73m?) Date Value 08/29/2023 103 ASSESSMENT/PLAN: 1. Uncontrolled type 2 diabetes mellitus with hyperglycemia (HCC) - ICD9: 250.02, ICD10: E11.65 - Improving control - Continue current medications - Statin prescribed - atorvastatin - Blood glucose monitoring on a continuous glucose monitoring schedule - Counseled on healthy diet and regular exercise - Follow up after A1c results, sooner should any other issues arise. - Due for A1c (already ordered) Follow Up: Next PCP visit: not scheduled Next PharmD visit: TBD based on A1c results Rabia Puentes BA PharmD Candidate 2024 [facility] 02-17-2024 Note HNO ID: [id number] Author: MARLEN KELLY RPh Service: ? Author Type: Pharmacist Type: Progress Notes Filed: 02/17/2024 12:38 Note Text: Patient reviewed/interviewed with the assistant dean of students. Dick elements of history confirmed during appointment/call. The progress note, assessment, and plan reflect my input and comments. My additions to the progress note are underlined. Marlen Kelly, PharmD Primary Care Clinical [facility] 02-08-2024 Note HNO ID: [id number] Author: ESTHER SOMERS PA Service: ? Author Type: Physician Saw Boss Type: Progress Notes Filed: 02/08/2024 11:03 Note Text: This note was created using Oxyntixter. Subjective Andrew Villalobos is a 54 year old female. HPI 54-year-old female presents for sore throat, cough, headache x 3 days. Patient states on Tuesday she started feeling sick with sore throat and she had a raspy voice. She has had a cough, runny nose and little bit of a headache. She states that her employer wanted her to come in and be evaluated. She has had sick contacts at work. She denies any fevers. She denies any chest pain or shortness of breath. No history of COPD or asthma. Cough is dry. She is still able to eat and drink. She has not taken anything [id number]. PAST MEDICAL HISTORY Diagnosis Date Esophageal reflux Essential hypertension Fractured lateral malleolus 09/28/2013 XR: transverse fracture tip lateral malleolus Heel spur, left 01/03/2012 left: plantar and posterior prominent spurs Heel spur, right 09/28/2013 XR right plantar and posterior spurs Mild or unspecified pre-eclampsia, unspecified as to episode of care 1998 Obesity, unspecified MANSOOR on CPAP Transient hypertension of , antepartum 1998 Type II or unspecified type diabetes mellitus without mention of complication, not stated as uncontrolled 09/18/2007 Unspecified hypothyroidism PAST SURGICAL HISTORY Procedure Laterality Date DELIVERY ONLY 09/12/1998 , low cervical CTA CHEST 09/07/2020 bibasilar infiltrates consistent with Covid-19 pneumonia REDUCTION OF LARGE BREAST 09/12/1999 ALLERGIES Metformin and Trulicity [Dulaglutide] MEDICATIONS insulin glargine-yfgn (SEMGLEE,INSULIN GLARG-YFGN,PEN) 100 unit/mL (3 mL) insulin pen Inject 32 Units subcutaneously once daily. semaglutide (OZEMPIC) 0.25 mg or 0.5 mg (2 mg/3 mL) pen Inject 0.5 mg subcutaneously one time a week. Blood-Glucose Sensor (FREESTYLE YAQUELIN 3 SENSOR) alvina Apply new sensor to back of upper arm every 14 days flash glucose sensor (FREESTYLE YAQUELIN 14 DAY SENSOR) kit One sensor q14d levothyroxine (LEVOXYL) 88 mcg tablet Take 1 tablet by mouth once daily. Take on empty stomach. For Thyroid levothyroxine (LEVOXYL) 88 mcg tablet Take 1 tablet by mouth once daily. Take on empty stomach. For Thyroid Cholecalciferol, Vitamin D3, 50 mcg (2,000 unit) cap Take 2 capsules by mouth once daily. atorvastatin (LIPITOR) 20 mg tablet Take 1 tablet by mouth daily at bedtime. For cholesterol. lisinopril 2.5 mg tablet Take 1 tablet by mouth once daily. insulin needles, DISPOSABLE, (PEN NEEDLE) 31 gauge x 5/16 Use one needle per dose. 1 per day. ondansetron orally disintegrating (ZOFRAN ODT) 4 mg disintegrating tablet Take 1 tablet by mouth every 6 hours as needed for nausea/vomiting. CPAP/BIPAP/OTHER Type .CPAPSettings into a note to see current settings/supplies/DME information. Lancets lancets Test once daily, E11.9, No insulin FAMILY HISTORY Adopted: Yes Problem Relation Age of Onset other (Unknown) Father Patient Is adopted other (Unknown) Mother Patient is adopted other (Unknown) Sister Mental Problems other (Unknown) Sister Mental Problems other (Unknown) Brother Breast Cancer Other Cataract Daughter congenital No Ocular Disease No Family History Social History Tobacco Use Smoking status: Former Packs/day: 1.00 Years: 35.00 Additional pack years: 0.00 Total pack years: 35.00 Types: Cigarettes Quit date: 2019 Years since quittin.4 Smokeless tobacco: Never Vaping Use Vaping Use: Never used Substance Use Topics Alcohol use: No Drug use: No Review of Systems Constitutional: Negative for chills and fever. HENT: Positive for rhinorrhea and sore throat. Negative for congestion and ear pain. Respiratory: Positive for cough. Negative for shortness of breath. Cardiovascular: Negative for chest pain. Gastrointestinal: Negative for diarrhea and vomiting. Neurological: Positive for headaches. Objective BP 136/84 Pulse 110 Temp 36.9 ?C (98.5 ?F) (Tympanic) Resp 18 Wt 85.3 kg (188 lb 0.8 oz) LMP 07/02/2019 SpO2 97% BMI 34.96 kg/m? Physical Exam Vitals and nursing note reviewed. Constitutional: General: She is not in acute distress. Appearance: Normal appearance. She is not toxic-appearing. HENT: Right Ear: Tympanic membrane and ear canal normal. Left Ear: Tympanic membrane and ear canal normal. Nose: Nose normal. Mouth/Throat: Mouth: Mucous membranes are moist. Pharynx: Uvula midline. Posterior oropharyngeal erythema present. Tonsils: No tonsillar exudate or tonsillar abscesses. 1+ on the right. 1+ on the left. Comments: Handling secretions. Uvula midline. No trismus. Eyes: Conjunctiva/sclera: Conjunctivae normal. Cardiovascular: Rate and Rhythm: Normal rate and regular rhythm. Pulmonary: Effort: Pulmonary effort is (more content not included)... [facility] 02-08-2024 History of Present illness Narrative This note was created using [employer]. Subjective Andrew Villalobos is a 54 year old female. HPI 54-year-old female presents for sore throat, cough, headache x 3 days. Patient states on Tuesday she started feeling sick with sore throat and she had a raspy voice. She has had a cough, runny nose and little bit of a headache. She states that her employer wanted her to come in and be evaluated. She has had sick contacts at work. She denies any fevers. She denies any chest pain or shortness of breath. No history of COPD or asthma. Cough is dry. She is still able to eat and drink. She has not taken anything [id number]. PAST MEDICAL HISTORY Diagnosis Date Esophageal reflux Essential hypertension Fractured lateral malleolus 09/28/2013 XR: transverse fracture tip lateral malleolus Heel spur, left 01/03/2012 left: plantar and posterior prominent spurs Heel spur, right 09/28/2013 XR right plantar and posterior spurs Mild or unspecified pre-eclampsia, unspecified as to episode of care 1998 Obesity, unspecified MANSOOR on CPAP Transient hypertension of , antepartum 1998 Type II or unspecified type diabetes mellitus without mention of complication, not stated as uncontrolled 09/18/2007 Unspecified hypothyroidism PAST SURGICAL HISTORY Procedure Laterality Date DELIVERY ONLY 09/12/1998 , low cervical CTA CHEST 09/07/2020 bibasilar infiltrates consistent with Covid-19 pneumonia REDUCTION OF LARGE BREAST 09/12/1999 ALLERGIES Metformin and Trulicity [Dulaglutide] MEDICATIONS insulin glargine-yfgn (SEMGLEE,INSULIN GLARG-YFGN,PEN) 100 unit/mL (3 mL) insulin pen Inject 32 Units subcutaneously once daily. semaglutide (OZEMPIC) 0.25 mg or 0.5 mg (2 mg/3 mL) pen Inject 0.5 mg subcutaneously one time a week. Blood-Glucose Sensor (FREESTYLE YAQUELIN 3 SENSOR) alvina Apply new sensor to back of upper arm every 14 days flash glucose sensor (FREESTYLE YAQUELIN 14 DAY SENSOR) kit One sensor q14d levothyroxine (LEVOXYL) 88 mcg tablet Take 1 tablet by mouth once daily. Take on empty stomach. For Thyroid levothyroxine (LEVOXYL) 88 mcg tablet Take 1 tablet by mouth once daily. Take on empty stomach. For Thyroid Cholecalciferol, Vitamin D3, 50 mcg (2,000 unit) cap Take 2 capsules by mouth once daily. atorvastatin (LIPITOR) 20 mg tablet Take 1 tablet by mouth daily at bedtime. For cholesterol. lisinopril 2.5 mg tablet Take 1 tablet by mouth once daily. insulin needles, DISPOSABLE, (PEN NEEDLE) 31 gauge x 5/16 Use one needle per dose. 1 per day. ondansetron orally disintegrating (ZOFRAN ODT) 4 mg disintegrating tablet Take 1 tablet by mouth every 6 hours as needed for nausea/vomiting. CPAP/BIPAP/OTHER Type .CPAPSettings into a note to see current settings/supplies/DME information. Lancets lancets Test once daily, E11.9, No insulin FAMILY HISTORY Adopted: Yes Problem Relation Age of Onset other (Unknown) Father Patient Is adopted other (Unknown) Mother Patient is adopted other (Unknown) Sister Mental Problems other (Unknown) Sister Mental Problems other (Unknown) Brother Breast Cancer Other Cataract Daughter congenital No Ocular Disease No Family History Social History Tobacco Use Smoking status: Former Packs/day: 1.00 Years: 35.00 Additional pack years: 0.00 Total pack years: 35.00 Types: Cigarettes Quit date: 2019 Years since quittin.4 Smokeless tobacco: Never Vaping Use Vaping Use: Never used Substance Use Topics Alcohol use: No Drug use: No Review of Systems Constitutional: Negative for chills and fever. HENT: Positive for rhinorrhea and sore throat. Negative for congestion and ear pain. Respiratory: Positive for cough. Negative for shortness of breath. Cardiovascular: Negative for chest pain. Gastrointestinal: Negative for diarrhea and vomiting. Neurological: Positive for headaches. Objective BP 136/84 Pulse 110 Temp 36.9 C (98.5 F) (Tympanic) Resp 18 Wt 85.3 kg (188 lb 0.8 oz) LMP 07/02/2019 SpO2 97% BMI 34.96 kg/m Physical Exam Vitals and nursing note reviewed. Constitutional: General: She is not in acute distress. Appearance: Normal appearance. She is not toxic-appearing. HENT: Right Ear: Tympanic membrane and ear canal normal. Left Ear: Tympanic membrane and ear canal normal. Nose: Nose normal. Mouth/Throat: Mouth: Mucous membranes are moist. Pharynx: Uvula midline. Posterior oropharyngeal erythema present. Tonsils: No tonsillar exudate or tonsillar abscesses. 1+ on the right. 1+ on the left. Comments: Handling secretions. Uvula midline. No trismus. Eyes: Conjunctiva/sclera: Conjunctivae normal. Cardiovascular: Rate and Rhythm: Normal rate and regular rhythm. Pulmonary: Effort: Pulmonary effort is normal. Breath sounds: Normal breath sounds. Skin: General: Skin is warm and dry. Neurological: Mental Status: She is alert. Assessment and Plan ASSESSMENT/PLAN: 1. Sore throat - ICD9: 462, ICD10: J02.9 (primary diagnosis) - suspect viral - Group A strep molecular testing negative - Discussed supportive care treatment with fluids, rest and analgesia. - STREP A MOLECULAR (POC) 2. URI, acute - ICD9: 465.9, ICD10: J06.9 - Discussed viral etiology and rationale for treatment. - Symptomatic treatment with prn analgesia - Supportive care with fluids and rest - COVID & INFLUENZA A/B & RSV NAAT, ROUTINE - out of window tamiflu Diagnosis and treatment plan were discussed and questions were answered to the patient's satisfaction. Pt acknowledged understanding of concepts and follow up plan. Specific signs and symptoms that would indicate the need for higher level of care were discussed in detail warranting prompt ER evaluation. NELLY Rose documented in this encounter [facility] 01-13-2024 History of Present illness Narrative Images from the original note were not included. Primary Care Pharmacy Visit CC (Reason for Consult): (E11.65) Uncontrolled type 2 diabetes mellitus with hyperglycemia (HCC) (primary encounter diagnosis) Goal(s): A1c <7% Last Collaborating Provider Visit: 08/25/23 with NELLY Nova Andrew Villalobos is a 53 year old female presenting for follow up visit telephone call. Patient consents to pharmacy collaborative practice agreement. Last Pharmacy Visit: 12/23/23 - Semglee increased to 36 units once daily Interim Events: -12/23/23 - msg regarding plan to start ozempic as previously prescribed d/t lower cost now with copay card HPI: Reports doing well Confirmed starting Ozempic, started at the 0.5 mg dose. Has had 2 doses so far Had some vomiting with the first dose, but tolerating okay since. Has had some nausea and diarrhea, but has been tolerating well Current DM Medications: Semglee 36 units once daily Ozempic 0.5 mg once weekly on Saturdays Previously Trialed DM Meds: Metformin - diarrhea Trulicity - coverage issues Diet Not very hungry lately, eating a lot of salads at home GLYCEMIC CONTROL: Glucometer present at visit: Yes Hypoglycemia: Yes CGM Data Past medical history reviewed. ALLERGIES Allergen Reactions Metformin Diarrhea Trulicity [Dulaglut* Intolerance Nausea/Bloating Using Zofran for side effects Current Outpatient Medications Medication Sig Dispense Refill insulin glargine-yfgn (SEMGLEE,INSULIN GLARG-YFGN,PEN) 100 unit/mL (3 mL) insulin pen Inject 36 Units subcutaneously once daily. 15 mL 5 semaglutide (OZEMPIC) 0.25 mg or 0.5 mg (2 mg/3 mL) pen Inject 0.5 mg subcutaneously one time a week. 3 mL 1 Blood-Glucose Sensor (FREESTYLE YAQUELIN 3 SENSOR) alvina Apply new sensor to back of upper arm every 14 days 6 Each 4 flash glucose sensor (FREESTYLE YAQUELIN 14 DAY SENSOR) kit One sensor q14d 3 Kit 11 levothyroxine (LEVOXYL) 88 mcg tablet Take 1 tablet by mouth once daily. Take on empty stomach. For Thyroid 90 tablet 1 levothyroxine (LEVOXYL) 88 mcg tablet Take 1 tablet by mouth once daily. Take on empty stomach. For Thyroid 90 tablet 3 Cholecalciferol, Vitamin D3, 50 mcg (2,000 unit) cap Take 2 capsules by mouth once daily. 90 capsule 3 atorvastatin (LIPITOR) 20 mg tablet Take 1 tablet by mouth daily at bedtime. For cholesterol. 90 tablet 3 lisinopril 2.5 mg tablet Take 1 tablet by mouth once daily. 90 tablet 3 insulin needles, DISPOSABLE, (PEN NEEDLE) 31 gauge x 5/16 Use one needle per dose. 1 per day. 100 Each 5 ondansetron orally disintegrating (ZOFRAN ODT) 4 mg disintegrating tablet Take 1 tablet by mouth every 6 hours as needed for nausea/vomiting. 30 tablet 2 CPAP/BIPAP/OTHER Type .CPAPSettings into a note to see current settings/supplies/DME information. 1 Each 0 Lancets lancets Test once daily, E11.9, No insulin 100 Each 3 No current facility-administered medications for this visit. Pill bottles are not present. Adherence: denies missed doses. Rx coverage: Payor: [facility] / Plan: [facility] CHOICE PL[facility] / Product Type: HMO / Medications affordable? Yes PHARMACOTHERAPY PREVENTATIVE MEDS: On MADI/ARB: Yes On Statin: Yes On ASA: No EXAM: LMP 07/02/2019 Last 3 Encounter BP Readings: Date: BP: 08/25/2023 130/78 07/04/2023 140/82 03/12/2023 130/96 Wt: 87.5 kg (193 lb) BMI: 35.88 kg/(m^2) LABS: Lab Results Component Value Date HBA1C 10.5 08/29/2023 HBA1C 12.3 04/24/2022 HBA1C 7.0 02/25/2021 HBA1C 11.9 10/31/2020 HBA1C 7.2 07/19/2019 Glucose 179 08/29/2023 BUN 9 08/29/2023 Creatinine 0.68 08/29/2023 Sodium 141 08/29/2023 Potassium 4.1 08/29/2023 Chloride 104 08/29/2023 CO2 24 08/29/2023 Protein, Total 6.9 08/29/2023 Albumin 4.1 08/29/2023 Calcium 9.6 08/29/2023 Alkaline Phosphatase 128 08/29/2023 Bilirubin, Total 0.7 08/29/2023 AST 14 08/29/2023 ALT 19 08/29/2023 Lab Results Component Value Date CHOL 136 08/29/2023 CHOL 147 10/31/2020 LDL 68 08/29/2023 LDL 77 10/31/2020 HDL 49 08/29/2023 HDL 48 10/31/2020 TG 96 08/29/2023 TG 108 10/31/2020 Albumin/Creat Ratio (mg/g) Date Value 08/29/2023 <9 eGFR-All Other Races (.) Date Value 02/25/2021 >60 Estimated Glomerular Filtration Rate (mL/min/1.73m ) Date Value 08/29/2023 103 ASSESSMENT/PLAN: 1. Uncontrolled type 2 diabetes mellitus with hyperglycemia (HCC) - ICD9: 250.02, ICD10: E11.65 - Improving control - Decrease Semglee to 32 units once daily - Continue Ozempic 0.5 mg once weekly - Statin prescribed - atorvastatin - Blood glucose monitoring on a continuous glucose monitoring schedule - Counseled on healthy diet and regular exercise - Follow up in 1 month, sooner should any other issues arise. - Due for A1c (already ordered) Follow Up: Next PCP visit: not scheduled Next PharmD visit: 02/17/24 Marlen Kelly PharmD Primary Care Clinical [facility] [employer] documented in this encounter [facility] 01-13-2024 Note HNO ID: [id number] Author: MARLEN KELLY RPh Service: ? Author Type: Pharmacist Type: Progress Notes Filed: 01/13/2024 12:11 Note Text: Primary Care Pharmacy Visit CC (Reason for Consult): (E11.65) Uncontrolled type 2 diabetes mellitus with hyperglycemia (HCC) (primary encounter diagnosis) Goal(s): A1c <7% Last Collaborating Provider Visit: 08/25/23 with NELLY Nova Andrew Villalobos is a 53 year old female presenting for follow up visit telephone call. Patient consents to pharmacy collaborative practice agreement. Last Pharmacy Visit: 12/23/23 - Semglee increased to 36 units once daily Interim Events: -12/23/23 - msg regarding plan to start ozempic as previously prescribed d/t lower cost now with copay card HPI: Reports doing well Confirmed starting Ozempic, started at the 0.5 mg dose. Has had 2 doses so far Had some vomiting with the first dose, but tolerating okay since. Has had some nausea and diarrhea, but has been tolerating well Current DM Medications: Semglee 36 units once daily Ozempic 0.5 mg once weekly on Saturdays Previously Trialed DM Meds: Metformin - diarrhea Trulicity - coverage issues Diet Not very hungry lately, eating a lot of salads at home GLYCEMIC CONTROL: Glucometer present at visit: Yes Hypoglycemia: Yes CGM Data Past medical history reviewed. ALLERGIES Allergen Reactions Metformin Diarrhea Trulicity [Dulaglut* Intolerance Nausea/Bloating Using Zofran for side effects Current Outpatient Medications Medication Sig Dispense Refill insulin glargine-yfgn (SEMGLEE,INSULIN GLARG-YFGN,PEN) 100 unit/mL (3 mL) insulin pen Inject 36 Units subcutaneously once daily. 15 mL 5 semaglutide (OZEMPIC) 0.25 mg or 0.5 mg (2 mg/3 mL) pen Inject 0.5 mg subcutaneously one time a week. 3 mL 1 Blood-Glucose Sensor (FREESTYLE YAQUELIN 3 SENSOR) alvina Apply new sensor to back of upper arm every 14 days 6 Each 4 flash glucose sensor (FREESTYLE YAQUELIN 14 DAY SENSOR) kit One sensor q14d 3 Kit 11 levothyroxine (LEVOXYL) 88 mcg tablet Take 1 tablet by mouth once daily. Take on empty stomach. For Thyroid 90 tablet 1 levothyroxine (LEVOXYL) 88 mcg tablet Take 1 tablet by mouth once daily. Take on empty stomach. For Thyroid 90 tablet 3 Cholecalciferol, Vitamin D3, 50 mcg (2,000 unit) cap Take 2 capsules by mouth once daily. 90 capsule 3 atorvastatin (LIPITOR) 20 mg tablet Take 1 tablet by mouth daily at bedtime. For cholesterol. 90 tablet 3 lisinopril 2.5 mg tablet Take 1 tablet by mouth once daily. 90 tablet 3 insulin needles, DISPOSABLE, (PEN NEEDLE) 31 gauge x 5/16 Use one needle per dose. 1 per day. 100 Each 5 ondansetron orally disintegrating (ZOFRAN ODT) 4 mg disintegrating tablet Take 1 tablet by mouth every 6 hours as needed for nausea/vomiting. 30 tablet 2 CPAP/BIPAP/OTHER Type .CPAPSettings into a note to see current settings/supplies/DME information. 1 Each 0 Lancets lancets Test once daily, E11.9, No insulin 100 Each 3 No current facility-administered medications for this visit. Pill bottles are not present. Adherence: denies missed doses. Rx coverage: Payor: [facility] / Plan: [facility] CHOICE PLUS / Product Type: HMO / Medications affordable? Yes PHARMACOTHERAPY PREVENTATIVE MEDS: On MADI/ARB: Yes On Statin: Yes On ASA: No EXAM: LMP 07/02/2019 Last 3 Encounter BP Readings: Date: BP: 08/25/2023 130/78 07/04/2023 140/82 03/12/2023 130/96 Wt: 87.5 kg (193 lb) BMI: 35.88 kg/(m2) LABS: Lab Results Component Value Date HBA1C 10.5 08/29/2023 HBA1C 12.3 04/24/2022 HBA1C 7.0 02/25/2021 HBA1C 11.9 10/31/2020 HBA1C 7.2 07/19/2019 Glucose 179 08/29/2023 BUN 9 08/29/2023 Creatinine 0.68 08/29/2023 Sodium 141 08/29/2023 Potassium 4.1 08/29/2023 Chloride 104 08/29/2023 CO2 24 08/29/2023 Protein, Total 6.9 08/29/2023 Albumin 4.1 08/29/2023 Calcium 9.6 08/29/2023 Alkaline Phosphatase 128 08/29/2023 Bilirubin, Total 0.7 08/29/2023 AST 14 08/29/2023 ALT 19 08/29/2023 Lab Results Component Value Date CHOL 136 08/29/2023 CHOL 147 10/31/2020 LDL 68 08/29/2023 LDL 77 10/31/2020 HDL 49 08/29/2023 HDL 48 10/31/2020 TG 96 08/29/2023 TG 108 10/31/2020 Albumin/Creat Ratio (mg/g) Date Value 08/29/2023 <9 eGFR-All Other Races (.) Date Value 02/25/2021 >60 Estimated Glomerular Filtration Rate (mL/min/1.73m?) Date Value 08/29/2023 103 ASSESSMENT/PLAN: 1. Uncontrolled type 2 diabetes mellitus with hyperglycemia (HCC) - ICD9: 250.02, ICD10: E11.65 - Improving control - Decrease Semglee to 32 units once daily - Continue Ozempic 0.5 mg once weekly - Statin prescribed - atorvastatin - Blood glucose monitoring on a continuous glucose monitoring schedule - Counseled on healthy diet and regular exercise - Follow up in 1 month, sooner should any other issues arise. - Due for A1c (already ordered) Follow Up: Next PCP visit: not scheduled Next PharmD visit (more content not included)... [facility] 12-23-2023 Miscellaneous Notes Sw spoke with patient regarding financial assistance needs. Patient reports that she needs assistance with medical bill co-pays. Sw noted that she is not aware of any programs that assist with medical bill co-pays. Sariah will send message to Juan Antonio and see if she has any thoughts or assistance option ideas to assist with co-pays. Sariah did mail out to patient [facility] Community Resource Guide. The guide offers resources for needs such as food, financial/utilities, housing, transportation. documented in this encounter [facility] 12-23-2023 History of Present illness Narrative Images from the original note were not included. Primary Care Pharmacy Visit CC (Reason for Consult): (E11.65) Uncontrolled type 2 diabetes mellitus with hyperglycemia (HCC) (primary encounter diagnosis) Goal(s): A1c <7% Last Collaborating Provider Visit: 08/25/23 with NELLY Nova Andrew Villalobos is a 53 year old female presenting for follow up visit telephone call. Patient consents to pharmacy collaborative practice agreement. Last Pharmacy Visit: 10/28/23 HPI: Just got the Yaquelin 3 set up the other day Reports BGs still running high Has not been able to get the Ozempic d/t cost. States the pharmacies said they do not accept the coupon but not sure why No longer taking the Trulicity; has been off for about a month or so Reports blurred vision, has some symptoms of hyperglycemia Reports she cancelled her last scheduled visit with Arslan chavez concern with copays for visits Current DM Medications: Semglee 30 units once daily Previously Trialed DM Meds: Metformin - diarrhea Trulicity - coverage issues Ozempic - not covered Diet Denies any recent changes\ Still having fast food, trying to make some changes GLYCEMIC CONTROL: Glucometer present at visit: Yes Hypoglycemia: No CGM Data Past medical history reviewed. ALLERGIES Allergen Reactions Metformin Diarrhea Trulicity [Dulaglut* Intolerance Nausea/Bloating Using Zofran for side effects Current Outpatient Medications Medication Sig Dispense Refill semaglutide (OZEMPIC) 0.25 mg or 0.5 mg (2 mg/3 mL) pen Inject 0.5 mg subcutaneously one time a week. 3 mL 1 Blood-Glucose Sensor (FREESTYLE YAQUELIN 3 SENSOR) alvina Apply new sensor to back of upper arm every 14 days 6 Each 4 insulin glargine-yfgn (SEMGLEE,INSULIN GLARG-YFGN,PEN) 100 unit/mL (3 mL) insulin pen Inject 30 Units subcutaneously once daily. 15 mL 5 flash glucose sensor (FREESTYLE YAQUELIN 14 DAY SENSOR) kit One sensor q14d 3 Kit 11 levothyroxine (LEVOXYL) 88 mcg tablet Take 1 tablet by mouth once daily. Take on empty stomach. For Thyroid 90 tablet 1 levothyroxine (LEVOXYL) 88 mcg tablet Take 1 tablet by mouth once daily. Take on empty stomach. For Thyroid 90 tablet 3 Cholecalciferol, Vitamin D3, 50 mcg (2,000 unit) cap Take 2 capsules by mouth once daily. 90 capsule 3 atorvastatin (LIPITOR) 20 mg tablet Take 1 tablet by mouth daily at bedtime. For cholesterol. 90 tablet 3 lisinopril 2.5 mg tablet Take 1 tablet by mouth once daily. 90 tablet 3 insulin needles, DISPOSABLE, (PEN NEEDLE) 31 gauge x 5/16 Use one needle per dose. 1 per day. 100 Each 5 ondansetron orally disintegrating (ZOFRAN ODT) 4 mg disintegrating tablet Take 1 tablet by mouth every 6 hours as needed for nausea/vomiting. 30 tablet 2 CPAP/BIPAP/OTHER Type .CPAPSettings into a note to see current settings/supplies/DME information. 1 Each 0 Lancets lancets Test once daily, E11.9, No insulin 100 Each 3 No current facility-administered medications for this visit. Pill bottles are not present. Adherence: denies missed doses. Rx coverage: Payor: [facility] / Plan: [facility] CHOICE PLUS / Product Type: HMO / Medications affordable? No PHARMACOTHERAPY PREVENTATIVE MEDS: On MADI/ARB: No On Statin: Yes On ASA: No EXAM: [facility] 07/02/2019 Last 3 Encounter BP Readings: Date: BP: 08/25/2023 130/78 07/04/2023 140/82 03/12/2023 130/96 Wt: 87.5 kg (193 lb) BMI: 35.88 kg/(m^2) LABS: Lab Results Component Value Date HBA1C 10.5 08/29/2023 HBA1C 12.3 04/24/2022 HBA1C 7.0 02/25/2021 HBA1C 11.9 10/31/2020 HBA1C 7.2 07/19/2019 Glucose 179 08/29/2023 BUN 9 08/29/2023 Creatinine 0.68 08/29/2023 Sodium 141 08/29/2023 Potassium 4.1 08/29/2023 Chloride 104 08/29/2023 CO2 24 08/29/2023 Protein, Total 6.9 08/29/2023 Albumin 4.1 08/29/2023 Calcium 9.6 08/29/2023 Alkaline Phosphatase 128 08/29/2023 Bilirubin, Total 0.7 08/29/2023 AST 14 08/29/2023 ALT 19 08/29/2023 Lab Results Component Value Date CHOL 136 08/29/2023 CHOL 147 10/31/2020 LDL 68 08/29/2023 LDL 77 10/31/2020 HDL 49 08/29/2023 HDL 48 10/31/2020 TG 96 08/29/2023 TG 108 10/31/2020 Albumin/Creat Ratio (mg/g) Date Value 08/29/2023 <9 eGFR-All Other Races (.) Date Value 02/25/2021 >60 Estimated Glomerular Filtration Rate (mL/min/1.73m ) Date Value 08/29/2023 103 ASSESSMENT/PLAN: 1. Uncontrolled type 2 diabetes mellitus with hyperglycemia (HCC) - ICD9: 250.02, ICD10: E11.65 - Uncontrolled - Increase Semglee to 36 units once daily - Statin prescribed - atorvastatin - Blood glucose monitoring on a continuous glucose monitoring schedule - Referral to Primary Care Social Work for financial assistance (concern with cost/copays for appointments) - Counseled on healthy diet and regular exercise - Follow up in 1 month, sooner should any other issues arise. - PharmD to look further into [employer] card Follow Up: Next PCP visit: not scheduled Next PharmD visit: 01/13/24 Marlen Kelly PharmD [facility] documented in this encounter [facility] 12-15-2023 History of Present illness Narrative Contacted patient scheduled colonoscopy consult 01-[address] Dewayne Montero COLONOSCOPY PATIENT OUTREACH Action/ Colonoscopy Recall Patient identified by Name and : Yes. OUTREACH OUTCOME ACTION: Consult- Telephone Call- Pt is overdue for screening colonoscopy. Pt needs consult due to medical history and/or medications. Please call patient and schedule appointment with General Surgery Provider. Mikaela De León RN documented in this encounter [facility] 11-17-2023 Miscellaneous Notes Completed form was faxed back to [employer] Form in office from [employer] for patient CGM. Call to patient and confirmed that yes she is wanting us to complete and send back in for her. documented in this encounter [facility] 10-28-2023 Miscellaneous Notes Images from the original note were not included. Electronic PA completed for ozempic. This was approved. Prior authorization approved Payer: [employer] [phone] CaseId:[id number];Status:Approved;Lj angulo Type:Prior Auth;Coverage Start Date:09/28/2023;Coverage End Date:10/27/2024; Approval Details Authorized from September 28, 2023 to October 27, 2024 Electronic appeal: Not supported View History Medication Being Authorized semaglutide (OZEMPIC) 0.25 mg or 0.5 mg (2 mg/3 mL) pen Inject 0.5 mg subcutaneously one time a week. Dispense: 3 mL Refills: 1 Start: 10/28/2023 Class: Normal This order has been released to its destination. To be filled at: [facility] [id number] [place] [address] - [address] - [phone] documented in this encounter [facility] 10-28-2023 History of Present illness Narrative Primary Care Pharmacy Visit CC (Reason for Consult): (E11.65) Uncontrolled type 2 diabetes mellitus with hyperglycemia (HCC) (primary encounter diagnosis) Goal(s): A1c <7% Last Collaborating Provider Visit: 08/25/23 with NELLY Nova Andrew Villalobso is a 53 year old female presenting for follow up visit telephone call. Patient consents to pharmacy collaborative practice agreement. Last Pharmacy Visit: 09/30/23 HPI: Reports she had a change in insurance recently Does not have any sensors, was told it would be $74.99 for a month New insurance is [employer], downloaded allison to check allison. Thinks it needs a prior approval Has not tried to fill the Lantus or Trulicity yet on new insurance Confirmed she has been taking Trulicity, tolerating okay. Hasn't made her sick, however, she does get bruised from the spring loaded device and would prefer a different device if possible Has had 6 doses of Trulicity so far Current DM Medications: Lantus 30 units once daily Trulicity 0.75 mg once weekly on Fridays Previously Trialed DM Meds: Metformin - diarrhea Trulicity - coverage issues Ozempic - not covered GLYCEMIC CONTROL: Glucometer present at visit: No Hypoglycemia: No Last readings were high; no available recent readings Past medical history reviewed. ALLERGIES Allergen Reactions Metformin Diarrhea Trulicity [Dulaglut* Intolerance Nausea/Bloating Using Zofran for side effects Current Outpatient Medications Medication Sig Dispense Refill dulaglutide (TRULICITY) 0.75 mg/0.5 mL pen injector Inject 0.75 mg subcutaneously one time a week. 2 mL 1 insulin glargine (LANTUS SOLOSTAR U-100 INSULIN) 100 unit/mL (3 mL) Inject 30 Units subcutaneously daily at bedtime. 3 Each 1 insulin glargine (LANTUS SOLOSTAR U-100 INSULIN) 100 unit/mL (3 mL) Inject 30 Units subcutaneously daily at bedtime. 5 Each 3 flash glucose sensor (FREESTYLE YAQUELIN 14 DAY SENSOR) kit One sensor q14d 3 Kit 11 levothyroxine (LEVOXYL) 88 mcg tablet Take 1 tablet by mouth once daily. Take on empty stomach. For Thyroid 90 tablet 1 levothyroxine (LEVOXYL) 88 mcg tablet Take 1 tablet by mouth once daily. Take on empty stomach. For Thyroid 90 tablet 3 Cholecalciferol, Vitamin D3, 50 mcg (2,000 unit) cap Take 2 capsules by mouth once daily. 90 capsule 3 atorvastatin (LIPITOR) 20 mg tablet Take 1 tablet by mouth daily at bedtime. For cholesterol. 90 tablet 3 lisinopril 2.5 mg tablet Take 1 tablet by mouth once daily. 90 tablet 3 insulin needles, DISPOSABLE, (PEN NEEDLE) 31 gauge x 5/16 Use one needle per dose. 1 per day. 100 Each 5 ondansetron orally disintegrating (ZOFRAN ODT) 4 mg disintegrating tablet Take 1 tablet by mouth every 6 hours as needed for nausea/vomiting. 30 tablet 2 CPAP/BIPAP/OTHER Type .CPAPSettings into a note to see current settings/supplies/DME information. 1 Each 0 Lancets lancets Test once daily, E11.9, No insulin 100 Each 3 No current facility-administered medications for this visit. Pill bottles are not present. Adherence: denies missed doses. Rx coverage: No coverage found. Medications affordable? Yes PHARMACOTHERAPY PREVENTATIVE MEDS: On MADI/ARB: Yes On Statin: Yes On ASA: No EXAM: LMP 07/02/2019 Last 3 Encounter BP Readings: Date: BP: 08/25/2023 130/78 07/04/2023 140/82 03/12/2023 130/96 Wt: 87.5 kg (193 lb) BMI: 35.88 kg/(m^2) LABS: Lab Results Component Value Date HBA1C 10.5 08/29/2023 HBA1C 12.3 04/24/2022 HBA1C 7.0 02/25/2021 HBA1C 11.9 10/31/2020 HBA1C 7.2 07/19/2019 Glucose 179 08/29/2023 BUN 9 08/29/2023 Creatinine 0.68 08/29/2023 Sodium 141 08/29/2023 Potassium 4.1 08/29/2023 Chloride 104 08/29/2023 CO2 24 08/29/2023 Protein, Total 6.9 08/29/2023 Albumin 4.1 08/29/2023 Calcium 9.6 08/29/2023 Alkaline Phosphatase 128 08/29/2023 Bilirubin, Total 0.7 08/29/2023 AST 14 08/29/2023 ALT 19 08/29/2023 Lab Results Component Value Date CHOL 136 08/29/2023 CHOL 147 10/31/2020 LDL 68 08/29/2023 LDL 77 10/31/2020 HDL 49 08/29/2023 HDL 48 10/31/2020 TG 96 08/29/2023 TG 108 10/31/2020 Albumin/Creat Ratio (mg/g) Date Value 08/29/2023 <9 eGFR-All Other Races (.) Date Value 02/25/2021 >60 Estimated Glomerular Filtration Rate (mL/min/1.73m ) Date Value 08/29/2023 103 ASSESSMENT/PLAN: 1. Uncontrolled type 2 diabetes mellitus with hyperglycemia (HCC) - ICD9: 250.02, ICD10: E11.65 - Uncontrolled - Switch Trulicity to Ozempic. Start Ozempic 0.5 mg once weekly. May start with 0.25 mg weekly for 2 doses, then increase to 0.5 mg weekly based on previously intolerance to glp-1. - Continue insulin glargine 30 units once daily. Sent Rx for covered alternative of Semglee under new insurance. - Statin prescribed - atorvastatin - Blood glucose monitoring on a continuous glucose monitoring schedule. Will switch to Yaquelin 3; sent Rx for sensors to local pharmacy. - Counseled on healthy diet and regular exercise - Follow up in 2 months, sooner should any other issues arise. Follow Up: Next PCP visit: 11/21/23 Next PharmD visit: 12/23/23 Marlen Kelly, [facility] The majority of the pharmacy visit (> 50%) was spent counseling and/or coordinating care for the patient. interaction: telephonic time was 25 minutes. documented in this encounter [facility] 07-05-2023 Instructions Davide Kim APRN.MEDICAL ASSISTANT FLOAT - 07/05/2023 7:30 AM EDT Fact Sheet for Patients And Caregivers Emergency Use Authorization (EUA) Of LAGEVRIO (molnupiravir) capsules For Coronavirus Disease 2019 (COVID-19) What is the most important information I should know about LAGEVRIO? LAGEVRIO may cause serious side effects, including: LAGEVRIO may cause harm to your unborn baby. It is not known if LAGEVRIO will harm your baby if you take LAGEVRIO during . LAGEVRIO is not recommended for use in . LAGEVRIO has not been studied in . LAGEVRIO was studied in animals only. When LAGEVRIO was given to animals, LAGEVRIO caused harm to their unborn babies. You and your healthcare provider may decide that you should take LAGEVRIO during if there are no other COVID-19 treatment options approved or authorized by the FDA that are accessible or clinically appropriate for you. If you and your healthcare provider decide that you should take LAGEVRIO during , you and your healthcare provider should discuss the known and potential benefits and the potential risks of taking LAGEVRIO during . For individuals who are able to become : You should use a reliable method of control (contraception) consistently and correctly during treatment with LAGEVRIO and for 4 days after the last dose of LAGEVRIO. Talk to your healthcare provider about reliable control methods. Before starting treatment with LAGEVRIO your healthcare provider may do a test to see if you are before starting treatment with LAGEVRIO. Tell your healthcare provider right away if you become or think you may be during treatment with LAGEVRIO. Registry: There is a registry for individuals who take LAGEVRIO during . The purpose of this program is to collect information about the health of you and your baby. If you are or become during treatment with LAGEVRIO, you are encouraged to report your use of LAGEVRIO during to this registry at [email or web address] or . For individuals who are sexually active with partners who are able to become : It is not known if LAGEVRIO can affect sperm. While the risk is regarded as low, animal studies to fully assess the potential for LAGEVRIO to affect the babies of males treated with LAGEVRIO have not been completed. A reliable method of control (contraception) should be used consistently and correctly during treatment with LAGEVRIO and for at least 3 months after the last dose. The risk to sperm beyond 3 months is not known. Studies to understand the risk to sperm beyond 3 months are ongoing. Talk to your healthcare provider about reliable control methods. Talk to your healthcare provider if you have questions or concerns about how LAGEVRIO may affect sperm. You are being given this fact sheet because your healthcare provider believes it is necessary to provide you with LAGEVRIO for the treatment of adults with a current diagnosis of mild-tomoderate coronavirus disease 2019 (COVID-19) who are at high risk for progression to severe COVID-19, including hospitalization or , and for whom other COVID-19 treatment options approved or authorized by the FDA are not accessible or clinically appropriate. The U.S. Food and Drug Administration (FDA) has issued an Emergency Use Authorization (EUA) to make LAGEVRIO available during the COVID-19 pandemic (for more details about an EUA please see What is an Emergency Use Authorization? at the end of this document). LAGEVRIO is not an FDA-approved medicine in the [place]. Read this Fact Sheet for information about LAGEVRIO. Talk to your healthcare provider about your options if you have any questions. It is your choice to take LAGEVRIO. What is COVID-19? COVID-19 is caused by a virus called a coronavirus. You can get COVID-19 through close contact with another person who has the virus. COVID-19 illnesses have ranged from very [id number], including illness resulting in . While information so far suggests that most COVID-19 illness is mild, serious illness can happen and may cause some of your other medical conditions to become worse. Older people and people of all ages with severe, long lasting (chronic) medical conditions like heart disease, lung disease and diabetes, for example seem to be at higher risk of being hospitalized for COVID-19. What is LAGEVRIO? LAGEVRIO is an investigational medicine used to treat adults with a current diagnosis of mild to moderate COVID-19: who are at high risk for progression to severe COVID-19 including hospitalization or , and for whom other COVID-19 treatment options approved or authorized by the FDA are not accessible or clinically appropriate. The FDA has authorized the emergency use of LAGEVRIO for the treatment of mild-tomoderate COVID-19 in adults under an EUA. For more information on EUA, see the What is an Emergency Use Authorization (EUA)? section at the end of this Fact Sheet. LAGEVRIO is not authorized: for use in people less than 18 years of age. for prevention of COVID-19. for people needing hospitalization for COVID-19. for use for longer than 5 consecutive days. What should I tell my healthcare provider before I take LAGEVRIO? Tell your healthcare provider if you: have any allergies are or plan to breastfeed have any serious illnesses Take any medicines including prescription, [id number] medicines, vitamins, and herbal products. How do I take LAGEVRIO? Take LAGEVRIO exactly as your healthcare provider tells you to take it. Take 4 capsules of LAGEVRIO every 12 hours (for example, at 8 am and at 8 pm) Take LAGEVRIO for 5 days. It is important that you complete the full 5 days of treatment with LAGEVRIO. Do not stop taking LAGEVRIO before you complete the full 5 days of treatment, even if you feel better. Take LAGEVRIO with or without food. You should stay in isolation for as long as your healthcare provider tells you to. Talk to your healthcare provider if you are not sure about how to properly isolate while you have COVID-19. Swallow LAGEVRIO capsules whole. Do not open, break, or crush the capsules. If you cannot swallow capsules whole, tell your healthcare provider. If your healthcare provider prescribes LAGEVRIO and tells you to take or give a dose through a nasogastric (NG) or orogastric (OG) tube, follow the instructions below: How to take or give a dose of LAGEVRIO through a nasogastric (NG) or orogastric (OG) feeding tube. You must have an NG or OG that is size 12 Estonian (FR) or larger. If you miss a dose of LAGEVRIO: If it has been less than 10 hours since the missed dose, take it as soon as you remember. If it has been more than 10 hours since the missed dose, skip the missed dose and take your dose at the next scheduled time. Do not double the dose of LAGEVRIO to make up for a missed dose. How to take or give a dose of LAGEVRIO through a nasogastric (NG) or orogastric (OG) feeding tube: Wash your hands well with soap and water. Gather the supplies you will need to take or give the prescribed dose of LAGEVRIO. 4 LAGEVRIO capsules 1 liquid measuring cup with mL markings to measure 40 mL of room temperature water 1 clean container with a lid 1 catheter tip syringe. Your healthcare provider should tell you what size catheter tip syringe you will need to take or give a dose of LAGEVRIO. Place the needed supplies on a clean work surface. Follow your healthcare provider s instructions on how to flush the NG or OG feeding tube. Flush the NG or OG feeding tube with 5 mL of water before taking or giving a dose of LAGEVRIO. Carefully open 4 LAGEVRIO capsules, one at a time, and empty the contents into a clean container. Use the liquid measuring cup to measure 40 mL of room temperature water and add to the container containing the capsule contents. Place the lid on the container. Shake to mix the capsule contents and water well for 3 minutes. The capsule contents may not dissolve completely. Remove the lid from the container and draw up all the LAGEVRIO and water mixture into a catheter tip syringe. Give all of the mixture right away through the NG or OG feeding tube. Do not keep the mixture for future use. If any capsule contents are left in the container: Add 10 mL of water to the container, and mix to loosen any capsule contents that are left in the container. Use the catheter tip syringe to draw up all of the mixture in the container. Give the mixture through the NG or OG feeding tube. Repeat this process as needed until you no longer see any capsule contents left in the container or catheter tip syringe. Use the same catheter tip syringe to flush the NG or OG feeding tube 2 times with 5 mL of water (10mL total). Rinse the container, lid and catheter tip syringe well with clean water after use. Place on a clean paper towel until next use. What are the important possible side effects of LAGEVRIO? See, What is the most important information I should know about LAGEVRIO? Allergic Reactions. Allergic reactions can happen in people taking LAGEVRIO, even after only 1 dose. Stop taking LAGEVRIO and call your healthcare provider right away if you get any of the following symptoms of an allergic reaction: hives rapid heartbeat trouble swallowing or breathing swelling of the mouth, lips, or face throat tightness hoarseness skin rash The most common side effects of LAGEVRIO are: diarrhea nausea dizziness These are not all the possible side effects of LAGEVRIO. Not many people have taken LAGEVRIO. Serious and unexpected side effects may happen. This medicine is still being studied, so it is possible that all of the risks are not known at this time. What other treatment choices are there? Veklury (remdesivir) is FDA-approved as an intravenous (IV) infusion for the treatment of mildto-moderate COVID-19 in certain adults and children. Talk with your doctor to see if Veklury is appropriate for you. Like LAGEVRIO, FDA may also allow for the emergency use of other medicines to treat people with COVID-19. Go to https://www.fda.gov/emergency-pre wdjdnyxhe-yrh-hefpleai/mcm-legalr knfadxeiq-tdb-wfmzza-framework/em kfzdooe-stb-okrtzypvaqzym for more information. It is your choice to be treated or not to be treated with LAGEVRIO. Should you decide not to take it, it will not change your standard medical care. What if I am ? is not recommended during treatment with LAGEVRIO and for 4 days after the last dose of LAGEVRIO. If you are or plan to breastfeed, talk to your healthcare provider about your options and specific situation before taking LAGEVRIO. How do I report side effects with LAGEVRIO? Contact your healthcare provider if you have any side effects that bother you or do not go away. Report side effects to FDA MedWatch at www.fda.gov/medwatch or call 7-569-FXR-8355 ([phone]). How should I store LAGEVRIO? Store LAGEVRIO capsules at room temperature between 68 F to 77 F (20 C to 25 C). Keep LAGEVRIO and all medicines out of the reach of children. How can I learn more about COVID-19? Ask your healthcare provider. Visit www.cdc.gov/COVID19 Contact your local or state public health department. Call [employer] at (toll free in the [place] Visit www.Tricentis What Is an Emergency Use Authorization (EUA)? The [facility] FDA has made LAGEVRIO available under an emergency access mechanism called an Emergency Use Authorization (EUA) The EUA is supported by a [place] of Health and Human Service ([facility]) declaration that circumstances exist to justify emergency use of drugs and biological products during the COVID-19 pandemic. LAGEVRIO for the treatment of adults with a current diagnosis of atov-bd-uyailnqg COVID-19 who are at high risk for progression to severe COVID-19, including hospitalization or , and for whom alternative COVID-19 treatment options approved or authorized by FDA are not accessible or clinically appropriate, has not undergone the same type of review as an FDAapproved product. In issuing an EUA under the COVID-19 public health emergency, the FDA has determined, among other things, that based on the total amount of scientific evidence available including data from adequate and well-controlled clinical trials, if available, it is reasonable to believe that the product may be effective for diagnosing, treating, or preventing COVID-19, or a serious or life-threatening disease or condition caused by COVID-19; that the known and potential benefits of the product, when used to diagnose, treat, or prevent such disease or condition, outweigh the known and potential risks of such product; and that there are no adequate, approved, and available alternatives. All of these criteria must be met to allow for the product to be used in the treatment of patients during the COVID-19 pandemic. The EUA for LAGEVRIO is in effect for the duration of the COVID-19 declaration justifying emergency use of LAGEVRIO, unless terminated or revoked (after which LAGEVRIO may no longer be used under the EUA). [employer]. for: [employer] [address] For patent information: www.NoiseFree/research/patent Copyright [employer] [place], [place], [place] and its affiliates. All rights reserved. [id number] Revised: October 2022 documented in this encounter [facility] 07-05-2023 Miscellaneous Notes Positive COVID-19 test result discussed with patient. No red flag symptoms. CDC return to work work guidelines discussed. Antiviral medications discussed with patient. Risk and benefit of mesh medications discussed. Patient would like to proceed with COVID-19 antiviral medications. Side effects of medication discussed. Eligibility and qualifications for medication discussed. Denies chance of . Did go through menopause. Red flags for prompt reevaluation discussed. Patient verbalized understand agrees with plan of care. Molnupiravir Eligibility and Patient Discussion [facility] Formulary Restriction Criteria: Adult outpatients 18 years and older with ALL of the following: [x] Patient has symptoms for 5 days or less [x] Not requiring hospitalization at any time for management of COVID-19 [x] Not requiring supplemental oxygen or a change in baseline supplemental oxygen [x] Not utilized for pre-exposure or post-exposure prophylaxis for prevention of COVID-19 [x] Patient is not or lactating [x] Meeting at least one of the criteria for high risk of progression to severe COVID-19: [] Age over 65 years [] Cancer [] Chronic kidney disease [] Chronic liver disease [] Chronic lung diseases, including cystic fibrosis [] Dementia or other neurological conditions [] Diabetes (type 1 or type 2) [] Disabilities, including Down syndrome and neurodevelopmental disorders [] Heart conditions [] HIV infection [] Immunocompromised state [] Mental health conditions [] Medical related technological dependence (tracheostomy, gastrostomy, or positive pressure ventilation (not related to COVID) [x] Overweight and obesity (BMI greater or equal to 25 for adults) [] Physical inactivity [] Sickle cell disease or thalassemia [] Smoking, current or former [] Solid organ or blood stem cell transplant [] Stroke or cerebrovascular disease [] Substance use disorders [] Tuberculosis [] People from racial and ethnic minority groups Criteria above are met: Yes Date of Symptom Onset: 07/02/23 Patient received COVID vaccine: Yes / status reviewed: Females: [x] Patient is not currently and there is no possibility the patient could be (select one of the following): [] test does not need to be confirmed in patients who have undergone permanent sterilization, are currently using an intrauterine system or contraceptive implant, or in whom is not possible. [] Patients not meeting conditions above: assess whether the patient is based on the first day of the last menstrual period in individuals who have regular menstrual cycles, is using reliable method of contraception correctly and consistently or have had a negative test [] A test is recommended if the individual has irregular menstrual cycles, is unsure of the first day of the last menstrual period or is not using effective contraception correctly and consistently [] Patient is not currently . is not recommended during treatment and for four days after final dose of molnupiravir. [] Females have been advised to use a reliable method of contraception correctly and consistently for the duration of treatment and for four days after the last dose of molnupiravir Males: [] Sexually active male with partner(s) of childbearing potential has been advised to use a reliable method of contraception correctly and consistently for intercourse for the duration of treatment and for three months after the last dose of molnupiravir I have discussed the use of the investigational therapeutic, molnupiravir, for the treatment of mild to moderate COVID-19 and its use under Emergency Use Authorization with the patient. The patient was informed that molnupiravir is not an FDA approved drug and that it is authorized for use under this Emergency Use Authorization. The patient was also informed of the significant known benefits and potential risks of molnupiravir, and the extent to which such potential risks and benefits are unknown. The patient was informed that there is mandatory reporting of all medication errors and serious adverse events potentially related to molnupiravir treatment within 7 calendar days from the onset of the event and that events up to 28 days after completion of therapy need to be reported. The discussion included alternatives to receiving molnupiravir, including clinical trials, and potential the risks and benefits of those alternatives. The patient was provided electronically with the Fact Sheet for Patients, Parents and Caregivers. The patient was also instructed that in addition to the treatment with molnupiravir, he/she should continue to self-isolate and use infection control measures (e.g., wear mask, isolate, social distance, avoid sharing personal items, clean and disinfect high touch surfaces, and frequent handwashing) according to CDC guidelines. The patient stated understanding and gave verbal consent to proceeding with molnupiravir treatment. Davide Kim APRN.CNP July 05, 2023 7:32 AM documented in this encounter [facility] 07-04-2023 History of Present illness Narrative CC: Patient presents with: Sore Throat: Cough, body aches, nausea x 1.5 days HPI: Andrew Villalobos is a 53 year old female who presents to the office with complaint of cough, nonproductive and sore throat for the past day. Symptoms are staying the same. Associated symptoms includes body aches. Denies headache, fever, nausea, vomiting , and diarrhea. Treatments tried include nothing so far. with no relief of symptoms. Sick contacts: unknown. History of asthma, frequent episodes of bronchitis, chronic bronchitis, bronchiectasis or COPD: No Smoker: No Seasonal/environmental allergies: No The ROS is otherwise negative. The patient's pmh, medications, allergies, and past visits are reviewed. PHYSICAL EXAM: BP 140/82 Pulse 104 Temp 37.3 C (99.2 F) Resp 21 Wt 90.4 kg (199 lb 3.2 oz) LMP 07/02/2019 SpO2 96% BMI 37.03 kg/m General appearance: alert, cooperative, pleasant, in no acute distress Head: Normocephalic Eyes: EOM's intact, conjunctiva pink and moist, no icterus, sclera white, non-injected Ears: Right ear: External ear/canal- Normal, TM - clear with good landmarks. Left ear: External ear/canal- Normal, TM - clear with good landmarks Oropharynx:mild erythema, without exudates present Heart: Negative. RRR without obvious murmur, gallop, or rubs. No ectopy. Lungs: clear to auscultation, without rales or wheeze, good air exchange PAST MEDICAL HISTORY Diagnosis Date Esophageal reflux Essential hypertension Fractured lateral malleolus 09/28/2013 XR: transverse fracture tip lateral malleolus Heel spur, left 01/03/2012 left: plantar and posterior prominent spurs Heel spur, right 09/28/2013 XR right plantar and posterior spurs Mild or unspecified pre-eclampsia, unspecified as to episode of care 1998 Obesity, unspecified MANSOOR on CPAP Transient hypertension of , antepartum 1998 Type II or unspecified type diabetes mellitus without mention of complication, not stated as uncontrolled 09/18/2007 Unspecified hypothyroidism PAST SURGICAL HISTORY Procedure Laterality Date DELIVERY ONLY 09/12/1998 , low cervical CTA CHEST 09/07/2020 bibasilar infiltrates consistent with Covid-19 pneumonia REDUCTION OF LARGE BREAST 09/12/1999 ALLERGIES Metformin MEDICATIONS insulin needles, DISPOSABLE, (PEN NEEDLE) 31 gauge x 01/25 Use one needle per dose. 1 per day. flash glucose sensor (FREESTYLE YAQUELIN 14 DAY SENSOR) kit One sensor every 14 days for QID readings lisinopril 2.5 mg tablet Take 1 tablet by mouth once daily. atorvastatin (LIPITOR) 20 mg tablet Take 1 tablet by mouth daily at bedtime. For cholesterol. Cholecalciferol, Vitamin D3, 50 mcg (2,000 unit) cap Take 2 capsules by mouth once daily. levothyroxine (LEVOXYL) 88 mcg tablet Take 1 tablet by mouth once daily. Take on empty stomach. For Thyroid insulin glargine (LANTUS SOLOSTAR U-100 INSULIN) 100 unit/mL (3 mL) Inject 25 Units subcutaneously daily at bedtime. dulaglutide (TRULICITY) 1.5 mg/0.5 mL pen injector Inject 1.5 mg subcutaneously one time a week. Inject once per week. Discard Pen After levothyroxine (LEVOXYL) 88 mcg tablet Take 1 tablet by mouth once daily. Take on empty stomach. For Thyroid ondansetron orally disintegrating (ZOFRAN ODT) 4 mg disintegrating tablet Take 1 tablet by mouth every 6 hours as needed for nausea/vomiting. CPAP/BIPAP/OTHER Type .CPAPSettings into a note to see current settings/supplies/DME information. flash glucose scanning reader (FREESTYLE YAQUELIN 14 DAY READER) 1 Each four times daily. flash glucose scanning reader (FREESTYLE YAQUELIN 14 DAY READER) [facility] 1 Each four times daily. flash glucose sensor (FREESTYLE YAQUELIN 14 DAY SENSOR) kit One sensor q14d Lancets lancets Test once daily, E11.9, No insulin dulaglutide (TRULICITY) 0.75 mg/0.5 mL pen injector Inject 0.75 mg subcutaneously one time a week. Inject dose once per week. Discard Pen After (Patient not taking: Reported on 10/21/2022) blood sugar diagnostic (FREESTYLE LITE STRIPS) test strip Test blood sugar(s) 2x daily. Dx: E11.9. Insulin: No (Patient not taking: Reported on 02/25/2021 ) FAMILY HISTORY Adopted: Yes Problem Relation Age of Onset other (Unknown) Mother Patient is adopted other (Unknown) Father Patient Is adopted other (Unknown) Sister Mental Problems other (Unknown) Sister Mental Problems other (Unknown) Brother Breast Cancer Other Social History Tobacco Use Smoking status: Former Packs/day: 1.00 Years: 30.00 Additional pack years: 0.00 Total pack years: 30.00 Types: Cigarettes Quit date: 2019 Years since quittin.8 Smokeless tobacco: Never Vaping Use Vaping Use: Never used Substance Use Topics Alcohol use: No Drug use: No ASSESSMENT/PLAN: 1. Sore throat - ICD9: 462, ICD10: J02.9 (primary diagnosis) - STREP A MOLECULAR (POC) - neg 2. Acute URI - ICD9: 465.9, ICD10: J06.9 - COVID & INFLUENZA A/B & RSV NAAT, ROUTINE Prescription instructions reviewed with patient as applicable. Potential red flag symptoms discussed with the patient. Reviewed appropriate action plan to take if red flag symptoms occur. Patient agreeable to treatment plan. Beth Esteban APRN.MIKKI documented in this encounter [facility] 03-12-2023 Note HNO ID: [id number] Author: RT Antwon(Lj) Service: ? Author Type: Technologist Type: Progress Notes Filed: 03/12/2023 3:09 PM Note Text: Radiology Service Progress Note PATIENT NAME: Andrew Villalobos DATE OF SERVICE: March 12, 2023 TIME: 3:09 PM PATIENT IDENTITY VERIFICATION COMPLETED USING TWO (2) IDENTIFIERS: Name and Date of confirmed by patient verbally. FALL SCREENING: Has the patient had 2 falls in the last year or 1 fall with injury or currently using an Ambulatory Assistive Device (Walker, Cane, Wheelchair, Crutches, etc.)? No PATIENT GENDER DATA: Female. status: : No status: NO. PATIENT RELEVANT IMPLANT DATA REVIEWED: Not Applicable RADIOLOGY DEPARTMENT: General X-ray: Exam(s) Completed: Lower Extremity X-Ray(s): Ankle, Right PERIPHERAL IV DATA: Not applicable SIGNED BY: RT Antwon(Lj) March 12, 2023 3:09 PM [facility] 03-12-2023 History of Present illness Narrative Radiology Service Progress Note PATIENT NAME: Andrew Villalobos DATE OF SERVICE: March 12, 2023 TIME: 3:09 PM PATIENT IDENTITY VERIFICATION COMPLETED USING TWO (2) IDENTIFIERS: Name and Date of confirmed by patient verbally. FALL SCREENING: Has the patient had 2 falls in the last year or 1 fall with injury or currently using an Ambulatory Assistive Device (Walker, Cane, Wheelchair, Crutches, etc.)? No PATIENT GENDER DATA: Female. status: : No status: NO. PATIENT RELEVANT IMPLANT DATA REVIEWED: Not Applicable RADIOLOGY DEPARTMENT: General X-ray: Exam(s) Completed: Lower Extremity X-Ray(s): Ankle, Right PERIPHERAL IV DATA: Not applicable SIGNED BY: RT Antwon(Lj) March 12, 2023 3:09 PM documented in this encounter [facility] 03-12-2023 History of Present illness Narrative Subjective The history is provided by the patient. No food processing plant manager was used. HPI Andrew Villalobos is a 53 year old female who presents today for CC of right ankle pain. She rolled her ankle 2 weeks ago and in the past 24 hours she has noted worsening pain. She has not used any treatment, she has been able to tolerate walking until today. BP 130/96 Pulse 95 Temp 36.6 C (97.8 F) Resp 18 Wt 84.6 kg (186 lb 9.6 oz) LMP 07/02/2019 SpO2 98% BMI 34.69 kg/m Social History Tobacco Use Smoking status: Former Packs/day: 1.00 Years: 30.00 Pack years: 30.00 Types: Cigarettes Quit date: 2019 Years since quittin.4 Smokeless tobacco: Never Vaping Use Vaping Use: Never used Substance Use Topics Alcohol use: No Drug use: No PAST MEDICAL HISTORY Diagnosis Date Esophageal reflux Essential hypertension Fractured lateral malleolus 09/28/2013 XR: transverse fracture tip lateral malleolus Heel spur, left 01/03/2012 left: plantar and posterior prominent spurs Heel spur, right 09/28/2013 XR right plantar and posterior spurs Mild or unspecified pre-eclampsia, unspecified as to episode of care 1998 Obesity, unspecified MANSOOR on CPAP Transient hypertension of , antepartum 1998 Type II or unspecified type diabetes mellitus without mention of complication, not stated as uncontrolled 09/18/2007 Unspecified hypothyroidism I have confirmed and edited as necessary, the [facility] Review of Systems Constitutional: Negative for chills and fever. Musculoskeletal: Positive for joint pain (right ankle). Negative for myalgias. Skin: Negative for itching and rash. All other systems reviewed and are negative. Objective Physical Exam Vitals and nursing note reviewed. Cardiovascular: Pulses: Dorsalis pedis pulses are 2+ on the right side and 2+ on the left side. Posterior tibial pulses are 2+ on the right side and 2+ on the left side. Pulmonary: Effort: Pulmonary effort is normal. Musculoskeletal: Right ankle: Swelling present. No deformity, ecchymosis or lacerations. Tenderness present over the lateral malleolus and AITF ligament. Decreased range of motion. Anterior drawer test negative. Normal pulse. Right Achilles Tendon: Normal. Left ankle: Normal. Left Achilles Tendon: Normal. Skin: General: Skin is warm and dry. Neurological: Mental Status: She is alert and oriented to person, place, and time. Sensory: Sensation is intact. Deep Tendon Reflexes: Reflexes are normal and symmetric. Psychiatric: Mood and Affect: Affect normal. ASSESSMENT/PLAN: 1. Acute right ankle pain - ICD9: 719.47, 338.19, ICD10: M25.571 Placed in air cast from stock and crutches from stock, non weight bearing Patient will go to [place] for outpatient xray, will call with results. - XR ANKLE GENERAL 3V AP/LAT/OBL RIGHT FINDINGS: No fracture or dislocation. No lytic or blastic osseous lesions. Soft tissues are unremarkable. IMPRESSION: No fracture or dislocation. Interpreted by : ZEE MATOS MD Diagnosis and treatment plan were discussed and questions were answered to the patient's satisfaction. Pt acknowledged understanding of concepts and follow up plan. Specific signs and symptoms that would indicate the need for higher level of care were discussed in detail warranting prompt ER evaluation. Anny Choudhary APRN.MIKKI documented in this encounter [facility] 10-21-2022 History of Present illness Narrative Patient presents with: Pain: Left side of shoulder and head pain x 5 days HPI: Left shoulder pain: Duration: triggered rotating her head 4 days ago Location: left neck Character: shooting Radiation: into the left trapezius Aggravating: right head rotation Relieving: tylenol (took 24 tylenol arthritis at work, co-workers took the bottle from her), pressing on the left side of the neck makes rotation less painful Pain relievers: Tylenol, icy hot, heating pad Associated: Pertinent negatives: Denies numbness, weakness, arm pain PAST MEDICAL HISTORY Diagnosis Date Esophageal reflux Essential hypertension Fractured lateral malleolus 09/28/2013 XR: transverse fracture tip lateral malleolus Heel spur, left 01/03/2012 left: plantar and posterior prominent spurs Heel spur, right 09/28/2013 XR right plantar and posterior spurs Mild or unspecified pre-eclampsia, unspecified as to episode of care 1998 Obesity, unspecified MANSOOR on CPAP Transient hypertension of , antepartum 1998 Type II or unspecified type diabetes mellitus without mention of complication, not stated as uncontrolled 09/18/2007 Unspecified hypothyroidism MEDICATIONS: insulin needles, DISPOSABLE, (PEN NEEDLE) 31 gauge x 5/16 Use one needle per dose. 1 per day. flash glucose sensor (FREESTYLE YAQUELIN 14 DAY SENSOR) kit One sensor every 14 days for QID readings lisinopril 2.5 mg tablet Take 1 tablet by mouth once daily. atorvastatin (LIPITOR) 20 mg tablet Take 1 tablet by mouth daily at bedtime. For cholesterol. Cholecalciferol, Vitamin D3, 50 mcg (2,000 unit) cap Take 2 capsules by mouth once daily. levothyroxine (LEVOXYL) 88 mcg tablet Take 1 tablet by mouth once daily. Take on empty stomach. For Thyroid insulin glargine (LANTUS SOLOSTAR U-100 INSULIN) 100 unit/mL (3 mL) Inject 25 Units subcutaneously daily at bedtime. dulaglutide (TRULICITY) 1.5 mg/0.5 mL pen injector Inject 1.5 mg subcutaneously one time a week. Inject once per week. Discard Pen After levothyroxine (LEVOXYL) 88 mcg tablet Take 1 tablet by mouth once daily. Take on empty stomach. For Thyroid ondansetron orally disintegrating (ZOFRAN ODT) 4 mg disintegrating tablet Take 1 tablet by mouth every 6 hours as needed for nausea/vomiting. CPAP/BIPAP/OTHER Type .CPAPSettings into a note to see current settings/supplies/DME information. flash glucose scanning reader (FREESTYLE YAQUELIN 14 DAY READER) 1 Each four times daily. flash glucose scanning reader (FREESTYLE YAQUELIN 14 DAY READER) misc 1 Each four times daily. flash glucose sensor (FREESTYLE YAQUELIN 14 DAY SENSOR) kit One sensor q14d Lancets lancets Test once daily, E11.9, No insulin dulaglutide (TRULICITY) 0.75 mg/0.5 mL pen injector Inject 0.75 mg subcutaneously one time a week. Inject dose once per week. Discard Pen After (Patient not taking: Reported on 10/21/2022) blood sugar diagnostic (FREESTYLE LITE STRIPS) test strip Test blood sugar(s) 2x daily. Dx: E11.9. Insulin: No (Patient not taking: Reported on 02/25/2021 ) ALLERGIES: ALLERGIES Allergen Reactions Metformin Diarrhea VITALS: BP 148/76 Pulse 98 Temp 37.1 C (98.7 F) Resp 20 Wt 87.5 kg (193 lb) LMP 07/02/2019 SpO2 98% BMI 35.88 kg/m PHYSICAL EXAM: GEN: pleasant, no acute distress, alert HEENT: PERRL, EOMI, MMM NECK: supple, no lymphadenopathy, no thyromegaly Reduced rotation (R&L), normal flexion/extension Tender left paraspinal and left trapezius EXT: no clubbing, no cyanosis, no edema ASSESSMENT/PLAN: 1. Neck pain on left side - ICD9: 723.1, ICD10: M54.2 Neck sprain/strain. Supportive care while recovering. - CYCLOBENZAPRINE 10 MG TABLET - cautioned to avoid operating machinery after taking because of drowsiness. - NAPROXEN 500 MG TABLET Reviewed risk of liver injury and from acetaminophen over use. Bebeto Bolaños MD documented in this encounter [facility] 05-04-2022 Miscellaneous Notes Patient has been identified by name and date of : Yes Patient phones for refill(s): Requested Prescriptions Pending Prescriptions Disp Refills insulin needles, DISPOSABLE, (PEN NEEDLE) 31 gauge x 5/16 100 Each 5 Sig: Use one needle per dose. 1 per day. flash glucose sensor (FREESTYLE YAQUELIN 14 DAY SENSOR) kit 6 Each 3 Sig: One sensor every 14 days for QID readings Date of last office visit in primary care: 04/26/22 Please advise. Thank you. Zohra Ferreira LPN documented in this encounter [facility] 04-26-2022 History of Present illness Narrative 52 year old female with c/o here for follow up Hasn't taken any medication since October. States she is just lazy. Essential hypertension (primary encounter diagnosis) Current meds: Lisinopril 2.5mg daily Patient is compliant with meds states no taking as all meds . Monitors bp at home: No. If yes, readings: Denies side effects: No. Chest pain: No. Dyspnea: No. Edema: No. Palpitations: No. Syncope: No. Headache: No. Dizziness: Yes. Went to hospital blood sugar 500s Last 3 Encounter BP Readings: Date: BP: 03/29/2022 130/94 01/21/2022 120/82 07/31/2021 134/90 Last 2 Encounter Wt Readings: Date: Wt: 03/29/2022 85.2 kg (187 lb 12.8 oz) 01/21/2022 86.3 kg (190 lb 3.2 oz) Hyperlipidemia, mixed: Current medication Atorvastatin 20mg daily at bedtime Taking medication consistently No Observing low cholesterol high fiber diet No Muscle aches No Stomach complaints/ diarrhea Yes Last 2 Lipids: No recent lab Component Latest Ref Rng & Units 11/06/2018 10/31/2020 Cholesterol, Total <200 mg/dL 147 Triglyceride <150 mg/dL 108 HDL Cholesterol >39 mg/dL 48 LDL Cholesterol <100 mg/dL 77 Non HDL Cholesterol <130 mg/dL 99 Fasting Time hrs 12 VLDL Cholesterol <30 mg/dL 22 TC:HDL Ratio <5.10 3.06 LDL:HDL Ratio <2.54 1.60 Total Cholesterol, Nonfasting <200 mg/dL 141 Triglycerides, Nonfasting <150 mg/dL 98 HDL Cholesterol, Nonfasting >39 mg/dL 47 LDL Cholesterol, Nonfasting <100 mg/dL 74 Non HDL Cholesterol, Nonfasting <130 mg/dL 94 VLDL Cholesterol, Nonfasting <30 mg/dL 20 Total Chol/HDL Ratio, Nonfasting <5.10 mg/dL 3.00 LDL/HDL Ratio, Nonfasting <2.54 mg/dL 1.57 Uncontrolled type 2 diabetes mellitus with hyperglycemia (hcc) Current medications: Dulaglutide 3mg SC weekly Insulin glargine 25u SC HS Taking medication as directed consistently? No Medical Issues / Complications: hypertension, hyperlipidemia, and peripheral neuropathy Checking blood sugars at home? No. Watching diet? No Physical Activity: Regular Hypoglycemic spells? No Any visual disturbance? No Chest pain? No New numbness, tingling or loss of sensation? No Any recent foot problems, sores or rashes? No Any recent or sudden weight loss? No Change in urination? No. If yes: Any recent illness? No Last eye exam: up to date. Last foot exam: due. HBA1C: Hemoglobin A1C (%) Date Value 04/24/2022 12.3 02/25/2021 7.0 10/31/2020 11.9 ) CMP: Glucose 317 04/24/2022 BUN 12 04/24/2022 Creatinine 0.63 04/24/2022 Sodium 138 04/24/2022 Potassium 4.2 04/24/2022 Chloride 102 04/24/2022 CO2 25 04/24/2022 Protein, Total 7.0 04/24/2022 Albumin 4.3 04/24/2022 Calcium 9.4 04/24/2022 Alkaline Phosphatase 172 04/24/2022 Bilirubin, Total 0.5 04/24/2022 AST 16 04/24/2022 ALT 16 04/24/2022 Last 2 Encounter Wt Readings: Date: Wt: 03/29/2022 85.2 kg (187 lb 12.8 oz) 01/21/2022 86.3 kg (190 lb 3.2 oz) Hypothyroidism, acquired Current medication: Levothyroxine 88mcg daily AC Taking as directed on an empty stomach? No. Thyroid pain: No. Mass effect: No. Change ins energy level/ fatigue? Always tired. Sleep disturbance ?No. Temperature Intolerance: cold No, hot No. In females, menstrual cycle issues? No, If yes: Change in bowel habits? No. If yes: Constipation? No. If yes: Diarrhea? No. If yes: Weight changes?Yes. Memory issues: Yes. Diaphoresis: Yes. Numbness, tingling: No. Radiological imaging with contrast dyes within the last 3 months? No. History of radiation exposure to head or neck area? No. Change in hair or skin? No. If yes: Other symptoms: Last 2 Encounter Wt Readings: Date: Wt: 03/29/2022 85.2 kg (187 lb 12.8 oz) 01/21/2022 86.3 kg (190 lb 3.2 oz) Last thyroid labs: TSH Date Value 04/24/2022 6.280 mIU/L 02/25/2021 7.070 uU/mL 12/16/2020 4.000 uU/mL ) Hair loss Same Fatigue, unspecified type persistent Arthralgia, unspecified joint Doinfg a little better. Chronic respiratory failure with hypoxia (hcc) MANSOOR Music Arranger: none. Interval history: no new tests. Current medications: None No wearing CPAP Worsening shortness of breath: No. Cough: occasional. Wheezing: No. Smoking: No. Compliant with medications: No. Using rescue inhaler: no use. Chest pain, unspecified type No current sx HISTORIES FAMILY HISTORY Adopted: Yes Problem Relation Age of Onset other (Unknown) Mother Patient is adopted other (Unknown) Father Patient Is adopted other (Unknown) Sister Mental Problems other (Unknown) Sister Mental Problems other (Unknown) Brother Breast Cancer Other PAST MEDICAL HISTORY Diagnosis Date Esophageal reflux Essential hypertension Fractured lateral malleolus 09/28/2013 XR: transverse fracture tip lateral malleolus Heel spur, left 01/03/2012 left: plantar and posterior prominent spurs Heel spur, right 09/28/2013 XR right plantar and posterior spurs Mild or unspecified pre-eclampsia, unspecified as to episode of care 1998 Obesity, unspecified MANSOOR on CPAP Transient hypertension of , antepartum 1998 Type II or unspecified type diabetes mellitus without mention of complication, not stated as uncontrolled 09/18/2007 Unspecified hypothyroidism PAST SURGICAL HISTORY Procedure Laterality Date DELIVERY ONLY 09/12/1998 , low cervical CTA CHEST 09/07/2020 bibasilar infiltrates consistent with Covid-19 pneumonia REDUCTION OF LARGE BREAST 09/12/1999 Social History Tobacco Use Smoking status: Former Packs/day: 1.00 Years: 30.00 Pack years: 30.00 Types: Cigarettes Quit date: 2019 Years since quittin.6 Smokeless tobacco: Never Vaping Use Vaping Use: Never used Substance Use Topics Alcohol use: No Drug use: No ACTIVE PROBLEM LIST Hypothyroidism Diabetes Mellitus Type 2, Uncontrolled, Without Complications Essential Hypertension Pain in Joint, Ankle and Foot Abnormal Mammogram Hyperlipidemia, Mixed Obesity, Class II, Bmi 35-39.9 Heel Spur, Left Heel Spur, Right Covid-19 Virus Detected Uncontrolled Type 2 Diabetes Mellitus With Hyperglycemia (Hcc) Post-Acute Sequelae of Covid-19 (Pasc) Fatigue Brain Fog Other Chest Pain Current Outpatient Medications Medication Sig Dispense Refill CPAP/BIPAP/OTHER Type .CPAPSettings into a note to see current settings/supplies/DME information. 1 Each 0 lisinopril 2.5 mg tablet Take 1 tablet by mouth once daily. 30 tablet 11 atorvastatin (LIPITOR) 20 mg tablet Take 1 tablet by mouth daily at bedtime. For cholesterol. 30 tablet 11 Cholecalciferol, Vitamin D3, (VITAMIN D-3) 50 mcg (2,000 unit) cap Take 2 capsules by mouth once daily. docosahexaenoic acid/epa (FISH OIL ORAL) Take 1,000 mcg by mouth once daily. ondansetron orally disintegrating (ZOFRAN ODT) 4 mg disintegrating tablet Take 1 tablet by mouth every 6 hours as needed for Nausea/Vomiting. 6 tablet 1 levothyroxine (LEVOXYL) 88 mcg tablet Take 1 tablet by mouth once daily. Take on empty stomach. For Thyroid 30 tablet 3 dulaglutide (TRULICITY) 3 mg/0.5 mL pen injector Inject 3 mg subcutaneously one time a week. 4 Each 3 flash glucose scanning reader (FREESTYLE YAQUELIN 14 DAY READER) 1 Each four times daily. 1 Each 0 flash glucose sensor (FREESTYLE YAQUELIN 14 DAY SENSOR) kit One sensor every 14 days for QID readings 6 Each 3 aspirin 81 mg chewable tablet Take 1 tablet by mouth once daily. insulin glargine (LANTUS SOLOSTAR U-100 INSULIN) 100 unit/mL (3 mL) Inject 25 Units subcutaneously daily at bedtime. 5 Pen 3 dulaglutide (TRULICITY) 1.5 mg/0.5 mL Inject 1.5 mg subcutaneously one time a week. Inject once per week. Discard Pen After 4 Pen 3 flash glucose scanning reader (FREESTYLE YAQUELIN 14 DAY READER) misc 1 Each four times daily. 1 Each 0 flash glucose sensor (FREESTYLE YAQUELIN 14 DAY SENSOR) kit One sensor q14d 3 Kit 11 blood sugar diagnostic (FREESTYLE LITE STRIPS) test strip Test blood sugar(s) 2x daily. Dx: E11.9. Insulin: No (Patient not taking: Reported on 02/25/2021 ) 100 Strip 3 Lancets lancets Test once daily, E11.9, No insulin 100 Each 3 insulin needles, DISPOSABLE, (PEN NEEDLE) 31 gauge x 01/25 ndle Use one needle per dose. 1 per day. 100 Each 5 No current facility-administered medications for this visit. COVID-19 VACCINE(1) Never done BP CONTROLLED (<130/80) Never done DTAP,TDAP,TD(1 - Tdap) due on 02/11/2005 PNEUMOCOCCAL(2 - PCV) due on 12/25/2008 COLORECTAL CANCER SCREENING Never done PAP TESTING due on 10/21/2013 HPV TESTING due on 10/21/2013 HEPATITIS B(2 of 3 - 3-dose series) due on 08/21/2014 LUNG CANCER SCREENING Never done SHINGRIX VACCINE(1 of 2) Never done URINE ALBUMIN:CREATININE RATIO due on 11/04/2021 DIABETIC FOOT EXAM due on 11/04/2021 MAMMOGRAM due on 11/05/2021 ANNUAL PCP TEAM CHRONIC DISEASE VISIT due on 12/16/2021 Some of this note may have been copied and pasted for the purpose of history context and comparison. HISTORIES FAMILY HISTORY Adopted: Yes Problem Relation Age of Onset other (Unknown) Mother Patient is adopted other (Unknown) Father Patient Is adopted other (Unknown) Sister Mental Problems other (Unknown) Sister Mental Problems other (Unknown) Brother Breast Cancer Other PAST MEDICAL HISTORY Diagnosis Date Esophageal reflux Essential hypertension Fractured lateral malleolus 09/28/2013 XR: transverse fracture tip lateral malleolus Heel spur, left 01/03/2012 left: plantar and posterior prominent spurs Heel spur, right 09/28/2013 XR right plantar and posterior spurs Mild or unspecified pre-eclampsia, unspecified as to episode of care 1998 Obesity, unspecified MANSOOR on CPAP Transient hypertension of , antepartum 1998 Type II or unspecified type diabetes mellitus without mention of complication, not stated as uncontrolled 09/18/2007 Unspecified hypothyroidism PAST SURGICAL HISTORY Procedure Laterality Date DELIVERY ONLY 09/12/1998 , low cervical CTA CHEST 09/07/2020 bibasilar infiltrates consistent with Covid-19 pneumonia REDUCTION OF LARGE BREAST 09/12/1999 Social History Tobacco Use Smoking status: Former Packs/day: 1.00 Years: 30.00 Pack years: 30.00 Types: Cigarettes Quit date: 2019 Years since quittin.6 Smokeless tobacco: Never Vaping Use Vaping Use: Never used Substance Use Topics Alcohol use: No Drug use: No ACTIVE PROBLEM LIST Hypothyroidism Diabetes Mellitus Type 2, Uncontrolled, Without Complications Essential Hypertension Pain in Joint, Ankle and Foot Abnormal Mammogram Hyperlipidemia, Mixed Obesity, Class II, Bmi 35-39.9 Heel Spur, Left Heel Spur, Right Covid-19 Virus Detected Uncontrolled Type 2 Diabetes Mellitus With Hyperglycemia (Hcc) Post-Acute Sequelae of Covid-19 (Pasc) Fatigue Brain Fog Other Chest Pain Current Outpatient Medications Medication Sig Dispense Refill dulaglutide (TRULICITY) 3 mg/0.5 mL pen injector Inject 3 mg subcutaneously one time a week. 4 Each 3 CPAP/BIPAP/OTHER Type .CPAPSettings into a note to see current settings/supplies/DME information. 1 Each 0 lisinopril 2.5 mg tablet Take 1 tablet by mouth once daily. (Patient not taking: Reported on 04/26/2022) 30 tablet 11 atorvastatin (LIPITOR) 20 mg tablet Take 1 tablet by mouth daily at bedtime. For cholesterol. (Patient not taking: Reported on 04/26/2022) 30 tablet 11 Cholecalciferol, Vitamin D3, 50 mcg (2,000 unit) cap Take 2 capsules by mouth once daily. (Patient not taking: Reported on 04/26/2022) levothyroxine (LEVOXYL) 88 mcg tablet Take 1 tablet by mouth once daily. Take on empty stomach. For Thyroid (Patient not taking: Reported on 04/26/2022) 30 tablet 3 flash glucose scanning reader (FREESTYLE YAQUELIN 14 DAY READER) 1 Each four times daily. 1 Each 0 flash glucose sensor (FREESTYLE YAQUELIN 14 DAY SENSOR) kit One sensor every 14 days for QID readings 6 Each 3 insulin glargine (LANTUS SOLOSTAR U-100 INSULIN) 100 unit/mL (3 mL) Inject 25 Units subcutaneously daily at bedtime. 5 Pen 3 flash glucose scanning reader (FREESTYLE YAQUELIN 14 DAY READER) misc 1 Each four times daily. 1 Each 0 flash glucose sensor (FREESTYLE YAQUELIN 14 DAY SENSOR) kit One sensor q14d 3 Kit 11 blood sugar diagnostic (FREESTYLE LITE STRIPS) test strip Test blood sugar(s) 2x daily. Dx: E11.9. Insulin: No (Patient not taking: Reported on 02/25/2021 ) 100 Strip 3 Lancets lancets Test once daily, E11.9, No insulin 100 Each 3 insulin needles, DISPOSABLE, (PEN NEEDLE) 31 gauge x 01/25 ndle Use one needle per dose. 1 per day. 100 Each 5 No current facility-administered medications for this visit. COVID-19 VACCINE(1) Never done BP CONTROLLED (<130/80) Never done DTAP,TDAP,TD(1 - Tdap) due on 02/11/2005 PNEUMOCOCCAL(2 - PCV) due on 12/25/2008 COLORECTAL CANCER SCREENING Never done PAP TESTING due on 10/21/2013 HPV TESTING due on 10/21/2013 HEPATITIS B(2 of 3 - 3-dose series) due on 08/21/2014 LUNG CANCER SCREENING Never done SHINGRIX VACCINE(1 of 2) Never done URINE ALBUMIN:CREATININE RATIO due on 11/04/2021 DIABETIC FOOT EXAM due on 11/04/2021 MAMMOGRAM due on 11/05/2021 ANNUAL PCP TEAM CHRONIC DISEASE VISIT due on 12/16/2021 EXAM: BP 124/84 Pulse 116 Resp 20 Wt 84.8 kg (187 lb) LMP 07/02/2019 SpO2 96% BMI 34.76 kg/m Pleasant obese woman in no acute distress. Alert and oriented all spheres. Normal affect and cognition. Speech normal. No deficits to learning or comprehension. Skin warm, dry, pink to lips and nailbeds. Normal turgor. Respirations regular and unlabored. HEENT: NCAT. No scleral icterus or conjunctival injection. TM's clear. Nose and oropharynx free from injection or lesion. Oral membranes moist and pink. No cervical lymph nodes. Thyroid non-tender, no masses, or enlargement. Carotids pulses 2+/4+ without bruits. No JVD with HOB at 30 degrees. Chest is normal shape. Lungs are clear to all loya with good air exchange through out. HRRR without murmur or gallop. No lifts, heaves, or rubs. Extrem: no clubbing, cyanosis, edema. Distal pulses 2+/4, prompt capillary refill. ASSESSMENT/PLAN: 1. Essential hypertension - ICD9: 401.9, ICD10: I10 (primary diagnosis) - good control - Recommended regular aerobic exercise. - Recommend home blood pressure monitoring, to bring results in on next visit - Goal of BP <130/80 - LISINOPRIL 2.5 MG TABLET 2. Hyperlipidemia, mixed - ICD9: 272.2, ICD10: E78.2 - to be determined upon return of lab results - Continue current medication. - ATORVASTATIN 20 MG TABLET 3. Uncontrolled type 2 diabetes mellitus with hyperglycemia (HCC) - ICD9: 250.02, ICD10: E11.65 Uncontrolled Noncompliance Discussion of irresponsible self- management, risks Asked if she wants to continue with my oversight, which she does, in which case I expect her to work with me and not waste efforts. She is to sign up with [email or web address] so I can access blood sugars: QID AC+HS Titrate dulaglutide - Continue current medications - INSULIN GLARGINE (U-100) 100 UNIT/ML (3 ML) SUBCUTANEOUS PEN - ALBUMIN/CREAT RATIO RND UR - HGB A1C - COMP METABOLIC PANEL - LISINOPRIL 2.5 MG TABLET - INSULIN GLARGINE (U-100) 100 UNIT/ML (3 ML) SUBCUTANEOUS PEN 4. Hypothyroidism, acquired - ICD9: 244.9, ICD10: E03.9 - Resume medication, Instructed patient on importance of taking on an empty - LEVOTHYROXINE 88 MCG TABLET - LEVOTHYROXINE 88 MCG TABLET - TSH BLD - LEVOTHYROXINE 88 MCG TABLET 5. Vitamin D deficiency - ICD9: 268.9, ICD10: E55.9 - CHOLECALCIFEROL (VITAMIN D3) 50 MCG (2,000 UNIT) CAPSULE F/u 3 months Fazal Ford PA-C documented in this encounter [facility] 04-26-2022 History of Present illness Narrative Tried home.. left message to call office.. [facility] [place] Questionnaire Series Follow-up Follow-up: 12 months Call attempt: 1st Attempt Call status: Left message Next call date: 04/28/2022 documented in this encounter [facility] 04-12-2022 History of Present illness Narrative SCHEDULED 04/27/2022 @1:00.Irma Bowles Pss .2nd failed attempt to contact patient. Left message to return call Mitzy Montero PSS 1st attempt to reach patient to schedule. Message left. Magali Nichole Pss Patient is overdue for colorectal screening. Patient needs pre-op consult related to insulin dependent diabetes. Please schedule a consult prior to colonoscopy. Thank you. Sam Sin RN documented in this encounter [facility] 04-08-2022 Miscellaneous Notes Called patient an appointment was made for 04/[address], patient is aware to get done week prior an fast Ness James Ma documented in this encounter [facility] 03-29-2022 Instructions Anny Choudhary APRN.MEDICAL ASSISTANT FLOAT - 03/29/2022 12:29 PM EDT Appears to be medial epicondylitis counterforce bracing Stretches as shown Tylenol (generic acetaminophen) 500 mg-2 tabs every 8 hrs. as needed for fever and aches Aleve prn If no improvement follow up with PCP or ortho documented in this encounter [facility] 03-29-2022 History of Present illness Narrative Subjective The history is provided by the patient. No food processing plant manager was used. SASHA Villalobos is a 52 year old female who presents today for CC of right elbow pain for a month. She has used aleve without relief. She denies any redness or fever. No known injury or trauma, no previous injury. BP 130/94 Pulse 96 Temp 36.7 C (98 F) Resp 20 Wt 85.2 kg (187 lb 12.8 oz) LMP 07/02/2019 SpO2 98% BMI 34.91 kg/m Social History Tobacco Use Smoking status: Former Smoker Packs/day: 1.00 Years: 30.00 Pack years: 30.00 Types: Cigarettes Quit date: 2019 Years since quittin.5 Smokeless tobacco: Never Used Vaping Use Vaping Use: Never used Substance Use Topics Alcohol use: No Drug use: No PAST MEDICAL HISTORY Diagnosis Date Esophageal reflux Essential hypertension Fractured lateral malleolus 09/28/2013 XR: transverse fracture tip lateral malleolus Heel spur, left 01/03/2012 left: plantar and posterior prominent spurs Heel spur, right 09/28/2013 XR right plantar and posterior spurs Mild or unspecified pre-eclampsia, unspecified as to episode of care 1998 Obesity, unspecified MANSOOR on CPAP Transient hypertension of , antepartum 1998 Type II or unspecified type diabetes mellitus without mention of complication, not stated as uncontrolled 09/18/2007 Unspecified hypothyroidism I have confirmed and edited as necessary, the [facility] Review of Systems Constitutional: Negative for chills and fever. Musculoskeletal: Positive for joint pain (right elbow). Negative for myalgias. Skin: Negative for itching and rash. All other systems reviewed and are negative. Objective Physical Exam Vitals and nursing note reviewed. Cardiovascular: Pulses: Radial pulses are 2+ on the right side and 2+ on the left side. Pulmonary: Effort: Pulmonary effort is normal. Musculoskeletal: Right elbow: No swelling, deformity, effusion or lacerations. Normal range of motion. Tenderness present in medial epicondyle. Left elbow: Normal. Skin: General: Skin is warm and dry. Neurological: Mental Status: She is alert and oriented to person, place, and time. Sensory: Sensation is intact. Deep Tendon Reflexes: Reflexes are normal and symmetric. Psychiatric: Mood and Affect: Affect normal. ASSESSMENT/PLAN: 1. Right elbow pain - ICD9: 719.42, ICD10: M25.521 Appears to be medial epicondylitis counterforce bracing Stretches as shown Tylenol (generic acetaminophen) 500 mg-2 tabs every 8 hrs. as needed for fever and aches Aleve prn - XR ELBOW SPECIAL VIEWS AP/LAT/OTHER RIGHT FINDINGS: No acute fractures or subluxations are noted. The radiocapitellar and ulnotrochlear joint spaces are preserved. No fat pad sign to suggest joint effusion. The mineralization of the bones is normal. There is no significant soft tissue swelling. IMPRESSION: No acute radiographic abnormalities seen in the right elbow. Interpreted by : ANTHONY CASTRO MD Diagnosis and treatment plan were discussed and questions were answered to the patient's satisfaction. Pt acknowledged understanding of concepts and follow up plan. Specific signs and symptoms that would indicate the need for higher level of care were discussed in detail warranting prompt ER evaluation. Anny Choudhary APRN.MIKKI documented in this encounter [facility] 01-21-2022 History of Present illness Narrative Subjective HPI Nontoxic-appearing female presents urgent care chief complaint left ear pain. Duration of symptoms 2 weeks. Associated symptoms left ear pain. Patient states ear pain has worsened over the last 4 days. States she did have some drainage when she woke up yesterday from left ear. Presents today for evaluation. History of ear infections this feels similar. Denies any OTC medications. Denies any trauma or difficulty hearing or tinnitus. Denies any fever body aches chills cough chest pain shortness of breath pleuritic pain hemoptysis nausea vomiting abdominal pain or change in bowel or bladder habits. Past medical history prescription medication use allergies reviewed. .Patient presents with: Ear Pain: L ear x2 weeks, 4 days worse PAST MEDICAL HISTORY Diagnosis Date Esophageal reflux Essential hypertension Fractured lateral malleolus 09/28/2013 XR: transverse fracture tip lateral malleolus Heel spur, left 01/03/2012 left: plantar and posterior prominent spurs Heel spur, right 09/28/2013 XR right plantar and posterior spurs Mild or unspecified pre-eclampsia, unspecified as to episode of care 1998 Obesity, unspecified MANSOOR on CPAP Transient hypertension of , antepartum 1998 Type II or unspecified type diabetes mellitus without mention of complication, not stated as uncontrolled 09/18/2007 Unspecified hypothyroidism PAST SURGICAL HISTORY Procedure Laterality Date DELIVERY ONLY 09/12/1998 , low cervical CTA CHEST 09/07/2020 bibasilar infiltrates consistent with Covid-19 pneumonia REDUCTION OF LARGE BREAST 09/12/1999 ALLERGIES Metformin MEDICATIONS CPAP/BIPAP/OTHER Type .CPAPSettings into a note to see current settings/supplies/DME information. lisinopril 2.5 mg tablet Take 1 tablet by mouth once daily. atorvastatin (LIPITOR) 20 mg tablet Take 1 tablet by mouth daily at bedtime. For cholesterol. Cholecalciferol, Vitamin D3, (VITAMIN D-3) 50 mcg (2,000 unit) cap Take 2 capsules by mouth once daily. docosahexaenoic acid/epa (FISH OIL ORAL) Take 1,000 mcg by mouth once daily. ondansetron orally disintegrating (ZOFRAN ODT) 4 mg disintegrating tablet Take 1 tablet by mouth every 6 hours as needed for Nausea/Vomiting. levothyroxine (LEVOXYL) 88 mcg tablet Take 1 tablet by mouth once daily. Take on empty stomach. For Thyroid dulaglutide (TRULICITY) 3 mg/0.5 mL pen injector Inject 3 mg subcutaneously one time a week. flash glucose scanning reader (FREESTYLE YAQUELIN 14 DAY READER) 1 Each four times daily. flash glucose sensor (FREESTYLE YAQUELIN 14 DAY SENSOR) kit One sensor every 14 days for QID readings aspirin 81 mg chewable tablet Take 1 tablet by mouth once daily. dulaglutide (TRULICITY) 1.5 mg/0.5 mL Inject 1.5 mg subcutaneously one time a week. Inject once per week. Discard Pen After flash glucose scanning reader (FREESTYLE YAQUELIN 14 DAY READER) misc 1 Each four times daily. flash glucose sensor (FREESTYLE YAQUELIN 14 DAY SENSOR) kit One sensor q14d Lancets lancets Test once daily, E11.9, No insulin insulin needles, DISPOSABLE, (PEN NEEDLE) 31 gauge x 5/16 ndle Use one needle per dose. 1 per day. insulin glargine (LANTUS SOLOSTAR U-100 INSULIN) 100 unit/mL (3 mL) Inject 25 Units subcutaneously daily at bedtime. blood sugar diagnostic (FREESTYLE LITE STRIPS) test strip Test blood sugar(s) 2x daily. Dx: E11.9. Insulin: No FAMILY HISTORY Adopted: Yes Problem Relation Age of Onset other (Unknown) Mother Patient is adopted other (Unknown) Father Patient Is adopted other (Unknown) Sister Mental Problems other (Unknown) Sister Mental Problems other (Unknown) Brother Breast Cancer Other Social History Tobacco Use Smoking status: Former Smoker Packs/day: 1.00 Years: 30.00 Pack years: 30.00 Types: Cigarettes Quit date: 2019 Years since quittin.3 Smokeless tobacco: Never Used Vaping Use Vaping Use: Never used Substance Use Topics Alcohol use: No Drug use: No BP 120/82 Pulse 82 Temp 37.2 C (98.9 F) Resp 20 Wt 86.3 kg (190 lb 3.2 oz) LMP 07/02/2019 SpO2 97% BMI 35.36 kg/m Review of Systems Constitutional: Negative for chills, fever and malaise/fatigue. HENT: Positive for congestion and ear pain. Negative for ear discharge, sinus pain and sore throat. Eyes: Negative for blurred vision, pain, discharge and redness. Respiratory: Negative for cough, hemoptysis, sputum production, shortness of breath, wheezing and stridor. Cardiovascular: Negative for chest pain. Gastrointestinal: Negative for abdominal pain, diarrhea, nausea and vomiting. Musculoskeletal: Negative for myalgias. Skin: Negative for itching and rash. Neurological: Negative for dizziness and headaches. Objective Physical Exam Vitals and nursing note reviewed. Constitutional: General: She is not in acute distress. Appearance: She is not diaphoretic. HENT: Head: Normocephalic and atraumatic. Jaw: No trismus, tenderness, swelling or pain on movement. Right Ear: Hearing, tympanic membrane, ear canal and external ear normal. No decreased hearing noted. No drainage, swelling or tenderness. There is impacted cerumen. No mastoid tenderness. Tympanic membrane is not perforated, erythematous or bulging. Left Ear: Hearing, ear canal and external ear normal. No decreased hearing noted. No drainage, swelling or tenderness. No mastoid tenderness. Tympanic membrane is erythematous and bulging. Tympanic membrane is not perforated. Ears: Comments: No otorrhea external erythema edema noted. Nose: Congestion present. Mouth/Throat: Lips: [place]. Mouth: Mucous membranes are moist. Pharynx: Oropharynx is clear. Uvula midline. No pharyngeal swelling, oropharyngeal exudate, posterior oropharyngeal erythema or uvula swelling. Eyes: General: Right eye: No discharge. Left eye: No discharge. Conjunctiva/sclera: Conjunctivae normal. Pupils: Pupils are equal, round, and reactive to light. Cardiovascular: Rate and Rhythm: Normal rate and regular rhythm. Heart sounds: Normal heart sounds. Pulmonary: Effort: Pulmonary effort is normal. No tachypnea, accessory muscle usage or respiratory distress. Breath sounds: Normal breath sounds. No stridor. No wheezing, rhonchi or rales. Chest: Chest wall: No tenderness. Abdominal: Palpations: Abdomen is soft. Tenderness: There is no abdominal tenderness. Musculoskeletal: General: No tenderness. Normal range of motion. Cervical back: Normal range of motion and neck supple. No rigidity or tenderness. Lymphadenopathy: Head: Right side of head: No submental, submandibular, tonsillar, preauricular, posterior auricular or occipital adenopathy. Left side of head: No submental, submandibular, tonsillar, preauricular, posterior auricular or occipital adenopathy. Cervical: No cervical adenopathy. Right cervical: No superficial or posterior cervical adenopathy. Left cervical: No superficial or posterior cervical adenopathy. Skin: General: Skin is warm and dry. Findings: No rash. Neurological: Mental Status: She is alert and oriented to person, place, and time. ASSESSMENT/PLAN: 1. Left non-suppurative otitis media - ICD9: 381.4, ICD10: H65.92 Patient diagnosed with left ear otitis media. Patient will be placed on amoxicillin. Will follow up with PCP after completion of antibiotics for irrigation of impacted cerumen. Patient was educated on supportive therapies. Patient will follow up with primary care provider as needed. Patient was instructed to immediately proceed to emergency room for any new, worsening, or symptoms lasting longer than anticipated. The patient's clinical presentation is otherwise unremarkable at this time. Based on exam and clinical finding, the patient is stable for discharge. Plan of care was discussed with patient. Patient verbalizes understanding and agrees to plan of care. This note was generated using Keisense software. It may contain errors in wording, punctuation, or spelling. Davide Kim [email or web address] documented in this encounter [facility] 04-15-2021 Note HNO ID: [id number] Author: Maty Carvajal, PT Service: ? Author Type: Physical Therapist Type: Progress Notes Filed: 04/16/2021 2:04 PM Note Text: Episode Visit Count: 1 Therapist That Will Oversee The Plan Of Care: Maty Carvajal Start of Care Date: 04/15/21 Onset Date: 09/01/20 Plan of Care Certification Date: 04/15/21 Next Certification Due Date: 06/15/21 Patient Identified by Name and Date of : Yes REHABILITATION AND SPORTS THERAPY PHYSICAL THERAPY EVALUATION PLAN OF CARE: Assessment: Andrew Villalobos presents with the diagnosis of post COVID syndrome with chief compliant of SOB, fatigue, and decrease from baseline . She presents with impairments of decreased endurance, SOB, impaired response to exercise, and decrease from peer. PROMIS? (Patient-Reported Outcomes Measurement Information System) scores were reviewed and physical function domain identified as a rehabilitation concern. She may benefit from skilled therapy services to improve endurance and prevent decline. Prognosis: Good Good due to: good support system/ coping skills Goals for Episode of Care: created on 04/15/21 through 06/14/21 Patient will demonstrate current home exercise program independently. Improve five time sit to stand to 8 seconds to decrease risk of falls. Patient will complete 18 reps on 30 second chair stand test to decrease risk of falls. Patient will improve average gait speed on Six Minute Walk Test to 1.2 m/s to demonstrate improved endurance and community ambulation. Patient will improve distance on 2 minute walk test by 12.2 meters/40 feet to meet CHAZ for older adults to increase endurance for household and community ambulation. Patient will improve single leg stance time to 30 seconds on Bilateral Legs to improve balance. Patient Goals: Less short of breath. Be able to bathroom without issues. Planned Interventions, Frequency, and Duration: Current Frequency: 2x/week Duration: 8 weeks Total Number of Visits Planned: 12 Planned Treatment Interventions: Therapeutic exercise (16222);Neuromuscular re-education (03934);Manual therapy (19336);Therapeutic activities (22782);Self-custodial management (02693);Gait Training (95105);Patient/Family/Caregiver Education PLAN FOR NEXT VISIT: Start with general conditioning. education on diaphramatic breathing. Patient demonstrates good understanding of plan of care and treatment. The above goals and plan of care were discussed and agreed upon by patient/family. SUBJECTIVE: Andrew Villalobos is a 51 year old female seen today for Dx with COVID Aug 2020. In hospital x 3 days on O2. Still on O2 for sleep. Off works x 9 weeks. notes issues with heat tolerance. Complaints of fatigue, brain fog, SOB, and chest pain. Patient Goals: Less short of breath. Be able to bathroom without issues. 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 Recreation / Current Exercise: Walking (30 minutes); Hobbies / Interests: Being outside Home Environment Patient Lives With: Self/Alone Home Type: Apt/Condo Entry To Home: No Stairs Laundry: In apartment Intake Information: Prescription present Previous Treatment: None Falls Interview: No positive findings with falls interview Pain: Pain Pain Level: 0 Post Treatment Pain Post Treatment Pain Level: 0 PROMIS Scales Higher is Better 12/01/2020 02/23/2021 04/15/2021 Phys Func - Score - - 41 (mild dysfunction) Phys Func - Percentile - - 18 % Social Roles - Score - - 43 (mild dysfunction) Social Role - Percentile - - 24 % GH Physical - Score 44.9 47.7 (Good) - GH Physical - Percentile 31 % 41 % - GH Mental - Score 48.3 45.8 (Good) - GH Mental - Percentile 43 % 34 % - Self-Eff Symptom - Score - - 40 (Average) Self-Eff Symptom - Percentile - - 16 % T-scores: mean of general population = 50. 5 points is clinically meaningfully difference Percentiles provide an indication of how the patient's score ranks in relation to the general population. Higher percentile rankings indicate better function/quality of life. 50th percentile is the average of the general population and indicates half of respondents had a worse score. Lower is Better 02/23/2021 04/15/2021 Fatigue - Score 57 (mild) 59 (mild) Fatigue - Percentile 24 % 18 % T-scores: mean of general population = 50. 5 points is clinically meaningfully difference Percentiles provide an indication of how the patient's score ranks in relation to the general population. Higher percentile rankings indicate better function/quality of life. 50th percentile is the average of the general population and indicates half of respondents had a worse score. OBJECTIVE MEASURES WITH LEVEL OF FUNCTION: Cognition Cognition: (more content not included)... [facility] 02-25-2021 Miscellaneous Notes Results reviewed. No urgent concerns. To be discussed as planned at scheduled follow-up appt. Debi Raymundo APRN.CNP [facility] documented in this encounter [facility] 02-25-2021 Progress note Formatting of t his note might be different from the original. Results reviewed. No urgent concerns. To be discussed as planned at scheduled follow-up appt. Debi Raymundo APRN.CNP [facility] Work Phone: 11-04-2020 History of Past i llness Narrative Problem Noted Date Resolved Date Chronic respiratory failure with hypoxia 021 03/30/2021 BMI 40.0-44.9, adult 03/07/2015 08/22/2017 Fracture of fibula, distal, right, closed 201303/07/2015 Last Assessment & Plan: Still has some intermittent pain. Interested in PT. Pain in joint, ankle and foot 03/08/2012 Calcaneal spur 02/08/2012 11/07/2012 documented as of this encounter (statuses as of 12/21/2021) [facility] History of Past illness Narrative* Problem Noted Date Resolved Date Chronic respiratory failure with hypoxia 03/30/2021 BMI 40.0-44.9, adult 03/07/2015 08/22/2017 Fracture of fibula, distal, right, closed 201303/07/2015 Last Assessment & Plan: Still has some intermittent pain. Interested in PT. Pain in joint, ankle and foot 03/08/2012 Calcaneal spur 02/08/2012 11/07/2012 documented as of this encounter (statuses as of 01/21/2022) [facility] History of Past illness Narrative* Problem Noted Date Resolved Date Chronic respiratory failure with hypoxia 021 03/30/2021 BMI 40.0-44.9, adult 03/07/2015 08/22/2017 Fracture of fibula, distal, right, closed 201303/07/2015 Last Assessment & Plan: Still has some intermittent pain. Interested in PT. Pain in joint, ankle and foot 03/08/2012 Calcaneal spur 02/08/2012 11/07/2012 documented as of this encounter (statuses as of 03/29/2022) [facility] History of Past illness Narrative* Problem Noted Date Resolved Date Chronic respiratory failure with hypoxia 021 03/30/2021 BMI 40.0-44.9, adult 03/07/2015 08/22/2017 Fracture of fibula, distal, right, closed 201303/07/2015 Last Assessment & Plan: Still has some intermittent pain. Interested in PT. Pain in joint, ankle and foot 03/08/2012 Calcaneal spur 02/08/2012 11/07/2012 documented as of this encounter (statuses as of 04/08/2022) [address]23-2021 History of Past illness Narrative* Problem Noted Date Resolved Date Chronic respiratory failure with hypoxia 021 03/30/2021 BMI 40.0-44.9, adult 03/07/2015 08/22/2017 Fracture of fibula, distal, right, closed 201303/07/2015 Last Assessment & Plan: Still has some intermittent pain. Interested in PT. Pain in joint, ankle and foot 03/08/2012 Calcaneal spur 02/08/2012 11/07/2012 documented as of this encounter (statuses as of 04/12/2022) [facility] History of Past illness Narrative* Problem Noted Date Resolved Date Chronic respiratory failure with hypoxia 021 03/30/2021 BMI 40.0-44.9, adult 03/07/2015 08/22/2017 Fracture of fibula, distal, right, closed 201303/07/2015 Last Assessment & Plan: Still has some intermittent pain. Interested in PT. Pain in joint, ankle and foot 03/08/2012 Calcaneal spur 02/08/2012 11/07/2012 documented as of this encounter (statuses as of 04/26/2022) [facility] History of Past illness Narrative* Problem Noted Date Resolved Date Chronic respiratory failure with hypoxia 021 03/30/2021 BMI 40.0-44.9, adult 03/07/2015 08/22/2017 Fracture of fibula, distal, right, closed 201303/07/2015 Last Assessment & Plan: Still has some intermittent pain. Interested in PT. Pain in joint, ankle and foot 03/08/2012 Calcaneal spur 02/08/2012 11/07/2012 documented as of this encounter (statuses as of 04/27/2022) [address]-2021 History of Past illness Narrative* Problem Noted Date Resolved Date Chronic respiratory failure with hypoxia 021 03/30/2021 BMI 40.0-44.9, adult 03/07/2015 08/22/2017 Fracture of fibula, distal, right, closed 201303/07/2015 Last Assessment & Plan: Still has some intermittent pain. Interested in PT. Pain in joint, ankle and foot 03/08/2012 Calcaneal spur 02/08/2012 11/07/2012 documented as of this encounter (statuses as of 05/05/2022) [facility] History of Past illness Narrative* Problem Noted Date Resolved Date Chronic respiratory failure with hypoxia 03/30/2021 BMI 40.0-44.9, adult 03/07/2015 08/22/2017 Fracture of fibula, distal, right, closed 201303/07/2015 Last Assessment & Plan: Still has some intermittent pain. Interested in PT. Pain in joint, ankle and foot 03/08/2012 Calcaneal spur 02/08/2012 11/07/2012 documented as of this encounter (statuses as of 10/21/2022) [address]-2021 History of Past illness Narrative* Problem Noted Date Resolved Date Chronic respiratory failure with hypoxia 021 03/30/2021 BMI 40.0-44.9, adult 03/07/2015 08/22/2017 Fracture of fibula, distal, right, closed 201303/07/2015 Last Assessment & Plan: Still has some intermittent pain. Interested in PT. Pain in joint, ankle and foot 03/08/2012 Calcaneal spur 02/08/2012 11/07/2012 documented as of this encounter (statuses as of 12/13/2022) [facility] History of Past illness Narrative* Problem Noted Date Resolved Date Chronic respiratory failure with hypoxia 021 03/30/2021 BMI 40.0-44.9, adult 03/07/2015 08/22/2017 Fracture of fibula, distal, right, closed 201303/07/2015 Last Assessment & Plan: Still has some intermittent pain. Interested in PT. Pain in joint, ankle and foot 03/08/2012 Calcaneal spur 02/08/2012 11/07/2012 documented as of this encounter (statuses as of 03/12/2023) [address]-2021 History of Past illness Narrative* Problem Noted Date Resolved Date Chronic respiratory failure with hypoxia 021 03/30/2021 BMI 40.0-44.9, adult 03/07/2015 08/22/2017 Fracture of fibula, distal, right, closed 201303/07/2015 Last Assessment & Plan: Still has some intermittent pain. Interested in PT. Pain in joint, ankle and foot 03/08/2012 Calcaneal spur 02/08/2012 11/07/2012 documented as of this encounter (statuses as of 03/13/2023) [facility] History of Past illness Narrative* Problem Noted Date Diagnosed Date Resolved Date Chronic respiratory failure with hypoxia 11/04/2020 03/30/2021 BMI 40.0-44.9, adult 03/07/2015 017 Fracture of fibula, distal, right, closed 11/13/2013 03/07/2015 Last Assessment & Plan: Still has some intermittent pain. Interested in PT. Pain in joint, ankle and foot 03/08/2012 11/07/2012 Calcaneal spur 02/08/2012 11/07/2012 documented as of this encounter (statuses as of 07/04/2023) [facility] History of Past illness Narrative* Problem Noted Date Diagnosed Date Resolved Date Chronic respiratory failure with hypoxia 11/04/2020 03/30/2021 BMI 40.0-44.9, adult 03/07/2015 017 Fracture of fibula, distal, right, closed 11/13/2013 03/07/2015 Last Assessment & Plan: Still has some intermittent pain. Interested in PT. Pain in joint, ankle and foot 03/08/2012 11/07/2012 Calcaneal spur 02/08/2012 11/07/2012 documented as of this encounter (statuses as of 07/05/2023) [facility] History of Past illness Narrative* Problem Noted Date Diagnosed Date Resolved Date Chronic respiratory failure with hypoxia 11/04/2020 03/30/2021 BMI 40.0-44.9, adult 03/07/2015 017 Fracture of fibula, distal, right, closed 11/13/2013 03/07/2015 Last Assessment & Plan: Still has some intermittent pain. Interested in PT. Pain in joint, ankle and foot 03/08/2012 11/07/2012 Calcaneal spur 02/08/2012 11/07/2012 documented as of this encounter (statuses as of 08/17/2023) [facility] History of Past illness Narrative* Problem Noted Date Diagnosed Date Resolved Date Chronic respiratory failure with hypoxia 11/04/2020 03/30/2021 BMI 40.0-44.9, adult 03/07/2015 017 Fracture of fibula, distal, right, closed 11/13/2013 03/07/2015 Last Assessment & Plan: Still has some intermittent pain. Interested in PT. Pain in joint, ankle and foot 03/08/2012 11/07/2012 Calcaneal spur 02/08/2012 11/07/2012 documented as of this encounter (statuses as of 10/28/2023) [facility] History of Past illness Narrative* Problem Noted Date Diagnosed Date Resolved Date Chronic respiratory failure with hypoxia 11/04/2020 03/30/2021 BMI 40.0-44.9, adult 03/07/2015 017 Fracture of fibula, distal, right, closed 11/13/2013 03/07/2015 Last Assessment & Plan: Still has some intermittent pain. Interested in PT. Pain in joint, ankle and foot 03/08/2012 11/07/2012 Calcaneal spur 02/08/2012 11/07/2012 documented as of this encounter (statuses as of 10/28/2023) [facility] History of Past illness Narrative* Problem Noted Date Diagnosed Date Resolved Date Chronic respiratory failure with hypoxia 11/04/2020 03/30/2021 BMI 40.0-44.9, adult 03/07/2015 017 Fracture of fibula, distal, right, closed 11/13/2013 03/07/2015 Last Assessment & Plan: Still has some intermittent pain. Interested in PT. Pain in joint, ankle and foot 03/08/2012 11/07/2012 Calcaneal spur 02/08/2012 11/07/2012 documented as of this encounter (statuses as of 10/28/2023) [facility] History of Past illness Narrative* Problem Noted Date Diagnosed Date Resolved Date Chronic respiratory failure with hypoxia 11/04/2020 03/30/2021 BMI 40.0-44.9, adult 03/07/2015 017 Fracture of fibula, distal, right, closed 11/13/2013 03/07/2015 Last Assessment & Plan: Still has some intermittent pain. Interested in PT. Pain in joint, ankle and foot 03/08/2012 11/07/2012 Calcaneal spur 02/08/2012 11/07/2012 documented as of this encounter (statuses as of 10/31/2023) [facility] History of Past illness Narrative* Problem Noted Date Diagnosed Date Resolved Date Chronic respiratory failure with hypoxia 11/04/2020 03/30/2021 BMI 40.0-44.9, adult 03/07/2015 017 Fracture of fibula, distal, right, closed 11/13/2013 03/07/2015 Last Assessment & Plan: Still has some intermittent pain. Interested in PT. Pain in joint, ankle and foot 03/08/2012 11/07/2012 Calcaneal spur 02/08/2012 11/07/2012 documented as of this encounter (statuses as of 11/17/2023) [facility] History of Past illness Narrative* Problem Noted Date Diagnosed Date Resolved Date Chronic respiratory failure with hypoxia 11/04/2020 03/30/2021 BMI 40.0-44.9, adult 03/07/2015 017 Fracture of fibula, distal, right, closed 11/13/2013 03/07/2015 Last Assessment & Plan: Still has some intermittent pain. Interested in PT. Pain in joint, ankle and foot 03/08/2012 11/07/2012 Calcaneal spur 02/08/2012 11/07/2012 documented as of this encounter (statuses as of 12/16/2023) [facility] History of Past illness Narrative* Problem Noted Date Diagnosed Date Resolved Date Chronic respiratory failure with hypoxia 11/04/2020 03/30/2021 BMI 40.0-44.9, adult 03/07/2015 017 Fracture of fibula, distal, right, closed 11/13/2013 03/07/2015 Last Assessment & Plan: Still has some intermittent pain. Interested in PT. Pain in joint, ankle and foot 03/08/2012 11/07/2012 Calcaneal spur 02/08/2012 11/07/2012 documented as of this encounter (statuses as of 12/23/2023) [facility] History of Past illness Narrative* Problem Noted Date Diagnosed Date Resolved Date Chronic respiratory failure with hypoxia 11/04/2020 03/30/2021 BMI 40.0-44.9, adult 03/07/2015 017 Fracture of fibula, distal, right, closed 11/13/2013 03/07/2015 Last Assessment & Plan: Still has some intermittent pain. Interested in PT. Pain in joint, ankle and foot 03/08/2012 11/07/2012 Calcaneal spur 02/08/2012 11/07/2012 documented as of this encounter (statuses as of 12/23/2023) [facility] History of Present illness Narrative* Cathie Rey (Rt), Tech - 10/02/2020 8:30 AM EST Radiology Service Progress Note PATIENT NAME: Andrew Villalobos DATE OF SERVICE: October 02, 2020 TIME: 8:23 AM PATIENT IDENTITY VERIFICATION COMPLETED USING TWO (2) IDENTIFIERS: Name and Date of confirmedby patient verbally. FALL SCREENING: Has the patient had 2 falls in the last year or 1 fall with injury or currently using an Ambulatory Assistive Device (Walker, Cane, Wheelchair, Crutches, etc.)? No PATIENT GENDER DATA: Female. status: : No status: NO. PATIENT RELEVANT IMPLANT DATA REVIEWED: Yes RADIOLOGY DEPARTMENT: General X-ray: Exam(s) Completed: Chest X-Ray PERIPHERAL IV DATA: Not applicable SIGNED BY: RT Martin October 02, 2020 8:23 AM [facility] History of Present illness Narrative* Cathie Rey), Mariela - 09/18/2020 10:40 AM EST Radiology Service Progress Note PATIENT NAME: Andrew Villalobos DATE OF SERVICE: September 18, 2020 TIME: 10:47 AM PATIENT IDENTITY VERIFICATION COMPLETED USING TWO (2) IDENTIFIERS: Name and Date of confirmedby patient verbally. FALL SCREENING: Has the patient had 2 falls in the last year or 1 fall with injury or currently using an Ambulatory Assistive Device (Walker, Cane, Wheelchair, Crutches, etc.)? No PATIENT GENDER DATA: Female. status: : No status: NO. PATIENT RELEVANT IMPLANT DATA REVIEWED: Yes RADIOLOGY DEPARTMENT: General X-ray: Exam(s) Completed: Chest X-Ray PERIPHERAL IV DATA: Not applicable SIGNED BY: RT Martin September 18, 2020 10:47 AM [facility] Encounter for screening mammogram for breast cancer [facility]* Diagnosis Left non-suppurative otitis media- Primary Nonsuppurative otitis media, not specified as acute or chronic documented in this encounter [facility] noteNo assessment information availableWMercy [facility] Work Phone: Evaluation note* Diagnosis Right elbow pain- Primary Pain in joint, upper arm documented in this encounter [facility] note* Diagnosis Hyperlipidemia, mixed- Primary Mixed hyperlipidemia Essential hypertension Unspecified essential hypertension Uncontrolled type 2 diabetes mellitus with hyperglycemia (HCC) Hypothyroidism, acquired Unspecified hypothyroidism documented in this encounter [facility] note* Diagnosis Essential hypertension- Primary Unspecified essential hypertension Hyperlipidemia, mixed Mixed hyperlipidemia Uncontrolled type 2 diabetes mellitus with hyperglycemia (HCC) Hypothyroidism, acquired Unspecified hypothyroidism Vitamin D deficiency Unspecified vitamin D deficiency Nausea Nausea alone documented in this encounter [facility] note* Diagnosis Neck pain on left side- Primary Cervicalgia documented in this encounter [facility] note* Diagnosis Encounter for screening mammogram for breast cancer documented in this encounter [facility] note* Diagnosis Acute right ankle pain- Primary documented in this encounter [facility] note* Diagnosis Sore throat- Primary Acute pharyngitis Acute URI Acute upper respiratory infections of unspecified site documented in this encounter [facility] note* Diagnosis COVID-19- Primary documented in this encounter [facility] note* Diagnosis Uncontrolled type 2 diabetes mellitus with hyperglycemia (HCC)- Primary documented in this encounter [facility] note* Diagnosis Uncontrolled type 2 diabetes mellitus with hyperglycemia (HCC)- Primary documented in this encounter [facility] note* Diagnosis Sore throat- Primary Acute pharyngitis URI, acute Acute upper respiratory infections of unspecified site documented in this encounter [facility] note* Diagnosis Nausea Nausea alone documented in this encounter [facility] note* Diagnosis Uncontrolled type 2 diabetes mellitus with hyperglycemia (HCC)- Primary documented in this encounter [facility] note* Diagnosis Hypothyroidism, unspecified type- Primary documented in this encounter [facility] note* Diagnosis Essential hypertension- Primary Unspecified essential hypertension Encounter for screening mammogram for breast cancer Hyperlipidemia, mixed Mixed hyperlipidemia Controlled type 2 diabetes mellitus without complication, without long-term current use of insulin (HCC) Screening for colon cancer Special screening for malignant neoplasms, colon documented in this encounter [facility] note* Diagnosis Physical exam- Primary Unspecified general medical examination Need for prophylactic vaccination and inoculation against influenza DIABETES MELLITUS TYPE II-UNCOMPL Type II or unspecified type diabetes mellitus without mention of complication, not stated as uncontrolled History of fibula fracture Personal history of traumatic fracture HYPOTHYROIDISM NOS Unspecified hypothyroidism Need for hepatitis B vaccination Need for prophylactic vaccination and inoculation against viral hepatitis Right elbow pain Pain in joint, upper arm documented in this encounter [facility] note* Diagnosis Physical exam- Primary Unspecified general medical examination Need for prophylactic vaccination and inoculation against influenza DIABETES MELLITUS TYPE II-UNCOMPL Type II or unspecified type diabetes mellitus without mention of complication, not stated as uncontrolled History of fibula fracture Personal history of traumatic fracture HYPOTHYROIDISM NOS Unspecified hypothyroidism Need for hepatitis B vaccination Need for prophylactic vaccination and inoculation against viral hepatitis Essential hypertension- Primary Unspecified essential hypertension Screening for colon cancer Special screening for malignant neoplasms, colon Uncontrolled type 2 diabetes mellitus with hyperglycemia (HCC) Other specified hypothyroidism documented in this encounter [facility] note* Diagnosis Physical exam- Primary Unspecified general medical examination Need for prophylactic vaccination and inoculation against influenza DIABETES MELLITUS TYPE II-UNCOMPL Type II or unspecified type diabetes mellitus without mention of complication, not stated as uncontrolled History of fibula fracture Personal history of traumatic fracture HYPOTHYROIDISM NOS Unspecified hypothyroidism Need for hepatitis B vaccination Need for prophylactic vaccination and inoculation against viral hepatitis Post-acute sequelae of COVID-19 (PASC) MORENO (dyspnea on exertion) Other dyspnea and respiratory abnormality Chest pain, unspecified type Palpitations Tachycardia Tachycardia, unspecified Dizziness Dizziness and giddiness Fatigue, unspecified type Brain fog documented in this encounter [facility] note* Diagnosis Physical exam- Primary Unspecified general medical examination Need for prophylactic vaccination and inoculation against influenza DIABETES MELLITUS TYPE II-UNCOMPL Type II or unspecified type diabetes mellitus without mention of complication, not stated as uncontrolled History of fibula fracture Personal history of traumatic fracture HYPOTHYROIDISM NOS Unspecified hypothyroidism Need for hepatitis B vaccination Need for prophylactic vaccination and inoculation against viral hepatitis Pneumonia due to COVID-19 virus documented in this encounter [facility] note* Diagnosis Physical exam- Primary Unspecified general medical examination Need for prophylactic vaccination and inoculation against influenza DIABETES MELLITUS TYPE II-UNCOMPL Type II or unspecified type diabetes mellitus without mention of complication, not stated as uncontrolled History of fibula fracture Personal history of traumatic fracture HYPOTHYROIDISM NOS Unspecified hypothyroidism Need for hepatitis B vaccination Need for prophylactic vaccination and inoculation against viral hepatitis Pneumonia due to COVID-19 virus documented in this encounter [facility] note* Diagnosis Physical exam- Primary Unspecified general medical examination Need for prophylactic vaccination and inoculation against influenza DIABETES MELLITUS TYPE II-UNCOMPL Type II or unspecified type diabetes mellitus without mention of complication, not stated as uncontrolled History of fibula fracture Personal history of traumatic fracture HYPOTHYROIDISM NOS Unspecified hypothyroidism Need for hepatitis B vaccination Need for prophylactic vaccination and inoculation against viral hepatitis Wellness examination- Primary Hyperlipidemia, mixed Mixed hyperlipidemia Vitamin D deficiency Unspecified vitamin D deficiency Uncontrolled type 2 diabetes mellitus with hyperglycemia (HCC) Hypothyroidism, acquired Unspecified hypothyroidism Essential hypertension Unspecified essential hypertension Nausea Nausea alone Gastroesophageal reflux disease without esophagitis Esophageal reflux Screening for cervical cancer Screening for malignant neoplasm of the cervix Bilateral carpal tunnel syndrome Carpal tunnel syndrome 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) documented in this encounter [facility] for referral (narrative)* Diagnostic Procedure Only (Routine) - Pending Review Specialty Diagnoses / Procedures Referred By Rigo rose Referred To Contact [facility] Diagnoses Encounter for screening mammogram for breast cancer Procedures TAMI SCREENING SCREENING MAMMOGRAPHY BI 2-VIEW BREAST INC Fazal Hanna PA-C [address] [place] [address] [facility] [address] [place] [address] Referral ID Status Reason Start Date Expiration Date Visits Requested Visits Authorized [id number] Pending Review Auto-Generat ed Referral 12/16/2021 01/15/2023 1 1 [facility] for referral (narrative)* Diagnostic Procedure Only (Urgent) - Closed Specialty Diagnoses / Procedures Referred By Rigo rose Referred To Contact [facility] Diagnoses Right elbow pain Procedures XR ELBOW SPECIAL VIEWS AP/LAT/OTHER RIGHT RADEX ELBOW COMPLETE MINIMUM 3 VIEWS Anny Choudhary, GAY.MEDICAL ASSISTANT FLOAT [address] [place] [address] [facility] Referral ID Status Reason Start Date Expiration Date V isits Requested Visits Authorized [id number] Closed Auto-Generate d Referral 03/29/2022 04/28/2023 1 1 T [facility] for referral (narrative)* Diagnostic Procedure Only (Routine) - Pending Review Specialty Diagnoses / Procedures Referred By Rigo t Referred To Contact [facility] Diagnoses Encounter for screening mammogram for breast cancer Procedures TAMI SCREENING SCREENING MAMMOGRAPHY BI 2-VIEW BREAST INC Fazal Hanna PA-C [address] [place] [address] [facility] [address] [place] [address] Referral ID Status Reason Start Date Expiration Date Visits Requested Visits Authorized [id number] Pending Review Auto-Generat ed Referral 12/08/2022 01/07/2024 1 1 [facility] for referral (narrative)* Diagnostic Procedure Only (Urgent) - Closed Specialty Diagnoses / Procedures Referred By Contac t Referred To Contact XR IMAGING Diagnoses Acute right ankle pain Procedures XR ANKLE GENERAL 3V AP/LAT/OBL RIGHT RADEX ANKLE COMPLETE MINIMUM 3 VIEWS Anny Choudhary APRN.MEDICAL ASSISTANT FLOAT [address] [place] [address] [facility] Referral ID Status Reason Start Date Expiration Date V isits Requested Visits Authorized [id number] Closed Auto-Generate d Referral 03/12/2023 04/10/2024 1 1 [facility] for referral (narrative)* Diagnostic Procedure Only (Routine) - Authorized Specialty Diagnoses / Procedures Referred By Contac t Referred To Contact [facility] Diagnoses Encounter for screening mammogram for breast cancer Procedures TAMI SCREENING W ERMA SCREENING DIGITAL BREAST TOMOSYNTHESIS BI SCREENING MAMMOGRAPHY BI 2-VIEW BREAST INC Fazal Hanna PA-C [address] [place] [address] [facility] [address] [place] [address] Referral ID Status Reason Start Date Expiration Date Visits Requested Visits Authorized [id number] Authorized Auto-Generat ed Referral 03/12/2024 04/10/2025 1 1 [facility] for referral (narrative)* Diagnostic Procedure Only (Urgent) - Closed Specialty Diagnoses / Procedures Referred By Contac t Referred To Contact XR IMAGING Diagnoses Right elbow pain Procedures XR ELBOW SPECIAL VIEWS AP/LAT/OTHER RIGHT RADEX ELBOW COMPLETE MINIMUM 3 VIEWS Anny Choudhary, WOODWORKER HELPER.MEDICAL ASSISTANT FLOAT [address] [place] [address] [place] [address] Referral ID Status Reason Start Date Expiration Date V isits Requested Visits Authorized [id number] Closed Auto-Generate d Referral 03/29/2022 04/28/2023 1 1 [facility] for visit Narrative* Diagnostic Procedure Only (Urgent) - Closed Specialty Diagnoses / Procedures Referred By Contac t Referred To Contact XR IMAGING Diagnoses Acute right ankle pain Procedures XR ANKLE GENERAL 3V AP/LAT/OBL RIGHT RADEX ANKLE COMPLETE MINIMUM 3 VIEWS Anny Choudhary APRN.MEDICAL ASSISTANT FLOAT [address] [place] [address] [facility] Referral ID Status Reason Start Date Expiration Date V isits Requested Visits Authorized [id number] Closed Auto-Generate d Referral 03/12/2023 04/10/2024 1 1 [facility] for visit Narrative* Diagnostic Procedure Only (Urgent) - Closed Specialty Diagnoses / Procedures Referred By Contac t Referred To Contact XR IMAGING Diagnoses Right elbow pain Procedures XR ELBOW SPECIAL VIEWS AP/LAT/OTHER RIGHT RADEX ELBOW COMPLETE MINIMUM 3 VIEWS Anny Choudhary APRN.MEDICAL ASSISTANT FLOAT [address] [place] [id number] [place] [address] Referral ID Status Reason Start Date Expiration Date V isits Requested Visits Authorized [id number] Closed Auto-Generate d Referral 03/29/2022 04/28/2023 [address] [facility] Summary Purpose Family History No Family History Records Found Relationship Condition Age at Onset Recorded Date/T joey Unknown Family History?- Unknown August 7:00pm Advance Directives No Advanced Directives Records Found Advance Directive Response Recorded Date/ Time Living Will No February 14, 2022 3 :13pm Power of Multiple Punch Press Operator No February 14, 2022 3:13pm Chief Complaint and Reason for Visit Chief Complaint DIZZINESS Health Concerns Infection Onset Date Last Indicated Resolved Time COVID-19 Rule-Out 07/04/2023 07/04/2023 Infection Onset Date Last Indicated Resolved Time COVID-19 Confirmed 07/04/2023 07/04/2023 Reason for Referral Specialty Diagnoses / Procedures Referred By Contaki t Referred To Contact Fazal Ford PA-C [address] [facility] [place] [address] Referral ID Status Reason Start Date Expiration Date V isits Requested Visits Authorized [id number] Authorized 09/28/2023 10/27/2024 1 1 Additional Source Comments INFORMATION SOURCE (unrecogn ized section and content) DATE CREATED AUTHOR 01/22/2021 [facility] ([place]) DATE CREATED AUTHOR AUTHOR'S ORGANIZ ATION 04/17/2021 [facility] DATE CREATED AUTHOR AUTHOR'S ORGANIZ ATION 03/13/2023 [facility] DATE CREATED AUTHOR AUTHOR'S ORGANIZ ATION 10/13/2024 [facility] DATE CREATED AUTHOR AUTHOR'S ORGANIZ ATION 10/28/2024 [facility] DATE CREATED AUTHOR AUTHOR'S ORGANIZ ATION 01/05/2025 [facility] Source Comments (unrecognize d section and content) In the event this informatio n is protected by the Federal Confidentiality of Alcohol and Drug Abuse Patient Records regulations: The Federal rules restrict any use of the information to criminally investigate or prosecute any alcohol or drug abuse patient.[facility] the event this information is protected by the Federal Confidentiality of Alcohol and Drug Abuse Patient Records regulations: The Federal rules restrict any use of the information to criminally investigate or prosecute any alcohol or drug abuse patient.[facility] the event this information is protected by the Federal Confidentiality of Alcohol and Drug Abuse Patient Records regulations: The Federal rules restrict any use of the information to criminally investigate or prosecute any alcohol or drug abuse patient.[facility] HospitalIn the event this information is protected by the Federal Confidentiality of Alcohol and Drug Abuse Patient Records regulations: The Federal rules restrict any use of the information to criminally investigate or prosecute any alcohol or drug abuse patient.[facility] HospitalIn the event this information is protected by the Federal Confidentiality of Alcohol and Drug Abuse Patient Records regulations: The Federal rules restrict any use of the information to criminally investigate or prosecute any alcohol or drug abuse patient.[facility] HospitalIn the event this information is protected by the Federal Confidentiality of Alcohol and Drug Abuse Patient Records regulations: The Federal rules restrict any use of the information to criminally investigate or prosecute any alcohol or drug abuse patient.[facility] HospitalIn the event this information is protected by the Federal Confidentiality of Alcohol and Drug Abuse Patient Records regulations: The Federal rules restrict any use of the information to criminally investigate or prosecute any alcohol or drug abuse patient.[facility] HospitalIn the event this information is protected by the Federal Confidentiality of Alcohol and Drug Abuse Patient Records regulations: The Federal rules restrict any use of the information to criminally investigate or prosecute any alcohol or drug abuse patient.[facility] HospitalIn the event this information is protected by the Federal Confidentiality of Alcohol and Drug Abuse Patient Records regulations: The Federal rules restrict any use of the information to criminally investigate or prosecute any alcohol or drug abuse patient.[facility] HospitalIn the event this information is protected by the Federal Confidentiality of Alcohol and Drug Abuse Patient Records regulations: The Federal rules restrict any use of the information to criminally investigate or prosecute any alcohol or drug abuse patient.[facility] HospitalIn the event this information is protected by the Federal Confidentiality of Alcohol and Drug Abuse Patient Records regulations: The Federal rules restrict any use of the information to criminally investigate or prosecute any alcohol or drug abuse patient.[facility] HospitalIn the event this information is protected by the Federal Confidentiality of Alcohol and Drug Abuse Patient Records regulations: The Federal rules restrict any use of the information to criminally investigate or prosecute any alcohol or drug abuse patient.[facility] HospitalIn the event this information is protected by the Federal Confidentiality of Alcohol and Drug Abuse Patient Records regulations: The Federal rules restrict any use of the information to criminally investigate or prosecute any alcohol or drug abuse patient.[facility] HospitalIn the event this information is protected by the Federal Confidentiality of Alcohol and Drug Abuse Patient Records regulations: The Federal rules restrict any use of the information to criminally investigate or prosecute any alcohol or drug abuse patient.[facility] HospitalIn the event this information is protected by the Federal Confidentiality of Alcohol and Drug Abuse Patient Records regulations: The Federal rules restrict any use of the information to criminally investigate or prosecute any alcohol or drug abuse patient.[facility] HospitalIn the event this information is protected by the Federal Confidentiality of Alcohol and Drug Abuse Patient Records regulations: The Federal rules restrict any use of the information to criminally investigate or prosecute any alcohol or drug abuse patient.[facility] HospitalIn the event this information is protected by the Federal Confidentiality of Alcohol and Drug Abuse Patient Records regulations: The Federal rules restrict any use of the information to criminally investigate or prosecute any alcohol or drug abuse patient.[facility] HospitalIn the event this information is protected by the Federal Confidentiality of Alcohol and Drug Abuse Patient Records regulations: The Federal rules restrict any use of the information to criminally investigate or prosecute any alcohol or drug abuse patient.[facility] HospitalIn the event this information is protected by the Federal Confidentiality of Alcohol and Drug Abuse Patient Records regulations: The Federal rules restrict any use of the information to criminally investigate or prosecute any alcohol or drug abuse patient.[facility] HospitalIn the event this information is protected by the Federal Confidentiality of Alcohol and Drug Abuse Patient Records regulations: The Federal rules restrict any use of the information to criminally investigate or prosecute any alcohol or drug abuse patient.[facility] HospitalIn the event this information is protected by the Federal Confidentiality of Alcohol and Drug Abuse Patient Records regulations: The Federal rules restrict any use of the information to criminally investigate or prosecute any alcohol or drug abuse patient.[facility] HospitalIn the event this information is protected by the Federal Confidentiality of Alcohol and Drug Abuse Patient Records regulations: The Federal rules restrict any use of the information to criminally investigate or prosecute any alcohol or drug abuse patient.[facility] HospitalIn the event this information is protected by the Federal Confidentiality of Alcohol and Drug Abuse Patient Records regulations: The Federal rules restrict any use of the information to criminally investigate or prosecute any alcohol or drug abuse patient.[facility] HospitalIn the event this information is protected by the Federal Confidentiality of Alcohol and Drug Abuse Patient Records regulations: The Federal rules restrict any use of the information to criminally investigate or prosecute any alcohol or drug abuse patient.[facility] HospitalIn the event this information is protected by the Federal Confidentiality of Alcohol and Drug Abuse Patient Records regulations: The Federal rules restrict any use of the information to criminally investigate or prosecute any alcohol or drug abuse patient.[facility] HospitalIn the event this information is protected by the Federal Confidentiality of Alcohol and Drug Abuse Patient Records regulations: The Federal rules restrict any use of the information to criminally investigate or prosecute any alcohol or drug abuse patient.[facility] HospitalIn the event this information is protected by the Federal Confidentiality of Alcohol and Drug Abuse Patient Records regulations: The Federal rules restrict any use of the information to criminally investigate or prosecute any alcohol or drug abuse patient.[facility] HospitalIn the event this information is protected by the Federal Confidentiality of Alcohol and Drug Abuse Patient Records regulations: The Federal rules restrict any use of the information to criminally investigate or prosecute any alcohol or drug abuse patient.[facility] HospitalIn the event this information is protected by the Federal Confidentiality of Alcohol and Drug Abuse Patient Records regulations: The Federal rules restrict any use of the information to criminally investigate or prosecute any alcohol or drug abuse patient.[facility] HospitalIn the event this information is protected by the Federal Confidentiality of Alcohol and Drug Abuse Patient Records regulations: The Federal rules restrict any use of the information to criminally investigate or prosecute any alcohol or drug abuse patient.[facility] HospitalIn the event this information is protected by the Federal Confidentiality of Alcohol and Drug Abuse Patient Records regulations: The Federal rules restrict any use of the information to criminally investigate or prosecute any alcohol or drug abuse patient.[facility] HospitalIn the event this information is protected by the Federal Confidentiality of Alcohol and Drug Abuse Patient Records regulations: The Federal rules restrict any use of the information to criminally investigate or prosecute any alcohol or drug abuse patient.[facility] HospitalIn the event this information is protected by the Federal Confidentiality of Alcohol and Drug Abuse Patient Records regulations: The Federal rules restrict any use of the information to criminally investigate or prosecute any alcohol or drug abuse patient.[facility] HospitalIn the event this information is protected by the Federal Confidentiality of Alcohol and Drug Abuse Patient Records regulations: The Federal rules restrict any use of the information to criminally investigate or prosecute any alcohol or drug abuse patient.[facility] HospitalIn the event this information is protected by the Federal Confidentiality of Alcohol and Drug Abuse Patient Records regulations: The Federal rules restrict any use of the information to criminally investigate or prosecute any alcohol or drug abuse patient.[facility] HospitalIn the event this information is protected by the Federal Confidentiality of Alcohol and Drug Abuse Patient Records regulations: The Federal rules restrict any use of the information to criminally investigate or prosecute any alcohol or drug abuse patient.[facility] HospitalIn the event this information is protected by the Federal Confidentiality of Alcohol and Drug Abuse Patient Records regulations: The Federal rules restrict any use of the information to criminally investigate or prosecute any alcohol or drug abuse patient.[facility] HospitalIn the event this information is protected by the Federal Confidentiality of Alcohol and Drug Abuse Patient Records regulations: The Federal rules restrict any use of the information to criminally investigate or prosecute any alcohol or drug abuse patient.[facility] HospitalIn the event this information is protected by the Federal Confidentiality of Alcohol and Drug Abuse Patient Records regulations: The Federal rules restrict any use of the information to criminally investigate or prosecute any alcohol or drug abuse patient.[facility] HospitalIn the event this information is protected by the Federal Confidentiality of Alcohol and Drug Abuse Patient Records regulations: The Federal rules restrict any use of the information to criminally investigate or prosecute any alcohol or drug abuse patient.[facility] Care Teams (unrecognized sec tion and content) [employer] Coordinator Relationship Specialty Start Date End Date Fazal Ford PA-C [address] [place] [address] PCP - General Family Practice 11/06/18 [employer] Coordinator Relationship Specialty Start Date End Date Fazal Ford PA-C [address] [facility] [place] [address] PCP - General Family Practice 11/06/18 [employer] Coordinator Relationship Specialty Start Date End Date Fazal Ford PA-C [address] [facility] [place] [address] PCP - General Family Practice 11/06/18 [employer] Coordinator Relationship Specialty Start Date End Date Fazal Ford PA-C [address] [facility] [place] [address] PCP - General Family Practice 11/06/18 [employer] Coordinator Relationship Specialty Start Date End Date Fazal Ford PA-C [address] [place] [place] [address] PCP - General Family Practice 11/06/18 [employer] Coordinator Relationship Specialty Start Date End Date Fazal Ford PA-C [address] [place] [address] PCP - General Family Practice 11/06/18 [employer] Coordinator Relationship Specialty Start Date End Date Fazal Ford PA-C [address] [facility] [place] [address] PCP - General Family Practice 11/06/18 [employer] Coordinator Relationship Specialty Start Date End Date Fazal Ford PA-C [address] [facility] [place] [address] PCP - General Family Medicine 11/06/18 [employer] Coordinator Relationship Specialty Start Date End Date Fazal Ford PA-C [address] [facility] [place] [address] PCP - General Family Medicine 11/06/18 [employer] Coordinator Relationship Specialty Start Date End Date Fazal Ford PA-C [address] [place] [place] [address] PCP - General Family Medicine 11/06/18 [employer] Coordinator Relationship Specialty Start Date End Date Fazal Ford PA-C [address] [place] [address] PCP - General Family Medicine 11/06/18 [employer] Coordinator Relationship Specialty Start Date End Date Fazal Ford PA-C [address] [place] [address] PCP - General Family Medicine 11/06/18 [employer] Coordinator Relationship Specialty Start Date End Date Fazal Ford PA-C [address] [place] [place] [address] PCP - General Family Medicine 11/06/18 [employer] Coordinator Relationship Specialty Start Date End Date Fazal Ford PA-C [address] [place] [place] [address] PCP - General Family Medicine 11/06/18 [employer] Coordinator Relationship Specialty Start Date End Date Fazal Ford PA-C [address] [place] [place] [address] PCP - General Family Medicine 11/06/18 [facility] [address] [facility] [place] [address] Pharmacist Pharmacy 09/08/23 [employer] Coordinator Relationship Specialty Start Date End Date Fazal Ford PA-C [address] [place] [place] [address] PCP - General Family Medicine 11/06/18 Marlen Kelly [facility] [address] [facility] [place] [address] Pharmacist Pharmacy 09/08/23 [employer] Coordinator Relationship Specialty Start Date End Date Fazal Ford PA-C [address] [place] [place] [address] PCP - General Family Medicine 11/06/18 [facility] [address] [facility] [place] [address] Pharmacist Pharmacy 09/08/23 [employer] Coordinator Relationship Specialty Start Date End Date Fazal Ford PA-C [address] [facility] [place] [address] PCP - General Family Medicine 11/06/18 [facility] [address] [facility] [place] [address] Pharmacist Pharmacy 09/08/23 [employer] Coordinator Relationship Specialty Start Date End Date Fazal Ford PA-C [address] [place] [place] [address] PCP - General Family Medicine 11/06/18 [facility] [address] [facility] [place] [address] Pharmacist Pharmacy 09/08/23 [employer] Coordinator Relationship Specialty Start Date End Date Fazal Ford PA-C [address] [place] [place] [address] PCP - General Family Medicine 11/06/18 [facility] [address] [facility] [place] [address] Pharmacist Pharmacy 09/08/23 [employer] Coordinator Relationship Specialty Start Date End Date Fazal Ford PA-C [address] [place] [address] PCP - General Family Medicine 11/06/18 [facility] R[facility] [address] [place] [address] Pharmacist Pharmacy 09/08/23 [employer] Coordinator Relationship Specialty Start Date End Date Fazal Ford PA-C [address] [facility] [place] [address] PCP - General Family Medicine 11/06/18 [facility] [address] [place] [address] Pharmacist Pharmacy 09/08/23 [employer] Coordinator Relationship Specialty Start Date End Date Fazal Ford PA-C [address] [place] [address] PCP - General Family Medicine 11/06/18 [facility] [address] [place] [address] Pharmacist Pharmacy 09/08/23 [employer] Coordinator Relationship Specialty Start Date End Date Fazal Ford PA-C [address] [facility] [place] [address] PCP - General Family Medicine 11/06/18 [facility] [address] [facility] [place] [address] Pharmacist Pharmacy 09/08/23 [employer] Coordinator Relationship Specialty Start Date End Date Fazal Ford PA-C [address] [facility] [place] [address] PCP - General Family Medicine 11/06/18 [employer] Coordinator Relationship Specialty Start Date End Date Fazal Ford PA-C [address] [place] [place] [address] PCP - General Family Medicine 11/06/18 [facility] [address] [facility] [place] [address] Pharmacist Pharmacy 09/08/23 [employer] Coordinator Relationship Specialty Start Date End Date Fazal Ford PA-C [address] [place] [place] [address] PCP - General Family Medicine 11/06/18 [employer] Coordinator Relationship Specialty Start Date End Date Fazal Ford PA-C [address] [place] [place] [address] PCP - General Family Medicine 11/06/18 [facility] [address] [facility] [place] [address] Pharmacist Pharmacy 09/08/23 [employer] Coordinator Relationship Specialty Start Date End Date Fazal Ford PA-C [address] [place] [place] [address] PCP - General Family Medicine 11/06/18 [employer] Coordinator Relationship Specialty Start Date End Date Fazal Ford PA-C [address] [place] [address] PCP - General Family Medicine 11/06/18 [facility] [address] [facility] [place] [address] Pharmacist Pharmacy 09/08/23 [employer] Coordinator Relationship Specialty Start Date End Date Zohra Morse, WOODWORKER HELPER.MEDICAL ASSISTANT FLOAT [address] [facility], [place] [address] PCP - General Family Medicine 12/06/24 Marlen Kelly RP [address] [facility], [place] [address] Pharmacist Pharmacy 09/08/23 Patricia Tomlin, WOODWORKER HELPER.MEDICAL ASSISTANT FLOAT [address] [facility], [place] [id number] [facility] 08/17/24 Zohra Morse, WOODWORKER HELPER.MEDICAL ASSISTANT FLOAT [address] [facility], [place] [id number] [facility] 08/17/24 Reason for Visit (unrecogniz ed section and content) Reason Comments Ear Pain L ear x2 weeks, 4 da ys worse Reason Comments Pain (Elbow Pain) R elbow pain x 1 mon th, denies injury Reason Onset Date Comments Outpatient Colonoscopy 03/29/2022 Reason Comments Follow Up Review lab results Reason Onset Date Comments Refill Request 05/04/2022 Reason Comments Pain Left side of shoulde r and head pain x 5 days Reason Comments Ankle Pain R ankle pain x2 week s, no recent injury Reason Comments Sore Throat Cough, body aches, n ausea x 1.5 days Reason Comments Results Reason Comments Diabetes Reason Comments Insurance Authorization Reason Comments Forms Reason Onset Date Comments colorectal recall screening 12/15/2023 Reason Comments Diabetes Reason Comments Cough Cough, ST, [place] and no voice x 2 days Reason Comments Refill Request Reason Comments Follow Up Reason Onset Date Comments Refill Request 05/20/2024 Reason Onset Date Comments Refill Request 06/11/2024 Reason Comments Establish Care Ford patient Physical Goals (unrecognized section and content) Goals may be documented in a n alternate section FOR RECORDS PERTAINING TO PATIENTS WHO ARE OR HAVE BEEN ENROLLED IN A CHEMICAL DEPENDENCY/SUBSTANCEABUSE PROGRAM, SOME INFORMATION MAY BE OMITTED. This clinical summary was aggregated from multiple sources. Caution should be exercised in using it in the provision of clinical care. This summary normalizes information from multiple sources, and as a consequence, information in this document may materially change the coding, format and clinical context of patient data. In addition, data may be omitted in some cases. CLINICAL DECISIONS SHOULD BE BASED ON THE PRIMARY CLINICAL RECORDS. [facility] [employer] [facility]. provides no warranty or guarantee of the accuracy or completeness of information in this document.
[2025-02-15] MEDS: Lidocaine 1% (20 ml mdv) 20 ML Vial INFILT (22:31)
[2025-02-15 23:55] VITALS: BP 130/74; PULSE 89; RESP 18; TEMP 36.6; O2SAT 98
[2025-02-16] MEDS: Smz/Tmp Ds Tablet 1 TABLET PO (00:01)
== END 2025-02-16 00:01 | disposition home or self-care (01) ==
PROVIDERS: Emergency Provider Emergency Medicine; PCP Clinical Nurse Specialist Adult Health; Visit Provider Emergency Medicine
DX: E11.628 Type 2 diabetes mellitus with other skin complications (principal); L02.31 Cutaneous abscess of buttock; L03.317 Cellulitis of buttock; F17.210 Nicotine dependence, cigarettes, uncomplicated; Z79.85 Long-term (current) use of injectable non-insulin antidiabetic drugs
CPT/HCPCS: 10061; 46050; 99282